=== PATIENT | male | born 1940 | race Caucasian/White ===

== ENCOUNTER 2018-02-28 08:00 | Outpatient (RCR) | payer MEDICARE, SELFPAY ==
[2018-02-21 10:44] VITALS: BP 151/97; PULSE 104; RESP 20; TEMP 36.7; BMI 38.5
--- NOTE | 2018-02-21 11:59 | PCM.WC.HP ---
- Physical Exam Vital Signs Temp Pulse Resp BP 98.0 F 104 H 20 H 151/97 H 02/21/18 10:44 02/21/18 10:44 02/21/18 10:44 02/21/18 10:44 Wound Measurements and Assessment WC - Nurse 1 - General Ulcer Measurement Start: 02/21/18 10:39 Freq: Status: Active Protocol: Activity Type Activity Date Activity User E-Sign Co-Sign Detail Recorded Client Recorded Date Recorded By Document 02/21/18 10:44 DV [id number] 02/21/18 11:21 DV 02/21/18 10:44 Wound Center Nurse 1 [Ulcer Assessment] #1 Medial RLE -Combined with other wound No -Current Size (cm) - Length 1.1 -Current Size (cm) - Width 1.3 -Current Size (cm) - Depth 0.7 -Total Square Cm 1.43 -Date of Last Picture (Recall this 02/21/18 field) -Photo Taken Yes -Epithelialization None Present -Tunneling No -Undermining/Tunneling No -Circular Undermining No -Classification - Thickness Full Thickness without Exposed Support Structure -Exudate Amt Medium (34-66%) -Exudate Type Sanguineous -Wound Margin Indistinct, Non -Visible -Granulation Amt None Present (0 %) -Granulation Quality N/A -Slough/Fibrin Yes -Necrosis Amt Large (67-100%) -Necrotic Tissue Type Adherent Slough -Structure Exposed None/Limited to Skin Breakdown -Texture (Skylar-wound Skin Appearance) Assessed Localized Edema Scarring -Moisture (Skylar-wound Skin Appearance Assessed ) Weeping -Color (Skylar-wound Skin Appearance) Assessed Hemosiderin Staining -Temperature (Skylar-wound Skin No Abnormality Appearance) (Pt Warm) -Tenderness on Palpation (Skylar-wound No Skin Appearance) -Ulcer Cleansing Rinsed/ Irrigated with Saline -Foul Odor after Cleansing No -Anesthetic Used 5% Lidocaine Gel [Edema Assessment] -Lower Limb Edema Present Yes -Right Calf (cm) 45.5 -Right Ankle (cm) 26.1 -Left Calf (cm) 38.5 -Left Ankle (cm) 23.0 WC - Nurse 2 - General Ulcer CM Notes Start: 02/21/18 10:39 Freq: Status: Active Protocol: Activity Type Activity Date Activity User E-Sign Co-Sign Detail Recorded Client Recorded Date Recorded By Document 02/21/18 11:42 [id number] 02/21/18 11:54 02/21/18 11:42 Wound Center Nurse 2 [Procedure/Treatment] #1 [facility] RLE -Time 11:42 -Correct Patient Yes -Correct Side, Site, Position Yes -Correct Procedure Yes -Procedure Performed No -Wound/Ulcer Outcome Not Healed -Ulcer Cleansing Not Cleansed -Foul Odor after Cleansing No -Bioengineered Tissue No -Topical Lidocaine (%) 4 -Lidocaine (ml) 5 -Bleeding Controlled with Pressure -Treatment Response Procedure Tolerated Well [See Physician Procedure note for Specifics] Pain Scale: 0-10 Numeric [Pain] -Is Patient Pain Free? Yes Debridement Note Post-Debridement Measurements/Treatment WC - Nurse 2 - General Ulcer CM Notes Start: 02/21/18 10:39 Freq: Status: Active Protocol: Activity Type Activity Date Activity User E-Sign Co-Sign Detail Recorded Client Recorded Date Recorded By Document 02/21/18 11:42 [id number] 02/21/18 11:54 02/21/18 11:42 [facility] -Correct Patient Yes -Correct Side, Site, Position Yes -Correct Procedure Yes -Procedure Performed No -Wound/Ulcer Outcome Not Healed -Ulcer Cleansing Not Cleansed -Foul Odor after Cleansing No -Bioengineered Tissue No -Topical Lidocaine (%) 4 -Lidocaine (ml) 5 -Bleeding Controlled with Pressure -Treatment Response Procedure Tolerated Well Pain Scale: 0-10 Numeric Is Patient Pain Free? Yes
--- NOTE | 2018-02-21 12:06 | HP.PCM_ITS ---
- Physical Exam Vital Signs Temp Pulse Resp BP 98.0 F 104 H 20 H 151/97 H 02/21/18 10:44 02/21/18 10:44 02/21/18 10:44 02/21/18 10:44 Wound Measurements and Assessment WC - Nurse 1 - General Ulcer Measurement Start: 02/21/18 10:39 Freq: Status: Active Protocol: Activity Type Activity Date Activity User E-Sign Co-Sign Detail Recorded Client Recorded Date Recorded By Document 02/21/18 10:44 [id number] 02/21/18 11:21 DV 02/21/18 10:44 Wound Center Nurse 1 [Ulcer Assessment] #1 Medial RLE -Combined with other wound No -Current Size (cm) - Length 1.1 -Current Size (cm) - Width 1.3 -Current Size (cm) - Depth 0.7 -Total Square Cm 1.43 -Date of Last Picture (Recall this 02/21/18 field) -Photo Taken Yes -Epithelialization None Present -Tunneling No -Undermining/Tunneling No -Circular Undermining No -Classification - Thickness Full Thickness without Exposed Support Structure -Exudate Amt Medium (34-66%) -Exudate Type Sanguineous -Wound Margin Indistinct, Non -Visible -Granulation Amt None Present (0 %) -Granulation Quality N/A -Slough/Fibrin Yes -Necrosis Amt Large (67-100%) -Necrotic Tissue Type Adherent Slough -Structure Exposed None/Limited to Skin Breakdown -Texture (Skylar-wound Skin Appearance) Assessed Localized Edema Scarring -Moisture (Skylar-wound Skin Appearance Assessed ) Weeping -Color (Skylar-wound Skin Appearance) Assessed Hemosiderin Staining -Temperature (Skylar-wound Skin No Abnormality Appearance) (Pt Warm) -Tenderness on Palpation (Skylar-wound No Skin Appearance) -Ulcer Cleansing Rinsed/ Irrigated with Saline -Foul Odor after Cleansing No -Anesthetic Used 5% Lidocaine Gel [Edema Assessment] -Lower Limb Edema Present Yes -Right Calf (cm) 45.5 -Right Ankle (cm) 26.1 -Left Calf (cm) 38.5 -Left Ankle (cm) 23.0 WC - Nurse 2 - General Ulcer CM Notes Start: 02/21/18 10:39 Freq: Status: Active Protocol: Activity Type Activity Date Activity User E-Sign Co-Sign Detail Recorded Client Recorded Date Recorded By Document 02/21/18 11:42 [id number] 02/21/18 11:54 02/21/18 11:42 Wound Center Nurse 2 [Procedure/Treatment] #1 [facility] RLE -Time 11:42 -Correct Patient Yes -Correct Side, Site, Position Yes -Correct Procedure Yes -Procedure Performed No -Wound/Ulcer Outcome Not Healed -Ulcer Cleansing Not Cleansed -Foul Odor after Cleansing No -Bioengineered Tissue No -Topical Lidocaine (%) 4 -Lidocaine (ml) 5 -Bleeding Controlled with Pressure -Treatment Response Procedure Tolerated Well [See Physician Procedure note for Specifics] Pain Scale: 0-10 Numeric [Pain] -Is Patient Pain Free? Yes Debridement Note Post-Debridement Measurements/Treatment WC - Nurse 2 - General Ulcer CM Notes Start: 02/21/18 10:39 Freq: Status: Active Protocol: Activity Type Activity Date Activity User E-Sign Co-Sign Detail Recorded Client Recorded Date Recorded By Document 02/21/18 11:42 [id number] 02/21/18 11:54 02/21/18 11:42 [facility] -Correct Patient Yes -Correct Side, Site, Position Yes -Correct Procedure Yes -Procedure Performed No -Wound/Ulcer Outcome Not Healed -Ulcer Cleansing Not Cleansed -Foul Odor after Cleansing No -Bioengineered Tissue No -Topical Lidocaine (%) 4 -Lidocaine (ml) 5 -Bleeding Controlled with Pressure -Treatment Response Procedure Tolerated Well Pain Scale: 0-10 Numeric Is Patient Pain Free? Yes
--- NOTE | 2018-02-21 14:51 | PCM.WC.HP ---
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 Current Visit: Yes Code(s): I83.209 - Varicose veins of unspecified lower extremity with both ulcer of unspecified site and inflammation; L97.909 - Non-pressure chronic ulcer of unspecified part of unspecified lower leg with unspecified severity (3) Venous ulcer of right leg Status: Chronic Current Visit: Yes Code(s): I83.019 - Varicose veins of right lower extremity with ulcer of unspecified site; L97.919 - Non-pressure chronic ulcer of unspecified part of right lower leg with unspecified severity (4) Spontaneous hemorrhage Status: Chronic Current Visit: Yes Code(s): K66.1 - Hemoperitoneum (5) Atrial fibrillation Status: Chronic Current Visit: No Code(s): I48.91 - Unspecified atrial fibrillation (6) Lumbar radiculopathy Status: Chronic Current Visit: No Code(s): M54.16 - Radiculopathy, lumbar region (7) Obesity (BMI 35.0-39.9 without comorbidity) Status: Chronic Current Visit: No Code(s): E66.9 - Obesity, unspecified (8) Exertional dyspnea Status: Chronic Current Visit: No Code(s): R06.09 - Other forms of dyspnea (9) Right leg swelling Status: Chronic Current Visit: Yes Code(s): M79.89 - Other specified soft tissue disorders (10) Chronic venous hypertension with ulcer involving right side Status: Chronic Current Visit: Yes Code(s): I87.311 - Chronic venous hypertension (idiopathic) with ulcer of right lower extremity; L97.919 - Non-pressure chronic ulcer of unspecified part of right lower leg with unspecified severity History of Present Illness Date of Service: 02/21/18 Chief Complaint: Chronic venous insufficiency, varicose veins with ulceration and inflammation, venous hypertension with ulceration, venous ulceration, leg swelling, spontaneous bleeding?right lower extremity History of Wound: This is a 77-year-old male who presents with a long-standing history of chronic venous disease. The patient has had varicose veins for many years. He has elected to forego any significant treatment related to his venous disease. He denies a history of thrombophlebitis, though his past medical records indicate a history, though vague and nonspecific. Approximately 2 months ago, the patient developed a spontaneous ulceration on the medial aspect of his right calf. The site subsequently ruptured, and spontaneous bleeding occurred on 3 different occasions, each time with significant blood loss. On at least one occasion, the spontaneous bleeding occurred after taking a hot shower. On each of 3 occasions, the patient was transported to the emergency department at [facility] in [place], [place], where the patient was treated and released. On each occasion, sutures were placed to obliterate the bleeding. Patient was subsequently referred to the [facility] for definitive management. The patient relates swelling in his right leg which occurs typically at the end of each day. He sleeps on a flat mattress at night. He lies in a recumbent position often during the daytime. He is not very active. He is also noted to be obese. Past Medical History Past Medical History: Chronic Problems Chronic venous insufficiency (Chronic) Varicose veins with ulcer and inflammation (Chronic) Venous ulcer of right leg (Chronic) Spontaneous hemorrhage (Chronic) Atrial fibrillation (Chronic) Lumbar radiculopathy (Chronic) Obesity (BMI 35.0-39.9 without comorbidity) (Chronic) Exertional dyspnea (Chronic) Right leg swelling (Chronic) Chronic venous hypertension with ulcer involving right side (Chronic) Past Medical History: Patient's history is negative for myocardial infarction, congestive heart failure, diabetes mellitus, cancer, hypertension, pulmonary disease, renal disease, hyperlipidemia, and thyroid disease. The patient has a history of lumbar radiculopathy, atrial fibrillation, obesity, and exertional dyspnea. There is question as to whether the patient may have had a history of thrombophlebitis in the past. Surgical History: no surgical history - Family History Paternal - - The patient's father at the age of 90 of old age. Patient's mother at age of 83 with a history of liver cancer. Social History: The patient is a horan. 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 He is . He denies use of tobacco products. He rarely consumes alcoholic beverages. Lives: Spouse/ Significant Other Tobacco Use: Non-smoker Alcohol: Rare Drugs: None Review of Systems Constitutional: Denies: Chills, Fever, Weight Change Eyes: Denies: Pain, Vision Change HEENT: Denies: Difficulty Hearing, Difficulty Swallowing, Sinus Congestion Cardiovascular: Denies: Chest Pain, Palpitations Respiratory: Denies: Cough, Shortness of Breath Gastrointestinal: Denies: Diarrhea, Nausea, Vomiting Genitourinary: Denies: Dysuria, Hematuria Endocrine: Denies: Heat/ Cold Intolerance, Polydipsia, Polyuria Hematologic/ Lymphatic: Denies: Easy Bruising, Easy Bleeding - Physical Exam Vital Signs Temp Pulse Resp BP 98.0 F 104 H 20 H 151/97 H 02/21/18 10:44 02/21/18 10:44 02/21/18 10:44 02/21/18 10:44 General: Alert, Oriented x3, Cooperative, No apparent distress, Well developed, Well nourished HEENT: Atraumatic, PERRLA, EOMI, Normocephalic Oral: Moist Mucosa Neck: Supple, No JVD, Negative Carotid Bruits, Negative Hepatojugular Reflux, No Nodes, No Nuchal Rigidity, Trachea Midline Lungs: Clear to auscultation, Normal air movement, No rhonchi, No wheeze, No rales Cardiovascular: Regular rate, Regular Rhythm, Normal S1, Normal S2, No murmurs Abdomen: Soft, Non Tender, Non-Distended, Obese Extremities: No clubbing, No cyanosis, No Calf Tenderness, - - Moderate swelling is noted in the right lower extremity. Multiple large varicosities are noted bilaterally. Negrete phlebectatica is noted about each ankle. An open ulceration is noted on the medial right calf, the dimensions of which are documented elsewhere. There is only a small amount of bioburden. The base of the ulceration is pink and healthy in appearance, with evidence of peripheral epithelialization. Centrally, there appears to be a prominence, likely a varicosity, and possibly the area which resulted in active bleeding in the recent past. Wound Measurements and Assessment WC - Nurse 1 - General Ulcer Measurement Start: 02/21/18 10:39 Freq: Status: Active Protocol: Activity Type Activity Date Activity User E-Sign Co-Sign Detail Recorded Client Recorded Date Recorded By Document 02/21/18 10:44 DV [id number] 02/21/18 11:21 DV 02/21/18 10:44 Wound Center Nurse 1 [Ulcer Assessment] #1 Medial RLE -Combined with other wound No -Current Size (cm) - Length 1.1 -Current Size (cm) - Width 1.3 -Current Size (cm) - Depth 0.7 -Total Square Cm 1.43 -Date of Last Picture (Recall this 02/21/18 field) -Photo Taken Yes -Epithelialization None Present -Tunneling No -Undermining/Tunneling No -Circular Undermining No -Classification - Thickness Full Thickness without Exposed Support Structure -Exudate Amt Medium (34-66%) -Exudate Type Sanguineous -Wound Margin Indistinct, Non -Visible -Granulation Amt None Present (0 %) -Granulation Quality N/A -Slough/Fibrin Yes -Necrosis Amt Large (67-100%) -Necrotic Tissue Type Adherent Slough -Structure Exposed None/Limited to Skin Breakdown -Texture (Skylar-wound Skin Appearance) Assessed Localized Edema Scarring -Moisture (Skylar-wound Skin Appearance Assessed ) Weeping -Color (Skylar-wound Skin Appearance) Assessed Hemosiderin Staining -Temperature (Skylar-wound Skin No Abnormality Appearance) (Pt Warm) -Tenderness on Palpation (Skylar-wound No Skin Appearance) -Ulcer Cleansing Rinsed/ Irrigated with Saline -Foul Odor after Cleansing No -Anesthetic Used 5% Lidocaine Gel [Edema Assessment] -Lower Limb Edema Present Yes -Right Calf (cm) 45.5 -Right Ankle (cm) 26.1 -Left Calf (cm) 38.5 -Left Ankle (cm) 23.0 WC - Nurse 2 - General Ulcer CM Notes Start: 02/21/18 10:39 Freq: Status: Active Protocol: Activity Type Activity Date Activity User E-Sign Co-Sign Detail Recorded Client Recorded Date Recorded By Document 02/21/18 11:42 [id number] 02/21/18 11:54 02/21/18 11:42 Wound Center Nurse 2 [Procedure/Treatment] #1 Medial RLE -Time 11:42 -Correct Patient Yes -Correct Side, Site, Position Yes -Correct Procedure Yes -Procedure Performed No -Wound/Ulcer Outcome Not Healed -Ulcer Cleansing Not Cleansed -Foul Odor after Cleansing No -Bioengineered Tissue No -Topical Lidocaine (%) 4 -Lidocaine (ml) 5 -Bleeding Controlled with Pressure -Treatment Response Procedure Tolerated Well [See Physician Procedure note for Specifics] Pain Scale: 0-10 Numeric [Pain] -Is Patient Pain Free? Yes Neurological: Cranial nerves II-XII grossly intact, Neuro grossly intact Psych/Mental Status: Normal Affect, Appropriate, Alert and oriented to time, place, person, mood and affect Debridement Note Post-Debridement Measurements/Treatment WC - Nurse 2 - General Ulcer CM Notes Start: 02/21/18 10:39 Freq: Status: Active Protocol: Activity Type Activity Date Activity User E-Sign Co-Sign Detail Recorded Client Recorded Date Recorded By Document 02/21/18 11:42 [id number] 02/21/18 11:54 02/21/18 11:42 Wound Center Nurse 2 #1 Medial RLE -Time 11:42 -Correct Patient Yes -Correct Side, Site, Position Yes -Correct Procedure Yes -Procedure Performed No -Wound/Ulcer Outcome Not Healed -Ulcer Cleansing Not Cleansed -Foul Odor after Cleansing No -Bioengineered Tissue No -Topical Lidocaine (%) 4 -Lidocaine (ml) 5 -Bleeding Controlled with Pressure -Treatment Response Procedure Tolerated Well Pain Scale: 0-10 Numeric Is Patient Pain Free? Yes Laterality: Right - Medial calf Type of Debridement: Excisional debridement Anesthesia Used: 4% Lidocaine Solution Depth: Down to and including healthy tissue, in the subcutaneous layer Percentage of wound debrided: 80 Instrument Used: 7mm curette Severity: Fat Layer Exposed Amount of bleeding with debridement: Mild Bleeding Controlled with: Compression and gauze Patient tolerated procedure well Care was exercised to avoid an area centrally located within the ulceration on the right medial calf, suspected to represent a very superficial varicosity, and likely the site that has recently bled. Assessment/Plan Active Problems Chronic venous insufficiency (Chronic) Varicose veins with ulcer and inflammation (Chronic) Chronic venous hypertension (idiopathic) with ulcer and inflammation of bilateral lower extremity (Acute) Venous ulcer of right leg (Chronic) Spontaneous hemorrhage (Chronic) Right leg swelling (Chronic) Chronic venous hypertension with ulcer involving right side (Chronic) Assessment: This is a 77-year-old male with an apparent long-standing history of chronic venous disease. He has had varicose veins for many years, as well as chronic swelling in his right lower extremity. Also a question as to whether the patient may have a history of thrombophlebitis. Within the last several months, the patient has developed an ulceration on the right medial calf, and has had 3 episodes of spontaneous bleeding from the ulceration, prompting visits to the emergency department setting. On each occasion, suture closure of the bleeding vessel was performed. Patient presents with recent medical records, which have been reviewed. In addition, laboratory results are available from the patient's primary care physician, the results of which have been reviewed. Results are as follows: Cholesterol 199, HDL cholesterol 57, HDL ratio 3.5, LDL cholesterol 121, sodium 140, potassium 4.3, chloride 104, calcium 9.4, alkaline phosphatase 96, AST 24, ALT 18, bilirubin 0.7, glucose 89, BUN 14, creatinine 0.72, protein 7.4, albumin 4.2. The date of these laboratory results is 02/10/2018. Plan: The patient presented with his and adult daughter. The patient and his family have been advised in the appropriate conservative measures regarding management of the patient's chronic venous disease. The patient has been encouraged to continue sleeping in a recumbent position, on a flat mattress. Leg elevation should be to heart level, or higher. Legs should be elevated even during daytime hours, as much as possible. Prolonged idle sitting has been discouraged. Weight loss has been encouraged. Activity has also been encouraged as well. We have attempted to obtain [facility]-brachial indices [facility]. However, the arterial tree at ankle level appeared to be noncompressible, and ABIs could not be determined. We will reattempt the study in the vascular lab. The patient is also to undergo venous duplex examination in the near future as well. We are to initiate compression by means of Tubigrip's, though a higher degree of compression may ultimately be implemented, once the patient's arterial status is better understood. The patient is return in 1 week for reassessment. In the event that an episode of spontaneous bleeding should reoccur, the patient has been instructed to apply pressure to the bleeding site, and to elevate his lower extremity above heart level. Thereafter, he should seek medical attention. Influenza vaccine was not administered today. The patient is not a smoker. Patient weighs 261 pounds. He stands 5 feet 8 inches tall. His BMI is 38.5, which places him in an obese class II category. Weight loss has been recommended, and collaboration with the patient's primary care physician has been recommended in terms of weight loss management.
--- NOTE | 2018-02-21 15:20 | PCM.WC.HP ---
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 Current Visit: Yes Code(s): I83.209 - Varicose veins of unspecified lower extremity with both ulcer of unspecified site and inflammation; L97.909 - Non-pressure chronic ulcer of unspecified part of unspecified lower leg with unspecified severity (3) Venous ulcer of right leg Status: Chronic Current Visit: Yes Code(s): I83.019 - Varicose veins of right lower extremity with ulcer of unspecified site; L97.919 - Non-pressure chronic ulcer of unspecified part of right lower leg with unspecified severity (4) Spontaneous hemorrhage Status: Chronic Current Visit: Yes Code(s): K66.1 - Hemoperitoneum (5) Atrial fibrillation Status: Chronic Current Visit: No Code(s): I48.91 - Unspecified atrial fibrillation (6) Lumbar radiculopathy Status: Chronic Current Visit: No Code(s): M54.16 - Radiculopathy, lumbar region (7) Obesity (BMI 35.0-39.9 without comorbidity) Status: Chronic Current Visit: No Code(s): E66.9 - Obesity, unspecified (8) Exertional dyspnea Status: Chronic Current Visit: No Code(s): R06.09 - Other forms of dyspnea (9) Right leg swelling Status: Chronic Current Visit: Yes Code(s): M79.89 - Other specified soft tissue disorders (10) Chronic venous hypertension with ulcer involving right side Status: Chronic Current Visit: Yes Code(s): I87.311 - Chronic venous hypertension (idiopathic) with ulcer of right lower extremity; L97.919 - Non-pressure chronic ulcer of unspecified part of right lower leg with unspecified severity History of Present Illness Chief Complaint: Chronic venous insufficiency, varicose veins with ulceration and inflammation, venous hypertension with ulceration, venous ulceration, leg swelling, spontaneous bleeding?right lower extremity History of Wound: This is a 77-year-old male who presents with a long-standing history of chronic venous disease. The patient has had varicose veins for many years. He has elected to forego any significant treatment related to his venous disease. He denies a history of thrombophlebitis, though his past medical records indicate a history, though vague and nonspecific. Approximately 2 months ago, the patient developed a spontaneous ulceration on the medial aspect of his right calf. The site subsequently ruptured, and spontaneous bleeding occurred on 3 different occasions, each time with significant blood loss. On at least one occasion, the spontaneous bleeding occurred after taking a hot shower. On each of 3 occasions, the patient was transported to the emergency department at [facility] in [place], [place], where the patient was treated and released. On each occasion, sutures were placed to obliterate the bleeding. Patient was subsequently referred to the [facility] for definitive management. The patient relates swelling in his right leg which occurs typically at the end of each day. He sleeps on a flat mattress at night. He lies in a recumbent position often during the daytime. He is not very active. He is also noted to be obese. 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 Patient's mother at age of 83 with a history of liver cancer. Lives: Spouse/ Significant Other Tobacco Use: Non-smoker Alcohol: Rare Drugs: None - Physical Exam Vital Signs Temp Pulse Resp BP 98.0 F 104 H 20 H 151/97 H 02/21/18 10:44 02/21/18 10:44 02/21/18 10:44 02/21/18 10:44 Wound Measurements and Assessment WC - Nurse 1 - General Ulcer Measurement Start: 02/21/18 10:39 Freq: Status: Active Protocol: Activity Type Activity Date Activity User E-Sign Co-Sign Detail Recorded Client Recorded Date Recorded By Document 02/21/18 10:44 DV [id number] 02/21/18 11:21 DV 02/21/18 10:44 Wound Center Nurse 1 [Ulcer Assessment] #1 Medial RLE -Combined with other wound No -Current Size (cm) - Length 1.1 -Current Size (cm) - Width 1.3 -Current Size (cm) - Depth 0.7 -Total Square Cm 1.43 -Date of Last Picture (Recall this 02/21/18 field) -Photo Taken Yes -Epithelialization None Present -Tunneling No -Undermining/Tunneling No -Circular Undermining No -Classification - Thickness Full Thickness without Exposed Support Structure -Exudate Amt Medium (34-66%) -Exudate Type Sanguineous -Wound Margin Indistinct, Non -Visible -Granulation Amt None Present (0 %) -Granulation Quality N/A -Slough/Fibrin Yes -Necrosis Amt Large (67-100%) -Necrotic Tissue Type Adherent Slough -Structure Exposed None/Limited to Skin Breakdown -Texture (Skylar-wound Skin Appearance) Assessed Localized Edema Scarring -Moisture (Skylar-wound Skin Appearance Assessed ) Weeping -Color (Skylar-wound Skin Appearance) Assessed Hemosiderin Staining -Temperature (Skylar-wound Skin No Abnormality Appearance) (Pt Warm) -Tenderness on Palpation (Skylar-wound No Skin Appearance) -Ulcer Cleansing Rinsed/ Irrigated with Saline -Foul Odor after Cleansing No -Anesthetic Used 5% Lidocaine Gel [Edema Assessment] -Lower Limb Edema Present Yes -Right Calf (cm) 45.5 -Right Ankle (cm) 26.1 -Left Calf (cm) 38.5 -Left Ankle (cm) 23.0 WC - Nurse 2 - General Ulcer CM Notes Start: 02/21/18 10:39 Freq: Status: Active Protocol: Activity Type Activity Date Activity User E-Sign Co-Sign Detail Recorded Client Recorded Date Recorded By Document 02/21/18 11:42 [id number] 02/21/18 11:54 02/21/18 11:42 Wound Center Nurse 2 [Procedure/Treatment] #1 Medial RLE -Time 11:42 -Correct Patient Yes -Correct Side, Site, Position Yes -Correct Procedure Yes -Procedure Performed No -Wound/Ulcer Outcome Not Healed -Ulcer Cleansing Not Cleansed -Foul Odor after Cleansing No -Bioengineered Tissue No -Topical Lidocaine (%) 4 -Lidocaine (ml) 5 -Bleeding Controlled with Pressure -Treatment Response Procedure Tolerated Well [See Physician Procedure note for Specifics] Pain Scale: 0-10 Numeric [Pain] -Is Patient Pain Free? Yes Debridement Note Post-Debridement Measurements/Treatment WC - Nurse 2 - General Ulcer CM Notes Start: 02/21/18 10:39 Freq: Status: Active Protocol: Activity Type Activity Date Activity User E-Sign Co-Sign Detail Recorded Client Recorded Date Recorded By Document 02/21/18 11:42 [id number] 02/21/18 11:54 02/21/18 11:42 Wound Center Nurse 2 #1 Medial RLE -Time 11:42 -Correct Patient Yes -Correct Side, Site, Position Yes -Correct Procedure Yes -Procedure Performed No -Wound/Ulcer Outcome Not Healed -Ulcer Cleansing Not Cleansed -Foul Odor after Cleansing No -Bioengineered Tissue No -Topical Lidocaine (%) 4 -Lidocaine (ml) 5 -Bleeding Controlled with Pressure -Treatment Response Procedure Tolerated Well Pain Scale: 0-10 Numeric Is Patient Pain Free? Yes Assessment/Plan Active Problems Chronic venous insufficiency (Chronic) Varicose veins with ulcer and inflammation (Chronic) Chronic venous hypertension (idiopathic) with ulcer and inflammation of bilateral lower extremity (Acute) Venous ulcer of right leg (Chronic) Spontaneous hemorrhage (Chronic) Right leg swelling (Chronic) Chronic venous hypertension with ulcer involving right side (Chronic) Assessment: This is a 77-year-old male with an apparent long-standing history of chronic venous disease. He has had varicose veins for many years, as well as chronic swelling in his right lower extremity. Also a question as to whether the patient may have a history of thrombophlebitis. Within the last several months, the patient has developed an ulceration on the right medial calf, and has had 3 episodes of spontaneous bleeding from the ulceration, prompting visits to the emergency department setting. On each occasion, suture closure of the bleeding vessel was performed. Patient presents with recent medical records, which have been reviewed. In addition, laboratory results are available from the patient's primary care physician, the results of which have been reviewed. Results are as follows: Cholesterol 199, HDL cholesterol 57, HDL ratio 3.5, LDL cholesterol 121, sodium 140, potassium 4.3, chloride 104, calcium 9.4, alkaline phosphatase 96, AST 24, ALT 18, bilirubin 0.7, glucose 89, BUN 14, creatinine 0.72, protein 7.4, albumin 4.2. The date of these laboratory results is 02/10/2018. Plan: The patient presented with his and adult daughter. The patient and his family have been advised in the appropriate conservative measures regarding management of the patient's chronic venous disease. The patient has been encouraged to continue sleeping in a recumbent position, on a flat mattress. Leg elevation should be to heart level, or higher. Legs should be elevated even during daytime hours, as much as possible. Prolonged idle sitting has been discouraged. Weight loss has been encouraged. Activity has also been encouraged as well. We have attempted to obtain ankle-brachial indices [facility]. However, the arterial tree at ankle level appeared to be noncompressible, and ABIs could not be determined. We will reattempt the study in the vascular lab. The patient is also to undergo venous duplex examination in the near future as well. We are to initiate compression by means of Tubigrip's, though a higher degree of compression may ultimately be implemented, once the patient's arterial status is better understood. The patient is return in 1 week for reassessment. In the event that an episode of spontaneous bleeding should reoccur, the patient has been instructed to apply pressure to the bleeding site, and to elevate his lower extremity above heart level. Thereafter, he should seek medical attention. At present, we are to use a nonadhesive topical dressing such as Adaptic, with overlying gauze. The goal is to avoid any adherence of the dressings to the bleeding site, to avoid further bleeding episodes. Ultimately, the patient may be a candidate for an endovenous ablation procedure, and the results of his anticipated venous study will be awaited. Influenza vaccine was not administered today. The patient is not a smoker. Patient weighs 261 pounds. He stands 5 feet 8 inches tall. His BMI is 38.5, which places him in an obese class II category. Weight loss has been recommended, and collaboration with the patient's primary care physician has been recommended in terms of weight loss management.
--- NOTE | 2018-02-24 10:00 | VDLE_ITS ---
[id number] VL^VDU^Venous Duplex US - Jn Extrem [id number] [facility] Venous Doppler [address] [place], [place] [id number] Ordering Physician: Nacho Franco TAG_ENDED TAG_START Name: ROXIE CHRISTENSEN Study Date: 02/24/2018 10:06 AM Patient Location: [facility] : 1940 Gender: Male Age: 77 yrs Ethnicity: C TAG_ENDED Reason For Study: Non-healing wound RIGHT LEFT CFV is compressible, spontaneous, phasic, GSV is normal. competent and demonstrates normal CFV is compressible, spontaneous, phasic, augmentation. competent, and demonstrates normal FV is compressible, spontaneous, phasic, augmentation. competent and demonstrates normal FV is compressible, spontaneous, phasic, augmentation. competent and demonstrates normal POP V is compressible, spontaneous, phasic, augmentation. competent and demonstrates normal POP V is compressible, spontaneous, phasic, augmentation. competent and demonstrates normal T/P Trunk is compressible. augmentation. PTV is compressible. T/P Trunk is compressible. RT PerV is compressible. PTV is compressible. SFJ is INCOMPETENT LT PerV is compressible. GSV is INCOMPETENT with reflux greater SFJ is competent than .5 sec and diameter of .64 x .59 GSV is INCOMPETENT with reflux greater ASV at S5 is INCOMPETENT with reflux greater than .5 sec and diameter of.45 x .51 cm than .5 sec and diameter of .34 x .39 cm SSV is competent. ASV at S6 is INCOMPETENT with reflux greater than .5 sec and diameter of .50 x .53 cm SSV is competent INCOMPETENT film flat inspector 13 cm jarod to medial malleolus. Procedure Exam performed in department. A preliminary report was called and/or faxed to [facility]. <> Interpretation Summary Deep veins of the lower extremities are bilaterally patent and compressible segmentally. There is no evidence of deep vein thrombosis on either side. Valvular competence appears intact within the proximal deep venous systems bilaterally. The greater saphenous veins appear bilaterally patent and compressible segmentally. The right sapheno-femoral junction is incompetent . The left sapheno- femoral junction is competent . Segmental valvular incompetence is noted within the greater saphenous veins bilaterally. Small saphenous veins are patent and competent bilaterally. Accessory saphenous veins in the right lower extremity at the S5 and S6 positions are incompetent. An incompetent film flat inspector vein is noted in the right calf, located 13 centimeters proximal to the right medial malleolus. TAG_START TAG_ENDED Ordering Physician: Nacho Franco Referring Physician: Nacho Franco Performed By: Selina Murillo RVT
--- NOTE | 2018-02-25 15:00 | LEAS_ITS ---
Arterial Study - Arterial Study Arterial Study: This is a 77-year-old male with a chronic nonhealing ulceration on the right lower extremity. Suspecting the presence of atherosclerotic peripheral arterial occlusive disease, the patient was brought to the noninvasive vascular laboratory at this time for the purpose of bilateral noninvasive lower extremity arterial assessment. Doppler signal assessment was used to evaluate the pulses at ankle level bilaterally. The posterior tibial and dorsalis pedis pulses were triphasic bilaterally. Segmental limb pressures were obtained bilaterally. The right ankle pressure, as determined by posterior tibial pulse, could not be determined due to the noncompressibility of the vasculature. The right ankle pressure, as determined by dorsalis pedis pulse, was measured at 155 mmHg. The right digital pressure was measured at 119 mmHg. The left ankle pressure, as determined by posterior tibial and dorsalis pedis pulses, could not be determined due to the noncompressibility of the vasculature. The left digital pressure was measured at 132 mmHg. Pulse?volume recordings were obtained bilaterally and segmentally. Waveform amplitudes appeared to be satisfactory at all levels bilaterally, including low thigh, calf, ankle, and digital levels. Resting ankle?brachial indices were calculated bilaterally. The resting right ankle?brachial index was calculated to be 1.03. The resting left ankle?brachial index could not be determined due to the noncompressibility of the vasculature. Digital?brachial indices were calculated bilaterally. The right digital- brachial index was calculated to be 0.79. The left digital-brachial index was calculated to be 0.87. Impression: Based upon the findings of this resting noninvasive lower extremity arterial study, there is no evidence of significant atherosclerotic peripheral arterial occlusive disease in the lower extremities bilaterally. Triphasic waveforms were noted at ankle level bilaterally. The resting right ankle?brachial index appears to be normal. The resting left ankle?brachial index could not be calculated, due to noncompressibility as a result of suspected arterial calcification. Digital-brachial indices are bilaterally normal, suggesting relatively normal arterial flow at digital level bilaterally. Clinical correlation is advised.
[2018-02-28 08:22] VITALS: BP 124/94; PULSE 99; RESP 18; TEMP 36.7; BMI 38.5
--- NOTE | 2018-02-28 08:45 | PCM.WC.HP ---
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 Current Visit: Yes Code(s): I83.209 - Varicose veins of unspecified lower extremity with both ulcer of unspecified site and inflammation; L97.909 - Non-pressure chronic ulcer of unspecified part of unspecified lower leg with unspecified severity (3) Venous ulcer of right leg Status: Chronic Current Visit: Yes Code(s): I83.019 - Varicose veins of right lower extremity with ulcer of unspecified site; L97.919 - Non-pressure chronic ulcer of unspecified part of right lower leg with unspecified severity (4) Spontaneous hemorrhage Status: Chronic Current Visit: Yes Code(s): K66.1 - Hemoperitoneum (5) Atrial fibrillation Status: Chronic Current Visit: No Code(s): I48.91 - Unspecified atrial fibrillation (6) Lumbar radiculopathy Status: Chronic Current Visit: No Code(s): M54.16 - Radiculopathy, lumbar region (7) Obesity (BMI 35.0-39.9 without comorbidity) Status: Chronic Current Visit: No Code(s): E66.9 - Obesity, unspecified (8) Exertional dyspnea Status: Chronic Current Visit: No Code(s): R06.09 - Other forms of dyspnea (9) Right leg swelling Status: Chronic Current Visit: Yes Code(s): M79.89 - Other specified soft tissue disorders (10) Chronic venous hypertension with ulcer involving right side Status: Chronic Current Visit: Yes Code(s): I87.311 - Chronic venous hypertension (idiopathic) with ulcer of right lower extremity; L97.919 - Non-pressure chronic ulcer of unspecified part of right lower leg with unspecified severity History of Present Illness Chief Complaint: Chronic venous insufficiency, varicose veins with ulceration and inflammation, venous hypertension with ulceration, venous ulceration, leg swelling, spontaneous bleeding?right lower extremity History of Wound: This is a 77-year-old male who presents with a long-standing history of chronic venous disease. The patient has had varicose veins for many years. He has elected to forego any significant treatment related to his venous disease. He denies a history of thrombophlebitis, though his past medical records indicate a history, though vague and nonspecific. Approximately 2 months ago, the patient developed a spontaneous ulceration on the medial aspect of his right calf. The site subsequently ruptured, and spontaneous bleeding occurred on 3 different occasions, each time with significant blood loss. On at least one occasion, the spontaneous bleeding occurred after taking a hot shower. On each of 3 occasions, the patient was transported to the emergency department at [facility] in [place], [place], where the patient was treated and released. On each occasion, sutures were placed to obliterate the bleeding. Patient was subsequently referred to the [facility] for definitive management. The patient relates swelling in his right leg which occurs typically at the end of each day. He sleeps on a flat mattress at night. He lies in a recumbent position often during the daytime. He is not very active. He is also noted to be obese. 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 Patient's mother at age of 83 with a history of liver cancer. Lives: Spouse/ Significant Other Tobacco Use: Non-smoker Alcohol: Rare Drugs: None Review of Systems Constitutional: Denies: Chills, Fever, Weight Change Eyes: Denies: Pain, Vision Change HEENT: Denies: Difficulty Hearing, Difficulty Swallowing, Sinus Congestion Cardiovascular: Denies: Chest Pain, Palpitations Respiratory: Denies: Cough, Shortness of Breath Gastrointestinal: Denies: Diarrhea, Nausea, Vomiting Genitourinary: Denies: Dysuria, Hematuria Endocrine: Denies: Heat/ Cold Intolerance, Polydipsia, Polyuria Hematologic/ Lymphatic: Denies: Easy Bruising, Easy Bleeding - Physical Exam Vital Signs Temp Pulse Resp BP 98.0 F 99 18 124/94 H 02/28/18 08:22 02/28/18 08:22 02/28/18 08:22 02/28/18 08:22 General: Alert, Oriented x3, Cooperative, No apparent distress, Well developed, Well nourished HEENT: Atraumatic, PERRLA, EOMI, Normocephalic Oral: Moist Mucosa Neck: No JVD Lungs: Normal air movement Abdomen: Non-Distended Extremities: No clubbing, No cyanosis, No Calf Tenderness, - - Slight swelling and edema is noted in the right lower extremity. There are scattered varicosities. An eschar/ulceration is noted on the right medial calf, the dimensions of which are documented elsewhere. This is the site of prior bleeding at least 3 occasions in the past. This appears to represent a large, bulging varicosity which has previously bled spontaneously. At this moment, there is no evidence of active bleeding. There has been no bleeding at this site since last seen a week ago. There is no sign of infection or cellulitis. Skin: No rashes Wound Measurements and Assessment WC - Nurse 1 - General Ulcer Measurement Start: 02/21/18 10:39 Freq: Status: Active Protocol: Activity Type Activity Date Activity User E-Sign Co-Sign Detail Recorded Client Recorded Date Recorded By Document 02/28/18 08:22 [id number] 02/28/18 08:24 02/28/18 08:22 Wound Center Nurse 1 [Ulcer Assessment] #1 Medial RLE -Combined with other wound No -Current Size (cm) - Length 0.8 -Current Size (cm) - Width 1.0 -Current Size (cm) - Depth 0.1 -Total Square Cm 0.80 -Photo Taken No -Epithelialization Small 1-33% -Tunneling No -Undermining/Tunneling No -Circular Undermining No -Classification - Thickness Full Thickness without Exposed Support Structure -Exudate Amt Small (1-33%) -Exudate Type Serosanguineous -Wound Margin Distinct, Outline Attached -Granulation Amt Small (1-33%) -Granulation Quality Red -Slough/Fibrin Yes -Necrosis Amt Large (67-100%) -Necrotic Tissue Type Adherent Slough -Structure Exposed Fascia Fat Layer Exposed -Texture (Skylar-wound Skin Appearance) Assessed Localized Edema Scarring -Moisture (Skylar-wound Skin Appearance No Abnormality ) Assessed -Color (Skylar-wound Skin Appearance) Assessed Cyanosis Erythema Hemosiderin Staining -Temperature (Skylar-wound Skin No Abnormality Appearance) (Pt Warm) -Tenderness on Palpation (Skylar-wound No Skin Appearance) -Ulcer Cleansing Not Cleansed -Foul Odor after Cleansing No -Anesthetic Used 5% Lidocaine Gel [Edema Assessment] -Lower Limb Edema Present Yes -Right Calf (cm) 41.5 -Right Ankle (cm) 24.5 WC - Nurse 2 - General Ulcer CM Notes Start: 02/21/18 10:39 Freq: Status: Active Protocol: Activity Type Activity Date Activity User E-Sign Co-Sign Detail Recorded Client Recorded Date Recorded By Document 02/28/18 08:29 [id number] 02/28/18 08:37 02/28/18 08:29 Wound Center Nurse 2 [Procedure/Treatment] #1 [facility] RLE -Time 08:30 -Correct Patient Yes -Correct Side, Site, Position Yes -Correct Procedure Yes -Procedure Performed No -Wound/Ulcer Outcome Not Healed -Ulcer Cleansing Rinsed/ Irrigated with Saline -Foul Odor after Cleansing No -Bioengineered Tissue No -Topical Lidocaine (%) 4 -Lidocaine (ml) 10 -Bleeding Controlled with NA [See Physician Procedure note for Specifics] Pain Scale: 0-10 Numeric [Pain] -Is Patient Pain Free? Yes Musculoskeletal: No Muscle Wasting Neurological: Cranial nerves II-XII grossly intact, Neuro grossly intact Psych/Mental Status: Normal Affect, Appropriate, Alert and oriented to time, place, person, mood and affect Debridement Note Post-Debridement Measurements/Treatment WC - Nurse 2 - General Ulcer CM Notes Start: 02/21/18 10:39 Freq: Status: Active Protocol: Activity Type Activity Date Activity User E-Sign Co-Sign Detail Recorded Client Recorded Date Recorded By Document 02/21/18 11:42 [id number] 02/21/18 11:54 JS Document 02/28/18 08:29 [id number] 02/28/18 08:37 JS 02/21/18 02/28/18 11:42 08:29 Wound Center Nurse 2 #1 [facility] RLE -Time 11:42 08:30 -Correct Patient Yes Yes -Correct Side, Site, Position Yes Yes -Correct Procedure Yes Yes -Procedure Performed No No -Wound/Ulcer Outcome Not Healed Not Healed -Ulcer Cleansing Not Cleansed Rinsed/ Irrigated with Saline -Foul Odor after Cleansing No No -Bioengineered Tissue No No -Topical Lidocaine (%) 4 4 -Lidocaine (ml) 5 10 -Bleeding Controlled with Pressure NA -Treatment Response Procedure Tolerated Well Pain Scale: 0-10 Numeric Is Patient Pain Free? 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 He has had varicose veins for many years, as well as chronic swelling in his right lower extremity. Also a question as to whether the patient may have a history of thrombophlebitis. Within the last several months, the patient has developed an ulceration on the right medial calf, and has had 3 episodes of spontaneous bleeding from the ulceration, prompting visits to the emergency department setting. On each occasion, suture closure of the bleeding vessel was performed. Patient presented with recent medical records, which have been reviewed. In addition, laboratory results are available from the patient's primary care physician, the results of which have been reviewed. Results are as follows: Cholesterol 199, HDL cholesterol 57, HDL ratio 3.5, LDL cholesterol 121, sodium 140, potassium 4.3, chloride 104, calcium 9.4, alkaline phosphatase 96, AST 24, ALT 18, bilirubin 0.7, glucose 89, BUN 14, creatinine 0.72, protein 7.4, albumin 4.2. The date of these laboratory results is 02/10/2018. The patient has undergone a venous duplex examination on February 24, 2018. Results have been reviewed with the patient. 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 Accessory saphenous veins in the right lower extremity at the S5 and S6 positions are also incompetent. An incompetent econometrician vein is noted in the right calf, located 13 cm proximal to the right medial malleolus. A noninvasive lower extremity arterial study has been performed as well, revealing no evidence of significant arterial occlusive disease in the lower extremities. Plan: The patient presented with his and adult daughter again today. The patient and his family have been advised in the appropriate conservative measures regarding management of the patient's chronic venous disease. The patient has been encouraged to continue sleeping in a recumbent position, on a flat mattress. Leg elevation should be to heart level, or higher. Legs should be elevated even during daytime hours, as much as possible. Prolonged idle sitting has been discouraged. Weight loss has been encouraged. Activity has also been encouraged as well. We are to implement the use of compression to the right lower extremity by means of SurePress, which will be applied by the patient daily. The patient and his family will be instructed in the appropriate means of application. We are to use Adaptic and gauze overlying the ulcerated site, in an effort to avoid adherence and subsequent bleeding. Patient has been instructed that, in the event of additional bleeding from the site, he is to elevate his leg and apply manual pressure. The patient is return in 2 weeks for reassessment. In the event that an episode of spontaneous bleeding should reoccur, the patient has been instructed to apply pressure to the bleeding site, and to elevate his lower extremity above heart level. Thereafter, he should seek medical attention. At present, we are to use a nonadhesive topical dressing such as Adaptic, with overlying gauze. The goal is to avoid any adherence of the dressings to the bleeding site, to avoid further bleeding episodes. Ultimately, the patient may be a candidate for an endovenous ablation procedure. The nature of the endovenous laser ablation procedure has been discussed with the patient and his family in detail. It is anticipated that such a procedure may be necessary in an effort to reduce the pressure within the venous system of the right lower extremity, and reduce the likelihood of further bleeding from the ulcerated site. However, conservative measures will be continued at present. In addition to endovenous laser ablation, there may be a need for ultrasound-guided injection sclerotherapy of the veins in the region of the bleeding varicosity. Influenza vaccine was not administered today. The patient is not a smoker. Patient weighs 261 pounds. He stands 5 feet 8 inches tall. His BMI is 38.5, which places him in an obese class II category. Weight loss has been recommended, and collaboration with the patient's primary care physician has been recommended in terms of weight loss management.
--- NOTE | 2018-02-28 08:52 | HP.PCM_ITS ---
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 Current Visit: Yes Code(s): I83.209 - Varicose veins of unspecified lower extremity with both ulcer of unspecified site and inflammation; L97.909 - Non-pressure chronic ulcer of unspecified part of unspecified lower leg with unspecified severity (3) Venous ulcer of right leg Status: Chronic Current Visit: Yes Code(s): I83.019 - Varicose veins of right lower extremity with ulcer of unspecified site; L97.919 - Non-pressure chronic ulcer of unspecified part of right lower leg with unspecified severity (4) Spontaneous hemorrhage Status: Chronic Current Visit: Yes Code(s): K66.1 - Hemoperitoneum (5) Atrial fibrillation Status: Chronic Current Visit: No Code(s): I48.91 - Unspecified atrial fibrillation (6) Lumbar radiculopathy Status: Chronic Current Visit: No Code(s): M54.16 - Radiculopathy, lumbar region (7) Obesity (BMI 35.0-39.9 without comorbidity) Status: Chronic Current Visit: No Code(s): E66.9 - Obesity, unspecified (8) Exertional dyspnea Status: Chronic Current Visit: No Code(s): R06.09 - Other forms of dyspnea (9) Right leg swelling Status: Chronic Current Visit: Yes Code(s): M79.89 - Other specified soft tissue disorders (10) Chronic venous hypertension with ulcer involving right side Status: Chronic Current Visit: Yes Code(s): I87.311 - Chronic venous hypertension (idiopathic) with ulcer of right lower extremity; L97.919 - Non- pressure chronic ulcer of unspecified part of right lower leg with unspecified severity History of Present Illness Chief Complaint: Chronic venous insufficiency, varicose veins with ulceration and inflammation, venous hypertension with ulceration, venous ulceration, leg swelling, spontaneous bleeding?right lower extremity History of Wound: This is a 77-year-old male who presents with a long-standing history of chronic venous disease. The patient has had varicose veins for many years. He has elected to forego any significant treatment related to his venous disease. He denies a history of thrombophlebitis, though his past medical records indicate a history, though vague and nonspecific. Approximately 2 months ago, the patient developed a spontaneous ulceration on the medial aspect of his right calf. The site subsequently ruptured, and spontaneous bleeding occurred on 3 different occasions, each time with significant blood loss. On at least one occasion, the spontaneous bleeding occurred after taking a hot shower. On each of 3 occasions, the patient was transported to the emergency department at [facility] in [place], [place], where the patient was treated and released. On each occasion, sutures were placed to obliterate the bleeding. Patient was subsequently referred to the [facility] for definitive management. The patient relates swelling in his right leg which occurs typically at the end of each day. He sleeps on a flat mattress at night. He lies in a recumbent position often during the daytime. He is not very active. He is also noted to be obese. 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 Patient's mother at age of 83 with a history of liver cancer. Lives: Spouse/ Significant Other Tobacco Use: Non-smoker Alcohol: Rare Drugs: None Review of Systems Constitutional: Denies: Chills, Fever, Weight Change Eyes: Denies: Pain, Vision Change HEENT: Denies: Difficulty Hearing, Difficulty Swallowing, Sinus Congestion Cardiovascular: Denies: Chest Pain, Palpitations Respiratory: Denies: Cough, Shortness of Breath Gastrointestinal: Denies: Diarrhea, Nausea, Vomiting Genitourinary: Denies: Dysuria, Hematuria Endocrine: Denies: Heat/ Cold Intolerance, Polydipsia, Polyuria Hematologic/ Lymphatic: Denies: Easy Bruising, Easy Bleeding - Physical Exam Vital Signs Temp Pulse Resp BP 98.0 F 99 18 124/94 H 02/28/18 08:22 02/28/18 08:22 02/28/18 08:22 02/28/18 08:22 General: Alert, Oriented x3, Cooperative, No apparent distress, Well developed, Well nourished HEENT: Atraumatic, PERRLA, EOMI, Normocephalic Oral: Moist Mucosa Neck: No JVD Lungs: Normal air movement Abdomen: Non-Distended Extremities: No clubbing, No cyanosis, No Calf Tenderness, - - Slight swelling and edema is noted in the right lower extremity. There are scattered varicosities. An eschar/ulceration is noted on the right medial calf, the dimensions of which are documented elsewhere. This is the site of prior bleeding at least 3 occasions in the past. This appears to represent a large, bulging varicosity which has previously bled spontaneously. At this moment, there is no evidence of active bleeding. There has been no bleeding at this site since last seen a week ago. There is no sign of infection or cellulitis. Skin: No rashes Wound Measurements and Assessment WC - Nurse 1 - General Ulcer Measurement Start: 02/21/18 10:39 Freq: Status: Active Protocol: Activity Type Activity Date Activity User E-Sign Co-Sign Detail Recorded Client Recorded Date Recorded By Document 02/28/18 08:22 [id number] 02/28/18 08:24 02/28/18 08:22 Wound Center Nurse 1 [Ulcer Assessment] #1 Medial RLE -Combined with other wound No -Current Size (cm) - Length 0.8 -Current Size (cm) - Width 1.0 -Current Size (cm) - Depth 0.1 -Total Square Cm 0.80 -Photo Taken No -Epithelialization Small 1-33% -Tunneling No -Undermining/Tunneling No -Circular Undermining No -Classification - Thickness Full Thickness without Exposed Support Structure -Exudate Amt Small (1-33%) -Exudate Type Serosanguineous -Wound Margin Distinct, Outline Attached -Granulation Amt Small (1-33%) -Granulation Quality Red -Slough/Fibrin Yes -Necrosis Amt Large (67-100%) -Necrotic Tissue Type Adherent Slough -Structure Exposed Fascia Fat Layer Exposed -Texture (Skylar-wound Skin Appearance) Assessed Localized Edema Scarring -Moisture (Sklyar-wound Skin Appearance No Abnormality ) Assessed -Color (Skylar-wound Skin Appearance) Assessed Cyanosis Erythema Hemosiderin Staining -Temperature (Skylar-wound Skin No Abnormality Appearance) (Pt Warm) -Tenderness on Palpation (Skylar-wound No Skin Appearance) -Ulcer Cleansing Not Cleansed -Foul Odor after Cleansing No -Anesthetic Used 5% Lidocaine Gel [Edema Assessment] -Lower Limb Edema Present Yes -Right Calf (cm) 41.5 -Right Ankle (cm) 24.5 WC - Nurse 2 - General Ulcer CM Notes Start: 02/21/18 10:39 Freq: Status: Active Protocol: Activity Type Activity Date Activity User E-Sign Co-Sign Detail Recorded Client Recorded Date Recorded By Document 02/28/18 08:29 [id number] 02/28/18 08:37 02/28/18 08:29 Wound Center Nurse 2 [Procedure/Treatment] #1 [facility] RLE -Time 08:30 -Correct Patient Yes -Correct Side, Site, Position Yes -Correct Procedure Yes -Procedure Performed No -Wound/Ulcer Outcome Not Healed -Ulcer Cleansing Rinsed/ Irrigated with Saline -Foul Odor after Cleansing No -Bioengineered Tissue No -Topical Lidocaine (%) 4 -Lidocaine (ml) 10 -Bleeding Controlled with NA [See Physician Procedure note for Specifics] Pain Scale: 0-10 Numeric [Pain] -Is Patient Pain Free? Yes Musculoskeletal: No Muscle Wasting Neurological: Cranial nerves II-XII grossly intact, Neuro grossly intact Psych/Mental Status: Normal Affect, Appropriate, Alert and oriented to time, place, person, mood and affect Debridement Note Post-Debridement Measurements/Treatment WC - Nurse 2 - General Ulcer CM Notes Start: 02/21/18 10:39 Freq: Status: Active Protocol: Activity Type Activity Date Activity User E-Sign Co-Sign Detail Recorded Client Recorded Date Recorded By Document 02/21/18 11:42 [id number] 02/21/18 11:54 JS Document 02/28/18 08:29 [id number] 02/28/18 08:37 JS 02/21/18 02/28/18 11:42 08:29 Wound Center Nurse 2 #1 [facility] RLE -Time 11:42 08:30 -Correct Patient Yes Yes -Correct Side, Site, Position Yes Yes -Correct Procedure Yes Yes -Procedure Performed No No -Wound/Ulcer Outcome Not Healed Not Healed -Ulcer Cleansing Not Cleansed Rinsed/ Irrigated with Saline -Foul Odor after Cleansing No No -Bioengineered Tissue No No -Topical Lidocaine (%) 4 4 -Lidocaine (ml) 5 10 -Bleeding Controlled with Pressure NA -Treatment Response Procedure Tolerated Well Pain Scale: 0-10 Numeric Is Patient Pain Free? 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 He has had varicose veins for many years, as well as chronic swelling in his right lower extremity. Also a question as to whether the patient may have a history of thrombophlebitis. Within the last several months, the patient has developed an ulceration on the right medial calf, and has had 3 episodes of spontaneous bleeding from the ulceration, prompting visits to the emergency department setting. On each occasion, suture closure of the bleeding vessel was performed. Patient presented with recent medical records, which have been reviewed. In addition, laboratory results are available from the patient's primary care physician, the results of which have been reviewed. Results are as follows: Cholesterol 199, HDL cholesterol 57, HDL ratio 3.5, LDL cholesterol 121, sodium 140, potassium 4.3, chloride 104, calcium 9.4, alkaline phosphatase 96, AST 24, ALT 18, bilirubin 0.7, glucose 89, BUN 14, creatinine 0.72, protein 7.4, albumin 4.2. The date of these laboratory results is 02/10/2018. The patient has undergone a venous duplex examination on February 24, 2018. Results have been reviewed with the patient. 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 Accessory saphenous veins in the right lower extremity at the S5 and S6 positions are also incompetent. An incompetent corn shucker vein is noted in the right calf, located 13 cm proximal to the right medial malleolus. A noninvasive lower extremity arterial study has been performed as well, revealing no evidence of significant arterial occlusive disease in the lower extremities. Plan: The patient presented with his and adult daughter again today. The patient and his family have been advised in the appropriate conservative measures regarding management of the patient's chronic venous disease. The patient has been encouraged to continue sleeping in a recumbent position, on a flat mattress. Leg elevation should be to heart level, or higher. Legs should be elevated even during daytime hours, as much as possible. Prolonged idle sitting has been discouraged. Weight loss has been encouraged. Activity has also been encouraged as well. We are to implement the use of compression to the right lower extremity by means of SurePress, which will be applied by the patient daily. The patient and his family will be instructed in the appropriate means of application. We are to use Adaptic and gauze overlying the ulcerated site, in an effort to avoid adherence and subsequent bleeding. Patient has been instructed that, in the event of additional bleeding from the site, he is to elevate his leg and apply manual pressure. The patient is return in 2 weeks for reassessment. In the event that an episode of spontaneous bleeding should reoccur, the patient has been instructed to apply pressure to the bleeding site, and to elevate his lower extremity above heart level. Thereafter, he should seek medical attention. At present, we are to use a nonadhesive topical dressing such as Adaptic, with overlying gauze. The goal is to avoid any adherence of the dressings to the bleeding site, to avoid further bleeding episodes. Ultimately, the patient may be a candidate for an endovenous ablation procedure. The nature of the endovenous laser ablation procedure has been dis cussed with the patient and his family in detail. It is anticipated that such a procedure may be necessary in an effort to reduce the pressure within the venous system of the right lower extremity, and reduce the likelihood of further bleeding from the ulcerated site. However, conservative measures will be continued at present. In addition to endovenous laser ablation, there may be a need for ultrasound-guided injection sclerotherapy of the veins in the region of the bleeding varicosity. Influenza vaccine was not administered today. The patient is not a smoker. Patient weighs 261 pounds. He stands 5 feet 8 inches tall. His BMI is 38.5, which places him in an obese class II category. Weight loss has been recommended, and collaboration with the patient's primary care physician has been recommended in terms of weight loss management.
== END 2018-03-01 23:59 ==
LOC: WC 08:00
PROVIDERS: Referring Provider Surgery; Visit Provider Surgery
DX: I83.212 Varicose veins of right lower extremity with both ulcer of calf and inflammation (principal); L97.212 Non-pressure chronic ulcer of right calf with fat layer exposed; M79.89 Other specified soft tissue disorders; I48.2 Chronic atrial fibrillation; M54.16 Radiculopathy, lumbar region; E66.9 Obesity, unspecified; Z71.3 Dietary counseling and surveillance; R06.09 Other forms of dyspnea
CPT/HCPCS: 93923; 93970; 99203; 99213; G0463

== ENCOUNTER 2018-03-31 08:00 | Outpatient (RCR) | payer MEDICARE, SELFPAY ==
[2018-03-02 02:13] VITALS: BP 124/94; PULSE 99; RESP 18; TEMP 36.7
[2018-03-14 08:16] VITALS: BP 117/81; PULSE 103; RESP 18; TEMP 36.6
--- NOTE | 2018-03-14 08:54 | PCM.WC.HP ---
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 Status: Chronic Current Visit: Yes Code(s): I87.333 - Chronic venous hypertension (idiopathic) with ulcer and inflammation of bilateral lower extremity; L97.919 - Non-pressure chronic ulcer of unspecified part of right lower leg with unspecified severity; L97.929 - Non-pressure chronic ulcer of unspecified part of left lower leg with unspecified severity (4) Venous ulcer of right leg Status: Chronic Current Visit: Yes Code(s): I83.019 - Varicose veins of right lower extremity with ulcer of unspecified site; L97.919 - Non-pressure chronic ulcer of unspecified part of right lower leg with unspecified severity (5) Spontaneous hemorrhage Status: Chronic Current Visit: Yes Code(s): K66.1 - Hemoperitoneum (6) Atrial fibrillation Status: Chronic Current Visit: No Code(s): I48.91 - Unspecified atrial fibrillation (7) Lumbar radiculopathy Status: Chronic Current Visit: No Code(s): M54.16 - Radiculopathy, lumbar region (8) Obesity (BMI 35.0-39.9 without comorbidity) Status: Chronic Current Visit: Yes Code(s): E66.9 - Obesity, unspecified (9) Exertional dyspnea Status: Chronic Current Visit: No Code(s): R06.09 - Other forms of dyspnea (10) Right leg swelling Status: Chronic Current Visit: Yes Code(s): M79.89 - Other specified soft tissue disorders (11) Chronic venous hypertension with ulcer involving right side Status: Chronic Current Visit: Yes Code(s): I87.311 - Chronic venous hypertension (idiopathic) with ulcer of right lower extremity; L97.919 - Non-pressure chronic ulcer of unspecified part of right lower leg with unspecified severity History of Present Illness Chief Complaint: Chronic venous insufficiency, varicose veins with ulceration and inflammation, venous hypertension with ulceration, venous ulceration, leg swelling, spontaneous bleeding?right lower extremity History of Wound: This is a 77-year-old male who presents with a long-standing history of chronic venous disease. The patient has had varicose veins for many years. He has elected to forego any significant treatment related to his venous disease. He denies a history of thrombophlebitis, though his past medical records indicate a history, though vague and nonspecific. Approximately 2 months ago, the patient developed a spontaneous ulceration on the medial aspect of his right calf. The site subsequently ruptured, and spontaneous bleeding occurred on 3 different occasions, each time with significant blood loss. On at least one occasion, the spontaneous bleeding occurred after taking a hot shower. On each of 3 occasions, the patient was transported to the emergency department at [facility] in [place], [place], where the patient was treated and released. On each occasion, sutures were placed to obliterate the bleeding. Patient was subsequently referred to the [facility] for definitive management. The patient relates swelling in his right leg which occurs typically at the end of each day. He sleeps on a flat mattress at night. He lies in a recumbent position often during the daytime. He is not very active. He is also noted to be obese. 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 Patient's mother at age of 83 with a history of liver cancer. Tobacco Use: Non-smoker Review of Systems Constitutional: Denies: Chills, Fever, Weight Change Eyes: Denies: Pain, Vision Change HEENT: Denies: Difficulty Hearing, Difficulty Swallowing, Sinus Congestion Cardiovascular: Denies: Chest Pain, Palpitations Respiratory: Denies: Cough, Shortness of Breath Gastrointestinal: Denies: Diarrhea, Nausea, Vomiting Genitourinary: Denies: Dysuria, Hematuria Endocrine: Denies: Heat/ Cold Intolerance, Polydipsia, Polyuria Hematologic/ Lymphatic: Denies: Easy Bruising, Easy Bleeding - Physical Exam Vital Signs Temp Pulse Resp BP 97.8 F 103 H 18 117/81 H 03/14/18 08:16 03/14/18 08:16 03/14/18 08:16 03/14/18 08:16 General: Alert, Oriented x3, Cooperative, No apparent distress, Well developed, Well nourished HEENT: Atraumatic, PERRLA, EOMI, Normocephalic Oral: Moist Mucosa Neck: No JVD Lungs: Normal air movement Abdomen: Non-Distended Extremities: No clubbing, No cyanosis, No Calf Tenderness, Edema - Right leg, - - Mild swelling and edema are noted in the right lower extremity. The ulceration of the right lower extremity persists, on the medial calf. There is no associated erythema. No obvious infection or cellulitis. There is a large eschar, which is bulging, highly suspicious for an underlying venous structure. Due to its appearance, and suspicion regarding the presence of a bulging vein directly beneath the eschar, debridement was not performed today. Skin: No rashes Wound Measurements and Assessment WC - Nurse 1 - General Ulcer Measurement Start: 03/14/18 08:15 Freq: Status: Active Protocol: Activity Type Activity Date Activity User E-Sign Co-Sign Detail Recorded Client Recorded Date Recorded By Document 03/14/18 08:16 DV [id number] 03/14/18 08:28 DV 03/14/18 08:16 Wound Center Nurse 1 [Ulcer Assessment] #1 Medial RLE -Combined with other wound No -Current Size (cm) - Length 0.6 -Current Size (cm) - Width 1.2 -Current Size (cm) - Depth 0.1 -Total Square Cm 0.72 -Photo Taken Yes -Epithelialization None Present -Tunneling No -Undermining/Tunneling No -Circular Undermining No -Classification - Thickness Full Thickness without Exposed Support Structure -Exudate Amt Small (1-33%) -Exudate Type Serous -Wound Margin Distinct, Outline Attached -Granulation Amt None Present (0 %) -Granulation Quality N/A -Slough/Fibrin Yes -Necrosis Amt Small (1-33%) -Necrotic Tissue Type Adherent Slough -Structure Exposed N/A -Texture (Skylar-wound Skin Appearance) Assessed Scarring -Moisture (Skylar-wound Skin Appearance Assessed ) Weeping -Color (Skylar-wound Skin Appearance) No Abnormality Assessed -Temperature (Skylar-wound Skin No Abnormality Appearance) (Pt Warm) -Tenderness on Palpation (Skylar-wound No Skin Appearance) -Ulcer Cleansing Rinsed/ Irrigated with Saline [Edema Assessment] -Lower Limb Edema Present Yes -Right Calf (cm) 41.5 -Right Ankle (cm) 25.0 Musculoskeletal: No Muscle Wasting Neurological: Cranial nerves II-XII grossly intact, Neuro grossly intact Psych/Mental Status: Normal Affect, Appropriate, Alert and oriented to time, place, person, mood and affect Debridement Note No debridement was completed today Assessment/Plan Active Problems Chronic venous insufficiency (Chronic) Varicose veins with ulcer and inflammation (Chronic) Chronic venous hypertension (idiopathic) with ulcer and inflammation of bilateral lower extremity (Chronic) Venous ulcer of right leg (Chronic) Spontaneous hemorrhage (Chronic) Obesity (BMI 35.0-39.9 without comorbidity) (Chronic) Right leg swelling (Chronic) Chronic venous hypertension with ulcer involving right side (Chronic) Assessment: This is a 77-year-old male with an apparent long-standing history of chronic venous disease. He has had varicose veins for many years, as well as chronic swelling in his right lower extremity. Also a question as to whether the patient may have a history of thrombophlebitis. Within the last several months, the patient has developed an ulceration on the right medial calf, and has had 3 episodes of spontaneous bleeding from the ulceration, prompting visits to the emergency department setting. On each occasion, suture closure of the bleeding vessel was performed. Patient presented with recent medical records, which have been reviewed. In addition, laboratory results are available from the patient's primary care physician, the results of which have been reviewed. Results are as follows: Cholesterol 199, HDL cholesterol 57, HDL ratio 3.5, LDL cholesterol 121, sodium 140, potassium 4.3, chloride 104, calcium 9.4, alkaline phosphatase 96, AST 24, ALT 18, bilirubin 0.7, glucose 89, BUN 14, creatinine 0.72, protein 7.4, albumin 4.2. The date of these laboratory results is 02/10/2018. The patient has undergone a venous duplex examination on February 24, 2018. Results have been reviewed with the patient. 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 Accessory saphenous veins in the right lower extremity at the S5 and S6 positions are also incompetent. An incompetent manager manufacturing vein is noted in the right calf, located 13 cm proximal to the right medial malleolus. A noninvasive lower extremity arterial study has been performed as well, revealing no evidence of significant arterial occlusive disease in the lower extremities. The patient is accompanied by his and daughter. As a result of conversations with the patient's family, it is apparent that the patient has been noncompliant with recommended measures. He has not been using compression by means of SurePress applied on a daily basis. He has been largely noncompliant with this measure. It appears as though he sleeps on a flat surface at night. He claims to be elevating his lower extremities frequently during daytime hours. Nonetheless, the appearance of his ulceration, the presence of swelling in the right lower extremity, etc., suggest noncompliance with recommended measures, which is confirmed by the patient's family. Plan: The patient presented with his and adult daughter again today. The patient and his family have been advised in the appropriate conservative measures regarding management of the patient's chronic venous disease. The patient has been encouraged to continue sleeping in a recumbent position, on a flat mattress. Leg elevation should be to heart level, or higher. Legs should be elevated even during daytime hours, as much as possible. Prolonged idle sitting has been discouraged. Weight loss has been encouraged. Activity has also been encouraged as well. We are to implement compression to the right lower extremity by means of a 3M 2 layer compression wrap, which will be changed twice weekly. Using SurePress, at the patient's discretion, has not met with compliance, and the clinical response has been correspondingly poor. We are to use Adaptic and gauze overlying the ulcerated site, in an effort to avoid adherence and subsequent bleeding. Patient has been instructed that, in the event of additional bleeding from the site, he is to elevate his leg and apply manual pressure. The patient is return in 2 weeks for reassessment. In the event that an episode of spontaneous bleeding should reoccur, the patient has been instructed to apply pressure to the bleeding site, and to elevate his lower extremity above heart level. Thereafter, he should seek medical attention. At present, we are to use a nonadhesive topical dressing such as Adaptic, with overlying gauze. The goal is to avoid any adherence of the dressings to the bleeding site, to avoid further bleeding episodes. Ultimately, the patient will be a likely candidate for an endovenous ablation procedure. The nature of the endovenous laser ablation procedure has been discussed with the patient and his family in detail. It is anticipated that such a procedure may be necessary in an effort to reduce the pressure within the venous system of the right lower extremity, and reduce the likelihood of further bleeding from the ulcerated site. However, conservative measures will be continued at present. In addition to endovenous laser ablation, there may be a need for ultrasound-guided injection sclerotherapy of the veins in the region of the bleeding varicosity. Influenza vaccine was not administered today. The patient is not a smoker. Patient weighs 261 pounds. He stands 5 feet 8 inches tall. His BMI is 38.5, which places him in an obese class II category. Weight loss has been recommended, and collaboration with the patient's primary care physician has been recommended in terms of weight loss management.
[2018-03-17 15:47] VITALS: BP 140/96; PULSE 109; RESP 16; TEMP 36.2
[2018-03-21 08:25] VITALS: BP 121/90; PULSE 103; RESP 18; TEMP 36
--- NOTE | 2018-03-21 09:09 | PCM.WC.HP ---
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 Status: Chronic Current Visit: Yes Code(s): I87.333 - Chronic venous hypertension (idiopathic) with ulcer and inflammation of bilateral lower extremity; L97.919 - Non-pressure chronic ulcer of unspecified part of right lower leg with unspecified severity; L97.929 - Non-pressure chronic ulcer of unspecified part of left lower leg with unspecified severity (4) Venous ulcer of right leg Status: Chronic Current Visit: Yes Code(s): I83.019 - Varicose veins of right lower extremity with ulcer of unspecified site; L97.919 - Non-pressure chronic ulcer of unspecified part of right lower leg with unspecified severity (5) Spontaneous hemorrhage Status: Chronic Current Visit: Yes Code(s): K66.1 - Hemoperitoneum (6) Atrial fibrillation Status: Chronic Current Visit: No Code(s): I48.91 - Unspecified atrial fibrillation (7) Lumbar radiculopathy Status: Chronic Current Visit: No Code(s): M54.16 - Radiculopathy, lumbar region (8) Obesity (BMI 35.0-39.9 without comorbidity) Status: Chronic Current Visit: Yes Code(s): E66.9 - Obesity, unspecified (9) Exertional dyspnea Status: Chronic Current Visit: No Code(s): R06.09 - Other forms of dyspnea (10) Right leg swelling Status: Chronic Current Visit: Yes Code(s): M79.89 - Other specified soft tissue disorders (11) Chronic venous hypertension with ulcer involving right side Status: Chronic Current Visit: Yes Code(s): I87.311 - Chronic venous hypertension (idiopathic) with ulcer of right lower extremity; L97.919 - Non-pressure chronic ulcer of unspecified part of right lower leg with unspecified severity History of Present Illness Chief Complaint: Chronic venous insufficiency, varicose veins with ulceration and inflammation, venous hypertension with ulceration, venous ulceration, leg swelling, spontaneous bleeding?right lower extremity History of Wound: This is a 77-year-old male who presented with a long-standing history of chronic venous disease. The patient has had varicose veins for many years. He has elected to forego any significant treatment related to his venous disease. He denies a history of thrombophlebitis, though his past medical records indicate a history, though vague and nonspecific. Approximately 2 months prior to his presentation, the patient developed a spontaneous ulceration on the medial aspect of his right calf. The site subsequently ruptured, and spontaneous bleeding occurred on 3 different occasions, each time with significant blood loss. On at least one occasion, the spontaneous bleeding occurred after taking a hot shower. On each of 3 occasions, the patient was transported to the emergency department at [facility] in [place], [place], where the patient was treated and released. On each occasion, sutures were placed to obliterate the bleeding. Patient was subsequently referred to the [facility] for definitive management. The patient relates swelling in his right leg which occurs typically at the end of each day. He sleeps on a flat mattress at night. He lies in a recumbent position often during the daytime. He is not very active. He is also noted to be obese. 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 Patient's mother at age of 83 with a history of liver cancer. Tobacco Use: Non-smoker Review of Systems Constitutional: Denies: Chills, Fever, Weight Change Eyes: Denies: Pain, Vision Change HEENT: Denies: Difficulty Hearing, Difficulty Swallowing, Sinus Congestion Cardiovascular: Denies: Chest Pain, Palpitations Respiratory: Denies: Cough, Shortness of Breath Gastrointestinal: Denies: Diarrhea, Nausea, Vomiting Genitourinary: Denies: Dysuria, Hematuria Endocrine: Denies: Heat/ Cold Intolerance, Polydipsia, Polyuria Hematologic/ Lymphatic: Denies: Easy Bruising, Easy Bleeding - Physical Exam Vital Signs Temp Pulse Resp BP 96.8 F L 103 H 18 121/90 H 03/21/18 08:25 03/21/18 08:25 03/21/18 08:25 03/21/18 08:25 General: Alert, Oriented x3, Cooperative, No apparent distress, Well developed, Well nourished HEENT: Atraumatic, PERRLA, EOMI, Normocephalic Oral: Moist Mucosa Neck: No JVD Lungs: Normal air movement Abdomen: Non-Distended Extremities: No clubbing, No cyanosis, No Calf Tenderness, - - Only slight swelling and edema persist in the patient's right lower extremity. However, it is markedly improved. Circumference dimensions are documented elsewhere. The ulceration on the right anterior tibial surface is little changed in appearance. There is a dry eschar. There is prominence at the site, and clinically there is suspicion that the prominence is due to an underlying large varicosity. There is no sign of infection or cellulitis. Dimensions are documented elsewhere. Skin: No rashes Wound Measurements and Assessment WC - Nurse 1 - General Ulcer Measurement Start: 03/14/18 08:15 Freq: Status: Active Protocol: Activity Type Activity Date Activity User E-Sign Co-Sign Detail Recorded Client Recorded Date Recorded By Document 03/21/18 08:25 [id number] 03/21/18 08:26 03/21/18 08:25 Wound Center Nurse 1 [Ulcer Assessment] #1 Medial RLE -Combined with other wound No -Current Size (cm) - Length 0.9 -Current Size (cm) - Width 0.9 -Current Size (cm) - Depth 0.2 -Total Square Cm 0.81 -Photo Taken No -Epithelialization Medium 34-66% -Tunneling No -Undermining/Tunneling No -Circular Undermining No -Exudate Amt Medium (34-66%) -Exudate Type Serosanguineous -Wound Margin Flat & Intact -Granulation Amt Medium (34-66%) -Granulation Quality Red -Slough/Fibrin Yes -Necrosis Amt Small (1-33%) -Necrotic Tissue Type Adherent Slough -Structure Exposed N/A -Texture (Skylar-wound Skin Appearance) Assessed Localized Edema -Moisture (Skylar-wound Skin Appearance Assessed ) Dry/Scaly -Color (Skylar-wound Skin Appearance) Assessed Hemosiderin Staining -Temperature (Skylar-wound Skin No Abnormality Appearance) (Pt Warm) -Tenderness on Palpation (Skylar-wound No Skin Appearance) -Ulcer Cleansing Wound Cleanser -Foul Odor after Cleansing No -Anesthetic Used 4% Lidocaine Solution [Edema Assessment] -Lower Limb Edema Present Yes -Left Calf (cm) 39.5 -Left Ankle (cm) 23.3 WC - Nurse 2 - General Ulcer CM Notes Start: 03/14/18 08:15 Freq: Status: Active Protocol: Activity Type Activity Date Activity User E-Sign Co-Sign Detail Recorded Client Recorded Date Recorded By Document 03/21/18 08:55 [id number] 03/21/18 08:56 03/21/18 08:55 Wound Center Nurse 2 [Procedure/Treatment] #1 Medial RLE -Time 08:55 -Correct Patient Yes -Correct Side, Site, Position Yes -Correct Procedure Yes -Procedure Performed No -Wound/Ulcer Outcome Not Healed -Ulcer Cleansing Rinsed/ Irrigated with Saline -Foul Odor after Cleansing No -Bioengineered Tissue No -Topical Lidocaine (%) 4 -Lidocaine (ml) 5 -Bleeding Controlled with NA [See Physician Procedure note for Specifics] Pain Scale: 0-10 Numeric [Pain] -Is Patient Pain Free? Yes Neurological: Cranial nerves II-XII grossly intact, Neuro grossly intact Psych/Mental Status: Normal Affect, Appropriate, Alert and oriented to time, place, person, mood and affect Debridement Note Post-Debridement Measurements/Treatment - Nurse 2 - General Ulcer CM Notes Start: 03/14/18 08:15 Freq: Status: Active Protocol: Activity Type Activity Date Activity User E-Sign Co-Sign Detail Recorded Client Recorded Date Recorded By Document 03/14/18 08:55 [id number] 03/14/18 08:56 JS Document 03/21/18 08:55 [id number] 03/21/18 08:56 03/14/18 03/21/18 08:55 08:55 Wound Center Nurse 2 #1 Medial RLE -Time 08:56 08:55 -Correct Patient Yes Yes -Correct Side, Site, Position Yes Yes -Correct Procedure Yes Yes -Procedure Performed No No -Wound/Ulcer Outcome Not Healed Not Healed -Ulcer Cleansing Not Cleansed Rinsed/ Irrigated with Saline -Foul Odor after Cleansing No No -Bioengineered Tissue No No -Topical Lidocaine (%) 4 4 -Lidocaine (ml) 5 5 -Bleeding Controlled with NA NA Pain Scale: 0-10 Numeric Is Patient Pain Free? Yes Yes No debridement was completed today - Debridement was not performed today. Based upon the appearance of the ulcerated site on the right anterior tibial surface, it is highly suspected that there is a large underlying varicosity directly beneath the ulcerated site, which has recently bled on at least 3 occasions. It is felt that debridement of the area would have a high likelihood of bleeding, where the underlying varicosity to be disturbed. Therefore, no debridement was performed. Assessment/Plan Active Problems Chronic venous insufficiency (Chronic) Varicose veins with ulcer and inflammation (Chronic) Chronic venous hypertension (idiopathic) with ulcer and inflammation of bilateral lower extremity (Chronic) Venous ulcer of right leg (Chronic) Spontaneous hemorrhage (Chronic) Obesity (BMI 35.0-39.9 without comorbidity) (Chronic) Right leg swelling (Chronic) Chronic venous hypertension with ulcer involving right side (Chronic) Assessment: This is a 77-year-old male with an apparent long-standing history of chronic venous disease. He has had varicose veins for many years, as well as chronic swelling in his right lower extremity. Also a question as to whether the patient may have a history of thrombophlebitis. Within the last several months, the patient has developed an ulceration on the right medial calf, and has had 3 episodes of spontaneous bleeding from the ulceration, prompting visits to the emergency department setting. On each occasion, suture closure of the bleeding vessel was performed. Patient presented with recent medical records, which have been reviewed. In addition, laboratory results are available from the patient's primary care physician, the results of which have been reviewed. Results are as follows: Cholesterol 199, HDL cholesterol 57, HDL ratio 3.5, LDL cholesterol 121, sodium 140, potassium 4.3, chloride 104, calcium 9.4, alkaline phosphatase 96, AST 24, ALT 18, bilirubin 0.7, glucose 89, BUN 14, creatinine 0.72, protein 7.4, albumin 4.2. The date of these laboratory results is 02/10/2018. The patient has undergone a venous duplex examination on February 24, 2018. Results have been reviewed with the patient. 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 Accessory saphenous veins in the right lower extremity at the S5 and S6 positions are also incompetent. An incompetent product examiner vein is noted in the right calf, located 13 cm proximal to the right medial malleolus. A noninvasive lower extremity arterial study has been performed as well, revealing no evidence of significant arterial occlusive disease in the lower extremities. The patient is accompanied by his and daughter. It appears as though he sleeps on a flat surface at night. He claims to be elevating his lower extremities frequently during daytime hours. Since the initiation of a 3M 2 layer compression wrap to the right lower extremity, patient has shown significant improvement in the swelling and edema, which is now somewhat minimal. Plan: The patient presented with his and adult daughter again today. The patient and his family have been advised in the appropriate conservative measures regarding management of the patient's chronic venous disease. The patient has been encouraged to continue sleeping in a recumbent position, on a flat mattress. Leg elevation should be to heart level, or higher. Legs should be elevated even during daytime hours, as much as possible. Prolonged idle sitting has been discouraged. Weight loss has been encouraged. Activity has also been encouraged as well. We are to continue compression to the right lower extremity by means of a 3M 2 layer compression wrap, which will be changed twice weekly, though only once this week, a holiday week. Using SurePress, at the patient's discretion, has not met with compliance, and the clinical response has been correspondingly poor. We are to use Adaptic and gauze overlying the ulcerated site, in an effort to avoid adherence and subsequent bleeding. Patient has been instructed that, in the event of additional bleeding from the site, he is to elevate his leg and apply manual pressure. The patient is return in 1 week for reassessment. In the event that an episode of spontaneous bleeding should reoccur, the patient has been instructed to apply pressure to the bleeding site, and to elevate his lower extremity above heart level. Thereafter, he should seek medical attention. At present, we are to use a nonadhesive topical dressing such as Adaptic, with overlying gauze. The goal is to avoid any adherence of the dressings to the bleeding site, to avoid further bleeding episodes. Ultimately, the patient will be a likely candidate for an endovenous ablation procedure. The nature of the endovenous laser ablation procedure has again been discussed with the patient and his family in detail. It is anticipated that such a procedure may be necessary in an effort to reduce the pressure within the venous system of the right lower extremity, and reduce the likelihood of further bleeding from the ulcerated site. Endovenous laser ablation would likely also hasten the healing of his ulceration. However, conservative measures will be continued at present. In addition to endovenous laser ablation, there may be a need for ultrasound-guided injection sclerotherapy of the veins in the region of the bleeding varicosity. Influenza vaccine was not administered today. The patient is not a smoker. Patient weighs 261 pounds. He stands 5 feet 8 inches tall. His BMI is 38.5, which places him in an obese class II category. Weight loss has been recommended, and collaboration with the patient's primary care physician has been recommended in terms of weight loss management.
[2018-03-28 08:23] VITALS: BP 138/99; PULSE 105; RESP 18; TEMP 36.2
--- NOTE | 2018-03-28 08:52 | PCM.WC.HP ---
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 Status: Chronic Current Visit: Yes Code(s): I87.333 - Chronic venous hypertension (idiopathic) with ulcer and inflammation of bilateral lower extremity; L97.919 - Non-pressure chronic ulcer of unspecified part of right lower leg with unspecified severity; L97.929 - Non-pressure chronic ulcer of unspecified part of left lower leg with unspecified severity (4) Venous ulcer of right leg Status: Chronic Current Visit: Yes Code(s): I83.019 - Varicose veins of right lower extremity with ulcer of unspecified site; L97.919 - Non-pressure chronic ulcer of unspecified part of right lower leg with unspecified severity (5) Spontaneous hemorrhage Status: Chronic Current Visit: Yes Code(s): K66.1 - Hemoperitoneum (6) Atrial fibrillation Status: Chronic Current Visit: No Code(s): I48.91 - Unspecified atrial fibrillation (7) Lumbar radiculopathy Status: Chronic Current Visit: No Code(s): M54.16 - Radiculopathy, lumbar region (8) Obesity (BMI 35.0-39.9 without comorbidity) Status: Chronic Current Visit: Yes Code(s): E66.9 - Obesity, unspecified (9) Exertional dyspnea Status: Chronic Current Visit: No Code(s): R06.09 - Other forms of dyspnea (10) Right leg swelling Status: Chronic Current Visit: Yes Code(s): M79.89 - Other specified soft tissue disorders (11) Chronic venous hypertension with ulcer involving right side Status: Chronic Current Visit: Yes Code(s): I87.311 - Chronic venous hypertension (idiopathic) with ulcer of right lower extremity; L97.919 - Non-pressure chronic ulcer of unspecified part of right lower leg with unspecified severity History of Present Illness Chief Complaint: Chronic venous insufficiency, varicose veins with ulceration and inflammation, venous hypertension with ulceration, venous ulceration, leg swelling, spontaneous bleeding?right lower extremity History of Wound: This is a 77-year-old male who presented with a long-standing history of chronic venous disease. The patient has had varicose veins for many years. He has elected to forego any significant treatment related to his venous disease. He denies a history of thrombophlebitis, though his past medical records indicate a history, though vague and nonspecific. Approximately 2 months prior to his presentation, the patient developed a spontaneous ulceration on the medial aspect of his right calf. The site subsequently ruptured, and spontaneous bleeding occurred on 3 different occasions, each time with significant blood loss. On at least one occasion, the spontaneous bleeding occurred after taking a hot shower. On each of 3 occasions, the patient was transported to the emergency department at [facility] in [place], [place], where the patient was treated and released. On each occasion, sutures were placed to obliterate the bleeding. Patient was subsequently referred to the [facility] for definitive management. The patient relates swelling in his right leg which occurs typically at the end of each day. He sleeps on a flat mattress at night. He lies in a recumbent position often during the daytime. He is not very active. He is also noted to be obese. 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 Patient's mother at age of 83 with a history of liver cancer. Tobacco Use: Non-smoker Review of Systems Constitutional: Denies: Chills, Fever, Weight Change Eyes: Denies: Pain, Vision Change HEENT: Denies: Difficulty Hearing, Difficulty Swallowing, Sinus Congestion Cardiovascular: Denies: Chest Pain, Palpitations Respiratory: Denies: Cough, Shortness of Breath Gastrointestinal: Denies: Diarrhea, Nausea, Vomiting Genitourinary: Denies: Dysuria, Hematuria Endocrine: Denies: Heat/ Cold Intolerance, Polydipsia, Polyuria Hematologic/ Lymphatic: Denies: Easy Bruising, Easy Bleeding - Physical Exam Vital Signs Temp Pulse Resp BP 97.1 F L 105 H 18 138/99 H 03/28/18 08:23 03/28/18 08:23 03/28/18 08:23 03/28/18 08:23 General: Alert, Oriented x3, Cooperative, No apparent distress, Well developed, Well nourished HEENT: Atraumatic, PERRLA, EOMI, Normocephalic Oral: Moist Mucosa Neck: No JVD Lungs: Normal air movement Abdomen: Non-Distended Extremities: No clubbing, No cyanosis, No Calf Tenderness, - - Mild swelling and edema persist in the right lower extremity. Chronic venous changes persist on the right lower extremity, including gee phlebectatica about the right ankle, and mild hyperpigmentation. The ulceration on the right medial calf persists. There is no active bleeding. A large eschar remains overlying the somewhat elevated site, presumed to be a large underlying varicosity. There is no sign of infection or cellulitis. Skin: No rashes Wound Measurements and Assessment WC - Nurse 1 - General Ulcer Measurement Start: 03/14/18 08:15 Freq: Status: Active Protocol: Activity Type Activity Date Activity User E-Sign Co-Sign Detail Recorded Client Recorded Date Recorded By Document 03/28/18 08:23 [id number] 03/28/18 08:25 03/28/18 08:23 Wound Center Nurse 1 [Ulcer Assessment] #1 Medial RLE -Combined with other wound No -Current Size (cm) - Length 1.6 -Current Size (cm) - Width 1.6 -Current Size (cm) - Depth 0.1 -Total Square Cm 2.56 -Photo Taken No -Epithelialization None Present -Tunneling No -Undermining/Tunneling No -Circular Undermining No -Classification - Thickness Full Thickness without Exposed Support Structure -Exudate Amt Small (1-33%) -Exudate Type Serosanguineous -Wound Margin Distinct, Outline Attached -Granulation Amt None Present (0 %) -Granulation Quality N/A -Slough/Fibrin Yes -Necrosis Amt Large (67-100%) -Necrotic Tissue Type Adherent Slough -Structure Exposed Fascia Fat Layer Exposed -Texture (Skylar-wound Skin Appearance) Assessed Friable Localized Edema -Moisture (Skylar-wound Skin Appearance No Abnormality ) Assessed -Color (Skylar-wound Skin Appearance) Assessed Hemosiderin Staining -Temperature (Skylar-wound Skin No Abnormality Appearance) (Pt Warm) -Tenderness on Palpation (Skylar-wound No Skin Appearance) -Ulcer Cleansing Rinsed/ Irrigated with Saline -Foul Odor after Cleansing No -Anesthetic Used 5% Lidocaine Gel [Edema Assessment] -Lower Limb Edema Present Yes -Right Calf (cm) 41.0 -Right Ankle (cm) 27.0 WC - Nurse 2 - General Ulcer CM Notes Start: 03/14/18 08:15 Freq: Status: Active Protocol: Activity Type Activity Date Activity User E-Sign Co-Sign Detail Recorded Client Recorded Date Recorded By Document 03/28/18 08:39 [id number] 03/28/18 08:40 03/28/18 08:39 Wound Center Nurse 2 [Procedure/Treatment] #1 [facility] -Time 08:39 -Correct Patient Yes -Correct Side, Site, Position Yes -Correct Procedure Yes -Procedure Performed No -Wound/Ulcer Outcome Not Healed -Ulcer Cleansing Rinsed/ Irrigated with Saline -Foul Odor after Cleansing No -Bioengineered Tissue No -Topical Lidocaine (%) 4 -Lidocaine (ml) 5 -Bleeding Controlled with NA [See Physician Procedure note for Specifics] Pain Scale: 0-10 Numeric [Pain] -Is Patient Pain Free? Yes Neurological: Cranial nerves II-XII grossly intact, Neuro grossly intact Psych/Mental Status: Normal Affect, Appropriate, Alert and oriented to time, place, person, mood and affect Debridement Note Post-Debridement Measurements/Treatment - Nurse 2 - General Ulcer CM Notes Start: 03/14/18 08:15 Freq: Status: Active Protocol: Activity Type Activity Date Activity User E-Sign Co-Sign Detail Recorded Client Recorded Date Recorded By Document 03/14/18 08:55 [id number] 03/14/18 08:56 JS Document 03/21/18 08:55 [id number] 03/21/18 08:56 JS Document 03/28/18 08:39 [id number] 03/28/18 08:40 JS 03/14/18 03/21/18 03/28/18 08:55 08:55 08:39 Wound Center Nurse 2 #1 Medial RLE -Time 08:56 08:55 08:39 -Correct Patient Yes Yes Yes -Correct Side, Site, Position Yes Yes Yes -Correct Procedure Yes Yes Yes -Procedure Performed No No No -Wound/Ulcer Outcome Not Healed Not Healed Not Healed -Ulcer Cleansing Not Cleansed Rinsed/ Rinsed/ Irrigated with Irrigated with Saline Saline -Foul Odor after Cleansing No No No -Bioengineered Tissue No No No -Topical Lidocaine (%) 4 4 4 -Lidocaine (ml) 5 5 5 -Bleeding Controlled with NA NA NA Pain Scale: 0-10 Numeric Is Patient Pain Free? Yes Yes Yes No debridement was completed today - Debridement was not performed today, as it has been intentionally avoided. Clinically, it appears as though there is a large, bulging varicose vein on the right medial calf, with an overlying dry eschar. Debridements have been avoided, as it is felt that removal of the eschar would likely result in significant bleeding due to the underlying large varicose vein. Debridements have been specifically avoided so as to prevent provocation of yet another bleeding episode from the underlying engorged vein. Assessment/Plan Active Problems Chronic venous insufficiency (Chronic) Varicose veins with ulcer and inflammation (Chronic) Chronic venous hypertension (idiopathic) with ulcer and inflammation of bilateral lower extremity (Chronic) Venous ulcer of right leg (Chronic) Spontaneous hemorrhage (Chronic) Obesity (BMI 35.0-39.9 without comorbidity) (Chronic) Right leg swelling (Chronic) Chronic venous hypertension with ulcer involving right side (Chronic) Assessment: This is a 77-year-old male with an apparent long-standing history of chronic venous disease. He has had varicose veins for many years, as well as chronic swelling in his right lower extremity. Also a question as to whether the patient may have a history of thrombophlebitis. Within the last several months, the patient has developed an ulceration on the right medial calf, and has had 3 episodes of spontaneous bleeding from the ulceration, prompting visits to the emergency department setting. On each occasion, suture closure of the bleeding vessel was performed. Patient presented with recent medical records, which have been reviewed. In addition, laboratory results are available from the patient's primary care physician, the results of which have been reviewed. Results are as follows: Cholesterol 199, HDL cholesterol 57, HDL ratio 3.5, LDL cholesterol 121, sodium 140, potassium 4.3, chloride 104, calcium 9.4, alkaline phosphatase 96, AST 24, ALT 18, bilirubin 0.7, glucose 89, BUN 14, creatinine 0.72, protein 7.4, albumin 4.2. The date of these laboratory results is 02/10/2018. The patient has undergone a venous duplex examination on February 24, 2018. Results have been reviewed with the patient. 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 Accessory saphenous veins in the right lower extremity at the S5 and S6 positions are also incompetent. An incompetent diabetologist vein is noted in the right calf, located 13 cm proximal to the right medial malleolus. A noninvasive lower extremity arterial study has been performed as well, revealing no evidence of significant arterial occlusive disease in the lower extremities. The patient is accompanied by his and daughter. It appears as though he sleeps on a flat surface at night. He claims to be elevating his lower extremities frequently during daytime hours. Since the initiation of a 3M 2 layer compression wrap to the right lower extremity, patient has shown significant improvement in the swelling and edema, which is now somewhat minimal. There have been no further bleeding episodes. Plan: The patient and his family have been advised in the appropriate conservative measures regarding management of the patient's chronic venous disease. The patient has been encouraged to continue sleeping in a recumbent position, on a flat mattress. Leg elevation should be to heart level, or higher. Legs should be elevated even during daytime hours, as much as possible. Prolonged idle sitting has been discouraged. Weight loss has been encouraged. Activity has also been encouraged as well. We are to continue compression to the right lower extremity by means of a 3M 2 layer compression wrap, which will be changed twice weekly. We are to use Adaptic and gauze overlying the ulcerated site, in an effort to avoid adherence and subsequent bleeding. Patient has been instructed that, in the event of additional bleeding from the site, he is to elevate his leg and apply manual pressure. The patient is return in 1 week for reassessment. In the event that an episode of spontaneous bleeding should reoccur, the patient has been instructed to apply pressure to the bleeding site, and to elevate his lower extremity above heart level. Thereafter, he should seek medical attention. At present, we are to use a nonadhesive topical dressing such as Adaptic, with overlying gauze. The goal is to avoid any adherence of the dressings to the bleeding site, to avoid further bleeding episodes. Ultimately, the patient will be a likely candidate for an endovenous ablation procedure. The nature of the endovenous laser ablation procedure has again been discussed with the patient and his family in detail. It is anticipated that such a procedure may be necessary in an effort to reduce the pressure within the venous system of the right lower extremity, and reduce the likelihood of further bleeding from the ulcerated site. Endovenous laser ablation would likely also hasten the healing of his ulceration. In addition to endovenous laser ablation, there may be a need for ultrasound-guided injection sclerotherapy of the veins in the region of the bleeding varicosity. The potential benefits of endovenous laser ablation of the right great saphenous vein, the 2 accessory saphenous veins, and possibly the incompetent diabetologist vein have been discussed with the patient in detail, as well as his . The indications and risks have been thoroughly explained. The potential benefits have been explained. The patient wishes to proceed at this time, and efforts will be made to start the preauthorization process, and ultimately schedule the procedure for the near future. Influenza vaccine was not administered today. The patient is not a smoker. Patient weighs 261 pounds. He stands 5 feet 8 inches tall. His BMI is 38.5, which places him in an obese class II category. Weight loss has been recommended, and collaboration with the patient's primary care physician has been recommended in terms of weight loss management.
--- NOTE | 2018-03-28 08:57 | HP.PCM_ITS ---
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 Status: Chronic Current Visit: Yes Code(s): I87.333 - Chronic venous hypertension (idiopathic) with ulcer and inflammation of bilateral lower extremity; L97.919 - Non-pressure chronic ulcer of unspecified part of right lower leg with unspecified severity; L97.929 - Non-pressure chronic ulcer of unspecified part of left lower leg with unspecified severity (4) Venous ulcer of right leg Status: Chronic Current Visit: Yes Code(s): I83.019 - Varicose veins of right lower extremity with ulcer of unspecified site; L97.919 - Non-pressure chronic ulcer of unspecified part of right lower leg with unspecified severity (5) Spontaneous hemorrhage Status: Chronic Current Visit: Yes Code(s): K66.1 - Hemoperitoneum (6) Atrial fibrillation Status: Chronic Current Visit: No Code(s): I48.91 - Unspecified atrial fibrillation (7) Lumbar radiculopathy Status: Chronic Current Visit: No Code(s): M54.16 - Radiculopathy, lumbar region (8) Obesity (BMI 35.0-39.9 without comorbidity) Status: Chronic Current Visit: Yes Code(s): E66.9 - Obesity, unspecified (9) Exertional dyspnea Status: Chronic Current Visit: No Code(s): R06.09 - Other forms of dyspnea (10) Right leg swelling Status: Chronic Current Visit: Yes Code(s): M79.89 - Other specified soft tissue disorders (11) Chronic venous hypertension with ulcer involving right side Status: Chronic Current Visit: Yes Code(s): I87.311 - Chronic venous hype rtension (idiopathic) with ulcer of right lower extremity; L97.919 - Non- pressure chronic ulcer of unspecified part of right lower leg with unspecified severity History of Present Illness Chief Complaint: Chronic venous insufficiency, varicose veins with ulceration and inflammation, venous hypertension with ulceration, venous ulceration, leg swelling, spontaneous bleeding?right lower extremity History of Wound: This is a 77-year-old male who presented with a long-standing history of chronic venous disease. The patient has had varicose veins for many years. He has elected to forego any significant treatment related to his venous disease. He denies a history of thrombophlebitis, though his past medical records indicate a history, though vague and nonspecific. Approximately 2 months prior to his presentation, the patient developed a spontaneous ulceration on the medial aspect of his right calf. The site subsequently ruptured, and spontaneous bleeding occurred on 3 different occasions, each time with significant blood loss. On at least one occasion, the spontaneous bleeding occurred after taking a hot shower. On each of 3 occasions, the patient was transported to the emergency department at [facility] in [place], [place], where the patient was treated and released. On each occasion, sutures were placed to obliterate the bleeding. [facility]. The patient relates swelling in his right leg which occurs typically at the end of each day. He sleeps on a flat mattress at night. He lies in a recumbent position often during the daytime. He is not very active. He is also noted to be obese. 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 Patient's mother at age of 83 with a history of liver cancer. Tobacco Use: Non-smoker Review of Systems Constitutional: Denies: Chills, Fever, Weight Change Eyes: Denies: Pain, Vision Change HEENT: Denies: Difficulty Hearing, Difficulty Swallowing, Sinus Congestion Cardiovascular: Denies: Chest Pain, Palpitations Respiratory: Denies: Cough, Shortness of Breath Gastrointestinal: Denies: Diarrhea, Nausea, Vomiting Genitourinary: Denies: Dysuria, Hematuria Endocrine: Denies: Heat/ Cold Intolerance, Polydipsia, Polyuria Hematologic/ Lymphatic: Denies: Easy Bruising, Easy Bleeding - Physical Exam Vital Signs Temp Pulse Resp BP 97.1 F L 105 H 18 138/99 H 03/28/18 08:23 03/28/18 08:23 03/28/18 08:23 03/28/18 08:23 General: Alert, Oriented x3, Cooperative, No apparent distress, Well developed, Well nourished HEENT: Atraumatic, PERRLA, EOMI, Normocephalic Oral: Moist Mucosa Neck: No JVD Lungs: Normal air movement Abdomen: Non-Distended Extremities: No clubbing, No cyanosis, No Calf Tenderness, - - Mild swelling and edema persist in the right lower extremity. Chronic venous changes persist on the right lower extremity, including gee phlebectatica about the right ankle, and mild hyperpigmentation. The ulceration on the right medial calf persists. There is no active bleeding. A large eschar remains overlying the somewhat elevated site, presumed to be a large underlying varicosity. There is no sign of infection or cellulitis. Skin: No rashes Wound Measurements and Assessment WC - Nurse 1 - General Ulcer Measurement Start: 03/14/18 08:15 Freq: Status: Active Protocol: Activity Type Activity Date Activity User E-Sign Co-Sign Detail Recorded Client Recorded Date Recorded By Document 03/28/18 08:23 [id number] 03/28/18 08:25 03/28/18 08:23 Wound Center Nurse 1 [Ulcer Assessment] #1 Medial RLE -Combined with other wound No -Current Size (cm) - Length 1.6 -Current Size (cm) - Width 1.6 -Current Size (cm) - Depth 0.1 -Total Square Cm 2.56 -Photo Taken No -Epithelialization None Present -Tunneling No -Undermining/Tunneling No -Circular Undermining No -Classification - Thickness Full Thickness without Exposed Support Structure -Exudate Amt Small (1-33%) -Exudate Type Serosanguineous -Wound Margin Distinct, Outline Attached -Granulation Amt None Present (0 %) -Granulation Quality N/A -Slough/Fibrin Yes -Necrosis Amt Large (67-100%) -Necrotic Tissue Type Adherent Slough -Structure Exposed Fascia Fat Layer Exposed -Texture (Skylar-wound Skin Appearance) Assessed Friable Localized Edema -Moisture (Skylar-wound Skin Appearance No Abnormality ) Assessed -Color (Skylar-wound Skin Appearance) Assessed Hemosiderin Staining -Temperature (Skylar-wound Skin No Abnormality Appearance) (Pt Warm) -Tenderness on Palpation (Skylar-wound No Skin Appearance) -Ulcer Cleansing Rinsed/ Irrigated with Saline -Foul Odor after Cleansing No -Anesthetic Used 5% Lidocaine Gel [Edema Assessment] -Lower Limb Edema Present Yes -Right Calf (cm) 41.0 -Right Ankle (cm) 27.0 WC - Nurse 2 - General Ulcer CM Notes Start: 03/14/18 08:15 Freq: Status: Active Protocol: Activity Type Activity Date Activity User E-Sign Co-Sign Detail Recorded Client Recorded Date Recorded By Document 03/28/18 08:39 [id number] 03/28/18 08:40 03/28/18 08:39 Wound Center Nurse 2 [Procedure/Treatment] #1 [facility] -Time 08:39 -Correct Patient Yes -Correct Side, Site, Position Yes -Correct Procedure Yes -Procedure Performed No -Wound/Ulcer Outcome Not Healed -Ulcer Cleansing Rinsed/ Irrigated with Saline -Foul Odor after Cleansing No -Bioengineered Tissue No -Topical Lidocaine (%) 4 -Lidocaine (ml) 5 -Bleeding Controlled with NA [See Physician Procedure note for Specifics] Pain Scale: 0-10 Numeric [Pain] -Is Patient Pain Free? Yes Neurological: Cranial nerves II-XII grossly intact, Neuro grossly intact Psych/Mental Status: Normal Affect, Appropriate, Alert and oriented to time, place, person, mood and affect Debridement Note Post-Debridement Measurements/Treatment WC - Nurse 2 - General Ulcer CM Notes Start: 03/14/18 08:15 Freq: Status: Active Protocol: Activity Type Activity Date Activity User E-Sign Co-Sign Detail Recorded Client Recorded Date Recorded By Document 03/14/18 08:55 [id number] 03/14/18 08:56 JS Document 03/21/18 08:55 [id number] 03/21/18 08:56 Document 03/28/18 08:39 [id number] 03/28/18 08:40 03/14/18 03/21/18 03/28/18 08:55 08:55 08:39 Wound Center Nurse 2 #1 Medial RLE -Time 08:56 08:55 08:39 -Correct Patient Yes Yes Yes -Correct Side, Site, Position Yes Yes Yes -Correct Procedure Yes Yes Yes -Procedure Performed No No No -Wound/Ulcer Outcome Not Healed Not Healed Not Healed -Ulcer Cleansing Not Cleansed Rinsed/ Rinsed/ Irrigated with Irrigated with Saline Saline -Foul Odor after Cleansing No No No -Bioengineered Tissue No No No -Topical Lidocaine (%) 4 4 4 -Lidocaine (ml) 5 5 5 -Bleeding Controlled with NA NA NA Pain Scale: 0-10 Numeric Is Patient Pain Free? Yes Yes Yes No debridement was completed today - Debridement was not performed today, as it has been intentionally avoided. Clinically, it appears as though there is a large, bulging varicose vein on the right medial calf, with an overlying dry eschar. Debridements have been avoided, as it is felt that removal of the eschar would likely result in significant bleeding due to the underlying large varicose vein. Debridements have been specifically avoided so as to prevent provocation of yet another bleeding episode from the underlying engorged vein. Assessment/Plan Active Problems Chronic venous insufficiency (Chronic) Varicose veins with ulcer and inflammation (Chronic) Chronic venous hypertension (idiopathic) with ulcer and inflammation of bilateral lower extremity (Chronic) Venous ulcer of right leg (Chronic) Spontaneous hemorrhage (Chronic) Obesity (BMI 35.0-39.9 without comorbidity) (Chronic) Right leg swelling (Chronic) Chronic venous hypertension with ulcer involving right side (Chronic) Assessment: This is a 77-year-old male with an apparent long-standing history of chronic venous disease. He has had varicose veins for many years, as well as chronic swelling in his right lower extremity. Also a question as to whether the patient may have a history of thrombophlebitis. Within the last several months, the patient has developed an ulceration on the right medial calf, and has had 3 episodes of spontaneous bleeding from the ulceration, prompting visits to the emergency department setting. On each occasion, suture closure of the bleeding vessel was performed. Patient presented with recent medical records, which have been reviewed. In addition, laboratory results are available from the patient's primary care physician, the results of which have been reviewed. Results are as follows: Cholesterol 199, HDL cholesterol 57, HDL ratio 3.5, LDL cholesterol 121, sodium 140, potassium 4.3, chloride 104, calcium 9.4, alkaline phosphatase 96, AST 24, ALT 18, bilirubin 0.7, glucose 89, BUN 14, creatinine 0.72, protein 7.4, albumin 4.2. The date of these laboratory results is 02/10/2018. The patient has undergone a venous duplex examination on February 24, 2018. Results have been reviewed with the patient. 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 Accessory saphenous veins in the right lower extremity at the S5 and S6 positions are also incompetent. An incompetent chair pad maker vein is noted in the right calf, located 13 cm proximal to the right medial malleolus. A noninvasive lower extremity arterial study has been performed as well, revealing no evidence of significant arterial occlusive disease in the lower extremities. The patient is accompanied by his and daughter. It appears as though he sleeps on a flat surface at night. He claims to be elevating his lower extremities frequently during daytime hours. Since the initiation of a 3M 2 layer compression wrap to the right lower extremity, patient has shown significant improvement in the swelling and edema, which is now somewhat minimal. There have been no further bleeding episodes. Plan: The patient and his family have been advised in the appropriate conservative measures regarding management of the patient's chronic venous disease. The patient has been encouraged to continue sleeping in a recumbent position, on a flat mattress. Leg elevation should be to heart level, or higher. Legs should be elevated even during daytime hours, as much as possible. Prolonged idle sitting has been discouraged. Weight loss has been encouraged. Activity has also been encouraged as well. We are to continue compression to the right lower extremity by means of a 3M 2 layer compression wrap, which will be changed twice weekly. We are to use Adaptic and gauze overlying the ulcerated site, in an effort to avoid adherence and subsequent bleeding. Patient has been instructed that, in the event of additional bleeding from the site, he is to elevate his leg and apply manual pressure. The patient is return in 1 week for reassessment. In the event that an episode of spontaneous bleeding should reoccur, the patient has been instructed to apply pressure to the bleeding site, and to elevate his lower extremity above heart level. Thereafter, he should seek medical attention. At present, we are to use a nonadhesive topical dressing such as Adaptic, with overlying gauze. The goal is to avoid any adherence of the dressings to the bleeding site, to avoid further bleeding episodes. Ultimately, the patient will be a likely candidate for an endovenous ablation procedure. The nature of the endovenous laser ablation procedure has again been discussed with the patient and his family in detail. It is anticipated that such a procedure may be necessary in an effort to reduce the pressure within the venous system of the right lower extremity, and reduce the likelihood of further bleeding from the ulcerated site. Endovenous laser ablation would likely also hasten the healing of his ulceration. In addition to endovenous laser ablation, there may be a need for ultrasound-guided injection sclerotherapy of the veins in the region of the bleeding varicosity. The potential benefits of endovenous laser ablation of the right great saphenous vein, the 2 accessory saphenous veins, and possibly the incompetent chair pad maker vein have been discussed with the patient in detail, as well as his . The indications and risks have been thoroughly explained. The potential benefits have been explained. The patient wishes to proceed at this time, and efforts will be made to start the preauthorization process, and ultimately schedule the procedure for the near future. Influenza vaccine was not administered today. The patient is not a smoker. Patient weighs 261 pounds. He stands 5 feet 8 inches tall. His BMI is 38.5, which places him in an obese class II category. Weight loss has been recommended, and collaboration with the patient's primary care physician has been recommended in terms of weight loss management.
[2018-03-31 08:27] VITALS: BP 134/84; PULSE 115; RESP 16; TEMP 36.7
== END 2018-03-31 23:59 ==
LOC: WC 08:00
PROVIDERS: Referring Provider Surgery; Visit Provider Surgery
DX: I83.212 Varicose veins of right lower extremity with both ulcer of calf and inflammation (principal); L97.212 Non-pressure chronic ulcer of right calf with fat layer exposed; I48.2 Chronic atrial fibrillation; M54.16 Radiculopathy, lumbar region; E66.9 Obesity, unspecified; Z71.3 Dietary counseling and surveillance; M79.89 Other specified soft tissue disorders; R06.09 Other forms of dyspnea
CPT/HCPCS: 29581; 99212; G0463

== ENCOUNTER 2018-04-26 09:30 | Outpatient (RCR) | payer MEDICARE, SELFPAY ==
[2018-04-01 01:46] VITALS: BP 134/84; PULSE 115; RESP 16; TEMP 36.7
[2018-04-04 08:07] VITALS: BP 138/85; PULSE 98; RESP 18; TEMP 36.2; BMI 38.5
--- NOTE | 2018-04-04 08:39 | PCM.WC.HP ---
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 Status: Chronic Current Visit: Yes Code(s): I87.333 - Chronic venous hypertension (idiopathic) with ulcer and inflammation of bilateral lower extremity; L97.919 - Non-pressure chronic ulcer of unspecified part of right lower leg with unspecified severity; L97.929 - Non-pressure chronic ulcer of unspecified part of left lower leg with unspecified severity (4) Venous ulcer of right leg Status: Chronic Current Visit: Yes Code(s): I83.019 - Varicose veins of right lower extremity with ulcer of unspecified site; L97.919 - Non-pressure chronic ulcer of unspecified part of right lower leg with unspecified severity (5) Spontaneous hemorrhage Status: Chronic Current Visit: Yes Code(s): K66.1 - Hemoperitoneum (6) Atrial fibrillation Status: Chronic Current Visit: No Code(s): I48.91 - Unspecified atrial fibrillation (7) Lumbar radiculopathy Status: Chronic Current Visit: No Code(s): M54.16 - Radiculopathy, lumbar region (8) Obesity (BMI 35.0-39.9 without comorbidity) Status: Chronic Current Visit: No Code(s): E66.9 - Obesity, unspecified (9) Exertional dyspnea Status: Chronic Current Visit: No Code(s): R06.09 - Other forms of dyspnea (10) Right leg swelling Status: Chronic Current Visit: Yes Code(s): M79.89 - Other specified soft tissue disorders (11) Chronic venous hypertension with ulcer involving right side Status: Chronic Current Visit: Yes Code(s): I87.311 - Chronic venous hypertension (idiopathic) with ulcer of right lower extremity; L97.919 - Non-pressure chronic ulcer of unspecified part of right lower leg with unspecified severity History of Present Illness Chief Complaint: Chronic venous insufficiency, varicose veins with ulceration and inflammation, venous hypertension with ulceration, venous ulceration, leg swelling, spontaneous bleeding?right lower extremity History of Wound: This is a 77-year-old male who presented with a long-standing history of chronic venous disease. The patient has had varicose veins for many years. He has elected to forego any significant treatment related to his venous disease. He denies a history of thrombophlebitis, though his past medical records indicate a history, though vague and nonspecific. Approximately 2 months prior to his presentation, the patient developed a spontaneous ulceration on the medial aspect of his right calf. The site subsequently ruptured, and spontaneous bleeding occurred on 3 different occasions, each time with significant blood loss. On at least one occasion, the spontaneous bleeding occurred after taking a hot shower. On each of 3 occasions, the patient was transported to the emergency department at [facility] in [place], [place], where the patient was treated and released. On each occasion, sutures were placed to obliterate the bleeding. Patient was subsequently referred to the [facility] for definitive management. The patient relates swelling in his right leg which occurs typically at the end of each day. He sleeps on a flat mattress at night. He lies in a recumbent position often during the daytime. He is not very active. He is also noted to be obese. 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 Patient's mother at age of 83 with a history of liver cancer. Tobacco Use: Non-smoker Review of Systems Constitutional: Denies: Chills, Fever, Weight Change Eyes: Denies: Pain, Vision Change HEENT: Denies: Difficulty Hearing, Difficulty Swallowing, Sinus Congestion Cardiovascular: Denies: Chest Pain, Palpitations Respiratory: Denies: Cough, Shortness of Breath Gastrointestinal: Denies: Diarrhea, Nausea, Vomiting Genitourinary: Denies: Dysuria, Hematuria Endocrine: Denies: Heat/ Cold Intolerance, Polydipsia, Polyuria Hematologic/ Lymphatic: Denies: Easy Bruising, Easy Bleeding - Physical Exam Vital Signs Temp Pulse Resp BP 97.1 F L 98 18 138/85 H 04/04/18 08:07 04/04/18 08:07 04/04/18 08:07 04/04/18 08:07 General: Alert, Oriented x3, Cooperative, No apparent distress, Well developed, Well nourished HEENT: Atraumatic, PERRLA, EOMI, Normocephalic Oral: Moist Mucosa Neck: No JVD Lungs: Normal air movement Abdomen: Non-Distended Extremities: No clubbing, No cyanosis, No edema, No Calf Tenderness, - - There is no significant swelling or edema in the lower extremities bilaterally. The ulceration on the right medial calf persists. There is a large dry eschar. There is no sign of infection or cellulitis. Dimensions are documented elsewhere. The eschar overlies a bulging prominence, thought to be an underlying dilated varicosity. Skin: No rashes Wound Measurements and Assessment WC - Nurse 1 - General Ulcer Measurement Start: 04/04/18 08:07 Freq: Status: Active Protocol: Activity Type Activity Date Activity User E-Sign Co-Sign Detail Recorded Client Recorded Date Recorded By Document 04/04/18 08:07 KARISHMA [id number] 04/04/18 08:13 KARISHMA 04/04/18 08:07 Wound Center Nurse 1 [Ulcer Assessment] #1 Medial RLE -Combined with other wound No -Current Size (cm) - Length 1.1 -Current Size (cm) - Width 1.4 -Current Size (cm) - Depth 0.1 -Total Square Cm 1.54 -Photo Taken No -Epithelialization None Present -Tunneling No -Undermining/Tunneling No -Circular Undermining No -Exudate Amt Small (1-33%) -Exudate Type Serosanguineous -Wound Margin Flat & Intact -Granulation Amt Large (67-100%) -Granulation Quality Red -Slough/Fibrin Yes -Necrosis Amt Small (1-33%) -Necrotic Tissue Type Adherent Slough -Structure Exposed N/A -Texture (Skylar-wound Skin Appearance) Assessed Localized Edema -Moisture (Skylar-wound Skin Appearance Assessed ) Dry/Scaly -Color (Skylar-wound Skin Appearance) Assessed Hemosiderin Staining -Temperature (Skylar-wound Skin No Abnormality Appearance) (Pt Warm) -Tenderness on Palpation (Skylar-wound No Skin Appearance) -Ulcer Cleansing Wound Cleanser -Foul Odor after Cleansing No -Anesthetic Used 5% Lidocaine Gel [Edema Assessment] -Lower Limb Edema Present Yes -Right Calf (cm) 39.6 -Right Ankle (cm) 23.1 - Nurse 2 - General Ulcer CM Notes Start: 04/04/18 08:07 Freq: Status: Active Protocol: Activity Type Activity Date Activity User E-Sign Co-Sign Detail Recorded Client Recorded Date Recorded By Document 04/04/18 08:33 DV [id number] 04/04/18 08:35 DV 04/04/18 08:33 Wound Center Nurse 2 [Procedure/Treatment] #1 Medial RLE -Time 08:33 -Correct Patient Yes -Correct Side, Site, Position Yes -Procedure Performed No -Wound/Ulcer Outcome Not Healed [See Physician Procedure note for Specifics] Pain Scale: 0-10 Numeric [Pain] -Is Patient Pain Free? Yes Neurological: Cranial nerves II-XII grossly intact, Neuro grossly intact Psych/Mental Status: Normal Affect, Appropriate, Alert and oriented to time, place, person, mood and affect Debridement Note Post-Debridement Measurements/Treatment - Nurse 2 - General Ulcer CM Notes Start: 04/04/18 08:07 Freq: Status: Active Protocol: Activity Type Activity Date Activity User E-Sign Co-Sign Detail Recorded Client Recorded Date Recorded By Document 04/04/18 08:33 DV [id number] 04/04/18 08:35 DV 04/04/18 08:33 Wound Center Nurse 2 #1 Medial RLE -Time 08:33 -Correct Patient Yes -Correct Side, Site, Position Yes -Procedure Performed No -Wound/Ulcer Outcome Not Healed Pain Scale: 0-10 Numeric Is Patient Pain Free? Yes No debridement was completed today - Because the ulceration/eschar is located overlying a suspected large varicosity, debridements have not been performed for fear and concern that debridement will disturb the underlying vein, and could result in a significant bleeding episode. As result, debridements have not been performed serially, as would otherwise be implemented. Assessment/Plan Active Problems Chronic venous insufficiency (Chronic) Varicose veins with ulcer and inflammation (Chronic) Chronic venous hypertension (idiopathic) with ulcer and inflammation of bilateral lower extremity (Chronic) Venous ulcer of right leg (Chronic) Spontaneous hemorrhage (Chronic) Right leg swelling (Chronic) Chronic venous hypertension with ulcer involving right side (Chronic) Assessment: This is a 77-year-old male with an apparent long-standing history of chronic venous disease. He has had varicose veins for many years, as well as chronic swelling in his right lower extremity. Also a question as to whether the patient may have a history of thrombophlebitis. Within the last several months, the patient has developed an ulceration on the right medial calf, and has had 3 episodes of spontaneous bleeding from the ulceration, prompting visits to the emergency department setting. On each occasion, suture closure of the bleeding vessel was performed. Patient presented with recent medical records, which have been reviewed. In addition, laboratory results are available from the patient's primary care physician, the results of which have been reviewed. Results are as follows: Cholesterol 199, HDL cholesterol 57, HDL ratio 3.5, LDL cholesterol 121, sodium 140, potassium 4.3, chloride 104, calcium 9.4, alkaline phosphatase 96, AST 24, ALT 18, bilirubin 0.7, glucose 89, BUN 14, creatinine 0.72, protein 7.4, albumin 4.2. The date of these laboratory results is 02/10/2018. The patient has undergone a venous duplex examination on February 24, 2018. Results have been reviewed with the patient. 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 Accessory saphenous veins in the right lower extremity at the S5 and S6 positions are also incompetent. An incompetent director compensation vein is noted in the right calf, located 13 cm proximal to the right medial malleolus. A noninvasive lower extremity arterial study has been performed as well, revealing no evidence of significant arterial occlusive disease in the lower extremities. The patient is accompanied by his and daughter. It appears as though he sleeps on a flat surface at night. He claims to be elevating his lower extremities frequently during daytime hours. Since the initiation of a 3M 2 layer compression wrap to the right lower extremity, patient has shown significant improvement in the swelling and edema, which is now somewhat minimal. There have been no further bleeding episodes. Plan: The patient and his family have been advised in the appropriate conservative measures regarding management of the patient's chronic venous disease. The patient has been encouraged to continue sleeping in a recumbent position, on a flat mattress. Leg elevation should be to heart level, or higher. Legs should be elevated even during daytime hours, as much as possible. Prolonged idle sitting has been discouraged. Weight loss has been encouraged. Activity has also been encouraged as well. We are to continue compression to the right lower extremity by means of a 3M 2 layer compression wrap, which will be changed twice weekly. We are to use Adaptic and gauze overlying the ulcerated site, in an effort to avoid adherence and subsequent bleeding. Patient has been instructed that, in the event of additional bleeding from the site, he is to elevate his leg and apply manual pressure. The patient is return in 1 week for reassessment. In the event that an episode of spontaneous bleeding should reoccur, the patient has been instructed to apply pressure to the bleeding site, and to elevate his lower extremity above heart level. Thereafter, he should seek medical attention. At present, we are to use a nonadhesive topical dressing such as Adaptic, with overlying gauze. The goal is to avoid any adherence of the dressings to the bleeding site, to avoid further bleeding episodes. Ultimately, the patient will be a likely candidate for an endovenous ablation procedure. The nature of the endovenous laser ablation procedure has again been discussed with the patient and his family in detail. It is anticipated that such a procedure may be necessary in an effort to reduce the pressure within the venous system of the right lower extremity, and reduce the likelihood of further bleeding from the ulcerated site. Endovenous laser ablation would likely also hasten the healing of his ulceration. In addition to endovenous laser ablation, there may be a need for ultrasound-guided injection sclerotherapy of the veins in the region of the bleeding varicosity. The potential benefits of endovenous laser ablation of the right great saphenous vein, the 2 accessory saphenous veins, and possibly the incompetent director compensation vein have been discussed with the patient in detail, as well as his . The indications and risks have been thoroughly explained. The potential benefits have been explained. The patient wishes to proceed at this time, and efforts will be made to start the preauthorization process, and ultimately schedule the procedure for the near future. Influenza vaccine was not administered today. The patient is not a smoker. Patient weighs 261 pounds. He stands 5 feet 8 inches tall. His BMI is 38.5, which places him in an obese class II category. Weight loss has been recommended, and collaboration with the patient's primary care physician has been recommended in terms of weight loss management.
--- NOTE | 2018-04-04 08:45 | HP.PCM_ITS ---
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 Status: Chronic Current Visit: Yes Code(s): I87.333 - Chronic venous hypertension (idiopathic) with ulcer and inflammation of bilateral lower extremity; L97.919 - Non-pressure chronic ulcer of unspecified part of right lower leg with unspecified severity; L97.929 - Non-pressure chronic ulcer of unspecified part of left lower leg with unspecified severity (4) Venous ulcer of right leg Status: Chronic Current Visit: Yes Code(s): I83.019 - Varicose veins of right lower extremity with ulcer of unspecified site; L97.919 - Non-pressure chronic ulcer of unspecified part of right lower leg with unspecified severity (5) Spontaneous hemorrhage Status: Chronic Current Visit: Yes Code(s): K66.1 - Hemoperitoneum (6) Atrial fibrillation Status: Chronic Current Visit: No Code(s): I48.91 - Unspecified atrial fibrillation (7) Lumbar radiculopathy Status: Chronic Current Visit: No Code(s): M54.16 - Radiculopathy, lumbar region (8) Obesity (BMI 35.0-39.9 without comorbidity) Status: Chronic Current Visit: No Code(s): E66.9 - Obesity, unspecified (9) Exertional dyspnea Status: Chronic Current Visit: No Code(s): R06.09 - Other forms of dyspnea (10) Right leg swelling Status: Chronic Current Visit: Yes Code(s): M79.89 - Other specified soft tissue disorders (11) Chronic venous hypertension with ulcer involving right side Status: Chronic Current Visit: Yes Code(s): I87.311 - Chronic venous hyper tension (idiopathic) with ulcer of right lower extremity; L97.919 - Non-pressure chronic ulcer of unspecified part of right lower leg with unspecified severity History of Present Illness Chief Complaint: Chronic venous insufficiency, varicose veins with ulceration and inflammation, venous hypertension with ulceration, venous ulceration, leg swelling, spontaneous bleeding?right lower extremity History of Wound: This is a 77-year-old male who presented with a long-standing history of chronic venous disease. The patient has had varicose veins for many years. He has elected to forego any significant treatment related to his venous disease. He denies a history of thrombophlebitis, though his past medical records indicate a history, though vague and nonspecific. Approximately 2 months prior to his presentation, the patient developed a spontaneous ulceration on the medial aspect of his right calf. The site subsequently ruptured, and spontaneous bleeding occurred on 3 different occasions, each time with significant blood loss. On at least one occasion, the spontaneous bleeding occurred after taking a hot shower. On each of 3 occasions, the patient was transported to the emergency department at [facility] in [place], [place], where the patient was treated and released. On each occasion, sutures were placed to obliterate the bleeding. Patient was subsequently referred to the [facility] for definitive management. The patient relates swelling in his right leg which occurs typically at the end of each day. He sleeps on a flat mattress at night. He lies in a recumbent position often during the daytime. He is not very active. He is also noted to be obese. 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 Patient's mother at age of 83 with a history of liver cancer. Tobacco Use: Non-smoker Review of Systems Constitutional: Denies: Chills, Fever, Weight Change Eyes: Denies: Pain, Vision Change HEENT: Denies: Difficulty Hearing, Difficulty Swallowing, Sinus Congestion Cardiovascular: Denies: Chest Pain, Palpitations Respiratory: Denies: Cough, Shortness of Breath Gastrointestinal: Denies: Diarrhea, Nausea, Vomiting Genitourinary: Denies: Dysuria, Hematuria Endocrine: Denies: Heat/ Cold Intolerance, Polydipsia, Polyuria Hematologic/ Lymphatic: Denies: Easy Bruising, Easy Bleeding - Physical Exam Vital Signs Temp Pulse Resp BP 97.1 F L 98 18 138/85 H 04/04/18 08:07 04/04/18 08:07 04/04/18 08:07 04/04/18 08:07 General: Alert, Oriented x3, Cooperative, No apparent distress, Well developed, Well nourished HEENT: Atraumatic, PERRLA, EOMI, Normocephalic Oral: Moist Mucosa Neck: No JVD Lungs: Normal air movement Abdomen: Non-Distended Extremities: No clubbing, No cyanosis, No edema, No Calf Tenderness, - - There is no significant swelling or edema in the lower extremities bilaterally. The u lceration on the right medial calf persists. There is a large dry eschar. There is no sign of infection or cellulitis. Dimensions are documented elsewhere. The eschar overlies a bulging prominence, thought to be an underlying dilated varicosity. Skin: No rashes Wound Measurements and Assessment WC - Nurse 1 - General Ulcer Measurement Start: 04/04/18 08:07 Freq: Status: Active Protocol: Activity Type Activity Date Activity User E-Sign Co-Sign Detail Recorded Client Recorded Date Recorded By Document 04/04/18 08:07 KARISHMA [id number] 04/04/18 08:13 KARISHMA 04/04/18 08:07 Wound Center Nurse 1 [Ulcer Assessment] #1 Medial RLE -Combined with other wound No -Current Size (cm) - Length 1.1 -Current Size (cm) - Width 1.4 -Current Size (cm) - Depth 0.1 -Total Square Cm 1.54 -Photo Taken No -Epithelialization None Present -Tunneling No -Undermining/Tunneling No -Circular Undermining No -Exudate Amt Small (1-33%) -Exudate Type Serosanguineous -Wound Margin Flat & Intact -Granulation Amt Large (67-100%) -Granulation Quality Red -Slough/Fibrin Yes -Necrosis Amt Small (1-33%) -Necrotic Tissue Type Adherent Slough -Structure Exposed N/A -Texture (Skylar-wound Skin Appearance) Assessed Localized Edema -Moisture (Skylar-wound Skin Appearance Assessed ) Dry/Scaly -Color (Skylar-wound Skin Appearance) Assessed Hemosiderin Staining -Temperature (Skylar-wound Skin No Abnormality Appearance) (Pt Warm) -Tenderness on Palpation (Skylar-wound No Skin Appearance) -Ulcer Cleansing Wound Cleanser -Foul Odor after Cleansing No -Anesthetic Used 5% Lidocaine Gel [Edema Assessment] -Lower Limb Edema Present Yes -Right Calf (cm) 39.6 -Right Ankle (cm) 23.1 - Nurse 2 - General Ulcer CM Notes Start: 04/04/18 08:07 Freq: Status: Active Protocol: Activity Type Activity Date Activity User E-Sign Co-Sign Detail Recorded Client Recorded Date Recorded By Document 04/04/18 08:33 DV [id number] 04/04/18 08:35 DV 04/04/18 08:33 Wound Center Nurse 2 [Procedure/Treatment] #1 Medial RLE -Time 08:33 -Correct Patient Yes -Correct Side, Site, Position Yes -Procedure Performed No -Wound/Ulcer Outcome Not Healed [See Physician Procedure note for Specifics] Pain Scale: 0-10 Numeric [Pain] -Is Patient Pain Free? Yes Neurological: Cranial nerves II-XII grossly intact, Neuro grossly intact Psych/Mental Status: Normal Affect, Appropriate, Alert and oriented to time, place, person, mood and affect Debridement Note Post-Debridement Measurements/Treatment - Nurse 2 - General Ulcer CM Notes Start: 04/04/18 08:07 Freq: Status: Active Protocol: Activity Type Activity Date Activity User E-Sign Co-Sign Detail Recorded Client Recorded Date Recorded By Document 04/04/18 08:33 DV [id number] 04/04/18 08:35 DV 04/04/18 08:33 Wound Center Nurse 2 #1 Medial RLE -Time 08:33 -Correct Patient Yes -Correct Side, Site, Position Yes -Procedure Performed No -Wound/Ulcer Outcome Not Healed Pain Scale: 0-10 Numeric Is Patient Pain Free? Yes No debridement was completed today - Because the ulceration/eschar is located overlying a suspected large varicosity, debridements have not been performed for fear and concern that debridement will disturb the underlying vein, and could result in a significant bleeding episode. As result, debridements have not been performed serially, as would otherwise be implemented. Assessment/Plan Active Problems Chronic venous insufficiency (Chronic) Varicose veins with ulcer and inflammation (Chronic) Chronic venous hypertension (idiopathic) with ulcer and inflammation of bilateral lower extremity (Chronic) Venous ulcer of right leg (Chronic) Spontaneous hemorrhage (Chronic) Right leg swelling (Chronic) Chronic venous hypertension with ulcer involving right side (Chronic) Assessment: This is a 77-year-old male with an apparent long-standing history of chronic venous disease. He has had varicose veins for many years, as well as chronic swelling in his right lower extremity. Also a question as to whether the patient may have a history of thrombophlebitis. Within the last several months, the patient has developed an ulceration on the right medial calf, and churchill s had 3 episodes of spontaneous bleeding from the ulceration, prompting visits to the emergency department setting. On each occasion, suture closure of the bleeding vessel was performed. Patient presented with recent medical records, which have been reviewed. In addition, laboratory results are available from the patient's primary care physician, the results of which have been reviewed. Results are as follows: Cholesterol 199, HDL cholesterol 57, HDL ratio 3.5, LDL cholesterol 121, sodium 140, potassium 4.3, chloride 104, calcium 9.4, alkaline phosphatase 96, AST 24, ALT 18, bilirubin 0.7, glucose 89, BUN 14, creatinine 0.72, protein 7.4, albumin 4.2. The date of these laboratory results is 02/10/2018. The patient has undergone a venous duplex examination on February 24, 2018. Results have been reviewed with the patient. 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 Accessory saphenous veins in the right lower extremity at the S5 and S6 positions are also incompetent. An incompetent pure pak machine operator vein is noted in the right calf, located 13 cm proximal to the right medial malleolus. A noninvasive lower extremity arterial study has been performed as well, revealing no evidence of significant arterial occlusive disease in the lower extremities. The patient is accompanied by his and daughter. It appears as though he sleeps on a flat surface at night. He claims to be elevating his lower extremities frequently during daytime hours. Since the initiation of a 3M 2 layer compression wrap to the right lower extremity, patient has shown significant improvement in the swelling and edema, which is now somewhat minimal. There have been no further bleeding episodes. Plan: The patient and his family have been advised in the appropriate conservative measures regarding management of the patient's chronic venous disease. The patient has been encouraged to continue sleeping in a recumbent position, on a flat mattress. Leg elevation should be to heart level, or higher. Legs should be elevated even during daytime hours, as much as possible. Prolonged idle sitting has been discouraged. Weight loss has been encouraged. Activity has also been encouraged as well. We are to continue compression to the right lower extremity by means of a 3M 2 layer compression wrap, which will be changed twice weekly. We are to use Adaptic and gauze overlying the ulcerated site, in an effort to avoid adherence and subsequent bleeding. Patient has been instructed that, in the event of additional bleeding from the site, he is to elevate his leg and apply manual pressure. The patient is return in 1 week for reassessment. In the event that an episode of spontaneous bleeding should reoccur, the patient has been instructed to apply pressure to the bleeding site, and to elevate his lower extremity above heart level. Thereafter, he should seek medical attention. At present, we are to use a nonadhesive topical dressing such as Adaptic, with overlying gauze. The goal is to avoid any adherence of the dressings to the bleeding site, to avoid further bleeding episodes. Ultimately, the patient will be a likely candidate for an endovenous ablation procedure. The nature of the endovenous laser ablation procedure has again been discussed with the patient and his family in detail. It is anticipated that such a procedure may be necessary in an effort to reduce the pressure within the venous system of the right lower extremity, and reduce the likelihood of further bleeding from the ulcerated site. Endovenous laser ablation would likely also hasten the healing of his ulceration. In addition to endovenous laser ablation, there may be a need for ultrasound-guided injection sclerotherapy of the veins in the region of the bleeding varicosity. The potential benefits of endovenous laser ablation of the right great saphenous vein, the 2 accessory saphenous veins, and possibly the incompetent pure pak machine operator vein have been discussed with the patient in detail, as well as his . The indications and risks have been thoroughly explained. The potential benefits have been explained. The patient wishes to proceed at this time, and efforts will be made to start the preauthorization process, and ultimately schedule the procedure for the near future. Influenza vaccine was not administered today. The patient is not a smoker. Patient weighs 261 pounds. He stands 5 feet 8 inches tall. His BMI is 38.5, which places him in an obese class II category. Weight loss has been recommended, and collaboration with the patient's primary care physician has been recommended in terms of weight loss management.
[2018-04-18 08:13] VITALS: BP 138/93; PULSE 107; RESP 16; TEMP 36.8; BMI 38.5
--- NOTE | 2018-04-18 09:34 | PCM.WC.HP ---
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 Status: Chronic Current Visit: Yes Code(s): I87.333 - Chronic venous hypertension (idiopathic) with ulcer and inflammation of bilateral lower extremity; L97.919 - Non-pressure chronic ulcer of unspecified part of right lower leg with unspecified severity; L97.929 - Non-pressure chronic ulcer of unspecified part of left lower leg with unspecified severity (4) Venous ulcer of right leg Status: Chronic Current Visit: Yes Code(s): I83.019 - Varicose veins of right lower extremity with ulcer of unspecified site; L97.919 - Non-pressure chronic ulcer of unspecified part of right lower leg with unspecified severity (5) Spontaneous hemorrhage Status: Chronic Current Visit: Yes Code(s): K66.1 - Hemoperitoneum (6) Atrial fibrillation Status: Chronic Current Visit: No Code(s): I48.91 - Unspecified atrial fibrillation (7) Lumbar radiculopathy Status: Chronic Current Visit: No Code(s): M54.16 - Radiculopathy, lumbar region (8) Obesity (BMI 35.0-39.9 without comorbidity) Status: Chronic Current Visit: No Code(s): E66.9 - Obesity, unspecified (9) Exertional dyspnea Status: Chronic Current Visit: No Code(s): R06.09 - Other forms of dyspnea (10) Right leg swelling Status: Chronic Current Visit: Yes Code(s): M79.89 - Other specified soft tissue disorders (11) Chronic venous hypertension with ulcer involving right side Status: Chronic Current Visit: Yes Code(s): I87.311 - Chronic venous hypertension (idiopathic) with ulcer of right lower extremity; L97.919 - Non-pressure chronic ulcer of unspecified part of right lower leg with unspecified severity History of Present Illness Chief Complaint: Chronic venous insufficiency, varicose veins with ulceration and inflammation, venous hypertension with ulceration, venous ulceration, leg swelling, spontaneous bleeding?right lower extremity History of Wound: This is a 77-year-old male who presented with a long-standing history of chronic venous disease. The patient has had varicose veins for many years. He has elected to forego any significant treatment related to his venous disease. He denies a history of thrombophlebitis, though his past medical records indicate a history, though vague and nonspecific. Approximately 2 months prior to his presentation, the patient developed a spontaneous ulceration on the medial aspect of his right calf. The site subsequently ruptured, and spontaneous bleeding occurred on 3 different occasions, each time with significant blood loss. On at least one occasion, the spontaneous bleeding occurred after taking a hot shower. On each of 3 occasions, the patient was transported to the emergency department at [facility] in [place], [place], where the patient was treated and released. On each occasion, sutures were placed to obliterate the bleeding. Patient was subsequently referred to the [facility] for definitive management. The patient relates swelling in his right leg which occurs typically at the end of each day. He sleeps on a flat mattress at night. He lies in a recumbent position often during the daytime. He is not very active. He is also noted to be obese. 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 Patient's mother at age of 83 with a history of liver cancer. Tobacco Use: Non-smoker Review of Systems Constitutional: Denies: Chills, Fever, Weight Change Eyes: Denies: Pain, Vision Change HEENT: Denies: Difficulty Hearing, Difficulty Swallowing, Sinus Congestion Cardiovascular: Denies: Chest Pain, Palpitations Respiratory: Denies: Cough, Shortness of Breath Gastrointestinal: Denies: Diarrhea, Nausea, Vomiting Genitourinary: Denies: Dysuria, Hematuria Endocrine: Denies: Heat/ Cold Intolerance, Polydipsia, Polyuria Hematologic/ Lymphatic: Denies: Easy Bruising, Easy Bleeding - Physical Exam Vital Signs Temp Pulse Resp BP 98.2 F 107 H 16 138/93 H 04/18/18 08:13 04/18/18 08:13 04/18/18 08:13 04/18/18 08:13 General: Alert, Oriented x3, Cooperative, No apparent distress, Well developed, Well nourished HEENT: Atraumatic, PERRLA, EOMI, Normocephalic Oral: Moist Mucosa Neck: No JVD Lungs: Normal air movement Abdomen: Non-Distended Extremities: No clubbing, No cyanosis, No edema, No Calf Tenderness, - - The swelling and edema in the right lower extremity appears to be reasonably well controlled. The ulceration on the right medial calf persists, relatively unchanged in appearance and size. Dimensions are documented elsewhere. There is no sign of infection or cellulitis. Skin: No rashes Wound Measurements and Assessment WC - Nurse 1 - General Ulcer Measurement Start: 04/04/18 08:07 Freq: Status: Active Protocol: Activity Type Activity Date Activity User E-Sign Co-Sign Detail Recorded Client Recorded Date Recorded By Document 04/18/18 08:13 MW [id number] 04/18/18 08:16 MW 04/18/18 08:13 Wound Center Nurse 1 [Ulcer Assessment] #1 Medial RLE -Combined with other wound No -Current Size (cm) - Length 1.9 -Current Size (cm) - Width 1.5 -Current Size (cm) - Depth 0.4 -Total Square Cm 2.85 -Photo Taken No -Epithelialization None Present -Tunneling No -Undermining/Tunneling No -Circular Undermining No -Exudate Amt Small (1-33%) -Exudate Type Serosanguineous -Wound Margin Distinct, Outline Attached -Granulation Amt Medium (34-66%) -Granulation Quality Alcova -Slough/Fibrin Yes -Necrosis Amt Small (1-33%) -Necrotic Tissue Type Adherent Slough -Structure Exposed N/A -Texture (Skylar-wound Skin Appearance) Assessed Localized Edema Scarring -Moisture (Skylar-wound Skin Appearance Assessed ) Dry/Scaly -Color (Skylar-wound Skin Appearance) No Abnormality Assessed -Temperature (Skylar-wound Skin No Abnormality Appearance) (Pt Warm) -Tenderness on Palpation (Skylar-wound No Skin Appearance) -Ulcer Cleansing soap and water -Foul Odor after Cleansing No [Edema Assessment] -Lower Limb Edema Present Yes -Right Calf (cm) 40.0 -Right Ankle (cm) 23.2 - Nurse 2 - General Ulcer CM Notes Start: 04/04/18 08:07 Freq: Status: Active Protocol: Activity Type Activity Date Activity User E-Sign Co-Sign Detail Recorded Client Recorded Date Recorded By Document 04/18/18 09:28 DV [id number] 04/18/18 09:29 DV 04/18/18 09:28 Wound Center Nurse 2 [Procedure/Treatment] #1 [facility] RLE -Time 09:28 -Correct Patient Yes -Correct Side, Site, Position Yes -Procedure Performed No -Wound/Ulcer Outcome Not Healed [See Physician Procedure note for Specifics] Pain Scale: 0-10 Numeric [Pain] -Is Patient Pain Free? Yes Neurological: Cranial nerves II-XII grossly intact, Neuro grossly intact Psych/Mental Status: Normal Affect, Alert and oriented to time, place, person, mood and affect Debridement Note Post-Debridement Measurements/Treatment - Nurse 2 - General Ulcer CM Notes Start: 04/04/18 08:07 Freq: Status: Active Protocol: Activity Type Activity Date Activity User E-Sign Co-Sign Detail Recorded Client Recorded Date Recorded By Document 04/04/18 08:33 DV [id number] 04/04/18 08:35 DV Document 04/18/18 09:28 DV [id number] 04/18/18 09:29 DV 04/04/18 04/18/18 08:33 09:28 Wound Center Nurse 2 #1 [facility] RLE -Time 08:33 09:28 -Correct Patient Yes Yes -Correct Side, Site, Position Yes Yes -Procedure Performed No No -Wound/Ulcer Outcome Not Healed Not Healed Pain Scale: 0-10 Numeric Is Patient Pain Free? Yes Yes No debridement was completed today - Because of the propensity for bleeding, and suspected presence of a large distended vein directly beneath the patient's ulceration, debridement was purposely not performed today. Assessment/Plan Active Problems Chronic venous insufficiency (Chronic) Varicose veins with ulcer and inflammation (Chronic) Chronic venous hypertension (idiopathic) with ulcer and inflammation of bilateral lower extremity (Chronic) Venous ulcer of right leg (Chronic) Spontaneous hemorrhage (Chronic) Right leg swelling (Chronic) Chronic venous hypertension with ulcer involving right side (Chronic) Assessment: This is a 77-year-old male with an apparent long-standing history of chronic venous disease. He has had varicose veins for many years, as well as chronic swelling in his right lower extremity. Also a question as to whether the patient may have a history of thrombophlebitis. Within the last several months, the patient has developed an ulceration on the right medial calf, and has had 3 episodes of spontaneous bleeding from the ulceration, prompting visits to the emergency department setting. On each occasion, suture closure of the bleeding vessel was performed. Patient presented with recent medical records, which have been reviewed. In addition, laboratory results are available from the patient's primary care physician, the results of which have been reviewed. Results are as follows: Cholesterol 199, HDL cholesterol 57, HDL ratio 3.5, LDL cholesterol 121, sodium 140, potassium 4.3, chloride 104, calcium 9.4, alkaline phosphatase 96, AST 24, ALT 18, bilirubin 0.7, glucose 89, BUN 14, creatinine 0.72, protein 7.4, albumin 4.2. The date of these laboratory results is 02/10/2018. The patient has undergone a venous duplex examination on February 24, 2018. Results have been reviewed with the patient. 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 Accessory saphenous veins in the right lower extremity at the S5 and S6 positions are also incompetent. An incompetent molder machine tender vein is noted in the right calf, located 13 cm proximal to the right medial malleolus. A noninvasive lower extremity arterial study has been performed as well, revealing no evidence of significant arterial occlusive disease in the lower extremities. The patient is accompanied by his and daughter. It appears as though he sleeps on a flat surface at night. He claims to be elevating his lower extremities frequently during daytime hours. Since the initiation of a 3M 2 layer compression wrap to the right lower extremity, patient has shown significant improvement in the swelling and edema, which is now somewhat minimal. There have been no further bleeding episodes. Plan: The patient and his family have been advised in the appropriate conservative measures regarding management of the patient's chronic venous disease. The patient has been encouraged to continue sleeping in a recumbent position, on a flat mattress. Leg elevation should be to heart level, or higher. Legs should be elevated even during daytime hours, as much as possible. Prolonged idle sitting has been discouraged. Weight loss has been encouraged. Activity has also been encouraged as well. We are to continue compression to the right lower extremity by means of a 3M 2 layer compression wrap, which will be changed twice weekly. We are to use Adaptic and gauze overlying the ulcerated site, in an effort to avoid adherence and subsequent bleeding. Patient has been instructed that, in the event of additional bleeding from the site, he is to elevate his leg and apply manual pressure. The patient is return in 1 week for reassessment. In the event that an episode of spontaneous bleeding should reoccur, the patient has been instructed to apply pressure to the bleeding site, and to elevate his lower extremity above heart level. Thereafter, he should seek medical attention. At present, we are to use a nonadhesive topical dressing such as Adaptic, with overlying gauze. The goal is to avoid any adherence of the dressings to the bleeding site, to avoid further bleeding episodes. Ultimately, the patient will be a likely candidate for an endovenous ablation procedure. The nature of the endovenous laser ablation procedure has again been discussed with the patient and his family in detail. It is anticipated that such a procedure may be necessary in an effort to reduce the pressure within the venous system of the right lower extremity, and reduce the likelihood of further bleeding from the ulcerated site. Endovenous laser ablation would likely also hasten the healing of his ulceration. In addition to endovenous laser ablation, there may be a need for ultrasound-guided injection sclerotherapy of the veins in the region of the bleeding varicosity. The potential benefits of endovenous laser ablation of the right great saphenous vein, the 2 accessory saphenous veins, and possibly the incompetent molder machine tender vein have been discussed with the patient in detail, as well as his . The indications and risks have been thoroughly explained. The potential benefits have been explained. The patient wishes to proceed at this time, and efforts will be made to start the preauthorization process, and ultimately schedule the procedure for the near future. The patient's endothermal ablation procedure is now tentatively scheduled for May 11, 2018. Influenza vaccine was not administered today. The patient is not a smoker. Patient weighs 261 pounds. He stands 5 feet 8 inches tall. His BMI is 38.5, which places him in an obese class II category. Weight loss has been recommended, and collaboration with the patient's primary care physician has been recommended in terms of weight loss management.
--- NOTE | 2018-04-18 09:37 | HP.PCM_ITS ---
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 Status: Chronic Current Visit: Yes Code(s): I87.333 - Chronic venous hypertension (idiopathic) with ulcer and inflammation of bilateral lower extremity; L97.919 - Non-pressure chronic ulcer of unspecified part of right lower leg with unspecified severity; L97.929 - Non-pressure chronic ulcer of unspecified part of left lower leg with unspecified severity (4) Venous ulcer of right leg Status: Chronic Current Visit: Yes Code(s): I83.019 - Varicose veins of right lower extremity with ulcer of unspecified site; L97.919 - Non-pressure chronic ulcer of unspecified part of right lower leg with unspecified severity (5) Spontaneous hemorrhage Status: Chronic Current Visit: Yes Code(s): K66.1 - Hemoperitoneum (6) Atrial fibrillation Status: Chronic Current Visit: No Code(s): I48.91 - Unspecified atrial fibrillation (7) Lumbar radiculopathy Status: Chronic Current Visit: No Code(s): M54.16 - Radiculopathy, lumbar region (8) Obesity (BMI 35.0-39.9 without comorbidity) Status: Chronic Current Visit: No Code(s): E66.9 - Obesity, unspecified (9) Exertional dyspnea Status: Chronic Current Visit: No Code(s): R06.09 - Other forms of dyspnea (10) Right leg swelling Status: Chronic Current Visit: Yes Code(s): M79.89 - Other specified soft tissue disorders (11) Chronic venous hypertension with ulcer involving right side Status: Chronic Current Visit: Yes Code(s): I87.311 - Chronic venous hyper tension (idiopathic) with ulcer of right lower extremity; L97.919 - Non-pressure chronic ulcer of unspecified part of right lower leg with unspecified severity History of Present Illness Chief Complaint: Chronic venous insufficiency, varicose veins with ulceration and inflammation, venous hypertension with ulceration, venous ulceration, leg swelling, spontaneous bleeding?right lower extremity History of Wound: This is a 77-year-old male who presented with a long-standing history of chronic venous disease. The patient has had varicose veins for many years. He has elected to forego any significant treatment related to his venous disease. He denies a history of thrombophlebitis, though his past medical records indicate a history, though vague and nonspecific. Approximately 2 months prior to his presentation, the patient developed a spontaneous ulceration on the medial aspect of his right calf. The site subsequently ruptured, and spontaneous bleeding occurred on 3 different occasions, each time with significant blood loss. On at least one occasion, the spontaneous bleeding occurred after taking a hot shower. On each of 3 occasions, the patient was transported to the emergency department at [facility] in [place], [place], where the patient was treated and released. On each occasion, sutures were placed to obliterate the bleeding. Patient was subsequently referred to the [facility] for definitive management. The patient relates swelling in his right leg which occurs typically at the end of each day. He sleeps on a flat mattress at night. He lies in a recumbent position often during the daytime. He is not very active. He is also noted to be obese. 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 Patient's mother at age of 83 with a history of liver cancer. Tobacco Use: Non-smoker Review of Systems Constitutional: Denies: Chills, Fever, Weight Change Eyes: Denies: Pain, Vision Change HEENT: Denies: Difficulty Hearing, Difficulty Swallowing, Sinus Congestion Cardiovascular: Denies: Chest Pain, Palpitations Respiratory: Denies: Cough, Shortness of Breath Gastrointestinal: Denies: Diarrhea, Nausea, Vomiting Genitourinary: Denies: Dysuria, Hematuria Endocrine: Denies: Heat/ Cold Intolerance, Polydipsia, Polyuria Hematologic/ Lymphatic: Denies: Easy Bruising, Easy Bleeding - Physical Exam Vital Signs Temp Pulse Resp BP 98.2 F 107 H 16 138/93 H 04/18/18 08:13 04/18/18 08:13 04/18/18 08:13 04/18/18 08:13 General: Alert, Oriented x3, Cooperative, No apparent distress, Well developed, Well nourished HEENT: Atraumatic, PERRLA, EOMI, Normocephalic Oral: Moist Mucosa Neck: No JVD Lungs: Normal air movement Abdomen: Non-Distended Extremities: No clubbing, No cyanosis, No edema, No Calf Tenderness, - - The swelling and edema in the right lower extremity appears to be reasonably well controlled. The ulceration on the right medial calf persists, relatively unchanged in appearance and size. Dimensions are documented elsewhere. There is no sign of infection or cellulitis. Skin: No rashes Wound Measurements and Assessment WC - Nurse 1 - General Ulcer Measurement Start: 04/04/18 08:07 Freq: Status: Active Protocol: Activity Type Activity Date Activity User E-Sign Co-Sign Detail Recorded Client Recorded Date Recorded By Document 04/18/18 08:13 MW [id number] 04/18/18 08:16 MW 04/18/18 08:13 Wound Center Nurse 1 [Ulcer Assessment] #1 Medial RLE -Combined with other wound No -Current Size (cm) - Length 1.9 -Current Size (cm) - Width 1.5 -Current Size (cm) - Depth 0.4 -Total Square Cm 2.85 -Photo Taken No -Epithelialization None Present -Tunneling No -Undermining/Tunneling No -Circular Undermining No -Exudate Amt Small (1-33%) -Exudate Type Serosanguineous -Wound Margin Distinct, Outline Attached -Granulation Amt Medium (34-66%) -Granulation Quality [place] -Slough/Fibrin Yes -Necrosis Amt Small (1-33%) -Necrotic Tissue Type Adherent Slough -Structure Exposed N/A -Texture (Skylar-wound Skin Appearance) Assessed Localized Edema Scarring -Moisture (Skylar-wound Skin Appearance Assessed ) Dry/Scaly -Color (Skylar-wound Skin Appearance) No Abnormality Assessed -Temperature (Skylar-wound Skin No Abnormality Appearance) (Pt Warm) -Tenderness on Palpation (Skylar-wound No Skin Appearance) -Ulcer Cleansing soap and water -Foul Odor after Cleansing No [Edema Assessment] -Lower Limb Edema Present Yes -Right Calf (cm) 40.0 -Right Ankle (cm) 23.2 - Nurse 2 - General Ulcer CM Notes Start: 04/04/18 08:07 Freq: Status: Active Protocol: Activity Type Activity Date Activity User E-Sign Co-Sign Detail Recorded Client Recorded Date Recorded By Document 04/18/18 09:28 DV [id number] 04/18/18 09:29 DV 04/18/18 09:28 Wound Center Nurse 2 [Procedure/Treatment] #1 [facility] RLE -Time 09:28 -Correct Patient Yes -Correct Side, Site, Position Yes -Procedure Performed No -Wound/Ulcer Outcome Not Healed [See Physician Procedure note for Specifics] Pain Scale: 0-10 Numeric [Pain] -Is Patient Pain Free? Yes Neurological: Cranial nerves II-XII grossly intact, Neuro grossly intact Psych/Mental Status: Normal Affect, Alert and oriented to time, place, person, mood and affect Debridement Note Post-Debridement Measurements/Treatment - Nurse 2 - General Ulcer CM Notes Start: 04/04/18 08:07 Freq: Status: Active Protocol: Activity Type Activity Date Activity User E-Sign Co-Sign Detail Recorded Client Recorded Date Recorded By Document 04/04/18 08:33 DV [id number] 04/04/18 08:35 DV Document 04/18/18 09:28 DV [id number] 04/18/18 09:29 DV 04/04/18 04/18/18 08:33 09:28 Wound Center Nurse 2 #1 [facility] RLE -Time 08:33 09:28 -Correct Patient Yes Yes -Correct Side, Site, Position Yes Yes -Procedure Performed No No -Wound/Ulcer Outcome Not Healed Not Healed Pain Scale: 0-10 Numeric Is Patient Pain Free? Yes Yes No debridement was completed today - Because of the propensity for bleeding, and suspected presence of a large distended vein directly beneath the patient's ulceration, debridement was purposely not performed today. Assessment/Plan Active Problems Chronic venous insufficiency (Chronic) Varicose veins with ulcer and inflammation (Chronic) Chronic venous hypertension (idiopathic) with ulcer and inflammation of bilateral lower extremity (Chronic) Venous ulcer of right leg (Chronic) Spontaneous hemorrhage (Chronic) Right leg swelling (Chronic) Chronic venous hypertension with ulcer involving right side (Chronic) Assessment: This is a 77-year-old male with an apparent long-standing history of chronic venous disease. He has had varicose veins for many years, as well as chronic swelling in his right lower extremity. Also a question as to whether the patient may have a history of thrombophlebitis. Within the last several months, the patient has developed an ulceration on the right medial calf, and has had 3 episodes of spontaneous bleeding from the ulceration, prompting visits to the emergency department setting. On each occasion, suture closure of the bleeding vessel was performed. Patient presented with recent medical records, which have been reviewed. In addition, laboratory results are available from the patient's primary care physician, the results of which have been reviewed. Results are as follows: Cholesterol 199, HDL cholesterol 57, HDL ratio 3.5, LDL cholesterol 121, sodium 140, potassium 4.3, chloride 104, calcium 9.4, alkaline phosphatase 96, AST 24, ALT 18, bilirubin 0.7, glucose 89, BUN 14, creatinine 0.72, protein 7.4, albumin 4.2. The date of these laboratory results is 02/10/2018. The patient has undergone a venous duplex examination on February 24, 2018. Results have been reviewed with the patient. 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 Accessory saphenous veins in the right lower extremity at the S5 and S6 positions are also incompetent. An incompetent inspector floor sub assembly vein is noted in the right calf, located 13 cm proximal to the right medial malleolus. A noninvasive lower extremity arterial study has been performed as well, revealing no evidence of significant arterial occlusive disease in the lower extremities. The patient is accompanied by his and daughter. It appears as though he sleeps on a flat surface at night. He claims to be elevating his lower extremities frequently during daytime hours. Since the initiation of a 3M 2 layer compression wrap to the right lower extremity, patient has shown significant improvement in the swelling and edema, which is now somewhat minimal. There have been no further bleeding episodes. Plan: The patient and his family have been advised in the appropriate conservative measures regarding management of the patient's chronic venous disease. The patient has been encouraged to continue sleeping in a recumbent position, on a flat mattress. Leg elevation should be to heart level, or higher. Legs should be elevated even during daytime hours, as much as possible. Prolonged idle sitting has been discouraged. Weight loss has been encouraged. Activity has also been encouraged as well. We are to continue compression to the right lower extremity by means of a 3M 2 layer compression wrap, which will be changed twice weekly. We are to use Adaptic and gauze overlying the ulcerated site, in an effort to avoid adherence and subsequent bleeding. Patient has been instructed that, in the event of additional bleeding from the site, he is to elevate his leg and apply manual pressure. The patient is return in 1 week for reassessment. In the event that an episode of spontaneous bleeding should reoccur, the patient has been instructed to apply pressure to the bleeding site, and to elevate his lower extremity above heart level. Thereafter, he should seek medical attention. At present, we are to use a nonadhesive topical dressing such as Adaptic, with overlying gauze. The goal is to avoid any adherence of the dressings to the bleeding site, to avoid further bleeding episodes. Ultimately, the patient will be a likely candidate for an endovenous ablation procedure. The nature of the endovenous laser ablation procedure has again been discussed with the patient and his family in detail. It is anticipated that such a procedure may be necessary in an effort to reduce the pressure within the venous system of the right lower extremity, and reduce the likelihood of further bleeding from the ulcerated site. Endovenous laser ablation would likely also hasten the healing of his ulceration. In addition to endovenous laser ablation, there may be a need for ultrasound-guided injection sclerotherapy of the veins in the region of the bleeding varicosity. The potential benefits of endovenous laser ablation of the right great saphenous vein, the 2 accessory saphenous veins, and possibly the incompetent inspector floor sub assembly vein have been discussed with the patient in detail, as well as his . The indications and risks have been thoroughly explained. The potential benefits have been explained. The patient wishes to proceed at this time, and efforts will be made to start the preauthorization process, and ultimately schedule the procedure for the near future. The patient's endothermal ablation procedure is now tentatively scheduled for May 11, 2018. Influenza vaccine was not administered today. The patient is not a smoker. Patient weighs 261 pounds. He stands 5 feet 8 inches tall. His BMI is 38.5, which places him in an obese class II category. Weight loss has been recommended, and collaboration with the patient's primary care physician has been recommended in terms of weight loss management.
[2018-04-26 10:42] VITALS: BP 142/82; PULSE 103; RESP 16; TEMP 36; BMI 38.5
== END 2018-05-01 23:59 ==
LOC: WC 09:30
PROVIDERS: Referring Provider Surgery; Visit Provider Surgery
DX: I83.212 Varicose veins of right lower extremity with both ulcer of calf and inflammation (principal); I48.2 Chronic atrial fibrillation; M54.16 Radiculopathy, lumbar region; E66.9 Obesity, unspecified; Z71.3 Dietary counseling and surveillance; R06.09 Other forms of dyspnea; Z68.38 Body mass index [BMI] 38.0-38.9, adult; L97.219 Non-pressure chronic ulcer of right calf with unspecified severity
CPT/HCPCS: 29581; 99212; 99213; G0463

== ENCOUNTER 2018-05-18 10:20 | Day surgery (SDC) | payer MEDICARE, SELFPAY ==
[2018-04-04 08:07] VITALS: BMI 38.5
[2018-05-03 10:00] VITALS: BP 124/81; PULSE 96; RESP 20; TEMP 36.6; O2SAT 96; BMI 39.4
--- NOTE | 2018-05-03 10:33 | SDCEKG_ITS ---
Test Reason : Blood Pressure : / mmHG Vent. Rate : 105 BPM Atrial Rate : 082 BPM P-R Int : 000 ms QRS Dur : 076 ms QT Int : 360 ms P-R-T Axes : 000 002 032 degrees QTc Int : 475 ms Atrial fibrillation with rapid ventricular response Abnormal ECG Confirmed by BRODY PETERSON, SHANIA ([id number]), rewrite editor KOLBY KEE ([id number] on 05/04/2018 2:02:49 PM Referred By: Nacho Franco Confirmed By:SHANIA SKINNER MD
[2018-05-03 10:55] LABS: Hematocrit 46.5 % (40-54); Hemoglobin 15.1 g/dl (13.0-16.5); Mean Corp Hgb Conc 32.5 g/gl (32-36); Mean Corpuscular Hgb 30.4 pg (27.0-32.0); Mean Corpuscular Volume 93.8 fL (80-94); Mean Platelet Vol. 10.2 fl (6.2-12.0); Platelet Count 228 K/mm3 (150-450); RBC Distribution Width CV 14.2 % (11.6-14.6); RBC Distribution Width SD 47.2 fl (35.1-43.9); Red Blood Count 4.96 M/mm3 (4.6-6.2); White Blood Count 7.8 K/mm3 (4.4-11.0)
[2018-05-03 10:57] LABS: Scan Indicated on CBC? Y/N NO
[2018-05-03 11:11] LABS: Anion Gap 8 (5-15); BUN 21 mg/dL (7-18); BUN/Creat Ratio 23.3 RATIO (10-20); Calcium,Total 8.9 mg/dL (8.5-10.1); Chloride 108 mmol/L (98-107); EST Glomerular Filtration Rate 86 mL/min (>60); Est Glom Filt Rate - Afr Amer 104 mL/min (>60); Estimated Creatinine Clearance 64.39 ml/min; Glucose 97 mg/dL (74-106); Potassium 3.9 mmol/L (3.5-5.1); Sodium Level 143 mmol/L (136-145)
[2018-05-15 12:53] VITALS: BMI 38.5
[2018-05-18] VITALS (12 sets, daily range): BP systolic 112–139; BP diastolic 70–93; PULSE 63–88; RESP 16–18; TEMP 36.3–36.9; O2SAT 91–98; BMI 39.4
[2018-05-18] MEDS: Cefazolin 2 GM in 0.9% Normal Saline 100 ML IV (12:14)
[2018-05-18] MEDS: Enoxaparin 30 MG/0.3 ML Syringe SC (12:59)
--- NOTE | 2018-05-18 15:03 | PCM.DCVENO ---
Discharge Diet: No Restrictions Discharge Activity: May Not Drive May shower in (days): 2 Weight Bearing Status: Weight bearing as tolerated Lifting Restrictions: 10 pounds Keep extremity elevated above heart level: Right Leg Call your doctor if you observe: Inability to urinate, Shortness of breath, Dizziness, Fainting spells, Chest pain, Prolonged hiccoughing, Uncontrolled pain Suture Line Care: Avoid Pulling/Pushing Remove Dressing in (days):: 2 - Then rewrap daily with Parmjit from base of toes to upper thigh Allergies/Adverse Reactions: Allergies No Known Allergies Allergy (Verified 05/09/18 15:30) Medications to take at Discharge Aspirin [Adult Aspirin] 81 mg PO DAILY 05/03/18 Cholecalciferol (VIT D3) [Vitamin D] 1,000 unit PO DAILY 05/03/18 Multivitamin [Daily Multiple Vitamin] 1 ea PO DAILY 05/03/18 metoprolol succinate ER 50 mg tablet,extended release 24 hr 50 mg PO DAILY #90 tab 05/09/18 Primary Care Physician: Jabier Beckett MD [Primary Care Provider] - Test Results: Test results from this visit will be discussed in further detail at your follow-up appointment, if applicable. Please Follow Up With: Nacho Franco MD When: Next week in the [facility]
--- NOTE | 2018-05-18 15:07 | DCINST_ITS ---
Discharge Diet: No Restrictions Discharge Activity: May Not Drive May shower in (days): 2 Weight Bearing Status: Weight bearing as tolerated Lifting Restrictions: 10 pounds Keep extremity elevated above heart level: Right Leg Call your doctor if you observe: Inability to urinate, Shortness of breath, Dizziness, Fainting spells, Chest pain, Prolonged hiccoughing, Uncontrolled pain Suture Line Care: Avoid Pulling/Pushing Remove Dressing in (days):: 2 - Then rewrap daily with Parmjit from base of toes to upper thigh Allergies/Adverse Reactions: Allergies No Known Allergies Allergy (Verified 05/09/18 15:30) Medications to take at Discharge Aspirin [Adult Aspirin] 81 mg PO DAILY 05/03/18 Cholecalciferol (VIT D3) [Vitamin D] 1,000 unit PO DAILY 05/03/18 Multivitamin [Daily Multiple Vitamin] 1 ea PO DAILY 05/03/18 metoprolol succinate ER 50 mg tablet,extended release 24 hr 50 mg PO DAILY #90 tab 05/09/18 Primary Care Physician: Jabier Beckett MD [Primary Care Provider] - Test Results: Test results from this visit will be discussed in further detail at your follow- up appointment, if applicable. Please Follow Up With: Nacho Franco MD When: Next week in the [facility]
--- NOTE | 2018-05-18 15:07 | PCM.IMDPSTOP ---
Immediate Post-Op Note Date of Procedure: 05/18/18 Primary Surgeon/Physician: Nacho Franco MD materials planning analyst: None Pre-Operative Diagnosis: Chronic venous insufficiency, varicose veins with ulceration and inflammation, venous hypertension with ulceration and inflammation, venous ulceration of calf, leg swelling, spontaneous bleeding from superficial varicose vein - Right lower extremity Post-Operative Diagnosis: Chronic venous insufficiency, varicose veins with ulceration and inflammation, venous hypertension with ulceration and inflammation, venous ulceration of calf, leg swelling, spontaneous bleeding from superficial varicose vein - Right lower extremity Surgery/Procedure Performed:: 1. EVLA of right great saphenous vein. 2. EVLA of right accessory saphenous vein (S5). 3. EVLA of right accessory saphenous vein (S6). 4. EVLA of right tributary vein Description of Surgical Findings:: As above Estimated Blood Loss: Minimal Specimen's removed: None Drains: None Type of Anesthesia:: General, Tumescent - Admit VTE Documentation VTE Present on Admission: No VTE Mechan Device Prophylaxis: SCD's - Left VTE Pharm Prophylaxis ordered?: Yes
--- NOTE | 2018-05-18 15:12 | OP.PN_ITS ---
Immediate Post-Op Note Date of Procedure: 05/18/18 Primary Surgeon/Physician: Nacho Franco MD garbage collector driver: None Pre-Operative Diagnosis: Chronic venous insufficiency, varicose veins with ulceration and inflammation, venous hypertension with ulceration and inflammatio n, venous ulceration of calf, leg swelling, spontaneous bleeding from superficial varicose vein - Right lower extremity Post-Operative Diagnosis: Chronic venous insufficiency, varicose veins with ulceration and inflammation, venous hypertension with ulceration and inflammation, venous ulceration of calf, leg swelling, spontaneous bleeding from superficial varicose vein - Right lower extremity Surgery/Procedure Performed:: 1. EVLA of right great saphenous vein. 2. EVLA of right accessory saphenous vein (S5). 3. EVLA of right accessory saphenous vein (S6). 4. EVLA of right tributary vein Description of Surgical Findings:: As above Estimated Blood Loss: Minimal Specimen's removed: None Drains: None Type of Anesthesia:: General, Tumescent - Admit VTE Documentation VTE Present on Admission: No VTE Mechan Device Prophylaxis: SCD's - Left VTE Pharm Prophylaxis ordered?: Yes
[2018-05-18 16:21] LABS: Bedside Glucose 131 mg/dL (70-110)
--- NOTE | 2018-05-19 11:04 | OP.PCM_ITS ---
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 Anesthesia: General, Tumescent EBL: Minimal Complications: None This is a 77-year-old male with a long-standing history of chronic venous insufficiency, varicose veins with inflammation, venous hypertension, and leg swelling involving his right lower extremity. He has developed a chronic, nonhealing ulceration of the right lower extremity, which has spontaneously hemorrhaged on several occasions, requiring emergency intervention. Venous duplex examination has revealed valvular incompetence involving the right great saphenous vein, 2 accessory saphenous veins, and a program host/tributary vein in the vicinity of the patient's venous ulceration. The options of management were fully explained. Conservative treatment measures were implemented, which included leg elevation, avoidance of idle standing and sitting, compression, active lifestyle, etc. Despite these measures, the patient remained symptomatic, continued to have active bleeding from his ulceration, and failed to show significant progress toward healing. The indications and risks of endovenous laser ablation of the right great saphenous vein, the right accessory saphenous vein at the S5 position, the right accessory saphenous vein at the S6 position, and the tributary/program host vein were discussed with the patient in detail. The appropriate preprocedure consent process was undertaken. The patient underwent ultrasound marking of the right great saphenous vein, the 2 incompetent accessory saphenous veins, and the incompetent tributary vein in the vicinity of the right lower extremity ulceration preoperatively. He was then brought to the operating room suite, placed supine upon the operating table, where general anesthesia was administered by the anesthesia staff. The patient's right lower extremity and right groin were prepped and draped in the appropriate sterile manner. The patient was placed in reverse Trendelenburg position. Ultrasonography was used to image the right great saphenous vein in the distal calf, well below the venous ulceration. The micropuncture technique was used to access the right great saphenous vein percutaneously in the distal calf. In this manner, a 0.018 inch guidewire is advanced intraluminally into the right great saphenous vein, and was visualized by ultrasonography. A micropuncture sheath was advanced over the guidewire. The 0.018 inch guidewire was exchanged for a 0.035 inch guidewire, which was then advanced intraluminally to a level just distal to the right sapheno-femoral junction, as confirmed by ultrasound imaging. A long 4 Martiniquais sheath was then advanced over the guidewire, and its tip was positioned approximately 2 cm distal to the right sapheno-femoral junction. Attention was then directed to each of the 2 incompetent accessory saphenous veins. In each case, using ultrasound imaging and the micropuncture technique, a micropuncture sheath was introduced intraluminally, and was left in place, capped, for subsequent access purposes. A similar approach was also used to p lace a micropuncture sheath intraluminally within the incompetent tributary in the vicinity of the venous ulceration. In this manner, a micropuncture sheath was placed, capped, for subsequent access purposes. Attention was then redirected to the long 4 Martiniquais sheath which had been previously placed intraluminally within the right great saphenous vein. Perivenous tumescent anesthesia was injected from the 4 Martiniquais sheath exit site up to the right sapheno-femoral junction. This was performed segmentally using ultrasound imaging. The AngioDynamics laser fiber was then introduced into the 4 Martiniquais sheath and coupled appropriately. Ultrasonography was used to confirm that the tip of the laser fiber was positioned within the right great saphenous vein approximately 2-2-1/2 cm distal to the right sapheno-femoral junction. The patient was placed in Trendelenburg position and the laser fiber was activated. The AngioDynamics laser was slowly withdrawn at a constant rate throughout the length of the right great saphenous vein, thereby ablating the right great saphenous vein segmentally. The energy applied was approximately 60-80 J/cm. Following the laser ablation, the laser fiber and sheath were removed, and manual pressure was briefly applied to the percutaneous access site to achieve hemostasis. Attention was then directed to each of the 2 incompetent accessory saphenous veins, located at the S5 and S6 positions. In each case, a 0.035 inch guidewire was introduced intraluminally, over which the long 4 Martiniquais sheath was advanced intraluminally. Perivenous tumescent anesthesia was then injected segmentally along the course of the 4 Martiniquais sheath. The AngioDynamics laser fiber was then introduced and coupled appropriately with the sheath. With the patient in Trendelenburg position, the laser fiber was activated, and slowly withdrawn throughout the course of each incompetent accessory saphenous vein, thereby ablating the accessory saphenous veins segmentally. The energy applied was approximately 60-80 J/cm. Following each laser ablation, the laser fiber and sheath were removed, and manual pressure was briefly applied to the percutaneous access site to achieve hemostasis. Attention was then directed to the micropuncture sheath which had been previously placed intraluminally within the large incompetent tributary in the vicinity of the venous ulceration. The 0.035 inch guidewire was introduced intraluminally, over which the 4 Martiniquais sheath was advanced. Perivenous tumescent anesthesia was injected segmentally. The AngioDynamics laser fiber was then introduced and coupled appropriately. With the patient in the Trendelenburg position, the laser fiber was activated and slowly withdrawn, thereby ablating the incompetent tributary vein segmentally. The energy applied was approximately 60-80 J/cm. Following the laser ablation, the laser fiber and sheath were removed, and manual pressure was briefly applied to the percutaneous access site to achieve hemostasis. After assuring satisfactory hemostasis, the access sites were approximated using Cavilon and Steri-Strips. Dry sterile gauze dressings were applied over each of the access sites, and the right leg was wrapped from the base of the toes to the upper thigh with Kerlix, followed by Parmjit wrap. The blood loss for the procedure was minimal. The sponge, needle, and instrument counts at the end of the procedure were correct. The patient tolerated the procedure well and was transported from the operating room to the postanesthesia care unit in stable condition. The amount of tumescent anesthesia utilized, number of joules applied, and treatment times were recorded separately.
--- OUTSIDE RECORDS SUMMARY | 2018-07-23 00:58 | XMS RPT_ITS ---
:1940 Author Organization OHIP Support Name Relationship Address Phone LETTY, REJI Unavailable [address] + [place] [address] R Unavailable Unavailable Unavailable R Unavailable Unavailable Unavailable LETTY, REJI Unavailable [address] + [place] [address] R Unavailable Unavailable Unavailable R Unavailable Unavailable Unavailable LETTY, REJI Unavailable [address] [facility] [address] [address] + [place] [address] R Unavailable Unavailable Unavailable R Unavailable Unavailable Unavailable LETTY, REJI Unavailable [address] + [place] [address] R Unavailable Unavailable Unavailable LETTY, REJI Unavailable Unavailable + R Unavailable Unavailable Unavailable DORIAN CHRISTENSEN Unavailable [address] + [place] [address] LETTY, REJI Unavailable Unavailable + R Unavailable Unavailable Unavailable DORIAN CHRISTENSEN Unavailable [address] [facility] [address] + [place] [address] LETTY, REJI Unavailable Unavailable + R Unavailable Unavailable Unavailable DORIAN CHRISTENSEN Unavailable [address] [address] [address] + [place] [address] NOT GIVEN Unavailable Unavailable Unavailable OTILIA SOUZA Unavailable Unavailable + DORIAN CHRISTENSEN Unavailable [address] [place] [address] NOT GIVEN Unavailable Unavailable Unavailable OTILIA SOUZA Unavailable Unavailable + DORIAN CHRISTENSEN Unavailable [address] [place] [address] NOT GIVEN Unavailable Unavailable Unavailable OTILIA SOUZA Unavailable Unavailable + DORIAN CHRISTENSEN Unavailable [address] [place] [address] NOT GIVEN Unavailable Unavailable Unavailable OTILIA SOUZA Unavailable Unavailable + DORIAN CHRISTENSEN Unavailable [address] [place] [address] Care Team Providers Name Role Phone DAGOBERTO, PREETI Admitting Unavailable DAGOBERTO, PREETI Attending Unavailable DAGOBERTO, PREETI Primary Care Unavailable RUSH, YUSUF A Consulting Unavailable PROVIDER, UNKNOWN Consulting Unavailable PROVIDER, UNKNOWN Consulting Unavailable PROVIDER, UNKNOWN Consulting Unavailable OMLEYOWEN DO Admitting Unavailable OMLEY, OWEN DO Attending Unavailable RUSH, YUSUF A Referring Unavailable OMLEY, OWEN DO Primary Care Unavailable RUSH, YUSUF A Consulting Unavailable PROVIDER, UNKNOWN Consulting Unavailable PROVIDER, UNKNOWN Consulting Unavailable PROVIDER, UNKNOWN Consulting Unavailable NOLAN PEREZ Admitting Unavailable NOLAN PEREZ Attending Unavailable RUSH, YUSUF A Referring Unavailable LEMASTERS, NOLAN D Primary Care Unavailable RUSH, YUSUF A Consulting Unavailable PROVIDER, UNKNOWN Consulting Unavailable PROVIDER, UNKNOWN Consulting Unavailable PROVIDER, UNKNOWN Consulting Unavailable DINESH, DR MIGUELITO Oro Admitting Unavailable DINESH, DR MIGUELITO Oro Attending Unavailable RUSH, YUSUF A Referring Unavailable DINESH, DR MIGUELITO Oro Primary Care Unavailable RUSH, YUSUF A Consulting Unavailable PROVIDER, UNKNOWN Consulting Unavailable PROVIDER, UNKNOWN Consulting Unavailable PROVIDER, UNKNOWN Consulting Unavailable Franco, Nacho Attending Unavailable Franco, Nacho Referring Unavailable DOCTOR, OUT OF TOWN Primary Care Unavailable Franco, Nacho Attending Unavailable Franco, Nacho Referring Unavailable Rush, Yusuf Primary Care Unavailable Franco, Nacho Attending Unavailable DOCTOR, OUT OF TOWN Primary Care Unavailable Franco, Nacho Referring Unavailable Franco, Nacho Attending Unavailable Franco, Nacho Referring Unavailable DOCTOR, OUT OF TOWN Primary Care Unavailable Ke, Heriberto Attending Unavailable DOCTOR, OUT OF TOWN Referring Unavailable MoodisMigue valerio Attending Unavailable Franco, Nacho Referring Unavailable Franco, Nacho Attending Unavailable Franco, Nacho Referring Unavailable DOCTOR, OUT OF TOWN Primary Care Unavailable PROBLEMS PROBLEMS DATE TYPE CONDITION / CODE ATTENDING STATUS SOURCE 05/09/2018 Unknown Z01.810 - Encounter Ke, [facility] [facility] examination / Repository Z01.810(ICD-10) 05/09/2018 Unknown I48.91 - Unspecified Ke, [facility] Active [facility] atrial fibrillation / [facility] I48.91(ICD-10) Hospital Repository 05/17/2018 Unknown R94.31 - Abnormal [place], Active [facility] electrocardiogram [facility] [ECG] [EKG] / Hospital R94.31(ICD-10) Repository 05/17/2018 Unknown I48.2 - Chronic atrial [place], Active [facility] fibrillation / [facility] I48.2(ICD-10) Hospital Repository PROCEDURES PROCEDURES No Procedure Records FoundRESULTS RESULTS VENOUS DUPLEX LOWER Observed: 05/24/2018 Status: F Source: [place] EXTREMITY 7:17 PM [facility] REPOSITORY [facility] Cardiovascular Services [address] [place] [address] Venous Duplex US, Unilateral 05/22/18 1333 MR#: [id number] Acct: [id number] Name: ROXIE CHRISTENSEN Rep #: [id number] : 1940 77 From: Nacho Farnco MD Attending Dr: Nacho Franco MD Status: REG RCR Ordering Dr: Nacho Franco MD Date: 05/22/18 Location: Sex: M C Admitted: Reason For Study: LEG SWELLING RIGHT CFV is compressible, spontaneous, phasic, competent and demonstrates normal augmentation. FV is compressible, spontaneous, phasic, competent and demonstrates normal augmentation. POP V is compressible, spontaneous, phasic, competent and demonstrates normal augmentation. T/P Trunk is compressible. PTV is compressible. RT PerV is compressible. GSV and ASV x 2 occluded s/p EVLA. Procedure Exam performed in department. A preliminary report was called and/or faxed to Dr. Franco. Interpretation Summary Deep veins of the right lower extremity are patent and compressible segmentally. There is no evidence of right lower extremity deep vein thrombosis. Valvular competence appears intact within the proximal deep venous system on the right . The right great saphenous vein and two accessory saphenous veins are occluded, consistent with a recent endothermal venous ablation procedure. Ordering Physician: Nacho Franco Referring Physician: Nacho Franco Performed By: Selina Murillo RVT 05/24/181915 Date Nacho Franco MD CC: Nacho Franco MD; Yusuf Rush MD Date Dictated: 05/22/18 1333 Date Transcribed: 05/24/181915 Palaeontologist: Signed WOUND CTR HISTORY Observed: 05/22/2018 Status: F Source: APRIL AND PHYSICAL 2:53 PM [facility] REPOSITORY [facility] Wound [facility]aling Center [address] [place] [address] Wound Ctr History AND Physical 05/22/18 1442 MR#: [id number] Acct: [id number] Name: ROXIE CHRISTENSEN Rep #: [id number] : 1940 77 From: Nacho Franco MD PCP: Yusuf Rush MD Status: REG RCR Y Location: 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 Status: Chronic Current Visit: Yes Code(s): I87.333 - Chronic venous hypertension (idiopathic) with ulcer and inflammation of bilateral lower extremity; L97.919 - Non-pressure chronic ulcer of unspecified part of right lower leg with unspecified severity; L97.929 - Non-pressure chronic ulcer of unspecified part of left lower leg with unspecified severity (4) Venous ulcer of right leg Status: Chronic Current Visit: Yes Code(s): I83.019 - Varicose veins of right lower extremity with ulcer of unspecified site; L97.919 - Non-pressure chronic ulcer of unspecified part of right lower leg with unspecified severity (5) Spontaneous hemorrhage Status: Chronic Current Visit: Yes Code(s): K66.1 - Hemoperitoneum (6) Atrial fibrillation Status: Chronic Current Visit: No Code(s): I48.91 - Unspecified atrial fibrillation (7) Lumbar radiculopathy Status: Chronic Current Visit: No Code(s): M54.16 - Radiculopathy, lumbar region (8) Obesity (BMI 35.0-39.9 without comorbidity) Status: Chronic Current Visit: No Code(s): E66.9 - Obesity, unspecified (9) Exertional dyspnea Status: Chronic Current Visit: No Code(s): R06.09 - Other forms of dyspnea (10) Right leg swelling Status: Chronic Current Visit: Yes Code(s): M79.89 - Other specified soft tissue disorders (11) Chronic venous hypertension with ulcer involving right side Status: Chronic Current Visit: Yes Code(s): I87.311 - Chronic venous hypertension (idiopathic) with ulcer of right lower extremity; L97.919 - Non-pressure chronic ulcer of unspecified part of right lower leg with unspecified severity History of Present Illness Chief Complaint: Chronic venous insufficiency, varicose veins with ulceration and inflammation, venous hypertension with ulceration, venous ulceration, leg swelling, spontaneous bleeding right lower extremity History of Wound: This is a 77-year-old male who presented with a long-standing history of chronic venous disease. The patient has had varicose veins for many years. He has elected to forego any significant treatment related to his venous disease. He denies a history of thrombophlebitis, though his past medical records indicate a history, though vague and nonspecific. Approximately 2 months prior to his presentation, the patient developed a spontaneous ulceration on the medial aspect of his right calf. The site subsequently ruptured, and spontaneous bleeding occurred on more than 3 different occasions, each time with significant blood loss. On at least one occasion, the spontaneous bleeding occurred after taking a hot shower. The patient has required attention in the emergency department on several occasions. Patient was subsequently referred to the [facility] for definitive management. The patient relates swelling in his right leg which occurs typically at the end of each day. He sleeps on a flat mattress at night. He lies in a recumbent position often during the daytime. He is not very active. He is also noted to be obese. 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 (Chronic) Venous ulcer of right leg (Chronic) Spontaneous hemorrhage (Chronic) Atrial fibrillation (Chronic) Lumbar radiculopathy (Chronic) Obesity (BMI 35.0-39.9 without comorbidity) (Chronic) Exertional dyspnea (Chronic) Right leg swelling (Chronic) Chronic venous hypertension with ulcer involving right side (Chronic) Surgical History: no surgical history Allergies/Adverse Reactions: Allergies No Known Allergies Allergy (Verified 05/09/18 15:30) Home Medications: Ambulatory Orders Medication Instructions Recorded Aspirin [Adult Aspirin] 81 mg PO DAILY 05/03/18 Cholecalciferol (VIT D3) [Vitamin 1,000 unit PO DAILY 05/03/18 - Family History Paternal Family History: Family History (Last Reviewed 05/09/18 @ 15:51 by Heriberto Dempsey MD) Mother CVA (cerebral vascular accident) - - The patient's father at the age of 90 of old age. Patient's mother at age of 83 with a history of liver cancer. Tobacco Use: Non-smoker Review of Systems Constitutional: Denies: Chills, Fever, Weight Change Eyes: Denies: Pain, Vision Change HEENT: Denies: Difficulty Hearing, Difficulty Swallowing, Sinus Congestion Cardiovascular: Denies: Chest Pain, Palpitations Respiratory: Denies: Cough, Shortness of Breath Gastrointestinal: Denies: Diarrhea, Nausea, Vomiting Genitourinary: Denies: Dysuria, Hematuria Endocrine: Denies: Heat/ Cold Intolerance, Polydipsia, Polyuria Hematologic/ Lymphatic: Denies: Easy Bruising, Easy Bleeding - Physical Exam Vital Signs Temp Pulse Resp BP 98.4 F 113 H 18 149/90 H 05/22/18 12:12 05/22/18 12:12 05/22/18 12:12 05/22/18 12:12 General: Alert, Oriented x3, Cooperative, No apparent distress, Well developed, Well nourished HEENT: Atraumatic, PERRLA, EOMI, Normocephalic Oral: Moist Mucosa Neck: No JVD Lungs: Normal air movement Abdomen: Non-Distended Extremities: No clubbing, No cyanosis, No Calf Tenderness, Edema, - - Significant swelling and edema is noted in the patient's right lower extremity. There is ecchymosis, consistent with the patient having undergone a recent endothermal venous ablation procedure. Percutaneous access sites are well approximated and healing appropriately. The ulceration on the right medial calf persists, appearing to be less prominent. There is no sign of infection or cellulitis. Dimensions are documented elsewhere. Skin: No rashes Wound Measurements and Assessment WC - Nurse 1 - General Ulcer Measurement Start: 05/03/18 11:18 Freq: Status: Active Protocol: Activity Type Activity Date Activity User E-Sign Co-Sign Detail Recorded Client Recorded Date Recorded By Document 05/22/18 12:12 CS [id number] 05/22/18 12:24 CS Wound Center Nurse 1 [Ulcer Assessment] #1 Medial RLE -Date of Last Picture (Recall this 05/22/18 field) [Edema Assessment] -Lower Limb Edema Present NA WC - Nurse 2 - General Ulcer CM Notes Start: 05/03/18 11:18 Freq: Status: Active Protocol: Activity Type Activity Date Activity User E-Sign Co-Sign Detail Recorded Client Recorded Date Recorded By Document 05/22/18 12:45 DV [id number] 05/22/18 12:47 DV Neurological: Cranial nerves II-XII grossly intact, Neuro grossly intact Psych/Mental Status: Normal Affect, Appropriate, Alert and oriented to time, place, person, mood and affect Debridement Note Post-Debridement Measurements/Treatment WC - Nurse 2 - General Ulcer CM Notes Start: 05/03/18 11:18 Freq: Status: Active Protocol: Activity Type Activity Date Activity User E-Sign Co-Sign Detail Recorded Client Recorded Date Recorded By Wound Center Nurse 2 #1 Medial RLE -Time 12:26 14:15 12:45 -Correct Patient Yes Yes Yes -Correct Side, Site, Position Yes Yes Yes No debridement was completed today Assessment/Plan Active Problems (Last Reviewed 05/09/18 @ 15:51 by Heriberto Dempsey MD) Chronic venous insufficiency (Chronic) Varicose veins with ulcer and inflammation (Chronic) Chronic venous hypertension (idiopathic) with ulcer and inflammation of bilateral lower extremity (Chronic) Venous ulcer of right leg (Chronic) Spontaneous hemorrhage (Chronic) Right leg swelling (Chronic) Chronic venous hypertension with ulcer involving right side (Chronic) Assessment: This is a 77-year-old male with an apparent long- standing history of chronic venous disease. He has had varicose veins for many years, as well as chronic swelling in his right lower extremity. Also a question as to whether the patient may have a history of thrombophlebitis. Within the last several months, the patient has developed an ulceration on the right medial calf, and has had more than 3 episodes of spontaneous bleeding from the ulceration, prompting visits to the emergency department setting. Patient presented with recent medical records, which have been reviewed. In addition, laboratory results are available from the patient's primary care physician, the results of which have been reviewed. Results are as follows: Cholesterol 199, HDL cholesterol 57, HDL ratio 3.5, LDL cholesterol 121, sodium 140, potassium 4.3, chloride 104, calcium 9.4, alkaline phosphatase 96, AST 24, ALT 18, bilirubin 0.7, glucose 89, BUN 14, creatinine 0.72, protein 7.4, albumin 4.2. The date of these laboratory results is 02/10/2018. The patient has undergone a venous duplex examination on February 24, 2018. Results have been reviewed with the patient. 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 Accessory saphenous veins in the right lower extremity at the S5 and S6 positions are also incompetent. An incompetent event marketing coordinator vein is noted in the right calf, located 13 cm proximal to the right medial malleolus. A noninvasive lower extremity arterial study has been performed as well, revealing no evidence of significant arterial occlusive disease in the lower extremities. The patient underwent endovenous laser ablation of the right great saphenous vein, 2 accessory saphenous veins, and a venous tributary on May. This was only several days ago. Patient presents at this time indicating that he has experienced very little pain or discomfort. There is mild ecchymosis on the medial aspect of his right lower extremity, not inconsistent with his recent procedure. There is significant swelling and edema, however, beyond that which would be expected. However, the patient, and his family at the bedside, indicate that he has not been elevating his lower extremities much as recommended, and that the compression wrap has not been applied as firmly as necessary. Furthermore, there is suggestion that the patient may have fallen in the shower the day after the procedure, with possible trauma to the involved leg. With concern regarding the patient's right lower extremity swelling, we have obtained a stat venous duplex examination of the right lower extremity. There is no sign of deep vein thrombosis. The ablated veins appear to be occluded, as would be expected post procedure. We are to continue with compression by means of a 3M 2 layer compression wrap, which will be changed twice weekly. Patient has been advised to elevate his lower extremities as much as possible. He is to continue sleeping on a flat mattress at night. Activity has been approved, though the patient is to refrain from prolonged idle sitting. Patient will return in 1 week for reassessment. Plan: The patient and his family have been advised in the appropriate conservative measures regarding management of the patient's chronic venous disease. The patient has been encouraged to continue sleeping in a recumbent position, on a flat mattress. Leg elevation should be to heart level, or higher. Legs should be elevated even during daytime hours, as much as possible. Prolonged idle sitting has been discouraged. Weight loss has been encouraged. We are to continue compression to the right lower extremity by means of a 3M 2 layer compression wrap, which will be changed twice weekly. We are to use Adaptic and gauze overlying the ulcerated site, in an effort to avoid adherence and subsequent bleeding. Patient has been instructed that, in the event of additional bleeding from the site, he is to elevate his leg and apply manual pressure. The patient is return in 1 week for reassessment. In the event that an episode of spontaneous bleeding should reoccur, the patient has been instructed to apply pressure to the bleeding site, and to elevate his lower extremity above heart level. Thereafter, he should seek medical attention. At present, we are to use a nonadhesive topical dressing such as Adaptic, with overlying gauze. The goal is to avoid any adherence of the dressings to the bleeding site, to avoid further bleeding episodes. There may be a benefit to ultrasound-guided injection sclerotherapy of the veins in the region of the bleeding varicosity at some juncture in the future, depending on the patient's response to his endothermal ablation procedure. Influenza vaccine was not administered today. The patient is not a smoker. Patient weighs 261 pounds. He stands 5 feet 8 inches tall. His BMI is 38.5, which places him in an obese class II category. Weight loss has been recommended, and collaboration with the patient's primary care physician has been recommended in terms of weight loss management. 05/22/18 1453 <Electronically signed by Nacho Franco MD> Date Nacho Franco MD CC: Signed OPERATIVE REPORT Observed: 05/19/2018 Status: F Source: APIRL 11:07 AM [facility] REPOSITORY [facility] Medical Records Department [address] [place] [address] Operative Report 05/19/18 1044 MR#: [id number] Acct: [id number] Name: ROXIE CHRISTENSEN Rep #: [id number] : 1940 77 From: Nacho Franco MD PCP: Yusuf Rush MD Status: [facility] Location: [facility] [place] Problem List (1) Chronic venous hypertension (idiopathic) with ulcer and inflammation of bilateral lower extremity Status: Chronic (2) Chronic venous insufficiency Status: Chronic (3) Right leg swelling Status: Chronic (4) Spontaneous hemorrhage Status: Chronic (5) Varicose veins with ulcer and inflammation Status: Chronic (6) Venous ulcer of right leg Status: Chronic Operative Report Date of Procedure: 05/18/18 Surgeon: Nacho Franco M.D. Anesthesia: General, Tumescent EBL: Minimal Complications: None This is a 77-year-old male with a long-standing history of chronic venous insufficiency, varicose veins with inflammation, venous hypertension, and leg swelling involving his right lower extremity. He has developed a chronic, nonhealing ulceration of the right lower extremity, which has spontaneously hemorrhaged on several occasions, requiring emergency intervention. Venous duplex examination has revealed valvular incompetence involving the right great saphenous vein, 2 accessory saphenous veins, and a event marketing coordinator/tributary vein in the vicinity of the patient's venous ulceration. The options of management were fully explained. Conservative treatment measures were implemented, which included leg elevation, avoidance of idle standing and sitting, compression, active lifestyle, etc. Despite these measures, the patient remained symptomatic, continued to have active bleeding from his ulceration, and failed to show significant progress toward healing. The indications and risks of endovenous laser ablation of the right great saphenous vein, the right accessory saphenous vein at the S5 position, the right accessory saphenous vein at the S6 position, and the tributary/event marketing coordinator vein were discussed with the patient in detail. The appropriate preprocedure consent process was undertaken. The patient underwent ultrasound marking of the right great saphenous vein, the 2 incompetent accessory saphenous veins, and the incompetent tributary vein in the vicinity of the right lower extremity ulceration preoperatively. He was then brought to the operating room suite, placed supine upon the operating table, where general anesthesia was administered by the anesthesia staff. The patient's right lower extremity and right groin were prepped and draped in the appropriate sterile manner. The patient was placed in reverse Trendelenburg position. Ultrasonography was used to image the right great saphenous vein in the distal calf, well below the venous ulceration. The micropuncture technique was used to access the right great saphenous vein percutaneously in the distal calf. In this manner, a 0.018 inch guidewire is advanced intraluminally into the right great saphenous vein, and was visualized by ultrasonography. A micropuncture sheath was advanced over the guidewire. The 0.018 inch guidewire was exchanged for a 0.035 inch guidewire, which was then advanced intraluminally to a level just distal to the right sapheno-femoral junction, as confirmed by ultrasound imaging. A long 4 Cuban sheath was then advanced over the guidewire, and its tip was positioned approximately 2 cm distal to the right sapheno-femoral junction. Attention was then directed to each of the 2 incompetent accessory saphenous veins. In each case, using ultrasound imaging and the micropuncture technique, a micropuncture sheath was introduced intraluminally, and was left in place, capped, for subsequent access purposes. A similar approach was also used to place a micropuncture sheath intraluminally within the incompetent tributary in the vicinity of the venous ulceration. In this manner, a micropuncture sheath was placed, capped, for subsequent access purposes. Attention was then redirected to the long 4 Cuban sheath which had been previously placed intraluminally within the right great saphenous vein. Perivenous tumescent anesthesia was injected from the 4 Cuban sheath exit site up to the right sapheno-femoral junction. This was performed segmentally using ultrasound imaging. The AngioDynamics laser fiber was then introduced into the 4 Cuban sheath and coupled appropriately. Ultrasonography was used to confirm that the tip of the laser fiber was positioned within the right great saphenous vein approximately 2-2-1/2 cm distal to the right sapheno-femoral junction. The patient was placed in Trendelenburg position and the laser fiber was activated. The AngioDynamics laser was slowly withdrawn at a constant rate throughout the length of the right great saphenous vein, thereby ablating the right great saphenous vein segmentally. The energy applied was approximately 60-80 J/cm. Following the laser ablation, the laser fiber and sheath were removed, and manual pressure was briefly applied to the percutaneous access site to achieve hemostasis. Attention was then directed to each of the 2 incompetent accessory saphenous veins, located at the S5 and S6 positions. In each case, a 0.035 inch guidewire was introduced intraluminally, over which the long 4 Cuban sheath was advanced intraluminally. Perivenous tumescent anesthesia was then injected segmentally along the course of the 4 Cuban sheath. The AngioDynamics laser fiber was then introduced and coupled appropriately with the sheath. With the patient in Trendelenburg position, the laser fiber was activated, and slowly withdrawn throughout the course of each incompetent accessory saphenous vein, thereby ablating the accessory saphenous veins segmentally. The energy applied was approximately 60-80 J/cm. Following each laser ablation, the laser fiber and sheath were removed, and manual pressure was briefly applied to the percutaneous access site to achieve hemostasis. Attention was then directed to the micropuncture sheath which had been previously placed intraluminally within the large incompetent tributary in the vicinity of the venous ulceration. The 0.035 inch guidewire was introduced intraluminally, over which the 4 Cuban sheath was advanced. Perivenous tumescent anesthesia was injected segmentally. The AngioDynamics laser fiber was then introduced and coupled appropriately. With the patient in the Trendelenburg position, the laser fiber was activated and slowly withdrawn, thereby ablating the incompetent tributary vein segmentally. The energy applied was approximately 60-80 J/cm. Following the laser ablation, the laser fiber and sheath were removed, and manual pressure was briefly applied to the percutaneous access site to achieve hemostasis. After assuring satisfactory hemostasis, the access sites were approximated using Cavilon and Steri-Strips. Dry sterile gauze dressings were applied over each of the access sites, and the right leg was wrapped from the base of the toes to the upper thigh with Kerlix, followed by Parmjit wrap. The blood loss for the procedure was minimal. The sponge, needle, and instrument counts at the end of the procedure were correct. The patient tolerated the procedure well and was transported from the operating room to the postanesthesia care unit in stable condition. The amount of tumescent anesthesia utilized, number of joules applied, and treatment times were recorded separately. 05/19/18 1107 <Electronically signed by Nacho Franco MD> Date Nacho Franco MD CC: Nacho Franco MD; OUT OF TOWN DOCTOR; Yusuf Rush MD Signed BEDSIDE GLUCOSE Collected: 05/18/2018 Status: F Source: [place] 4:16 PM [facility] REPOSITORY TYPE CODE TESTS RESULT OUT OF REFERENCE UNITS RANGE LAB L501.080 70-110 mg/dL High BEDSIDE GLU 131 Result Comment: MANAGEMENT OF PATIENT CARE PER NURSING PROTOCOL Performed By: #### L501.080 #### [facility] Point of Care [address] [place] [place] [address] DISCHARGE INSTRUCTION Observed: 05/18/2018 Status: F Source: [place] 3:07 PM [facility] REPOSITORY [facility] Medical Records Department [address] [place] [address] Instructions for Home/Discharge Instructions 05/18/18 1503 MR#: [id number] Acct: [id number] Name: ROXIE CHRISTENSEN Rep #: [id number] : 1940 77 From: Nacho Franco MD PCP: Yusuf Rush MD Status: REG [facility] Discharge Diet: No Restrictions Discharge Activity: May Not Drive May shower in (days): 2 Weight Bearing Status: Weight bearing as tolerated Lifting Restrictions: 10 pounds Keep extremity elevated above heart level: Right Leg Call your doctor if you observe: Inability to urinate, Shortness of breath, Dizziness, Fainting spells, Chest pain, Prolonged hiccoughing, Uncontrolled pain Suture Line Care: Avoid Pulling/Pushing Remove Dressing in (days):: 2 - Then rewrap daily with Parmjit from base of toes to upper thigh Allergies/Adverse Reactions: Allergies No Known Allergies Allergy (Verified 05/09/18 15:30) Medications to take at Discharge Aspirin [Adult Aspirin] 81 mg PO DAILY 05/03/18 Cholecalciferol (VIT D3) [Vitamin D] 1,000 unit PO DAILY 05/03/18 Multivitamin [Daily Multiple Vitamin] 1 ea PO DAILY 05/03/18 metoprolol succinate ER 50 mg tablet,extended release 24 hr 50 mg PO DAILY #90 tab 05/09/18 Primary Care Physician: Yusuf Rush MD [Primary Care Provider] - Test Results: Test results from this visit will be discussed in further detail at your follow-up appointment, if applicable. Please Follow Up With: Nacho Franco MD When: Next week in the Wound Healing Center 05/18/18 1507 <Electronically signed by Nacho Franco MD> Date Nacho Franco MD CC: OUT OF TOWN DOCTOR; Yusuf Rush MD Signed WOUND CTR HISTORY Observed: 05/15/2018 Status: F Source: APRIL AND PHYSICAL 2:26 PM [facility] REPOSITORY [facility] Wound Healing Center [address] [place] [address] Wound Ctr History AND Physical 05/15/18 1419 MR#: [id number] Acct: [id number] Name: ROXIE CHRISTENSEN Rep #: [id number] : 1940 77 From: Nacho Franco MD PCP: OUT OF TOWN DOCTOR Status: REG RCR Y Location: WC 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 Status: Chronic Current Visit: Yes Code(s): I87.333 - Chronic venous hypertension (idiopathic) with ulcer and inflammation of bilateral lower extremity; L97.919 - Non-pressure chronic ulcer of unspecified part of right lower leg with unspecified severity; L97.929 - Non-pressure chronic ulcer of unspecified part of left lower leg with unspecified severity (4) Venous ulcer of right leg Status: Chronic Current Visit: Yes Code(s): I83.019 - Varicose veins of right lower extremity with ulcer of unspecified site; L97.919 - Non-pressure chronic ulcer of unspecified part of right lower leg with unspecified severity (5) Spontaneous hemorrhage Status: Chronic Current Visit: Yes Code(s): K66.1 - Hemoperitoneum (6) Atrial fibrillation Status: Chronic Current Visit: No Code(s): I48.91 - Unspecified atrial fibrillation (7) Lumbar radiculopathy Status: Chronic Current Visit: No Code(s): M54.16 - Radiculopathy, lumbar region (8) Obesity (BMI 35.0-39.9 without comorbidity) Status: Chronic Current Visit: No Code(s): E66.9 - Obesity, unspecified (9) Exertional dyspnea Status: Chronic Current Visit: No Code(s): R06.09 - Other forms of dyspnea (10) Right leg swelling Status: Chronic Current Visit: Yes Code(s): M79.89 - Other specified soft tissue disorders (11) Chronic venous hypertension with ulcer involving right side Status: Chronic Current Visit: Yes Code(s): I87.311 - Chronic venous hypertension (idiopathic) with ulcer of right lower extremity; L97.919 - Non-pressure chronic ulcer of unspecified part of right lower leg with unspecified severity History of Present Illness Chief Complaint: Chronic venous insufficiency, varicose veins with ulceration and inflammation, venous hypertension with ulceration, venous ulceration, leg swelling, spontaneous bleeding right lower extremity History of Wound: This is a 77-year-old male who presented with a long-standing history of chronic venous disease. The patient has had varicose veins for many years. He has elected to forego any significant treatment related to his venous disease. He denies a history of thrombophlebitis, though his past medical records indicate a history, though vague and nonspecific. Approximately 2 months prior to his presentation, the patient developed a spontaneous ulceration on the medial aspect of his right calf. The site subsequently ruptured, and spontaneous bleeding occurred on 3 different occasions, each time with significant blood loss. On at least one occasion, the spontaneous bleeding occurred after taking a hot shower. On each of 3 occasions, the patient was transported to the emergency department at [facility] in [place], [place], where the patient was treated and released. On each occasion, sutures were placed to obliterate the bleeding. Patient was subsequently referred to the [facility] for definitive management. The patient relates swelling in his right leg which occurs typically at the end of each day. He sleeps on a flat mattress at night. He lies in a recumbent position often during the daytime. He is not very active. He is also noted to be obese. An additional episode of bleeding occurred as recently as just 1 week ago. Bleeding was controlled with compression and elevation. 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 (Chronic) Venous ulcer of right leg (Chronic) Spontaneous hemorrhage (Chronic) Atrial fibrillation (Chronic) Lumbar radiculopathy (Chronic) Obesity (BMI 35.0-39.9 without comorbidity) (Chronic) Exertional dyspnea (Chronic) Right leg swelling (Chronic) Chronic venous hypertension with ulcer involving right side (Chronic) Surgical History: no surgical history Allergies/Adverse Reactions: Allergies No Known Allergies Allergy (Verified 05/09/18 15:30) Home Medications: Ambulatory Orders Medication Instructions Recorded Aspirin [Adult Aspirin] 81 mg PO DAILY 05/03/18 Cholecalciferol (VIT D3) [Vitamin 1,000 unit PO DAILY 05/03/18 - Family History Paternal Family History: Family History (Last Reviewed 05/09/18 @ 15:51 by Heriberto Dempsey MD) Mother CVA (cerebral vascular accident) - - The patient's father at the age of 90 of old age. Patient's mother at age of 83 with a history of liver cancer. Tobacco Use: Non-smoker Review of Systems Constitutional: Denies: Chills, Fever, Weight Change Eyes: Denies: Pain, Vision Change HEENT: Denies: Difficulty Hearing, Difficulty Swallowing, Sinus Congestion Cardiovascular: Denies: Chest Pain, Palpitations Respiratory: Denies: Cough, Shortness of Breath Gastrointestinal: Denies: Diarrhea, Nausea, Vomiting Genitourinary: Denies: Dysuria, Hematuria Endocrine: Denies: Heat/ Cold Intolerance, Polydipsia, Polyuria Hematologic/ Lymphatic: Denies: Easy Bruising, Easy Bleeding - Physical Exam Vital Signs Temp Pulse Resp BP 99.3 F H 105 H 18 138/93 H 05/15/18 12:53 05/15/18 12:53 05/15/18 12:53 05/15/18 12:53 General: Alert, Oriented x3, Cooperative, No apparent distress, Well developed, Well nourished HEENT: Atraumatic, PERRLA, EOMI, Normocephalic Oral: Moist Mucosa Neck: No JVD Lungs: Normal air movement Abdomen: Non-Distended Extremities: No clubbing, No cyanosis, No edema, No Calf Tenderness, - - There is no significant swelling or edema in the right lower extremity. There is a persisting ulceration of the right anterior tibial surface. Dimensions are documented elsewhere. Scattered varicosities are noted throughout the right lower extremity. There is no sign of infection or cellulitis. No active bleeding is noted at this time. Skin: No rashes Wound Measurements and Assessment WC - Nurse 1 - General Ulcer Measurement Start: 05/03/18 11:18 Freq: Status: Active Protocol: Activity Type Activity Date Activity User E-Sign Co-Sign Detail Recorded Client Recorded Date Recorded By Document 05/15/18 12:53 CS [id number] 05/15/18 12:55 CS Wound Center Nurse 1 [Ulcer Assessment] #1 Medial RLE -Combined with other wound No -Current Size (cm) - Length 1.2 WC - Nurse 2 - General Ulcer CM Notes Start: 05/03/18 11:18 Freq: Status: Active Protocol: Activity Type Activity Date Activity User E-Sign Co-Sign Detail Recorded Client Recorded Date Recorded By Document 05/15/18 14:15 DV [id number] 05/15/18 14:17 DV Wound Center Nurse 2 [Procedure/Treatment] #1 Medial RLE -Time 14:15 -Correct Patient Yes -Correct Side, Site, Position Yes Neurological: Cranial nerves II-XII grossly intact, Neuro grossly intact Psych/Mental Status: Normal Affect, Appropriate, Alert and oriented to time, place, person, mood and affect Debridement Note Post-Debridement Measurements/Treatment WC - Nurse 2 - General Ulcer CM Notes Start: 05/03/18 11:18 Freq: Status: Active Protocol: Activity Type Activity Date Activity User E-Sign Co-Sign Detail Wound Center Nurse 2 #1 Medial RLE -Time 12:26 14:15 -Correct Patient Yes Yes -Correct Side, Site, Position Yes Yes Debridement has been purposely avoided, as there is suspicion that a large varicosity is present beneath the patient's venous ulceration. Patient's venous hypertension suggests the patient is likely to bleed profusely should the ulceration undergo debridement. No debridement was completed today Assessment/Plan Active Problems (Last Reviewed 05/09/18 @ 15:51 by Heriberto Dempsey MD) Chronic venous insufficiency (Chronic) Varicose veins with ulcer and inflammation (Chronic) Chronic venous hypertension (idiopathic) with ulcer and inflammation of bilateral lower extremity (Chronic) Venous ulcer of right leg (Chronic) Spontaneous hemorrhage (Chronic) Right leg swelling (Chronic) Chronic venous hypertension with ulcer involving right side (Chronic) Assessment: This is a 77-year-old male with an apparent long- standing history of chronic venous disease. He has had varicose veins for many years, as well as chronic swelling in his right lower extremity. Also a question as to whether the patient may have a history of thrombophlebitis. Within the last several months, the patient has developed an ulceration on the right medial calf, and has had 3 episodes of spontaneous bleeding from the ulceration, prompting visits to the emergency department setting. On each occasion, suture closure of the bleeding vessel was performed. Patient presented with recent medical records, which have been reviewed. In addition, laboratory results are available from the patient's primary care physician, the results of which have been reviewed. Results are as follows: Cholesterol 199, HDL cholesterol 57, HDL ratio 3.5, LDL cholesterol 121, sodium 140, potassium 4.3, chloride 104, calcium 9.4, alkaline phosphatase 96, AST 24, ALT 18, bilirubin 0.7, glucose 89, BUN 14, creatinine 0.72, protein 7.4, albumin 4.2. The date of these laboratory results is 02/10/2018. The patient has undergone a venous duplex examination on February 24, 2018. Results have been reviewed with the patient. 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 Accessory saphenous veins in the right lower extremity at the S5 and S6 positions are also incompetent. An incompetent event marketing coordinator vein is noted in the right calf, located 13 cm proximal to the right medial malleolus. A noninvasive lower extremity arterial study has been performed as well, revealing no evidence of significant arterial occlusive disease in the lower extremities. The patient is accompanied by his and daughter. It appears as though he sleeps on a flat surface at night. He claims to be elevating his lower extremities frequently during daytime hours. Since the initiation of a 3M 2 layer compression wrap to the right lower extremity, patient has shown significant improvement in the swelling and edema, which is now somewhat minimal. Plan: The patient and his family have been advised in the appropriate conservative measures regarding management of the patient's chronic venous disease. The patient has been encouraged to continue sleeping in a recumbent position, on a flat mattress. Leg elevation should be to heart level, or higher. Legs should be elevated even during daytime hours, as much as possible. Prolonged idle sitting has been discouraged. Weight loss has been encouraged. Activity has also been encouraged as well. We are to continue compression to the right lower extremity by means of a 3M 2 layer compression wrap, which will be changed twice weekly. We are to use Adaptic and gauze overlying the ulcerated site, in an effort to avoid adherence and subsequent bleeding. Patient has been instructed that, in the event of additional bleeding from the site, he is to elevate his leg and apply manual pressure. The patient is return in 1 week for reassessment. In the event that an episode of spontaneous bleeding should reoccur, the patient has been instructed to apply pressure to the bleeding site, and to elevate his lower extremity above heart level. Thereafter, he should seek medical attention. At present, we are to use a nonadhesive topical dressing such as Adaptic, with overlying gauze. The goal is to avoid any adherence of the dressings to the bleeding site, to avoid further bleeding episodes. Ultimately, the patient will be a likely candidate for an endovenous ablation procedure. The nature of the endovenous laser ablation procedure has again been discussed with the patient and his family in detail. It is anticipated that such a procedure may be necessary in an effort to reduce the pressure within the venous system of the right lower extremity, and reduce the likelihood of further bleeding from the ulcerated site. Endovenous laser ablation would likely also hasten the healing of his ulceration. In addition to endovenous laser ablation, there may be a need for ultrasound-guided injection sclerotherapy of the veins in the region of the bleeding varicosity. The potential benefits of endovenous laser ablation of the right great saphenous vein, the 2 accessory saphenous veins, and possibly the incompetent event marketing coordinator vein have been discussed with the patient in detail, as well as his . The indications and risks have been thoroughly explained. The potential benefits have been explained. The patient wishes to proceed at this time, and in his surgical procedure is scheduled for later this week, after postponement last week due to factors unrelated to the patient himself. Surgical clearance has been obtained from the patient's lobbyist. The patient's endothermal venous ablation procedure is now scheduled for May 18, 2018. Influenza vaccine was not administered today. The patient is not a smoker. Patient weighs 261 pounds. He stands 5 feet 8 inches tall. His BMI is 38.5, which places him in an obese class II category. Weight loss has been recommended, and collaboration with the patient's primary care physician has been recommended in terms of weight loss management. 05/15/18 1426 <Electronically signed by Nacho Franco MD> Date Nacho Franco MD CC: Signed CARDIOLOGY VISIT Observed: 05/09/2018 Status: F Source: [place] REPORT 3:55 PM [facility] REPOSITORY [facility] [address] [place] [address]. [address] [place] [address] OFFICE VISIT Date of Service: 05/09/18 MR#: [id number] Acct: [id number] Name: ROXIE CHRISTENSEN Rep #: [id number] : 1940 Provider: Heriberto Dempsey MD Age/Sex: 77/M Location: [facility] Status: Signed [facility] Chief Complaint: Preoperative evaluation Details: ROXIE CHRISTENSEN, is a 77 M who presents to the office today for preoperative evaluation for endovenous laser ablation. He previously was seen by a lobbyist in 2018 and at that time he was noted to be in atrial fibrillation which was chronic and persistent. He was put on a beta-vibha as well as on an anticoagulant. For issues that were not entirely clear he did discontinue these medications. He had previously undergone an echocardiogram in 2012 which demonstrated an ejection fraction of 60%. A follow-up echocardiogram in 2018 demonstrated an ejection fraction of approximately 45-50% with no significant valvular abnormalities. He has had no dizziness or diaphoresis no near syncope or syncope. He is really not on much by way of medications. He has previously declined the use of either Coumadin or Xarelto. His physical exam today demonstrates clear lung elaine irregular regular heart rate and no pedal edema his electrocardiogram done on May 03 demonstrated atrial fibrillation with a ventricular response rate of 105 bpm with no acute changes. Intake Vital Signs05/09/18 Height 5 ft 8 in 05/09/18 Weight: 259 lb 05/09/18 Body Mass Index (BMI) 39.4 05/09/18 Blood Pressure 138/84 H 05/09/18 Blood Pressure Location Lt brachial Intake Visit Reasons: ref'd by Dr Franco for afib, surgery 1-10 Cart Driver Required: No Is patient in pain?: No Allergies No Known Allergies Allergy (Verified 05/09/18 15:30) Medications Aspirin [Adult Aspirin] 81 mg PO DAILY 05/03/18 [History Confirmed 05/09/18] Cholecalciferol (VIT D3) [Vitamin D] 1,000 unit PO DAILY 05/03/18 [History Confirmed 05/09/18] Multivitamin [Daily Multiple Vitamin] 1 ea PO DAILY 05/03/18 [History Confirmed 05/09/18] metoprolol succinate ER 50 mg tablet,extended release 24 hr 50 mg PO DAILY #90 tab 05/09/18 [Rx Confirmed 05/09/18] [facility] Medical History Atrial fibrillation (Chronic) Lumbar radiculopathy (Chronic) Obesity (BMI 35.0-39.9 without comorbidity) (Chronic) Family History Mother CVA (cerebral vascular accident) Social History Smoking Status: Never smoker alcohol intake: current alcohol intake frequency: holidays/special occasions only substance use type: does not use what type of physical activity do you participate in: none ROS Const Const: Negative for fatigue, weakness, night sweats, excessive sweating, frequent falls, headache(s) or daytime sleepiness Eyes Eyes: Negative for loss of peripheral vision, transient loss of vision, blind spots, double vision or blurry vision ENT ENT: Negative for headache(s), dizziness, balance problems, Nosebleed/epistaxis, tongue swelling or lip swelling Cardio Chest Pain: No Palpitations: No Edema: None Muscle aches with walking: None Resp Respiratory: Negative for SOB at rest, SOB orthopnea\SOB lying down, Cough, paroxysmal nocturnal dyspnea or SOB with activity GI GI: Negative nausea, vomiting, heartburn, black,tarry stools or bright, red blood in stools : Negative for hematuria Musc Musc: Negative for balance problems, muscle aches/ myalgia, muscle weakness or joint pain Skin Skin: Negative non-healing lesions, unusual bruising or rash Neuro Neuro: Negative for weakness, frequent falls, headache(s), double vision, dizziness, lightheadedness, orthostatic symptoms, blurry vision or lack of coordination Varinder Hematologic/Lymphatic: Negative for easy bruising or easy bleeding Endo Endo: Negative for fatigue, excessive sweating, cold intolerance, heat intolerance, increased thirst/drinking or hair loss Psych Psych: Negative for anxiety or depression Allergy Allergy/Immunology: Negative for throat swelling, Negative for tongue swelling, Negative for hives, Negative for rash, Negative for lip swelling Cardiology Exam Const Appearance: cooperative, healthy appearing, well developed, well groomed and no acute distress Nutritional Appearance: well nourished and average body habitus Orientation: alert, awake and oriented x3 Head Head: normal to inspection, normocephalic and atraumatic Ears: hearing grossly normal bilaterally and external ears normal Nose: external nose normal, nasal mucous membranes and turbinates normal, nares normal, septum normal, no nasal discharge Face and Sinus: face symmetric Mouth: oral mucosae normal, tongue normal, oropharynx normal and moist mucous membranes Teeth and gingiva: dentition normal Throat: posterior oropharynx normal, tonsils normal and uvula midline Eyes General: appearance normal, both eyes and all related structures Eyelids: eyelids normal Conjunctivae: conjunctivae normal Pupils: PERRL, normal by confrontation and accommodation normal EOM: EOM intact bilaterally Neck Neck: normal visual inspection, trachea midline and no JVD JVD: +5 Carotids: normal carotid upstroke and bounding pulses Chest Chest inspection: normal inspection of the chest, symmetric chest movement and normal respiratory effort Auscultation: Bilateral: Clear to Auscultation Cardio Palpation: normal PMI Rhythm: irregular rhythm Heart sounds: S1 normal and S2 normal GI GI: normal to inspection, soft, no hepatosplenomegaly and bowel sounds present Neuro General: alert, awake, oriented x3, no focal sensory deficit, gait normal and moves all extremities Skin Skin: no rashes or lesions noted Extremities Pulses: Normal: Right Femoral Pulse, Left Femoral Pulse, Right Dorsalis Pedis Pulse, Left Dorsalis Pedis Pulse, Right Posterior Tibial Pulse, Left Posterior Tibial Pulse, Right Radial Pulse, Left Radial Pulse Lower Extremity Edema: None: Bilateral Musculoskel Musculoskeletal: No joint tenderness Psych Psychological: normal affect Assessment AND Plan 1. Preop cardiovascular exam Z01.810 Plan In terms of his preoperative cardiovascular exam he appears to be stable to undergo the above endovascular procedure. I would not recommend any further testing. His ventricular response rate needs to be optimized to have discussed this with him and his daughter and they understand and agree to proceed. 2. Atrial fibrillation I48.91 Plan He does have a history of chronic persistent atrial fibrillation his ventricular response rate is uncontrolled my recommendation would be to start him on Toprol 50 mg once a day. He has previously refused anticoagulation and at this time I do not think that with his impending surgery we need to start this. He will be seen postoperatively to reassess him as an outpatient. Plan Detail Other Medications New: Follow Up prn Coding Level of Care Code Off vis,new,level 4 Diagnoses Preop cardiovascular exam Z01.810 Atrial fibrillation I48.91 Coding Level of Care Code Off vis,new,level 4 Diagnoses Preop cardiovascular exam Z01.810 Atrial fibrillation I48.91 Supplemental Info Supplemental Information Diagnostics Venous Doppler Study 02/24/18 05/09/18 5493 <Electronically signed by Heriberto Dempsey MD> Date Heriberto Dempsey MD [facility] Signature: Date (if applicable) CC: Nacho Franco MD WOUND CTR HISTORY Observed: 05/08/2018 Status: F Source: APRIL AND PHYSICAL 12:59 PM [facility] REPOSITORY [facility] [address] [place] [address] Wound Ctr History AND Physical 05/08/18 1253 MR#: [id number] Acct: [id number] Name: ROXIE CHRISTENSEN Rep #: [id number] : 1940 77 From: Nacho Franco MD PCP: OUT OF TOWN DOCTOR Status: REG RCR Y Location: 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 Status: Chronic Current Visit: Yes Code(s): I87.333 - Chronic venous hypertension (idiopathic) with ulcer and inflammation of bilateral lower extremity; L97.919 - Non-pressure chronic ulcer of unspecified part of right lower leg with unspecified severity; L97.929 - Non-pressure chronic ulcer of unspecified part of left lower leg with unspecified severity (4) Venous ulcer of right leg Status: Chronic Current Visit: Yes Code(s): I83.019 - Varicose veins of right lower extremity with ulcer of unspecified site; L97.919 - Non-pressure chronic ulcer of unspecified part of right lower leg with unspecified severity (5) Spontaneous hemorrhage Status: Chronic Current Visit: Yes Code(s): K66.1 - Hemoperitoneum (6) Atrial fibrillation Status: Chronic Current Visit: No Code(s): I48.91 - Unspecified atrial fibrillation (7) Lumbar radiculopathy Status: Chronic Current Visit: No Code(s): M54.16 - Radiculopathy, lumbar region (8) Obesity (BMI 35.0-39.9 without comorbidity) Status: Chronic Current Visit: No Code(s): E66.9 - Obesity, unspecified (9) Exertional dyspnea Status: Chronic Current Visit: No Code(s): R06.09 - Other forms of dyspnea (10) Right leg swelling Status: Chronic Current Visit: Yes Code(s): M79.89 - Other specified soft tissue disorders (11) Chronic venous hypertension with ulcer involving right side Status: Chronic Current Visit: Yes Code(s): I87.311 - Chronic venous hypertension (idiopathic) with ulcer of right lower extremity; L97.919 - Non-pressure chronic ulcer of unspecified part of right lower leg with unspecified severity History of Present Illness Chief Complaint: Chronic venous insufficiency, varicose veins with ulceration and inflammation, venous hypertension with ulceration, venous ulceration, leg swelling, spontaneous bleeding right lower extremity History of Wound: This is a 77-year-old male who presented with a long-standing history of chronic venous disease. The patient has had varicose veins for many years. He has elected to forego any significant treatment related to his venous disease. He denies a history of thrombophlebitis, though his past medical records indicate a history, though vague and nonspecific. Approximately 2 months prior to his presentation, the patient developed a spontaneous ulceration on the medial aspect of his right calf. The site subsequently ruptured, and spontaneous bleeding occurred on 3 different occasions, each time with significant blood loss. On at least one occasion, the spontaneous bleeding occurred after taking a hot shower. On each of 3 occasions, the patient was transported to the emergency department at [facility] in [place], [place], where the patient was treated and released. On each occasion, sutures were placed to obliterate the bleeding. Patient was subsequently referred to the [facility] for definitive management. The patient relates swelling in his right leg which occurs typically at the end of each day. He sleeps on a flat mattress at night. He lies in a recumbent position often during the daytime. He is not very active. He is also noted to be obese. Past Medical History Past Medical History: Chronic Problems Chronic venous insufficiency (Chronic) Varicose veins with ulcer and inflammation (Chronic) Chronic venous hypertension (idiopathic) with ulcer and inflammation of bilateral lower extremity (Chronic) Venous ulcer of right leg (Chronic) Spontaneous hemorrhage (Chronic) Atrial fibrillation (Chronic) Lumbar radiculopathy (Chronic) Obesity (BMI 35.0-39.9 without comorbidity) (Chronic) Exertional dyspnea (Chronic) Right leg swelling (Chronic) Chronic venous hypertension with ulcer involving right side (Chronic) Surgical History: no surgical history Allergies/Adverse Reactions: Allergies No Known Allergies Allergy (Verified 05/03/18 09:56) Home Medications: Ambulatory Orders Medication Instructions Recorded - Family History Paternal - - The patient's father at the age of 90 of old age. Patient's mother at age of 83 with a history of liver cancer. Tobacco Use: Non-smoker Review of Systems Constitutional: Denies: Chills, Fever, Weight Change Eyes: Denies: Pain, Vision Change HEENT: Denies: Difficulty Hearing, Difficulty Swallowing, Sinus Congestion Cardiovascular: Denies: Chest Pain, Palpitations Respiratory: Denies: Cough, Shortness of Breath Gastrointestinal: Denies: Diarrhea, Nausea, Vomiting Genitourinary: Denies: Dysuria, Hematuria Endocrine: Denies: Heat/ Cold Intolerance, Polydipsia, Polyuria Hematologic/ Lymphatic: Denies: Easy Bruising, Easy Bleeding - Physical Exam Vital Signs Temp Pulse Resp BP 98.6 F 103 H 20 H 137/86 H 05/08/18 12:05 05/08/18 12:05 05/08/18 12:05 05/08/18 12:05 General: Alert, Oriented x3, Cooperative, No apparent distress, Well developed, Well nourished HEENT: Atraumatic, PERRLA, EOMI, Normocephalic Oral: Moist Mucosa Neck: Supple, No JVD, Negative Carotid Bruits, Negative Hepatojugular Reflux, No Nuchal Rigidity, Trachea Midline Lungs: Clear to auscultation, Normal air movement, No rhonchi, No wheeze, No rales Cardiovascular: Regular Rhythm, Normal S1, Normal S2 Abdomen: Soft, Non Tender, Non-Distended, Obese Extremities: No clubbing, No cyanosis, No Calf Tenderness, - - The swelling and edema in the right lower extremity appears to be reasonably well controlled. It is only minimal. Circumference measurements are documented elsewhere. The open ulceration on the right medial calf persists, relatively unchanged in appearance. Mentions are documented elsewhere. There is no sign of infection or cellulitis. Skin: No rashes Wound Measurements and Assessment WC - Nurse 1 - General Ulcer Measurement Start: 05/03/18 11:18 Freq: Status: Active Protocol: Activity Type Activity Date Activity User E-Sign Co-Sign Detail Recorded Client Recorded Date Recorded By Document 05/08/18 12:05 [id number] 05/08/18 12:12 JS Wound Center Nurse 1 [Ulcer Assessment] #1 Medial RLE -Combined with other wound No -Current Size (cm) - Length 1.0 -Current Size (cm) - Width 1.3 WC - Nurse 2 - General Ulcer CM Notes Start: 05/03/18 11:18 Freq: Status: Active Protocol: Activity Type Activity Date Activity User E-Sign Co-Sign Detail Recorded Client Recorded Date Recorded By Document 05/08/18 12:25 [id number] 05/08/18 12:28 Wound Center Nurse 2 [Procedure/Treatment] #1 Medial RLE -Time 12:26 -Correct Patient Yes -Correct Side, Site, Position Yes -Correct Procedure Yes Neurological: Cranial nerves II-XII grossly intact, Neuro grossly intact Psych/Mental Status: Normal Affect, Appropriate, Alert and oriented to time, place, person, mood and affect Debridement Note Post-Debridement Measurements/Treatment WC - Nurse 2 - General Ulcer CM Notes Start: 05/03/18 11:18 Freq: Status: Active Protocol: Activity Type Activity Date Activity User E-Sign Co-Sign Detail Recorded Client Recorded Date Recorded By Document 05/08/18 12:25 [id number] 05/08/18 12:28 Wound Center Nurse 2 #1 Medial RLE -Time 12:26 Debridement was not performed today. There is suspicion that a large, distended varicosity underlies the ulceration. For that reason, debridements have not been routinely performed, for fear of eliciting significant bleeding, which may be difficult to control. No debridement was completed today Assessment/Plan Active Problems Chronic venous insufficiency (Chronic) Varicose veins with ulcer and inflammation (Chronic) Chronic venous hypertension (idiopathic) with ulcer and inflammation of bilateral lower extremity (Chronic) Venous ulcer of right leg (Chronic) Spontaneous hemorrhage (Chronic) Right leg swelling (Chronic) Chronic venous hypertension with ulcer involving right side (Chronic) Assessment: This is a 77-year-old male with an apparent long- standing history of chronic venous disease. He has had varicose veins for many years, as well as chronic swelling in his right lower extremity. Also a question as to whether the patient may have a history of thrombophlebitis. Within the last several months, the patient has developed an ulceration on the right medial calf, and has had 3 episodes of spontaneous bleeding from the ulceration, prompting visits to the emergency department setting. On each occasion, suture closure of the bleeding vessel was performed. Patient presented with recent medical records, which have been reviewed. In addition, laboratory results are available from the patient's primary care physician, the results of which have been reviewed. Results are as follows: Cholesterol 199, HDL cholesterol 57, HDL ratio 3.5, LDL cholesterol 121, sodium 140, potassium 4.3, chloride 104, calcium 9.4, alkaline phosphatase 96, AST 24, ALT 18, bilirubin 0.7, glucose 89, BUN 14, creatinine 0.72, protein 7.4, albumin 4.2. The date of these laboratory results is 02/10/2018. The patient has undergone a venous duplex examination on February 24, 2018. Results have been reviewed with the patient. 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 Accessory saphenous veins in the right lower extremity at the S5 and S6 positions are also incompetent. An incompetent event marketing coordinator vein is noted in the right calf, located 13 cm proximal to the right medial malleolus. A noninvasive lower extremity arterial study has been performed as well, revealing no evidence of significant arterial occlusive disease in the lower extremities. The patient is accompanied by his and daughter. It appears as though he sleeps on a flat surface at night. He claims to be elevating his lower extremities frequently during daytime hours. Since the initiation of a 3M 2 layer compression wrap to the right lower extremity, patient has shown significant improvement in the swelling and edema, which is now somewhat minimal. There have been no further bleeding episodes. Plan: The patient and his family have been advised in the appropriate conservative measures regarding management of the patient's chronic venous disease. The patient has been encouraged to continue sleeping in a recumbent position, on a flat mattress. Leg elevation should be to heart level, or higher. Legs should be elevated even during daytime hours, as much as possible. Prolonged idle sitting has been discouraged. Weight loss has been encouraged. Activity has also been encouraged as well. We are to continue compression to the right lower extremity by means of a 3M 2 layer compression wrap, which will be changed twice weekly. We are to use Adaptic and gauze overlying the ulcerated site, in an effort to avoid adherence and subsequent bleeding. Patient has been instructed that, in the event of additional bleeding from the site, he is to elevate his leg and apply manual pressure. The patient is return in 1 week for reassessment. In the event that an episode of spontaneous bleeding should reoccur, the patient has been instructed to apply pressure to the bleeding site, and to elevate his lower extremity above heart level. Thereafter, he should seek medical attention. At present, we are to use a nonadhesive topical dressing such as Adaptic, with overlying gauze. The goal is to avoid any adherence of the dressings to the bleeding site, to avoid further bleeding episodes. Ultimately, the patient will be a likely candidate for an endovenous ablation procedure. The nature of the endovenous laser ablation procedure has again been discussed with the patient and his family in detail. It is anticipated that such a procedure may be necessary in an effort to reduce the pressure within the venous system of the right lower extremity, and reduce the likelihood of further bleeding from the ulcerated site. Endovenous laser ablation would likely also hasten the healing of his ulceration. In addition to endovenous laser ablation, there may be a need for ultrasound-guided injection sclerotherapy of the veins in the region of the bleeding varicosity. The potential benefits of endovenous laser ablation of the right great saphenous vein, the 2 accessory saphenous veins, and possibly the incompetent event marketing coordinator vein have been discussed with the patient in detail, as well as his . The indications and risks have been thoroughly explained. The potential benefits have been explained. The patient wishes to proceed at this time, and in his surgical procedure is scheduled for later this week. However, in the course of preadmission testing, patient has been found to have some abnormalities of his EKG, and has a cardiac history. The anesthesia staff has recommended a cardiology consultation prior to intervention relative to his venous disease. He has an appointment with a lobbyist tomorrow. Cardiology recommendations will be awaited. The patient's endothermal ablation procedure is now tentatively scheduled for May 11, 2018. Influenza vaccine was not administered today. The patient is not a smoker. Patient weighs 261 pounds. He stands 5 feet 8 inches tall. His BMI is 38.5, which places him in an obese class II category. Weight loss has been recommended, and collaboration with the patient's primary care physician has been recommended in terms of weight loss management. 05/08/18 1259 <Electronically signed by Nacho Franco MD> Date Nacho Franco MD CC: Signed 12 LEAD ELECTROCARDIOGRAM Observed: 05/04/2018 Status: F Source: TAMPA 2:03 PM [facility] REPOSITORY [facility] Cardiovascular Services [address] [place] [id number] EKG - SDC 05/03/18 1031 MR#: [id number] Acct: [id number] Name: ROXIE CHRISTENSEN Rep #: [id number] : 1940 77 From: Migue Skinner MD Attending Dr: Nacho Franco MD Status: PRE SDC Ordering Dr: Nacho Franco MD Date: 05/03/18 Location: [facility] [place] Sex: M C Admitted: Test Reason : Blood Pressure : / mmHG Vent. Rate : 105 BPM Atrial Rate : 082 BPM P-R Int : 000 ms QRS Dur : 076 ms QT Int : 360 ms P-R-T Axes : 000 002 032 degrees QTc Int : 475 ms Atrial fibrillation with rapid ventricular response Abnormal ECG Confirmed by BRODY PETERSON, MIGUE ([id number]), subeditor KOLBY KEE ([id number]) on 05/04/2018 2:02:49 PM Referred By: Nacho Franco Confirmed By:MIGUE SKINNER MD 05/04/18 1407 Date Migue Skinner MD CC: No Primary Care Physician; Nacho Franco MD Date Dictated: 05/03/18 1031 Date Transcribed: 05/03/18 1031 Palaeontologist: Signed CBC-COMPLETE BLOOD CNT Collected: 05/03/2018 Status: F Source: APRIL NO DIFF 10:40 AM [facility] REPOSITORY TYPE CODE TESTS RESULT OUT OF RANGE REFERENCE UNITS LAB L100.1000 4.4-11.0 K/mm3 Normal WBC 7.8 LAB L100.1200 4.6-6.2 M/mm3 Normal RBC 4.96 LAB L100.1300 13.0-16.5 g/dl Normal HGB 15.1 LAB L100.1400 40-54 % Normal HCT 46.5 LAB L100.1500 80-94 fL Normal MCV 93.8 LAB L100.1600 27.0-32.0 pg Normal MCH 30.4 LAB L100.1700 32-36 g/gl Normal MCHC 32.5 LAB L100.1810 11.6-14.6 % Normal RDW CV 14.2 LAB L100.1820 35.1-43.9 fl High RDW SD 47.2 LAB L100.1900 150-450 K/mm3 Normal PLT 228 LAB L100.2000 6.2-12.0 fl Normal MPV 10.2 Performed By: #### L100.0500 #### [facility] [address] [place], [address] BASIC METABOLIC Collected: 05/03/2018 Status: F Source: APRIL PROFILE (BMP) 10:40 AM [facility] REPOSITORY TYPE CODE TESTS RESULT OUT OF RANGE REFERENCE UNITS LAB L501.0100 74-106 mg/dL Normal GLU 97 Result Comment: Please note revised GLUCOSE reference range effective 2017. LAB L501.1000 7-18 mg/dL High BUN 21 LAB L501.1100 0.70-1.30 mg/dL Normal CREAT,SERUM 0.90 Result Comment: The validity of the calculated GFR AND GFRAA in patients over 70 years has not been determined. Clinical correlation is essential. LAB L501.1110 >60 mL/min Normal EST GFR 86 Result Comment: Non- GFR Calc LAB L501.1115 >60 mL/min Normal EST GFR - AA 104 Result Comment: GFR Calc LAB L501.1255 ml/min Normal Estimated CRCL 64.39 LAB L501.1300 10-20 RATIO High BUN/CRE 23.3 LAB L501.2200 8.5-10 mg/dL Normal .1 CA 8.9 LAB L501.5300 136-14 mmol/L Normal 5 NA 143 LAB L501.5600 3.5-5. mmol/L Normal 1 K 3.9 LAB L501.5900 98-107 mmol/L High CL 108 LAB L501.6100 21.0-3 mmol/L Normal 2.0 CO2 27.0 LAB L501.6200 5-15 Normal GAP 8 Performed By: #### L500.2500 #### [facility] [address] [place], [address] WOUND CTR HISTORY Observed: 04/18/2018 Status: F Source: APRIL AND PHYSICAL 9:37 AM [facility] REPOSITORY [facility] Wound Healing Center [address] [place] [address] Wound Ctr History AND Physical 04/18/18 0934 MR#: [id number] Acct: [id number] Name: ROXIE CHRISTENSEN Rep #: [id number] : 1940 77 From: Nacho Franco MD PCP: OUT OF TOWN DOCTOR Status: REG RCR Y Location: 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 Status: Chronic Current Visit: Yes Code(s): I87.333 - Chronic venous hypertension (idiopathic) with ulcer and inflammation of bilateral lower extremity; L97.919 - Non-pressure chronic ulcer of unspecified part of right lower leg with unspecified severity; L97.929 - Non-pressure chronic ulcer of unspecified part of left lower leg with unspecified severity (4) Venous ulcer of right leg Status: Chronic Current Visit: Yes Code(s): I83.019 - Varicose veins of right lower extremity with ulcer of unspecified site; L97.919 - Non-pressure chronic ulcer of unspecified part of right lower leg with unspecified severity (5) Spontaneous hemorrhage Status: Chronic Current Visit: Yes Code(s): K66.1 - Hemoperitoneum (6) Atrial fibrillation Status: Chronic Current Visit: No Code(s): I48.91 - Unspecified atrial fibrillation (7) Lumbar radiculopathy Status: Chronic Current Visit: No Code(s): M54.16 - Radiculopathy, lumbar region (8) Obesity (BMI 35.0-39.9 without comorbidity) Status: Chronic Current Visit: No Code(s): E66.9 - Obesity, unspecified (9) Exertional dyspnea Status: Chronic Current Visit: No Code(s): R06.09 - Other forms of dyspnea (10) Right leg swelling Status: Chronic Current Visit: Yes Code(s): M79.89 - Other specified soft tissue disorders (11) Chronic venous hypertension with ulcer involving right side Status: Chronic Current Visit: Yes Code(s): I87.311 - Chronic venous hypertension (idiopathic) with ulcer of right lower extremity; L97.919 - Non-pressure chronic ulcer of unspecified part of right lower leg with unspecified severity History of Present Illness Chief Complaint: Chronic venous insufficiency, varicose veins with ulceration and inflammation, venous hypertension with ulceration, venous ulceration, leg swelling, spontaneous bleeding right lower extremity History of Wound: This is a 77-year-old male who presented with a long-standing history of chronic venous disease. The patient has had varicose veins for many years. He has elected to forego any significant treatment related to his venous disease. He denies a history of thrombophlebitis, though his past medical records indicate a history, though vague and nonspecific. Approximately 2 months prior to his presentation, the patient developed a spontaneous ulceration on the medial aspect of his right calf. The site subsequently ruptured, and spontaneous bleeding occurred on 3 different occasions, each time with significant blood loss. On at least one occasion, the spontaneous bleeding occurred after taking a hot shower. On each of 3 occasions, the patient was transported to the emergency department at [facility] in [place], [place], where the patient was treated and released. On each occasion, sutures were placed to obliterate the bleeding. Patient was subsequently referred to the [facility] for definitive management. The patient relates swelling in his right leg which occurs typically at the end of each day. He sleeps on a flat mattress at night. He lies in a recumbent position often during the daytime. He is not very active. He is also noted to be obese. 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 Patient's mother at age of 83 with a history of liver cancer. Tobacco Use: Non-smoker Review of Systems Constitutional: Denies: Chills, Fever, Weight Change Eyes: Denies: Pain, Vision Change HEENT: Denies: Difficulty Hearing, Difficulty Swallowing, Sinus Congestion Cardiovascular: Denies: Chest Pain, Palpitations Respiratory: Denies: Cough, Shortness of Breath Gastrointestinal: Denies: Diarrhea, Nausea, Vomiting Genitourinary: Denies: Dysuria, Hematuria Endocrine: Denies: Heat/ Cold Intolerance, Polydipsia, Polyuria Hematologic/ Lymphatic: Denies: Easy Bruising, Easy Bleeding - Physical Exam Vital Signs Temp Pulse Resp BP 98.2 F 107 H 16 138/93 H 04/18/18 08:13 04/18/18 08:13 04/18/18 08:13 04/18/18 08:13 General: Alert, Oriented x3, Cooperative, No apparent distress, Well developed, Well nourished HEENT: Atraumatic, PERRLA, EOMI, Normocephalic Oral: Moist Mucosa Neck: No JVD Lungs: Normal air movement Abdomen: Non-Distended Extremities: No clubbing, No cyanosis, No edema, No Calf Tenderness, - - The swelling and edema in the right lower extremity appears to be reasonably well controlled. The ulceration on the right medial calf persists, relatively unchanged in appearance and size. Dimensions are documented elsewhere. There is no sign of infection or cellulitis. Skin: No rashes Wound Measurements and Assessment WC - Nurse 1 - General Ulcer Measurement Start: 04/04/18 08:07 Freq: Status: Active Protocol: Activity Type Activity Date Activity User E-Sign Co-Sign Detail Recorded Client Recorded Date Recorded By Document 04/18/18 08:13 MW [id number] 04/18/18 08:16 MW WC - Nurse 2 - General Ulcer CM Notes Start: 04/04/18 08:07 Freq: Status: Active Protocol: Activity Type Activity Date Activity User E-Sign Co-Sign Detail Recorded Client Recorded Date Recorded By Document 04/18/18 09:28 DV [id number] 04/18/18 09:29 DV Wound Center Nurse 2 [Procedure/Treatment] #1 Medial RLE -Time 09:28 -Correct Patient Yes -Correct Side, Site, Position Yes Neurological: Cranial nerves II-XII grossly intact, Neuro grossly intact Psych/Mental Status: Normal Affect, Alert and oriented to time, place, person, mood and affect Debridement Note Post-Debridement Measurements/Treatment WC - Nurse 2 - General Ulcer CM Notes Start: 04/04/18 08:07 Freq: Status: Active Protocol: Activity Type Activity Date Activity User E-Sign Co-Sign Detail Wound Center Nurse 2 #1 Medial RLE -Time 08:33 09:28 -Correct Patient Yes Yes No debridement was completed today - Because of the propensity for bleeding, and suspected presence of a large distended vein directly beneath the patient's ulceration, debridement was purposely not performed today. 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 He has had varicose veins for many years, as well as chronic swelling in his right lower extremity. Also a question as to whether the patient may have a history of thrombophlebitis. Within the last several months, the patient has developed an ulceration on the right medial calf, and has had 3 episodes of spontaneous bleeding from the ulceration, prompting visits to the emergency department setting. On each occasion, suture closure of the bleeding vessel was performed. Patient presented with recent medical records, which have been reviewed. In addition, laboratory results are available from the patient's primary care physician, the results of which have been reviewed. Results are as follows: Cholesterol 199, HDL cholesterol 57, HDL ratio 3.5, LDL cholesterol 121, sodium 140, potassium 4.3, chloride 104, calcium 9.4, alkaline phosphatase 96, AST 24, ALT 18, bilirubin 0.7, glucose 89, BUN 14, creatinine 0.72, protein 7.4, albumin 4.2. The date of these laboratory results is 02/10/2018. The patient has undergone a venous duplex examination on February 24, 2018. Results have been reviewed with the patient. 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 Accessory saphenous veins in the right lower extremity at the S5 and S6 positions are also incompetent. An incompetent event marketing coordinator vein is noted in the right calf, located 13 cm proximal to the right medial malleolus. A noninvasive lower extremity arterial study has been performed as well, revealing no evidence of significant arterial occlusive disease in the lower extremities. The patient is accompanied by his and daughter. It appears as though he sleeps on a flat surface at night. He claims to be elevating his lower extremities frequently during daytime hours. Since the initiation of a 3M 2 layer compression wrap to the right lower extremity, patient has shown significant improvement in the swelling and edema, which is now somewhat minimal. There have been no further bleeding episodes. Plan: The patient and his family have been advised in the appropriate conservative measures regarding management of the patient's chronic venous disease. The patient has been encouraged to continue sleeping in a recumbent position, on a flat mattress. Leg elevation should be to heart level, or higher. Legs should be elevated even during daytime hours, as much as possible. Prolonged idle sitting has been discouraged. Weight loss has been encouraged. Activity has also been encouraged as well. We are to continue compression to the right lower extremity by means of a 3M 2 layer compression wrap, which will be changed twice weekly. We are to use Adaptic and gauze overlying the ulcerated site, in an effort to avoid adherence and subsequent bleeding. Patient has been instructed that, in the event of additional bleeding from the site, he is to elevate his leg and apply manual pressure. The patient is return in 1 week for reassessment. In the event that an episode of spontaneous bleeding should reoccur, the patient has been instructed to apply pressure to the bleeding site, and to elevate his lower extremity above heart level. Thereafter, he should seek medical attention. At present, we are to use a nonadhesive topical dressing such as Adaptic, with overlying gauze. The goal is to avoid any adherence of the dressings to the bleeding site, to avoid further bleeding episodes. Ultimately, the patient will be a likely candidate for an endovenous ablation procedure. The nature of the endovenous laser ablation procedure has again been discussed with the patient and his family in detail. It is anticipated that such a procedure may be necessary in an effort to reduce the pressure within the venous system of the right lower extremity, and reduce the likelihood of further bleeding from the ulcerated site. Endovenous laser ablation would likely also hasten the healing of his ulceration. In addition to endovenous laser ablation, there may be a need for ultrasound-guided injection sclerotherapy of the veins in the region of the bleeding varicosity. The potential benefits of endovenous laser ablation of the right great saphenous vein, the 2 accessory saphenous veins, and possibly the incompetent event marketing coordinator vein have been discussed with the patient in detail, as well as his . The indications and risks have been thoroughly explained. The potential benefits have been explained. The patient wishes to proceed at this time, and efforts will be made to start the preauthorization process, and ultimately schedule the procedure for the near future. The patient's endothermal ablation procedure is now tentatively scheduled for May 11, 2018. Influenza vaccine was not administered today. The patient is not a smoker. Patient weighs 261 pounds. He stands 5 feet 8 inches tall. His BMI is 38.5, which places him in an obese class II category. Weight loss has been recommended, and collaboration with the patient's primary care physician has been recommended in terms of weight loss management. 04/18/18 0937 <Electronically signed by Nacho Franco MD> Date Nacho Franco MD CC: Signed WOUND CTR HISTORY Observed: 04/04/2018 Status: F Source: APRIL AND PHYSICAL 8:45 AM [facility] REPOSITORY [facility] [address] [place] [address] Wound Ctr History AND Physical 04/04/18 0839 MR#: [id number] Acct: [id number] Name: ROXIE CHRISTENSEN Rep #: [id number] : 1940 77 From: Nacho Franco MD PCP: OUT OF TOWN DOCTOR Status: REG RCR Y Location: 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 Status: Chronic Current Visit: Yes Code(s): I87.333 - Chronic venous hypertension (idiopathic) with ulcer and inflammation of bilateral lower extremity; L97.919 - Non-pressure chronic ulcer of unspecified part of right lower leg with unspecified severity; L97.929 - Non-pressure chronic ulcer of unspecified part of left lower leg with unspecified severity (4) Venous ulcer of right leg Status: Chronic Current Visit: Yes Code(s): I83.019 - Varicose veins of right lower extremity with ulcer of unspecified site; L97.919 - Non-pressure chronic ulcer of unspecified part of right lower leg with unspecified severity (5) Spontaneous hemorrhage Status: Chronic Current Visit: Yes Code(s): K66.1 - Hemoperitoneum (6) Atrial fibrillation Status: Chronic Current Visit: No Code(s): I48.91 - Unspecified atrial fibrillation (7) Lumbar radiculopathy Status: Chronic Current Visit: No Code(s): M54.16 - Radiculopathy, lumbar region (8) Obesity (BMI 35.0-39.9 without comorbidity) Status: Chronic Current Visit: No Code(s): E66.9 - Obesity, unspecified (9) Exertional dyspnea Status: Chronic Current Visit: No Code(s): R06.09 - Other forms of dyspnea (10) Right leg swelling Status: Chronic Current Visit: Yes Code(s): M79.89 - Other specified soft tissue disorders (11) Chronic venous hypertension with ulcer involving right side Status: Chronic Current Visit: Yes Code(s): I87.311 - Chronic venous hypertension (idiopathic) with ulcer of right lower extremity; L97.919 - Non-pressure chronic ulcer of unspecified part of right lower leg with unspecified severity History of Present Illness Chief Complaint: Chronic venous insufficiency, varicose veins with ulceration and inflammation, venous hypertension with ulceration, venous ulceration, leg swelling, spontaneous bleeding right lower extremity History of Wound: This is a 77-year-old male who presented with a long-standing history of chronic venous disease. The patient has had varicose veins for many years. He has elected to forego any significant treatment related to his venous disease. He denies a history of thrombophlebitis, though his past medical records indicate a history, though vague and nonspecific. Approximately 2 months prior to his presentation, the patient developed a spontaneous ulceration on the medial aspect of his right calf. The site subsequently ruptured, and spontaneous bleeding occurred on 3 different occasions, each time with significant blood loss. On at least one occasion, the spontaneous bleeding occurred after taking a hot shower. On each of 3 occasions, the patient was transported to the emergency department at [facility] in [place], [place], where the patient was treated and released. On each occasion, sutures were placed to obliterate the bleeding. Patient was subsequently referred to the [facility] for definitive management. The patient relates swelling in his right leg which occurs typically at the end of each day. He sleeps on a flat mattress at night. He lies in a recumbent position often during the daytime. He is not very active. He is also noted to be obese. 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 Patient's mother at age of 83 with a history of liver cancer. Tobacco Use: Non-smoker Review of Systems Constitutional: Denies: Chills, Fever, Weight Change Eyes: Denies: Pain, Vision Change HEENT: Denies: Difficulty Hearing, Difficulty Swallowing, Sinus Congestion Cardiovascular: Denies: Chest Pain, Palpitations Respiratory: Denies: Cough, Shortness of Breath Gastrointestinal: Denies: Diarrhea, Nausea, Vomiting Genitourinary: Denies: Dysuria, Hematuria Endocrine: Denies: Heat/ Cold Intolerance, Polydipsia, Polyuria Hematologic/ Lymphatic: Denies: Easy Bruising, Easy Bleeding - Physical Exam Vital Signs Temp Pulse Resp BP 97.1 F L 98 18 138/85 H 04/04/18 08:07 04/04/18 08:07 04/04/18 08:07 04/04/18 08:07 General: Alert, Oriented x3, Cooperative, No apparent distress, Well developed, Well nourished HEENT: Atraumatic, PERRLA, EOMI, Normocephalic Oral: Moist Mucosa Neck: No JVD Lungs: Normal air movement Abdomen: Non-Distended Extremities: No clubbing, No cyanosis, No edema, No Calf Tenderness, - - There is no significant swelling or edema in the lower extremities bilaterally. The ulceration on the right medial calf persists. There is a large dry eschar. There is no sign of infection or cellulitis. Dimensions are documented elsewhere. The eschar overlies a bulging prominence, thought to be an underlying dilated varicosity. Skin: No rashes Wound Measurements and Assessment RIDGE - Nurse 1 - General Ulcer Measurement Start: 04/04/18 08:07 Freq: Status: Active Protocol: Activity Type Activity Date Activity User E-Sign Co-Sign Detail Recorded Client Recorded Date Recorded By Document 04/04/18 08:07 KARISHMA [id number] 04/04/18 08:13 KARISHMA Wound Center Nurse 1 RIDGE - Nurse 2 - General Ulcer CM Notes Start: 04/04/18 08:07 Freq: Status: Active Protocol: Activity Type Activity Date Activity User E-Sign Co-Sign Detail Recorded Client Recorded Date Recorded By Document 04/04/18 08:33 DV [id number] 04/04/18 08:35 DV Wound Center Nurse 2 [Procedure/Treatment] #1 Medial RLE -Time 08:33 -Correct Patient Yes -Correct Side, Site, Position Yes Neurological: Cranial nerves II-XII grossly intact, Neuro grossly intact Psych/Mental Status: Normal Affect, Appropriate, Alert and oriented to time, place, person, mood and affect Debridement Note Post-Debridement Measurements/Treatment WC - Nurse 2 - General Ulcer CM Notes Start: 04/04/18 08:07 Freq: Status: Active Protocol: Activity Type Activity Date Activity User E-Sign Co-Sign Detail Recorded Client Recorded Date Recorded By Document 04/04/18 08:33 DV [id number] 04/04/18 08:35 DV Wound Center Nurse 2 #1 Medial RLE No debridement was completed today - Because the ulceration/eschar is located overlying a suspected large varicosity, debridements have not been performed for fear and concern that debridement will disturb the underlying vein, and could result in a significant bleeding episode. As result, debridements have not been performed serially, as would otherwise be implemented. 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 He has had varicose veins for many years, as well as chronic swelling in his right lower extremity. Also a question as to whether the patient may have a history of thrombophlebitis. Within the last several months, the patient has developed an ulceration on the right medial calf, and has had 3 episodes of spontaneous bleeding from the ulceration, prompting visits to the emergency department setting. On each occasion, suture closure of the bleeding vessel was performed. Patient presented with recent medical records, which have been reviewed. In addition, laboratory results are available from the patient's primary care physician, the results of which have been reviewed. Results are as follows: Cholesterol 199, HDL cholesterol 57, HDL ratio 3.5, LDL cholesterol 121, sodium 140, potassium 4.3, chloride 104, calcium 9.4, alkaline phosphatase 96, AST 24, ALT 18, bilirubin 0.7, glucose 89, BUN 14, creatinine 0.72, protein 7.4, albumin 4.2. The date of these laboratory results is 02/10/2018. The patient has undergone a venous duplex examination on February 24, 2018. Results have been reviewed with the patient. 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 Accessory saphenous veins in the right lower extremity at the S5 and S6 positions are also incompetent. An incompetent event marketing coordinator vein is noted in the right calf, located 13 cm proximal to the right medial malleolus. A noninvasive lower extremity arterial study has been performed as well, revealing no evidence of significant arterial occlusive disease in the lower extremities. The patient is accompanied by his and daughter. It appears as though he sleeps on a flat surface at night. He claims to be elevating his lower extremities frequently during daytime hours. Since the initiation of a 3M 2 layer compression wrap to the right lower extremity, patient has shown significant improvement in the swelling and edema, which is now somewhat minimal. There have been no further bleeding episodes. Plan: The patient and his family have been advised in the appropriate conservative measures regarding management of the patient's chronic venous disease. The patient has been encouraged to continue sleeping in a recumbent position, on a flat mattress. Leg elevation should be to heart level, or higher. Legs should be elevated even during daytime hours, as much as possible. Prolonged idle sitting has been discouraged. Weight loss has been encouraged. Activity has also been encouraged as well. We are to continue compression to the right lower extremity by means of a 3M 2 layer compression wrap, which will be changed twice weekly. We are to use Adaptic and gauze overlying the ulcerated site, in an effort to avoid adherence and subsequent bleeding. Patient has been instructed that, in the event of additional bleeding from the site, he is to elevate his leg and apply manual pressure. The patient is return in 1 week for reassessment. In the event that an episode of spontaneous bleeding should reoccur, the patient has been instructed to apply pressure to the bleeding site, and to elevate his lower extremity above heart level. Thereafter, he should seek medical attention. At present, we are to use a nonadhesive topical dressing such as Adaptic, with overlying gauze. The goal is to avoid any adherence of the dressings to the bleeding site, to avoid further bleeding episodes. Ultimately, the patient will be a likely candidate for an endovenous ablation procedure. The nature of the endovenous laser ablation procedure has again been discussed with the patient and his family in detail. It is anticipated that such a procedure may be necessary in an effort to reduce the pressure within the venous system of the right lower extremity, and reduce the likelihood of further bleeding from the ulcerated site. Endovenous laser ablation would likely also hasten the healing of his ulceration. In addition to endovenous laser ablation, there may be a need for ultrasound-guided injection sclerotherapy of the veins in the region of the bleeding varicosity. The potential benefits of endovenous laser ablation of the right great saphenous vein, the 2 accessory saphenous veins, and possibly the incompetent event marketing coordinator vein have been discussed with the patient in detail, as well as his . The indications and risks have been thoroughly explained. The potential benefits have been explained. The patient wishes to proceed at this time, and efforts will be made to start the preauthorization process, and ultimately schedule the procedure for the near future. Influenza vaccine was not administered today. The patient is not a smoker. Patient weighs 261 pounds. He stands 5 feet 8 inches tall. His BMI is 38.5, which places him in an obese class II category. Weight loss has been recommended, and collaboration with the patient's primary care physician has been recommended in terms of weight loss management. 04/04/18 0845 <Electronically signed by Nacho Franco MD> Date Nacho Franco MD CC: Signed WOUND CTR HISTORY Observed: 03/28/2018 Status: F Source: APRIL AND PHYSICAL 9:01 AM [facility] REPOSITORY [facility] [address] [place] [address] Wound Ctr History AND Physical 03/28/18 0852 MR#: [id number] Acct: [id number] Name: ROXIE CHRISTENSEN Rep #: [id number] : 1940 77 From: Nacho Franco MD PCP: OUT OF TOWN DOCTOR Status: REG RCR Y Location: 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 Status: Chronic Current Visit: Yes Code(s): I87.333 - Chronic venous hypertension (idiopathic) with ulcer and inflammation of bilateral lower extremity; L97.919 - Non-pressure chronic ulcer of unspecified part of right lower leg with unspecified severity; L97.929 - Non-pressure chronic ulcer of unspecified part of left lower leg with unspecified severity (4) Venous ulcer of right leg Status: Chronic Current Visit: Yes Code(s): I83.019 - Varicose veins of right lower extremity with ulcer of unspecified site; L97.919 - Non-pressure chronic ulcer of unspecified part of right lower leg with unspecified severity (5) Spontaneous hemorrhage Status: Chronic Current Visit: Yes Code(s): K66.1 - Hemoperitoneum (6) Atrial fibrillation Status: Chronic Current Visit: No Code(s): I48.91 - Unspecified atrial fibrillation (7) Lumbar radiculopathy Status: Chronic Current Visit: No Code(s): M54.16 - Radiculopathy, lumbar region (8) Obesity (BMI 35.0-39.9 without comorbidity) Status: Chronic Current Visit: Yes Code(s): E66.9 - Obesity, unspecified (9) Exertional dyspnea Status: Chronic Current Visit: No Code(s): R06.09 - Other forms of dyspnea (10) Right leg swelling Status: Chronic Current Visit: Yes Code(s): M79.89 - Other specified soft tissue disorders (11) Chronic venous hypertension with ulcer involving right side Status: Chronic Current Visit: Yes Code(s): I87.311 - Chronic venous hypertension (idiopathic) with ulcer of right lower extremity; L97.919 - Non-pressure chronic ulcer of unspecified part of right lower leg with unspecified severity History of Present Illness Chief Complaint: Chronic venous insufficiency, varicose veins with ulceration and inflammation, venous hypertension with ulceration, venous ulceration, leg swelling, spontaneous bleeding right lower extremity History of Wound: This is a 77-year-old male who presented with a long-standing history of chronic venous disease. The patient has had varicose veins for many years. He has elected to forego any significant treatment related to his venous disease. He denies a history of thrombophlebitis, though his past medical records indicate a history, though vague and nonspecific. Approximately 2 months prior to his presentation, the patient developed a spontaneous ulceration on the medial aspect of his right calf. The site subsequently ruptured, and spontaneous bleeding occurred on 3 different occasions, each time with significant blood loss. On at least one occasion, the spontaneous bleeding occurred after taking a hot shower. On each of 3 occasions, the patient was transported to the emergency department at [facility] in [place], [place], where the patient was treated and released. On each occasion, sutures were placed to obliterate the bleeding. Patient was subsequently referred to the [facility] for definitive management. The patient relates swelling in his right leg which occurs typically at the end of each day. He sleeps on a flat mattress at night. He lies in a recumbent position often during the daytime. He is not very active. He is also noted to be obese. 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 Patient's mother at age of 83 with a history of liver cancer. Tobacco Use: Non-smoker Review of Systems Constitutional: Denies: Chills, Fever, Weight Change Eyes: Denies: Pain, Vision Change HEENT: Denies: Difficulty Hearing, Difficulty Swallowing, Sinus Congestion Cardiovascular: Denies: Chest Pain, Palpitations Respiratory: Denies: Cough, Shortness of Breath Gastrointestinal: Denies: Diarrhea, Nausea, Vomiting Genitourinary: Denies: Dysuria, Hematuria Endocrine: Denies: Heat/ Cold Intolerance, Polydipsia, Polyuria Hematologic/ Lymphatic: Denies: Easy Bruising, Easy Bleeding - Physical Exam Vital Signs Temp Pulse Resp BP 97.1 F L 105 H 18 138/99 H 03/28/18 08:23 03/28/18 08:23 03/28/18 08:23 03/28/18 08:23 General: Alert, Oriented x3, Cooperative, No apparent distress, Well developed, Well nourished HEENT: Atraumatic, PERRLA, EOMI, Normocephalic Oral: Moist Mucosa Neck: No JVD Lungs: Normal air movement Abdomen: Non-Distended Extremities: No clubbing, No cyanosis, No Calf Tenderness, - - Mild swelling and edema persist in the right lower extremity. Chronic venous changes persist on the right lower extremity, including gee phlebectatica about the right ankle, and mild hyperpigmentation. The ulceration on the right medial calf persists. There is no active bleeding. A large eschar remains overlying the somewhat elevated site, presumed to be a large underlying varicosity. There is no sign of infection or cellulitis. Skin: No rashes Wound Measurements and Assessment WC - Nurse 1 - General Ulcer Measurement Start: 03/14/18 08:15 Freq: Status: Active Protocol: Activity Type Activity Date Activity User E-Sign Co-Sign Detail Recorded Client Recorded Date Recorded By Document 03/28/18 08:23 [id number] 03/28/18 08:25 Wound Center Nurse 1 [Ulcer Assessment] #1 Medial RLE -Combined with other wound No -Current Size (cm) - Length 1.6 -Current Size (cm) - Width 1.6 -Current Size (cm) - Depth 0.1 WC - Nurse 2 - General Ulcer CM Notes Start: 03/14/18 08:15 Freq: Status: Active Protocol: Activity Type Activity Date Activity User E-Sign Co-Sign Detail Recorded Client Recorded Date Recorded By Document 03/28/18 08:39 [id number] 03/28/18 08:40 Wound Center Nurse 2 [Procedure/Treatment] #1 Medial RLE -Time 08:39 -Correct Patient Yes -Correct Side, Site, Position Yes -Correct Procedure Yes Neurological: Cranial nerves II-XII grossly intact, Neuro grossly intact Psych/Mental Status: Normal Affect, Appropriate, Alert and oriented to time, place, person, mood and affect Debridement Note Post-Debridement Measurements/Treatment WC - Nurse 2 - General Ulcer CM Notes Start: 03/14/18 08:15 Freq: Status: Active Protocol: Activity Type Activity Date Activity User E-Sign Co-Sign Detail Recorded Client Recorded Date Recorded By Wound Center Nurse 2 No debridement was completed today - Debridement was not performed today, as it has been intentionally avoided. Clinically, it appears as though there is a large, bulging varicose vein on the right medial calf, with an overlying dry eschar. Debridements have been avoided, as it is felt that removal of the eschar would likely result in significant bleeding due to the underlying large varicose vein. Debridements have been specifically avoided so as to prevent provocation of yet another bleeding episode from the underlying engorged vein. 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 He has had varicose veins for many years, as well as chronic swelling in his right lower extremity. Also a question as to whether the patient may have a history of thrombophlebitis. Within the last several months, the patient has developed an ulceration on the right medial calf, and has had 3 episodes of spontaneous bleeding from the ulceration, prompting visits to the emergency department setting. On each occasion, suture closure of the bleeding vessel was performed. Patient presented with recent medical records, which have been reviewed. In addition, laboratory results are available from the patient's primary care physician, the results of which have been reviewed. Results are as follows: Cholesterol 199, HDL cholesterol 57, HDL ratio 3.5, LDL cholesterol 121, sodium 140, potassium 4.3, chloride 104, calcium 9.4, alkaline phosphatase 96, AST 24, ALT 18, bilirubin 0.7, glucose 89, BUN 14, creatinine 0.72, protein 7.4, albumin 4.2. The date of these laboratory results is 02/10/2018. The patient has undergone a venous duplex examination on February 24, 2018. Results have been reviewed with the patient. 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 Accessory saphenous veins in the right lower extremity at the S5 and S6 positions are also incompetent. An incompetent event marketing coordinator vein is noted in the right calf, located 13 cm proximal to the right medial malleolus. A noninvasive lower extremity arterial study has been performed as well, revealing no evidence of significant arterial occlusive disease in the lower extremities. The patient is accompanied by his and daughter. It appears as though he sleeps on a flat surface at night. He claims to be elevating his lower extremities frequently during daytime hours. Since the initiation of a 3M 2 layer compression wrap to the right lower extremity, patient has shown significant improvement in the swelling and edema, which is now somewhat minimal. There have been no further bleeding episodes. Plan: The patient and his family have been advised in the appropriate conservative measures regarding management of the patient's chronic venous disease. The patient has been encouraged to continue sleeping in a recumbent position, on a flat mattress. Leg elevation should be to heart level, or higher. Legs should be elevated even during daytime hours, as much as possible. Prolonged idle sitting has been discouraged. Weight loss has been encouraged. Activity has also been encouraged as well. We are to continue compression to the right lower extremity by means of a 3M 2 layer compression wrap, which will be changed twice weekly. We are to use Adaptic and gauze overlying the ulcerated site, in an effort to avoid adherence and subsequent bleeding. Patient has been instructed that, in the event of additional bleeding from the site, he is to elevate his leg and apply manual pressure. The patient is return in 1 week for reassessment. In the event that an episode of spontaneous bleeding should reoccur, the patient has been instructed to apply pressure to the bleeding site, and to elevate his lower extremity above heart level. Thereafter, he should seek medical attention. At present, we are to use a nonadhesive topical dressing such as Adaptic, with overlying gauze. The goal is to avoid any adherence of the dressings to the bleeding site, to avoid further bleeding episodes. Ultimately, the patient will be a likely candidate for an endovenous ablation procedure. The nature of the endovenous laser ablation procedure has again been discussed with the patient and his family in detail. It is anticipated that such a procedure may be necessary in an effort to reduce the pressure within the venous system of the right lower extremity, and reduce the likelihood of further bleeding from the ulcerated site. Endovenous laser ablation would likely also hasten the healing of his ulceration. In addition to endovenous laser ablation, there may be a need for ultrasound-guided injection sclerotherapy of the veins in the region of the bleeding varicosity. The potential benefits of endovenous laser ablation of the right great saphenous vein, the 2 accessory saphenous veins, and possibly the incompetent event marketing coordinator vein have been discussed with the patient in detail, as well as his . The indications and risks have been thoroughly explained. The potential benefits have been explained. The patient wishes to proceed at this time, and efforts will be made to start the preauthorization process, and ultimately schedule the procedure for the near future. Influenza vaccine was not administered today. The patient is not a smoker. Patient weighs 261 pounds. He stands 5 feet 8 inches tall. His BMI is 38.5, which places him in an obese class II category. Weight loss has been recommended, and collaboration with the patient's primary care physician has been recommended in terms of weight loss management. 03/28/18 09 <Electronically signed by Nacho Franco MD> Date Nacho Franco MD CC: Signed WOUND CTR HISTORY Observed: 03/21/2018 Status: F Source: APRIL AND PHYSICAL 9:18 AM [facility] REPOSITORY [facility] [address] [place] [address] Wound Ctr History AND Physical 03/21/18 09 MR#: [id number] Acct: [id number] Name: ROXIE CHRISTENSEN Rep #: [id number] : [id number] 77 From: Nacho Franco MD PCP: OUT OF TOWN DOCTOR Status: REG RCR Y Location: 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 Status: Chronic Current Visit: Yes Code(s): I87.333 - Chronic venous hypertension (idiopathic) with ulcer and inflammation of bilateral lower extremity; L97.919 - Non-pressure chronic ulcer of unspecified part of right lower leg with unspecified severity; L97.929 - Non-pressure chronic ulcer of unspecified part of left lower leg with unspecified severity (4) Venous ulcer of right leg Status: Chronic Current Visit: Yes Code(s): I83.019 - Varicose veins of right lower extremity with ulcer of unspecified site; L97.919 - Non-pressure chronic ulcer of unspecified part of right lower leg with unspecified severity (5) Spontaneous hemorrhage Status: Chronic Current Visit: Yes Code(s): K66.1 - Hemoperitoneum (6) Atrial fibrillation Status: Chronic Current Visit: No Code(s): I48.91 - Unspecified atrial fibrillation (7) Lumbar radiculopathy Status: Chronic Current Visit: No Code(s): M54.16 - Radiculopathy, lumbar region (8) Obesity (BMI 35.0-39.9 without comorbidity) Status: Chronic Current Visit: Yes Code(s): E66.9 - Obesity, unspecified (9) Exertional dyspnea Status: Chronic Current Visit: No Code(s): R06.09 - Other forms of dyspnea (10) Right leg swelling Status: Chronic Current Visit: Yes Code(s): M79.89 - Other specified soft tissue disorders (11) Chronic venous hypertension with ulcer involving right side Status: Chronic Current Visit: Yes Code(s): I87.311 - Chronic venous hypertension (idiopathic) with ulcer of right lower extremity; L97.919 - Non-pressure chronic ulcer of unspecified part of right lower leg with unspecified severity History of Present Illness Chief Complaint: Chronic venous insufficiency, varicose veins with ulceration and inflammation, venous hypertension with ulceration, venous ulceration, leg swelling, spontaneous bleeding right lower extremity History of Wound: This is a 77-year-old male who presented with a long-standing history of chronic venous disease. The patient has had varicose veins for many years. He has elected to forego any significant treatment related to his venous disease. He denies a history of thrombophlebitis, though his past medical records indicate a history, though vague and nonspecific. Approximately 2 months prior to his presentation, the patient developed a spontaneous ulceration on the medial aspect of his right calf. The site subsequently ruptured, and spontaneous bleeding occurred on 3 different occasions, each time with significant blood loss. On at least one occasion, the spontaneous bleeding occurred after taking a hot shower. On each of 3 occasions, the patient was transported to the emergency department at [facility] in [place], [place], where the patient was treated and released. On each occasion, sutures were placed to obliterate the bleeding. Patient was subsequently referred to the [facility] for definitive management. The patient relates swelling in his right leg which occurs typically at the end of each day. He sleeps on a flat mattress at night. He lies in a recumbent position often during the daytime. He is not very active. He is also noted to be obese. 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 Patient's mother at age of 83 with a history of liver cancer. Tobacco Use: Non-smoker Review of Systems Constitutional: Denies: Chills, Fever, Weight Change Eyes: Denies: Pain, Vision Change HEENT: Denies: Difficulty Hearing, Difficulty Swallowing, Sinus Congestion Cardiovascular: Denies: Chest Pain, Palpitations Respiratory: Denies: Cough, Shortness of Breath Gastrointestinal: Denies: Diarrhea, Nausea, Vomiting Genitourinary: Denies: Dysuria, Hematuria Endocrine: Denies: Heat/ Cold Intolerance, Polydipsia, Polyuria Hematologic/ Lymphatic: Denies: Easy Bruising, Easy Bleeding - Physical Exam Vital Signs Temp Pulse Resp BP 96.8 F L 103 H 18 121/90 H 03/21/18 08:25 03/21/18 08:25 03/21/18 08:25 03/21/18 08:25 General: Alert, Oriented x3, Cooperative, No apparent distress, Well developed, Well nourished HEENT: Atraumatic, PERRLA, EOMI, Normocephalic Oral: Moist Mucosa Neck: No JVD Lungs: Normal air movement Abdomen: Non-Distended Extremities: No clubbing, No cyanosis, No Calf Tenderness, - - Only slight swelling and edema persist in the patient's right lower extremity. However, it is markedly improved. Circumference dimensions are documented elsewhere. The ulceration on the right anterior tibial surface is little changed in appearance. There is a dry eschar. There is prominence at the site, and clinically there is suspicion that the prominence is due to an underlying large varicosity. There is no sign of infection or cellulitis. Dimensions are documented elsewhere. Skin: No rashes Wound Measurements and Assessment WC - Nurse 1 - General Ulcer Measurement Start: 03/14/18 08:15 Freq: Status: Active Protocol: Activity Type Activity Date Activity User E-Sign Co-Sign Detail Recorded Client Recorded Date Recorded By Document 03/21/18 08:25 KARISHMA [id number] 03/21/18 08:26 KARISHMA Wound Center Nurse 1 - Nurse 2 - General Ulcer CM Notes Start: 03/14/18 08:15 Freq: Status: Active Protocol: Activity Type Activity Date Activity User E-Sign Co-Sign Detail Recorded Client Recorded Date Recorded By Document 03/21/18 08:55 [email or web address] [id number] 03/21/18 08:56 TANYA Wound Center Nurse 2 [Procedure/Treatment] #1 Medial RLE -Time 08:55 -Correct Patient Yes -Correct Side, Site, Position Yes -Correct Procedure Yes Neurological: Cranial nerves II-XII grossly intact, Neuro grossly intact Psych/Mental Status: Normal Affect, Appropriate, Alert and oriented to time, place, person, mood and affect Debridement Note Post-Debridement Measurements/Treatment WC - Nurse 2 - General Ulcer CM Notes Start: 03/14/18 08:15 Freq: Status: Active Protocol: Activity Type Activity Date Activity User E-Sign Co-Sign Detail Wound Center Nurse 2 #1 Medial RLE -Time 08:56 08:55 -Correct Patient Yes Yes -Correct Side, Site, Position Yes Yes No debridement was completed today - Debridement was not performed today. Based upon the appearance of the ulcerated site on the right anterior tibial surface, it is highly suspected that there is a large underlying varicosity directly beneath the ulcerated site, which has recently bled on at least 3 occasions. It is felt that debridement of the area would have a high likelihood of bleeding, where the underlying varicosity to be disturbed. Therefore, no debridement was performed. 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 He has had varicose veins for many years, as well as chronic swelling in his right lower extremity. Also a question as to whether the patient may have a history of thrombophlebitis. Within the last several months, the patient has developed an ulceration on the right medial calf, and has had 3 episodes of spontaneous bleeding from the ulceration, prompting visits to the emergency department setting. On each occasion, suture closure of the bleeding vessel was performed. Patient presented with recent medical records, which have been reviewed. In addition, laboratory results are available from the patient's primary care physician, the results of which have been reviewed. Results are as follows: Cholesterol 199, HDL cholesterol 57, HDL ratio 3.5, LDL cholesterol 121, sodium 140, potassium 4.3, chloride 104, calcium 9.4, alkaline phosphatase 96, AST 24, ALT 18, bilirubin 0.7, glucose 89, BUN 14, creatinine 0.72, protein 7.4, albumin 4.2. The date of these laboratory results is 02/10/2018. The patient has undergone a venous duplex examination on February 24, 2018. Results have been reviewed with the patient. 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 Accessory saphenous veins in the right lower extremity at the S5 and S6 positions are also incompetent. An incompetent event marketing coordinator vein is noted in the right calf, located 13 cm proximal to the right medial malleolus. A noninvasive lower extremity arterial study has been performed as well, revealing no evidence of significant arterial occlusive disease in the lower extremities. The patient is accompanied by his and daughter. It appears as though he sleeps on a flat surface at night. He claims to be elevating his lower extremities frequently during daytime hours. Since the initiation of a 3M 2 layer compression wrap to the right lower extremity, patient has shown significant improvement in the swelling and edema, which is now somewhat minimal. Plan: The patient presented with his and adult daughter again today. The patient and his family have been advised in the appropriate conservative measures regarding management of the patient's chronic venous disease. The patient has been encouraged to continue sleeping in a recumbent position, on a flat mattress. Leg elevation should be to heart level, or higher. Legs should be elevated even during daytime hours, as much as possible. Prolonged idle sitting has been discouraged. Weight loss has been encouraged. Activity has also been encouraged as well. We are to continue compression to the right lower extremity by means of a 3M 2 layer compression wrap, which will be changed twice weekly, though only once this week, a holiday week. Using SurePress, at the patient's discretion, has not met with compliance, and the clinical response has been correspondingly poor. We are to use Adaptic and gauze overlying the ulcerated site, in an effort to avoid adherence and subsequent bleeding. Patient has been instructed that, in the event of additional bleeding from the site, he is to elevate his leg and apply manual pressure. The patient is return in 1 week for reassessment. In the event that an episode of spontaneous bleeding should reoccur, the patient has been instructed to apply pressure to the bleeding site, and to elevate his lower extremity above heart level. Thereafter, he should seek medical attention. At present, we are to use a nonadhesive topical dressing such as Adaptic, with overlying gauze. The goal is to avoid any adherence of the dressings to the bleeding site, to avoid further bleeding episodes. Ultimately, the patient will be a likely candidate for an endovenous ablation procedure. The nature of the endovenous laser ablation procedure has again been discussed with the patient and his family in detail. It is anticipated that such a procedure may be necessary in an effort to reduce the pressure within the venous system of the right lower extremity, and reduce the likelihood of further bleeding from the ulcerated site. Endovenous laser ablation would likely also hasten the healing of his ulceration. However, conservative measures will be continued at present. In addition to endovenous laser ablation, there may be a need for ultrasound-guided injection sclerotherapy of the veins in the region of the bleeding varicosity. Influenza vaccine was not administered today. The patient is not a smoker. Patient weighs 261 pounds. He stands 5 feet 8 inches tall. His BMI is 38.5, which places him in an obese class II category. Weight loss has been recommended, and collaboration with the patient's primary care physician has been recommended in terms of weight loss management. 03/21/18917 <Electronically signed by Nacho Franco MD> Date Nacho Franco MD CC: Signed WOUND CTR HISTORY Observed: 03/14/2018 Status: F Source: APRIL AND PHYSICAL 9:03 AM [facility] REPOSITORY [facility] [address] [place] [id number] Wound Ctr History AND Physical 03/14/18 0854 MR#: [id number] Acct: [id number] Name: ROXIE CHRISTENSEN Rep #: [id number] : [id number] 77 From: Nacho Franco MD PCP: OUT OF TOWN DOCTOR Status: REG RCR Y Location: 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 Status: Chronic Current Visit: Yes Code(s): I87.333 - Chronic venous hypertension (idiopathic) with ulcer and inflammation of bilateral lower extremity; L97.919 - Non-pressure chronic ulcer of unspecified part of right lower leg with unspecified severity; L97.929 - Non-pressure chronic ulcer of unspecified part of left lower leg with unspecified severity (4) Venous ulcer of right leg Status: Chronic Current Visit: Yes Code(s): I83.019 - Varicose veins of right lower extremity with ulcer of unspecified site; L97.919 - Non-pressure chronic ulcer of unspecified part of right lower leg with unspecified severity (5) Spontaneous hemorrhage Status: Chronic Current Visit: Yes Code(s): K66.1 - Hemoperitoneum (6) Atrial fibrillation Status: Chronic Current Visit: No Code(s): I48.91 - Unspecified atrial fibrillation (7) Lumbar radiculopathy Status: Chronic Current Visit: No Code(s): M54.16 - Radiculopathy, lumbar region (8) Obesity (BMI 35.0-39.9 without comorbidity) Status: Chronic Current Visit: Yes Code(s): E66.9 - Obesity, unspecified (9) Exertional dyspnea Status: Chronic Current Visit: No Code(s): R06.09 - Other forms of dyspnea (10) Right leg swelling Status: Chronic Current Visit: Yes Code(s): M79.89 - Other specified soft tissue disorders (11) Chronic venous hypertension with ulcer involving right side Status: Chronic Current Visit: Yes Code(s): I87.311 - Chronic venous hypertension (idiopathic) with ulcer of right lower extremity; L97.919 - Non-pressure chronic ulcer of unspecified part of right lower leg with unspecified severity History of Present Illness Chief Complaint: Chronic venous insufficiency, varicose veins with ulceration and inflammation, venous hypertension with ulceration, venous ulceration, leg swelling, spontaneous bleeding right lower extremity History of Wound: This is a 77-year-old male who presents with a long-standing history of chronic venous disease. The patient has had varicose veins for many years. He has elected to forego any significant treatment related to his venous disease. He denies a history of thrombophlebitis, though his past medical records indicate a history, though vague and nonspecific. Approximately 2 months ago, the patient developed a spontaneous ulceration on the medial aspect of his right calf. The site subsequently ruptured, and spontaneous bleeding occurred on 3 different occasions, each time with significant blood loss. On at least one occasion, the spontaneous bleeding occurred after taking a hot shower. On each of 3 occasions, the patient was transported to the emergency department at [facility] in [place], [place], where the patient was treated and released. On each occasion, sutures were placed to obliterate the bleeding. Patient was subsequently referred to the [facility] for definitive management. The patient relates swelling in his right leg which occurs typically at the end of each day. He sleeps on a flat mattress at night. He lies in a recumbent position often during the daytime. He is not very active. He is also noted to be obese. 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 Patient's mother at age of 83 with a history of liver cancer. Tobacco Use: Non-smoker Review of Systems Constitutional: Denies: Chills, Fever, Weight Change Eyes: Denies: Pain, Vision Change HEENT: Denies: Difficulty Hearing, Difficulty Swallowing, Sinus Congestion Cardiovascular: Denies: Chest Pain, Palpitations Respiratory: Denies: Cough, Shortness of Breath Gastrointestinal: Denies: Diarrhea, Nausea, Vomiting Genitourinary: Denies: Dysuria, Hematuria Endocrine: Denies: Heat/ Cold Intolerance, Polydipsia, Polyuria Hematologic/ Lymphatic: Denies: Easy Bruising, Easy Bleeding - Physical Exam Vital Signs Temp Pulse Resp BP 97.8 F 103 H 18 117/81 H 03/14/18 08:16 03/14/18 08:16 03/14/18 08:16 03/14/18 08:16 General: Alert, Oriented x3, Cooperative, No apparent distress, Well developed, Well nourished HEENT: Atraumatic, PERRLA, EOMI, Normocephalic Oral: Moist Mucosa Neck: No JVD Lungs: Normal air movement Abdomen: Non-Distended Extremities: No clubbing, No cyanosis, No Calf Tenderness, Edema - Right leg, - - Mild swelling and edema are noted in the right lower extremity. The ulceration of the right lower extremity persists, on the medial calf. There is no associated erythema. No obvious infection or cellulitis. There is a large eschar, which is bulging, highly suspicious for an underlying venous structure. Due to its appearance, and suspicion regarding the presence of a bulging vein directly beneath the eschar, debridement was not performed today. Skin: No rashes Wound Measurements and Assessment WC - Nurse 1 - General Ulcer Measurement Start: 03/14/18 08:15 Freq: Status: Active Protocol: Activity Type Activity Date Activity User E-Sign Co-Sign Detail Recorded Client Recorded Date Recorded By Document 03/14/18 08:16 DV [id number] 03/14/18 08:28 DV Wound Center Nurse 1 [Ulcer Assessment] Musculoskeletal: No Muscle Wasting Neurological: Cranial nerves II-XII grossly intact, Neuro grossly intact Psych/Mental Status: Normal Affect, Appropriate, Alert and oriented to time, place, person, mood and affect Debridement Note No debridement was completed today Assessment/Plan Active Problems Chronic venous insufficiency (Chronic) Varicose veins with ulcer and inflammation (Chronic) Chronic venous hypertension (idiopathic) with ulcer and inflammation of bilateral lower extremity (Chronic) Venous ulcer of right leg (Chronic) Spontaneous hemorrhage (Chronic) Obesity (BMI 35.0-39.9 without comorbidity) (Chronic) Right leg swelling (Chronic) Chronic venous hypertension with ulcer involving right side (Chronic) Assessment: This is a 77-year-old male with an apparent long- standing history of chronic venous disease. He has had varicose veins for many years, as well as chronic swelling in his right lower extremity. Also a question as to whether the patient may have a history of thrombophlebitis. Within the last several months, the patient has developed an ulceration on the right medial calf, and has had 3 episodes of spontaneous bleeding from the ulceration, prompting visits to the emergency department setting. On each occasion, suture closure of the bleeding vessel was performed. Patient presented with recent medical records, which have been reviewed. In addition, laboratory results are available from the patient's primary care physician, the results of which have been reviewed. Results are as follows: Cholesterol 199, HDL cholesterol 57, HDL ratio 3.5, LDL cholesterol 121, sodium 140, potassium 4.3, chloride 104, calcium 9.4, alkaline phosphatase 96, AST 24, ALT 18, bilirubin 0.7, glucose 89, BUN 14, creatinine 0.72, protein 7.4, albumin 4.2. The date of these laboratory results is 02/10/2018. The patient has undergone a venous duplex examination on February 24, 2018. Results have been reviewed with the patient. 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 Accessory saphenous veins in the right lower extremity at the S5 and S6 positions are also incompetent. An incompetent event marketing coordinator vein is noted in the right calf, located 13 cm proximal to the right medial malleolus. A noninvasive lower extremity arterial study has been performed as well, revealing no evidence of significant arterial occlusive disease in the lower extremities. The patient is accompanied by his and daughter. As a result of conversations with the patient's family, it is apparent that the patient has been noncompliant with recommended measures. He has not been using compression by means of SurePress applied on a daily basis. He has been largely noncompliant with this measure. It appears as though he sleeps on a flat surface at night. He claims to be elevating his lower extremities frequently during daytime hours. Nonetheless, the appearance of his ulceration, the presence of swelling in the right lower extremity, etc., suggest noncompliance with recommended measures, which is confirmed by the patient's family. Plan: The patient presented with his and adult daughter again today. The patient and his family have been advised in the appropriate conservative measures regarding management of the patient's chronic venous disease. The patient has been encouraged to continue sleeping in a recumbent position, on a flat mattress. Leg elevation should be to heart level, or higher. Legs should be elevated even during daytime hours, as much as possible. Prolonged idle sitting has been discouraged. Weight loss has been encouraged. Activity has also been encouraged as well. We are to implement compression to the right lower extremity by means of a 3M 2 layer compression wrap, which will be changed twice weekly. Using SurePress, at the patient's discretion, has not met with compliance, and the clinical response has been correspondingly poor. We are to use Adaptic and gauze overlying the ulcerated site, in an effort to avoid adherence and subsequent bleeding. Patient has been instructed that, in the event of additional bleeding from the site, he is to elevate his leg and apply manual pressure. The patient is return in 2 weeks for reassessment. In the event that an episode of spontaneous bleeding should reoccur, the patient has been instructed to apply pressure to the bleeding site, and to elevate his lower extremity above heart level. Thereafter, he should seek medical attention. At present, we are to use a nonadhesive topical dressing such as Adaptic, with overlying gauze. The goal is to avoid any adherence of the dressings to the bleeding site, to avoid further bleeding episodes. Ultimately, the patient will be a likely candidate for an endovenous ablation procedure. The nature of the endovenous laser ablation procedure has been discussed with the patient and his family in detail. It is anticipated that such a procedure may be necessary in an effort to reduce the pressure within the venous system of the right lower extremity, and reduce the likelihood of further bleeding from the ulcerated site. However, conservative measures will be continued at present. In addition to endovenous laser ablation, there may be a need for ultrasound-guided injection sclerotherapy of the veins in the region of the bleeding varicosity. Influenza vaccine was not administered today. The patient is not a smoker. Patient weighs 261 pounds. He stands 5 feet 8 inches tall. His BMI is 38.5, which places him in an obese class II category. Weight loss has been recommended, and collaboration with the patient's primary care physician has been recommended in terms of weight loss management. 03/14/18 0903 <Electronically signed by Nacho Franco MD> Date Nacho Franco MD CC: Signed WOUND CTR HISTORY Observed: 02/28/2018 Status: F Source: APRIL AND PHYSICAL 8:52 AM [facility] REPOSITORY [facility] [address] [place] [address] Wound Ctr History AND Physical 02/28/18 0845 MR#: [id number] Acct: [id number] Name: ROXIE CHRISTENSEN Rep #: [id number] : 1940 77 From: Nacho Franco MD PCP: OUT OF TOWN DOCTOR Status: REG RCR Y Location: 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 Current Visit: Yes Code(s): I83.209 - Varicose veins of unspecified lower extremity with both ulcer of unspecified site and inflammation; L97.909 - Non-pressure chronic ulcer of unspecified part of unspecified lower leg with unspecified severity (3) Venous ulcer of right leg Status: Chronic Current Visit: Yes Code(s): I83.019 - Varicose veins of right lower extremity with ulcer of unspecified site; L97.919 - Non-pressure chronic ulcer of unspecified part of right lower leg with unspecified severity (4) Spontaneous hemorrhage Status: Chronic Current Visit: Yes Code(s): K66.1 - Hemoperitoneum (5) Atrial fibrillation Status: Chronic Current Visit: No Code(s): I48.91 - Unspecified atrial fibrillation (6) Lumbar radiculopathy Status: Chronic Current Visit: No Code(s): M54.16 - Radiculopathy, lumbar region (7) Obesity (BMI 35.0-39.9 without comorbidity) Status: Chronic Current Visit: No Code(s): E66.9 - Obesity, unspecified (8) Exertional dyspnea Status: Chronic Current Visit: No Code(s): R06.09 - Other forms of dyspnea (9) Right leg swelling Status: Chronic Current Visit: Yes Code(s): M79.89 - Other specified soft tissue disorders (10) Chronic venous hypertension with ulcer involving right side Status: Chronic Current Visit: Yes Code(s): I87.311 - Chronic venous hypertension (idiopathic) with ulcer of right lower extremity; L97.919 - Non-pressure chronic ulcer of unspecified part of right lower leg with unspecified severity History of Present Illness Chief Complaint: Chronic venous insufficiency, varicose veins with ulceration and inflammation, venous hypertension with ulceration, venous ulceration, leg swelling, spontaneous bleeding right lower extremity History of Wound: This is a 77-year-old male who presents with a long-standing history of chronic venous disease. The patient has had varicose veins for many years. He has elected to forego any significant treatment related to his venous disease. He denies a history of thrombophlebitis, though his past medical records indicate a history, though vague and nonspecific. Approximately 2 months ago, the patient developed a spontaneous ulceration on the medial aspect of his right calf. The site subsequently ruptured, and spontaneous bleeding occurred on 3 different occasions, each time with significant blood loss. On at least one occasion, the spontaneous bleeding occurred after taking a hot shower. On each of 3 occasions, the patient was transported to the emergency department at [facility] in [place], [place], where the patient was treated and released. On each occasion, sutures were placed to obliterate the bleeding. Patient was subsequently referred to the [facility] for definitive management. The patient relates swelling in his right leg which occurs typically at the end of each day. He sleeps on a flat mattress at night. He lies in a recumbent position often during the daytime. He is not very active. He is also noted to be obese. 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 Patient's mother at age of 83 with a history of liver cancer. Lives: Spouse/ Significant Other Tobacco Use: Non-smoker Alcohol: Rare Drugs: None Review of Systems Constitutional: Denies: Chills, Fever, Weight Change Eyes: Denies: Pain, Vision Change HEENT: Denies: Difficulty Hearing, Difficulty Swallowing, Sinus Congestion Cardiovascular: Denies: Chest Pain, Palpitations Respiratory: Denies: Cough, Shortness of Breath Gastrointestinal: Denies: Diarrhea, Nausea, Vomiting Genitourinary: Denies: Dysuria, Hematuria Endocrine: Denies: Heat/ Cold Intolerance, Polydipsia, Polyuria Hematologic/ Lymphatic: Denies: Easy Bruising, Easy Bleeding - Physical Exam Vital Signs Temp Pulse Resp BP 98.0 F 99 18 124/94 H 02/28/18 08:22 02/28/18 08:22 02/28/18 08:22 02/28/18 08:22 General: Alert, Oriented x3, Cooperative, No apparent distress, Well developed, Well nourished HEENT: Atraumatic, PERRLA, EOMI, Normocephalic Oral: Moist Mucosa Neck: No JVD Lungs: Normal air movement Abdomen: Non-Distended Extremities: No clubbing, No cyanosis, No Calf Tenderness, - - Slight swelling and edema is noted in the right lower extremity. There are scattered varicosities. An eschar/ulceration is noted on the right medial calf, the dimensions of which are documented elsewhere. This is the site of prior bleeding at least 3 occasions in the past. This appears to represent a large, bulging varicosity which has previously bled spontaneously. At this moment, there is no evidence of active bleeding. There has been no bleeding at this site since last seen a week ago. There is no sign of infection or cellulitis. Skin: No rashes Wound Measurements and Assessment - Nurse 1 - General Ulcer Measurement Start: 02/21/18 10:39 Freq: Status: Active Protocol: Activity Type Activity Date Activity User E-Sign Co-Sign Detail Recorded Client Recorded Date Recorded By Document 02/28/18 08:22 [id number] 02/28/18 08:24 Wound Center Nurse 1 [Ulcer Assessment] #1 Medial RLE -Combined with other wound No -Current Size (cm) - Length 0.8 -Current Size (cm) - Width 1.0 -Current Size (cm) - Depth 0.1 WC - Nurse 2 - General Ulcer CM Notes Start: 02/21/18 10:39 Freq: Status: Active Protocol: Activity Type Activity Date Activity User E-Sign Co-Sign Detail Recorded Client Recorded Date Recorded By Document 02/28/18 08:29 [email or web address] [id number] 02/28/18 08:37 TANYA Wound Center Nurse 2 [Procedure/Treatment] #1 Medial RLE -Time 08:30 -Correct Patient Yes -Correct Side, Site, Position Yes -Correct Procedure Yes Musculoskeletal: No Muscle Wasting Neurological: Cranial nerves II-XII grossly intact, Neuro grossly intact Psych/Mental Status: Normal Affect, Appropriate, Alert and oriented to time, place, person, mood and affect Debridement Note Post-Debridement Measurements/Treatment WC - Nurse 2 - General Ulcer CM Notes Start: 02/21/18 10:39 Freq: Status: Active Protocol: Activity Type Activity Date Activity User E-Sign Co-Sign Detail No debridement was completed today Assessment/Plan Active Problems Chronic venous insufficiency (Chronic) Varicose veins with ulcer and inflammation (Chronic) Chronic venous hypertension (idiopathic) with ulcer and inflammation of bilateral lower extremity (Acute) Venous ulcer of right leg (Chronic) Spontaneous hemorrhage (Chronic) Right leg swelling (Chronic) Chronic venous hypertension with ulcer involving right side (Chronic) Assessment: This is a 77-year-old male with an apparent long- standing history of chronic venous disease. He has had varicose veins for many years, as well as chronic swelling in his right lower extremity. Also a question as to whether the patient may have a history of thrombophlebitis. Within the last several months, the patient has developed an ulceration on the right medial calf, and has had 3 episodes of spontaneous bleeding from the ulceration, prompting visits to the emergency department setting. On each occasion, suture closure of the bleeding vessel was performed. Patient presented with recent medical records, which have been reviewed. In addition, laboratory results are available from the patient's primary care physician, the results of which have been reviewed. Results are as follows: Cholesterol 199, HDL cholesterol 57, HDL ratio 3.5, LDL cholesterol 121, sodium 140, potassium 4.3, chloride 104, calcium 9.4, alkaline phosphatase 96, AST 24, ALT 18, bilirubin 0.7, glucose 89, BUN 14, creatinine 0.72, protein 7.4, albumin 4.2. The date of these laboratory results is 02/10/2018. The patient has undergone a venous duplex examination on February 24, 2018. Results have been reviewed with the patient. 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 Accessory saphenous veins in the right lower extremity at the S5 and S6 positions are also incompetent. An incompetent event marketing coordinator vein is noted in the right calf, located 13 cm proximal to the right medial malleolus. A noninvasive lower extremity arterial study has been performed as well, revealing no evidence of significant arterial occlusive disease in the lower extremities. Plan: The patient presented with his and adult daughter again today. The patient and his family have been advised in the appropriate conservative measures regarding management of the patient's chronic venous disease. The patient has been encouraged to continue sleeping in a recumbent position, on a flat mattress. Leg elevation should be to heart level, or higher. Legs should be elevated even during daytime hours, as much as possible. Prolonged idle sitting has been discouraged. Weight loss has been encouraged. Activity has also been encouraged as well. We are to implement the use of compression to the right lower extremity by means of SurePress, which will be applied by the patient daily. The patient and his family will be instructed in the appropriate means of application. We are to use Adaptic and gauze overlying the ulcerated site, in an effort to avoid adherence and subsequent bleeding. Patient has been instructed that, in the event of additional bleeding from the site, he is to elevate his leg and apply manual pressure. The patient is return in 2 weeks for reassessment. In the event that an episode of spontaneous bleeding should reoccur, the patient has been instructed to apply pressure to the bleeding site, and to elevate his lower extremity above heart level. Thereafter, he should seek medical attention. At present, we are to use a nonadhesive topical dressing such as Adaptic, with overlying gauze. The goal is to avoid any adherence of the dressings to the bleeding site, to avoid further bleeding episodes. Ultimately, the patient may be a candidate for an endovenous ablation procedure. The nature of the endovenous laser ablation procedure has been discussed with the patient and his family in detail. It is anticipated that such a procedure may be necessary in an effort to reduce the pressure within the venous system of the right lower extremity, and reduce the likelihood of further bleeding from the ulcerated site. However, conservative measures will be continued at present. In addition to endovenous laser ablation, there may be a need for ultrasound-guided injection sclerotherapy of the veins in the region of the bleeding varicosity. Influenza vaccine was not administered today. The patient is not a smoker. Patient weighs 261 pounds. He stands 5 feet 8 inches tall. His BMI is 38.5, which places him in an obese class II category. Weight loss has been recommended, and collaboration with the patient's primary care physician has been recommended in terms of weight loss management. 02/28/18 0852 <Electronically signed by Nacho Franco MD> Date Nacho Franco MD CC: Signed LOWER EXT ARTERIAL Observed: 02/25/2018 Status: F Source: [facility] 3:00 PM [facility] REPOSITORY [facility] Cardiovascular Services [address] [place] [address] 02/25/18 1454 MR#: [id number] Acct: [id number] Name: ROXIE CHRISTENSEN Rep #: [id number] : 1940 77 From: Nacho Franco MD Attending Dr: Nacho rFanco MD Status: REG RCR Ordering Dr: Date: 02/25/18 Location: [facility] Sex: M C Admitted: Arterial Study - Arterial Study Arterial Study: This is a 77-year-old male with a chronic nonhealing ulceration on the right lower extremity. Suspecting the presence of atherosclerotic peripheral arterial occlusive disease, the patient was brought to the noninvasive vascular laboratory at this time for the purpose of bilateral noninvasive lower extremity arterial assessment. Doppler signal assessment was used to evaluate the pulses at ankle level bilaterally. The posterior tibial and dorsalis pedis pulses were triphasic bilaterally. Segmental limb pressures were obtained bilaterally. The right ankle pressure, as determined by posterior tibial pulse, could not be determined due to the noncompressibility of the vasculature. The right ankle pressure, as determined by dorsalis pedis pulse, was measured at 155 mmHg. The right digital pressure was measured at 119 mmHg. The left ankle pressure, as determined by posterior tibial and dorsalis pedis pulses, could not be determined due to the noncompressibility of the vasculature. The left digital pressure was measured at 132 mmHg. Pulse volume recordings were obtained bilaterally and segmentally. Waveform amplitudes appeared to be satisfactory at all levels bilaterally, including low thigh, calf, ankle, and digital levels. Resting ankle brachial indices were calculated bilaterally. The resting right ankle brachial index was calculated to be 1.03. The resting left ankle brachial index could not be determined due to the noncompressibility of the vasculature. Digital brachial indices were calculated bilaterally. The right digital-brachial index was calculated to be 0.79. The left digital-brachial index was calculated to be 0.87. Impression: Based upon the findings of this resting noninvasive lower extremity arterial study, there is no evidence of significant atherosclerotic peripheral arterial occlusive disease in the lower extremities bilaterally. Triphasic waveforms were noted at ankle level bilaterally. The resting right ankle brachial index appears to be normal. The resting left ankle brachial index could not be calculated, due to noncompressibility as a result of suspected arterial calcification. Digital-brachial indices are bilaterally normal, suggesting relatively normal arterial flow at digital level bilaterally. Clinical correlation is advised. 02/25/18 1500 <Electronically signed by Nacho Franco MD> Date Nacho Franco MD CC: Nacho Franco MD; OUT OF TOWN DOCTOR Date Dictated: 02/25/181453 Date Transcribed: 02/25/181453 Palaeontologist: GIA Liu VENOUS DUPLEX LOWER Observed: 02/25/2018 Status: F Source: [facility] 12:04 PM [facility] REPOSITORY [facility] Cardiovascular Services [address] [place] [address] Venous Duplex US - Jn Extrem 02/24/18 1006 MR#: [id number] Acct: [id number] Name: ROXIE CHRISTENSEN Rep #: [id number] : 1940 77 From: Nacho Franco MD Attending Dr: Nacho Franco MD Status: REG RCR Ordering Dr: Nacho Franco MD Date: 02/24/18 Location: [facility] Sex: M C Admitted: [id number] TAG_START Cardiovascular Services Venous Doppler [address] [place], [place] [address] Ordering Physician: Nacho Franco TAG_ENDED TAG_START Name: ROXIE CHRISTENSEN Study Date: 02/24/2018 10:06 AM Patient Location: [facility] : 1940 Gender: Male Age: 77 yrs Ethnicity: C TAG_ENDED Reason For Study: Non-healing wound RIGHT LEFT CFV is compressible, spontaneous, phasic, GSV is normal. competent and demonstrates normal CFV is compressible, spontaneous, phasic, augmentation. competent, and demonstrates normal FV is compressible, spontaneous, phasic, augmentation. competent and demonstrates normal FV is compressible, spontaneous, phasic, augmentation. competent and demonstrates normal POP V is compressible, spontaneous, phasic, augmentation. competent and demonstrates normal POP V is compressible, spontaneous, phasic, augmentation. competent and demonstrates normal T/P Trunk is compressible. augmentation. PTV is compressible. T/P Trunk is compressible. RT PerV is compressible. PTV is compressible. SFJ is INCOMPETENT LT PerV is compressible. GSV is INCOMPETENT with reflux greater SFJ is competent than .5 sec and diameter of .64 x .59 GSV is INCOMPETENT with reflux greater ASV at S5 is INCOMPETENT with reflux greater than .5 sec and diameter of.45 x .51 cm than .5 sec and diameter of .34 x .39 cm SSV is competent. ASV at S6 is INCOMPETENT with reflux greater than .5 sec and diameter of .50 x .53 cm SSV is competent INCOMPETENT event marketing coordinator 13 cm jarod to medial malleolus. Procedure Exam performed in department. A preliminary report was called and/or faxed to [facility]. <> Interpretation Summary Deep veins of the lower extremities are bilaterally patent and compressible segmentally. There is no evidence of deep vein thrombosis on either side. Valvular competence appears intact within the proximal deep venous systems bilaterally. The greater saphenous veins appear bilaterally patent and compressible segmentally. The right sapheno-femoral junction is incompetent . The left sapheno- femoral junction is competent . Segmental valvular incompetence is noted within the greater saphenous veins bilaterally. Small saphenous veins are patent and competent bilaterally. Accessory saphenous veins in the right lower extremity at the S5 and S6 positions are incompetent. An incompetent event marketing coordinator vein is noted in the right calf, located 13 centimeters proximal to the right medial malleolus. TAG_START TAG_ENDED Ordering Physician: Nacho Franco Referring Physician: Nacho Franco Performed By: Selina Murillo RVT 02/25/18 1203 Date Nacho Franco MD CC: Nacho Franco MD; OUT OF TOWN DOCTOR Date Dictated: 02/24/18 1006 Date Transcribed: 02/25/18 1203 Palaeontologist: Signed WOUND CTR HISTORY Observed: 02/21/2018 Status: F Source: [facility] 3:22 PM [facility] REPOSITORY [facility] Wound Healing Center [address] [place] [id number] Wound Ctr History AND Physical 02/21/18 1520 MR#: [id number] Acct: [id number] Name: ROXIE CHRISTENSEN Rep #: [id number] : 1940 77 From: Nacho Franco MD PCP: OUT OF TOWN DOCTOR Status: REG RCR Y Location: 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 Current Visit: Yes Code(s): I83.209 - Varicose veins of unspecified lower extremity with both ulcer of unspecified site and inflammation; L97.909 - Non-pressure chronic ulcer of unspecified part of unspecified lower leg with unspecified severity (3) Venous ulcer of right leg Status: Chronic Current Visit: Yes Code(s): I83.019 - Varicose veins of right lower extremity with ulcer of unspecified site; L97.919 - Non-pressure chronic ulcer of unspecified part of right lower leg with unspecified severity (4) Spontaneous hemorrhage Status: Chronic Current Visit: Yes Code(s): K66.1 - Hemoperitoneum (5) Atrial fibrillation Status: Chronic Current Visit: No Code(s): I48.91 - Unspecified atrial fibrillation (6) Lumbar radiculopathy Status: Chronic Current Visit: No Code(s): M54.16 - Radiculopathy, lumbar region (7) Obesity (BMI 35.0-39.9 without comorbidity) Status: Chronic Current Visit: No Code(s): E66.9 - Obesity, unspecified (8) Exertional dyspnea Status: Chronic Current Visit: No Code(s): R06.09 - Other forms of dyspnea (9) Right leg swelling Status: Chronic Current Visit: Yes Code(s): M79.89 - Other specified soft tissue disorders (10) Chronic venous hypertension with ulcer involving right side Status: Chronic Current Visit: Yes Code(s): I87.311 - Chronic venous hypertension (idiopathic) with ulcer of right lower extremity; L97.919 - Non-pressure chronic ulcer of unspecified part of right lower leg with unspecified severity History of Present Illness Chief Complaint: Chronic venous insufficiency, varicose veins with ulceration and inflammation, venous hypertension with ulceration, venous ulceration, leg swelling, spontaneous bleeding right lower extremity History of Wound: This is a 77-year-old male who presents with a long-standing history of chronic venous disease. The patient has had varicose veins for many years. He has elected to forego any significant treatment related to his venous disease. He denies a history of thrombophlebitis, though his past medical records indicate a history, though vague and nonspecific. Approximately 2 months ago, the patient developed a spontaneous ulceration on the medial aspect of his right calf. The site subsequently ruptured, and spontaneous bleeding occurred on 3 different occasions, each time with significant blood loss. On at least one occasion, the spontaneous bleeding occurred after taking a hot shower. On each of 3 occasions, the patient was transported to the emergency department at [facility] in [place], [place], where the patient was treated and released. On each occasion, sutures were placed to obliterate the bleeding. Patient was subsequently referred to the [facility] for definitive management. The patient relates swelling in his right leg which occurs typically at the end of each day. He sleeps on a flat mattress at night. He lies in a recumbent position often during the daytime. He is not very active. He is also noted to be obese. 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 Patient's mother at age of 83 with a history of liver cancer. Lives: Spouse/ Significant Other Tobacco Use: Non-smoker Alcohol: Rare Drugs: None - Physical Exam Vital Signs Temp Pulse Resp BP 98.0 F 104 H 20 H 151/97 H 02/21/18 10:44 02/21/18 10:44 02/21/18 10:44 02/21/18 10:44 Wound Measurements and Assessment WC - Nurse 1 - General Ulcer Measurement Start: 02/21/18 10:39 Freq: Status: Active Protocol: Activity Type Activity Date Activity User E-Sign Co-Sign Detail Recorded Client Recorded Date Recorded By Document 02/21/18 10:44 DV [id number] 02/21/18 11:21 DV Wound Center Nurse 1 [Ulcer Assessment] #1 Medial RLE -Combined with other wound No WC - Nurse 2 - General Ulcer CM Notes Start: 02/21/18 10:39 Freq: Status: Active Protocol: Activity Type Activity Date Activity User E-Sign Co-Sign Detail Recorded Client Recorded Date Recorded By Document 02/21/18 11:42 JS [id number] 02/21/18 11:54 JS Debridement Note Post-Debridement Measurements/Treatment WC - Nurse 2 - General Ulcer CM Notes Start: 02/21/18 10:39 Freq: Status: Active Protocol: Activity Type Activity Date Activity User E-Sign Co-Sign Detail Recorded Client Recorded Date Recorded By Document 02/21/18 11:42 JS [id number] 02/21/18 11:54 JS Wound Center Nurse 2 #1 Medial RLE -Time 11:42 -Correct Patient Yes -Correct Side, Site, Position Yes Assessment/Plan Active Problems Chronic venous insufficiency (Chronic) Varicose veins with ulcer and inflammation (Chronic) Chronic venous hypertension (idiopathic) with ulcer and inflammation of bilateral lower extremity (Acute) Venous ulcer of right leg (Chronic) Spontaneous hemorrhage (Chronic) Right leg swelling (Chronic) Chronic venous hypertension with ulcer involving right side (Chronic) Assessment: This is a 77-year-old male with an apparent long- standing history of chronic venous disease. He has had varicose veins for many years, as well as chronic swelling in his right lower extremity. Also a question as to whether the patient may have a history of thrombophlebitis. Within the last several months, the patient has developed an ulceration on the right medial calf, and has had 3 episodes of spontaneous bleeding from the ulceration, prompting visits to the emergency department setting. On each occasion, suture closure of the bleeding vessel was performed. Patient presents with recent medical records, which have been reviewed. In addition, laboratory results are available from the patient's primary care physician, the results of which have been reviewed. Results are as follows: Cholesterol 199, HDL cholesterol 57, HDL ratio 3.5, LDL cholesterol 121, sodium 140, potassium 4.3, chloride 104, calcium 9.4, alkaline phosphatase 96, AST 24, ALT 18, bilirubin 0.7, glucose 89, BUN 14, creatinine 0.72, protein 7.4, albumin 4.2. The date of these laboratory results is 02/10/2018. Plan: The patient presented with his and adult daughter. The patient and his family have been advised in the appropriate conservative measures regarding management of the patient's chronic venous disease. The patient has been encouraged to continue sleeping in a recumbent position, on a flat mattress. Leg elevation should be to heart level, or higher. Legs should be elevated even during daytime hours, as much as possible. Prolonged idle sitting has been discouraged. Weight loss has been encouraged. Activity has also been encouraged as well. We have attempted to obtain ankle-brachial indices in the [facility] today. However, the arterial tree at ankle level appeared to be noncompressible, and ABIs could not be determined. We will reattempt the study in the vascular lab. The patient is also to undergo venous duplex examination in the near future as well. We are to initiate compression by means of Tubigrip's, though a higher degree of compression may ultimately be implemented, once the patient's arterial status is better understood. The patient is return in 1 week for reassessment. In the event that an episode of spontaneous bleeding should reoccur, the patient has been instructed to apply pressure to the bleeding site, and to elevate his lower extremity above heart level. Thereafter, he should seek medical attention. At present, we are to use a nonadhesive topical dressing such as Adaptic, with overlying gauze. The goal is to avoid any adherence of the dressings to the bleeding site, to avoid further bleeding episodes. Ultimately, the patient may be a candidate for an endovenous ablation procedure, and the results of his anticipated venous study will be awaited. Influenza vaccine was not administered today. The patient is not a smoker. Patient weighs 261 pounds. He stands 5 feet 8 inches tall. His BMI is 38.5, which places him in an obese class II category. Weight loss has been recommended, and collaboration with the patient's primary care physician has been recommended in terms of weight loss management. 02/21/18 1522 <Electronically signed by Nacho Franco MD> Date Nacho Franco MD CC: Signed WOUND CTR HISTORY Observed: 02/21/2018 Status: F Source: [facility] 3:20 PM [facility] REPOSITORY [facility] Wound Healing Center [address] [place] [address] Wound Ctr History AND Physical 02/21/18 1159 MR#: [id number] Acct: [id number] Name: ROXIE CHRISTENSEN Rep #: [id number] : 1940 77 From: Nacho Franco MD PCP: OUT OF TOWN DOCTOR Status: REG RCR Y Location: WC - Physical Exam Vital Signs Temp Pulse Resp BP 98.0 F 104 H 20 H 151/97 H 02/21/18 10:44 02/21/18 10:44 02/21/18 10:44 02/21/18 10:44 Wound Measurements and Assessment WC - Nurse 1 - General Ulcer Measurement Start: 02/21/18 10:39 Freq: Status: Active Protocol: Activity Type Activity Date Activity User E-Sign Co-Sign Detail Recorded Client Recorded Date Recorded By Document 02/21/18 10:44 DV [id number] 02/21/18 11:21 DV Wound Center Nurse 1 [Ulcer Assessment] #1 Medial RLE -Combined with other wound No WC - Nurse 2 - General Ulcer CM Notes Start: 02/21/18 10:39 Freq: Status: Active Protocol: Activity Type Activity Date Activity User E-Sign Co-Sign Detail Recorded Client Recorded Date Recorded By Document 02/21/18 11:42 JS [id number] 02/21/18 11:54 JS Debridement Note Post-Debridement Measurements/Treatment WC - Nurse 2 - General Ulcer CM Notes Start: 02/21/18 10:39 Freq: Status: Active Protocol: Activity Type Activity Date Activity User E-Sign Co-Sign Detail Recorded Client Recorded Date Recorded By Document 02/21/18 11:42 JS [id number] 02/21/18 11:54 JS Wound Center Nurse 2 #1 Medial RLE -Time 11:42 -Correct Patient Yes -Correct Side, Site, Position Yes 02/21/18 1520 <Electronically signed by Nacho Franco MD> Date Nacho Franco MD CC: Signed WOUND CTR HISTORY Observed: 02/21/2018 Status: F Source: [facility] 3:19 PM [facility] REPOSITORY [facility] Wound Healing Center [address] [place] [address] Wound Ctr History AND Physical 02/21/18 1451 MR#: [id number] Acct: [id number] Name: ROXIE CHRISTENSEN Rep #: [id number] : 1940 77 From: Nacho Franco MD PCP: OUT OF TOWN DOCTOR Status: REG RCR Y Location: 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 Current Visit: Yes Code(s): I83.209 - Varicose veins of unspecified lower extremity with both ulcer of unspecified site and inflammation; L97.909 - Non-pressure chronic ulcer of unspecified part of unspecified lower leg with unspecified severity (3) Venous ulcer of right leg Status: Chronic Current Visit: Yes Code(s): I83.019 - Varicose veins of right lower extremity with ulcer of unspecified site; L97.919 - Non-pressure chronic ulcer of unspecified part of right lower leg with unspecified severity (4) Spontaneous hemorrhage Status: Chronic Current Visit: Yes Code(s): K66.1 - Hemoperitoneum (5) Atrial fibrillation Status: Chronic Current Visit: No Code(s): I48.91 - Unspecified atrial fibrillation (6) Lumbar radiculopathy Status: Chronic Current Visit: No Code(s): M54.16 - Radiculopathy, lumbar region (7) Obesity (BMI 35.0-39.9 without comorbidity) Status: Chronic Current Visit: No Code(s): E66.9 - Obesity, unspecified (8) Exertional dyspnea Status: Chronic Current Visit: No Code(s): R06.09 - Other forms of dyspnea (9) Right leg swelling Status: Chronic Current Visit: Yes Code(s): M79.89 - Other specified soft tissue disorders (10) Chronic venous hypertension with ulcer involving right side Status: Chronic Current Visit: Yes Code(s): I87.311 - Chronic venous hypertension (idiopathic) with ulcer of right lower extremity; L97.919 - Non-pressure chronic ulcer of unspecified part of right lower leg with unspecified severity History of Present Illness Date of Service: 02/21/18 Chief Complaint: Chronic venous insufficiency, varicose veins with ulceration and inflammation, venous hypertension with ulceration, venous ulceration, leg swelling, spontaneous bleeding right lower extremity History of Wound: This is a 77-year-old male who presents with a long-standing history of chronic venous disease. The patient has had varicose veins for many years. He has elected to forego any significant treatment related to his venous disease. He denies a history of thrombophlebitis, though his past medical records indicate a history, though vague and nonspecific. Approximately 2 months ago, the patient developed a spontaneous ulceration on the medial aspect of his right calf. The site subsequently ruptured, and spontaneous bleeding occurred on 3 different occasions, each time with significant blood loss. On at least one occasion, the spontaneous bleeding occurred after taking a hot shower. On each of 3 occasions, the patient was transported to the emergency department at [facility] in [place], [place], where the patient was treated and released. On each occasion, sutures were placed to obliterate the bleeding. Patient was subsequently referred to the [facility] for definitive management. The patient relates swelling in his right leg which occurs typically at the end of each day. He sleeps on a flat mattress at night. He lies in a recumbent position often during the daytime. He is not very active. He is also noted to be obese. Past Medical History Past Medical History: Chronic Problems Chronic venous insufficiency (Chronic) Varicose veins with ulcer and inflammation (Chronic) Venous ulcer of right leg (Chronic) Spontaneous hemorrhage (Chronic) Atrial fibrillation (Chronic) Lumbar radiculopathy (Chronic) Obesity (BMI 35.0-39.9 without comorbidity) (Chronic) Exertional dyspnea (Chronic) Right leg swelling (Chronic) Chronic venous hypertension with ulcer involving right side (Chronic) Past Medical History: Patient's history is negative for myocardial infarction, congestive heart failure, diabetes mellitus, cancer, hypertension, pulmonary disease, renal disease, hyperlipidemia, and thyroid disease. The patient has a history of lumbar radiculopathy, atrial fibrillation, obesity, and exertional dyspnea. There is question as to whether the patient may have had a history of thrombophlebitis in the past. Surgical History: no surgical history - Family History Paternal - - The patient's father at the age of 90 of old age. Patient's mother at age of 83 with a history of liver cancer. 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 He is . He denies use of tobacco products. He rarely consumes alcoholic beverages. Lives: Spouse/ Significant Other Tobacco Use: Non-smoker Alcohol: Rare Drugs: None Review of Systems Constitutional: Denies: Chills, Fever, Weight Change Eyes: Denies: Pain, Vision Change HEENT: Denies: Difficulty Hearing, Difficulty Swallowing, Sinus Congestion Cardiovascular: Denies: Chest Pain, Palpitations Respiratory: Denies: Cough, Shortness of Breath Gastrointestinal: Denies: Diarrhea, Nausea, Vomiting Genitourinary: Denies: Dysuria, Hematuria Endocrine: Denies: Heat/ Cold Intolerance, Polydipsia, Polyuria Hematologic/ Lymphatic: Denies: Easy Bruising, Easy Bleeding - Physical Exam Vital Signs Temp Pulse Resp BP 98.0 F 104 H 20 H 151/97 H 02/21/18 10:44 02/21/18 10:44 02/21/18 10:44 02/21/18 10:44 General: Alert, Oriented x3, Cooperative, No apparent distress, Well developed, Well nourished HEENT: Atraumatic, PERRLA, EOMI, Normocephalic Oral: Moist Mucosa Neck: Supple, No JVD, Negative Carotid Bruits, Negative Hepatojugular Reflux, No Nodes, No Nuchal Rigidity, Trachea Midline Lungs: Clear to auscultation, Normal air movement, No rhonchi, No wheeze, No rales Cardiovascular: Regular rate, Regular Rhythm, Normal S1, Normal S2, No murmurs Abdomen: Soft, Non Tender, Non-Distended, Obese Extremities: No clubbing, No cyanosis, No Calf Tenderness, - - Moderate swelling is noted in the right lower extremity. Multiple large varicosities are noted bilaterally. Gee phlebectatica is noted about each ankle. An open ulceration is noted on the medial right calf, the dimensions of which are documented elsewhere. There is only a small amount of bioburden. The base of the ulceration is pink and healthy in appearance, with evidence of peripheral epithelialization. Centrally, there appears to be a prominence, likely a varicosity, and possibly the area which resulted in active bleeding in the recent past. Wound Measurements and Assessment WC - Nurse 1 - General Ulcer Measurement Start: 02/21/18 10:39 Freq: Status: Active Protocol: Activity Type Activity Date Activity User E-Sign Co-Sign Detail Recorded Client Recorded Date Recorded By Document 02/21/18 10:44 DV [id number] 02/21/18 11:21 DV Wound Center Nurse 1 [Ulcer Assessment] #1 Medial RLE -Combined with other wound No WC - Nurse 2 - General Ulcer CM Notes Start: 02/21/18 10:39 Freq: Status: Active Protocol: Activity Type Activity Date Activity User E-Sign Co-Sign Detail Recorded Client Recorded Date Recorded By Document 02/21/18 11:42 [id number] 02/21/18 11:54 Neurological: Cranial nerves II-XII grossly intact, Neuro grossly intact Psych/Mental Status: Normal Affect, Appropriate, Alert and oriented to time, place, person, mood and affect Debridement Note Post-Debridement Measurements/Treatment WC - Nurse 2 - General Ulcer CM Notes Start: 02/21/18 10:39 Freq: Status: Active Protocol: Activity Type Activity Date Activity User E-Sign Co-Sign Detail Recorded Client Recorded Date Recorded By Document 02/21/18 11:42 [id number] 02/21/18 11:54 Wound Center Nurse 2 #1 Medial RLE -Time 11:42 -Correct Patient Yes -Correct Side, Site, Position Yes Laterality: Right - Medial calf Type of Debridement: Excisional debridement Anesthesia Used: 4% Lidocaine Solution Depth: Down to and including healthy tissue, in the subcutaneous layer Percentage of wound debrided: 80 Instrument Used: 7mm curette Severity: Fat Layer Exposed Amount of bleeding with debridement: Mild Bleeding Controlled with: Compression and gauze Patient tolerated procedure well Care was exercised to avoid an area centrally located within the ulceration on the right medial calf, suspected to represent a very superficial varicosity, and likely the site that has recently bled. 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 He has had varicose veins for many years, as well as chronic swelling in his right lower extremity. Also a question as to whether the patient may have a history of thrombophlebitis. Within the last several months, the patient has developed an ulceration on the right medial calf, and has had 3 episodes of spontaneous bleeding from the ulceration, prompting visits to the emergency department setting. On each occasion, suture closure of the bleeding vessel was performed. Patient presents with recent medical records, which have been reviewed. In addition, laboratory results are available from the patient's primary care physician, the results of which have been reviewed. Results are as follows: Cholesterol 199, HDL cholesterol 57, HDL ratio 3.5, LDL cholesterol 121, sodium 140, potassium 4.3, chloride 104, calcium 9.4, alkaline phosphatase 96, AST 24, ALT 18, bilirubin 0.7, glucose 89, BUN 14, creatinine 0.72, protein 7.4, albumin 4.2. The date of these laboratory results is 02/10/2018. Plan: The patient presented with his and adult daughter. The patient and his family have been advised in the appropriate conservative measures regarding management of the patient's chronic venous disease. The patient has been encouraged to continue sleeping in a recumbent position, on a flat mattress. Leg elevation should be to heart level, or higher. Legs should be elevated even during daytime hours, as much as possible. Prolonged idle sitting has been discouraged. Weight loss has been encouraged. Activity has also been encouraged as well. We have attempted to obtain ankle-brachial indices [facility]. However, the arterial tree at ankle level appeared to be noncompressible, and ABIs could not be determined. We will reattempt the study in the vascular lab. The patient is also to undergo venous duplex examination in the near future as well. We are to initiate compression by means of Tubigrip's, though a higher degree of compression may ultimately be implemented, once the patient's arterial status is better understood. The patient is return in 1 week for reassessment. In the event that an episode of spontaneous bleeding should reoccur, the patient has been instructed to apply pressure to the bleeding site, and to elevate his lower extremity above heart level. Thereafter, he should seek medical attention. Influenza vaccine was not administered today. The patient is not a smoker. Patient weighs 261 pounds. He stands 5 feet 8 inches tall. His BMI is 38.5, which places him in an obese class II category. Weight loss has been recommended, and collaboration with the patient's primary care physician has been recommended in terms of weight loss management. 02/21/18 1519 <Electronically signed by Nacho Franco MD> Date Nacho Franco MD CC: Signed EMERGENCY REPORT Observed: 01/23/2018 Status: F Source: [facility] 7:06 PM [facility]PORT NAME ACCOUNT SEX AGE ADMIT DISCHARGE PT MED. RECORD# NUMBER DATE DATE TYPE ROXIE CHRISTENSEN [id number] Sudha 77 12/14/17 12/14/17 3 [id number] ROOM: ER DATE OF : 1940 DICTATING PHYSICIAN: Owen Ledesma CHIEF COMPLAINT: This patient was seen on arrival in room #3 for bleeding to the right lower extremity following a shower. HISTORY OF PRESENT ILLNESS: He states that he has had a little spot down there on the front of the leg that has had a little bit of bleeding every once in a while, not bad. He states today he took a shower and dried and all of a sudden it looked like a stream of blood shot out of there. He could not get it to stop. He did get it under control with pressure and a dressing, and came down here to the emergency room. He has a wrap applied to it. He has not had this issue in the past. He has no pain to the area. No problems ambulating. He states he has never had this particular issue as this before. PAST MEDICAL HISTORY: He is in pretty good health. SOCIAL HISTORY: He has a history of living at home and being a nonsmoker. He is retired. He is and is here with his as well. PHYSICAL EXAMINATION: Vital signs: 97.8 temporal scanning, 123 pulse, 18 respirations, 144/110 blood pressure, and 95% saturation. He is very well disposed, lying comfortably on the bed. He has a dressing that is rather tight around the area of the mid pretibial area with some evidence of old bleeding down his leg. HEENT exam is normal. He has a good sense of humor. Lungs are clear. There is no expiratory wheeze or rales. He is not tachypneic. Heart rate and rhythm regular without murmur. PMI is left chest. He has good radial pulses, femoral pulses and dorsalis pedis pulses. His abdomen is soft, nontender. He is A&O x4. Removing the dressing demonstrates 2 varicosities which are right near to the skin surface. One of the varicosities has had some chronic granulation tissue to it and was the source of the bleeding, and there was one superficial right next to it which had no bleeding. EMERGENCY DEPARTMENT COURSE AND TREATMENT: After thorough examination and telling the patient what we needed to do, this area was cleansed with Betasept thoroughly and was cleansed extensively, and it was brought to the point that there was a little ooze coming out of the area where there is granulation tissue. All granulation tissue was removed. Initial cleaning was with Betasept, and then 2% lidocaine with epinephrine was infused around the area and instilled into the tissue, and then this was re-cleansed and all granulation tissue was removed, and then it was re-cleansed. And then we used five 4-0 Vicryl simple stitches to close across both, on the partially opened varicosity and the varicosity right next to it that was unopened. We Page 1 of 2 ROXIE CHRISTENSEN Emergency Room Report closed the varicosity which had not ruptured and we closed the varicosity that had ruptured. There was no further bleeding. Patient tolerated the procedure well. DIAGNOSIS: Ruptured varicosity right lower leg, five stitches single layer closure. PLAN/DISPOSITION: He was placed on Keflex, instructed on care. Follow up with Dr. Rush in the office. He is not to wash the stitches and not to wash this area. Keep ointment and Band-Aid on this. Stitches out in 7-10 days. Dictated By: Owen Ledesma DO 01/16/18 23:44 JOB #: [id number] Transcribed By: chung 01/17/18 19:52 Electronically signed by: E-SIGN OWEN LEDESMA DO 01/23/18 19:06 Page 2 of 2 ROXIE CHRISTENSEN Emergency Room Report EMERGENCY REPORT Observed: 01/20/2018 Status: F [facility]17 AM [facility] REPORT NAME ACCOUNT SEX AGE ADMIT DISCHARGE PT MED. RECORD# NUMBER DATE DATE TYPE ROXIE CHRISTENSEN [id number] M 77 01/17/18 01/17/18 3 [id number] ROOM: ER DATE OF : 1940 DICTATING PHYSICIAN: Miguelito Suero HISTORY OF PRESENT ILLNESS: The patient has had what is believed to be a varicose vein on his right leg. However, it appears it is maybe getting bigger and could be a mass. He was putting on his jeans and it started bleeding. He could not get it to stop and presents to the Emergency Department. He denies fevers or chills. No lightheadedness. No nausea or vomiting. PAST MEDICAL HISTORY: He does have a history of atrial fibrillation. He is not on blood thinners. He does take an aspirin. He has had this varicose vein issue he states in the past. SOCIAL HISTORY: He does not smoke or drink. He lives locally and is here with his , who appears concerned about him. REVIEW OF SYSTEMS: Eight systems were reviewed and negative except as mentioned above. PHYSICAL EXAMINATION: He is an awake, alert and oriented male in no acute distress. He is afebrile. Blood pressure is 160/105, pulse 117, respirations 16, and pulse oximetry 95% on room air. Head is normocephalic, atraumatic. Eyes: Pupils are equal, round and reactive to light. Extraocular muscles are intact. Nares are patent. Throat has adequate oral moisture. Uvula is midline. Neck is supple without petechiae or rash. Heart rate is regular without murmur. S1 equal to S2. No S3 or S4 appreciated. Lungs are clear to auscultation bilaterally. No rales, rhonchi or retractions. Abdomen is soft, nontender and nondistended. Skin is warm and dry. On the patient's right leg on the volar aspect, he has an area which is open and is bleeding. There is obvious vascularity to it. It is raised. There is no red streaking. There is no exudate. EMERGENCY DEPARTMENT COURSE AND TREATMENT: I did explain the risks and benefits of suturing this, which he accepted. He was anesthetized with lidocaine. He had multiple 5-0 and 4-0 Vicryl Rapide sutures placed. He tolerated the procedure well. In light of this opening up and getting larger, I am not really sure what this structure is, like a soft tissue mass with vascularity. It may be some kind of soft tissue mass. He should follow up with a auto cleaner. I did give him Trillium Hodgeman. He will be discharged in stable condition. DIAGNOSIS: Soft tissue mass with bleeding. Page 1 of 2 ROXIE CHRISTENSEN Emergency Room Report Dictated By: Miguelito Suero DO 01/17/18 14:18 JOB #: [id number] Transcribed By: casie 01/18/18 12:16 Electronically signed by: KAMRON Suero D.O. 01/20/18 08:17 Page 2 of 2 ROXIE CHRISTENSEN Emergency Room Report EMERGENCY REPORT Observed: 12/29/2017 Status: F Source: [facility] 8:42 PM [facility] REPORT NAME ACCOUNT SEX AGE ADMIT DISCHARGE PT MED. RECORD# NUMBER DATE DATE TYPE ROXIE CHRISTENSEN [id number] M 77 12/28/17 12/28/17 3 [id number] ROOM: ER DATE OF : 1940 DICTATING PHYSICIAN: Nolan Perez HISTORY OF PRESENT ILLNESS: This is a 77-year-old male who presents with a complaint of a bleeding vein on the anterior portion of his right leg. The patient states that he has varicose veins that are very superficial and itch him. The patient states that he picks at these veins and scratches them and then they open and cause bleeding. The patient has been here before in the past with this issue. The patient states there has been minimal blood loss, but it is just irritating him due to the bleeding on his clothing. He denies any chest pain, shortness of breath, nausea, vomiting, or diaphoresis. He denies any other trauma to the area. He denies any numbness or tingling in his lower extremities. PAST MEDICAL HISTORY: None. PAST SURGICAL HISTORY: None. SOCIAL HISTORY: He denies any drugs, alcohol or tobacco. REVIEW OF SYSTEMS: Ten systems were reviewed and otherwise negative unless stated above. PHYSICAL EXAMINATION: The patient is resting comfortably in bed. Vital signs upon arrival: Blood pressure 144/110, pulse 123, respirations 18, temperature 97.8, and SpO2 95% on room air. Head: Normocephalic without signs of trauma. Neck: Trachea is midline. Nontender, supple. Lungs: Clear to auscultation bilaterally without wheezing. Heart: S1 and S2, regular rate. No murmurs. Abdomen: Soft and nontender. No hepatosplenomegaly. Lower extremities: The patient has extensive superficial varicose veins on his bilateral lower extremities without pitting edema. The patient has evidence on the anterolateral area of a small venous ulcer versus wound where he has used digital trauma to pull a piece of his skin off, just causing oozing bleeding. There is a healing wound just next to this more lateral. The patient has full range of motion in both dorsiflexion and plantar flexion of this affected leg as well as flexion and extension at the knee. Sensation to light touch is intact. Psychiatric: Mood and affect are normal. EMERGENCY DEPARTMENT COURSE AND TREATMENT: The patient appears well and nontoxic. Although vital signs on arrival showed tachycardia, it was likely from the patient walking in. On my examination, his heart rate was approximately 90. On recheck of his blood pressure, his blood pressure was 146/98. Pressure was applied to the wound, which stopped the bleeding. I placed two 5-0 Vicryl sutures in this wound, which Page 1 of 2 ROXIE CHRISTENSEN Emergency Room Report did stop the bleeding. First, I anesthetized it with lidocaine 1% with epinephrine. The patient states he is up-to-date on his tetanus. The procedure was tolerated well and without significant pain. The patient's bleeding did stop. A dressing was placed with pressure to ensure cessation of bleeding. The patient was advised to stop picking at these areas that are itching. He was also advised to follow up with his primary care provider, Dr. Rush, within the next 2 days to ensure that the wound is healing. The patient and were agreeable to this plan. He was discharged home in stable condition. Dictated By: Nolan Perez DO 12/28/17 19:39 JOB #: [id number] Transcribed By: casie 12/29/17 10:49 Electronically signed by: E-SIGN: Nolan Perez D.O. 12/29/17 20:42 Page 2 of 2 CHRISTENSENROXIE QUIGLEY Emergency Room Report CV ECHO COMPLETE Observed: 06/14/2017 Status: F Source: [facility] 10:22 AM [place] [id number] Patient: ROXIE CHRISTENSEN. Phone#: : 1940 Age: 76 Gender: M Pt. Type: Out Account: [id number] Location: [facility] Ordering: PREETI ARENAS Exam Date: 06/14/2017/9:04 Family Phys: Charge Code: 033450 Physician: Oliver Order #: [id number] DLP Dose#: PROCEDURE: ECHOCARDIOGRAM WITH DOPPLER AND COLOR FLOW HISTORY: INDICATIONS: A-Fib TECHNIQUE: A 2-D ultrasound, color spectral Doppler and M-mode evaluation of the heart and great vessels. PATIENT MEASUREMENTS: Height (in.): 68 BSA: 2.3 Weight (lbs.): 259 BP: 130/73 Filler And Trimmer: BECKY M MODE 2D MEASUREMENTS AND CALCULATIONS: LVIDd: 4.59 cm LVIDs: 3.64 cm IVSd: 1.12 cm LVPWd: 1.25 cm FS: 20.85 % Ao Root diam: 3.31 cm LA diam: 5.94 cm LA A4 Area: 22.21 cm2 RA A4 Area: RVDd: 3.52 cm TAPSE: DOPPLER MEASUREMENTS AND CALCULATIONS MITRAL MV E MAX semaj: 70.74 cm/s Lat Peak E' Semaj Septal Peak E' SEMAJ AORTIC Continued Report - Page 2 of 3 Patient: ROXIE CHRISTENSEN Phone#: : 1940 Age: 76 Gender: M Pt. Type: Out Account: [id number] Location: [facility] Ordering: PREETI ARENAS Exam Date: 06/14/2017/9:04 Family Phys: Charge Code: [id number] Physician: Oliver Order #: [id number] DLP Dose#: Ao V2 max: 96.82 cm/s Ao max P.75 mm[Hg] LV V1 Max 80.12 cm/s LV V1 Max PG 2.57 mm[Hg] PULMONIC PA V2 Max 102.18 cm/s PA Max PG 4.18 mm[Hg] TRICUSPID TR Max Semaj 268.45 cm/s TR max PG 28.83 mm[Hg] RVSP 2D/M-MODE AND COLOR FLOW LEFT VENTRICLE: Mildly reduced LV systolic function LVF 45-50%, normal size LV cavity, cannot comment about diastolic function due to arrhythmia WALL MOTION: Cannot rule out inferior posterior wall moderate hypokinesis in one view, most likely due to poor endocardial border definition RIGHT VENTRICLE: Normal RV systolic function, cannot rule out RV wall thickening LEFT ATRIUM: By diameter dilated left atrial size RIGHT ATRIUM: Normal size ATRIAL SEPTUM: Not well visualized MITRAL VALVE: No hemodynamically significant disease except of trivial mitral regurgitation TRICUSPID VALVE: Trivial to mild tricuspid regurgitation no tricuspid stenosis AORTIC VALVE: Trivial aortic regurgitation no aortic stenosis PULMONIC VALVE: Not well visualized no pulmonary regurgitation AORTIC ROOT: Normal size AORTIC ARCH: DESC THORACIC AORTA: IVC/SVC: Not well visualized PULMONARY ARTERY: PULMONARY VEINS: PERICARDIUM: Poorly visualized no significant pericardial effusion PLEURA: CONCLUSION: Mildly reduced to low normal LV systolic function, patient is in atrial fibrillation cannot comment about diastolic function Continued Report - Page 3 of 3 Patient: ROXIE CHRISTENSEN Phone#: : 1940 Age: 76 Gender: M Pt. Type: Out Account: [id number] Location: [facility] Ordering: [facility] Exam Date: 06/14/2017/9:04 Family Phys: Charge Code: [id number] Physician: Oliver Order #: [id number] DLP Dose#: normal RV systolic function in one view cannot rule out focal mid RV wall thickening and apical four-chamber, it might be due to off axis images still if clinically indicated suggest repeat study with definitive or GENOVEVA Trivial mitral regurgitation and trivial to mild tricuspid regurgitation, normal pulmonary arterial pressures Dilated left atrium by diameter but not by volume index Dictated by: Donta Samano MD on 06/14/2017 at 10:38 Approved by: Donta Samano MD on 06/14/2017 at 10:38 ALLERGIES ALLERGIES DATE TYPE / CODE NAME / CODE REACTION SEVERITY SOURCE 05/09/2018 Drug No Known Unknown [place] Allergy/096142516(S [facility] Repository Miscellaneous No Known Drug Moderate Brian Pomerene Allergy/219180188(S Allergies ([facility]) Modifier) Hospital (Qualifier Repository Value) ENCOUNTERS ENCOUNTERS ADMIT/DISCHARGE ACCOUNT ADMITTING ENCOUNTER LOCATION SOURCE NUMBER CLASS 05/25/2018 [id number] Ambulatory [place] 8 [facility] ing: Repository 05/18/2018/ [id number] Ambulatory April [place] 9 0 [facility] ing:SDCRoom: Repository AC15 05/09/2018/ [id number] Ambulatory BMSBuilding:B [place] 9 2 [facility] Repository 05/03/2018 [id number] Ambulatory BMSBuilding:W April 9 [facility] Repository 04/26/2018/ [id number] Ambulatory April April 8 2 [facility] ing: Repository 03/31/2018/ [id number] Ambulatory April [place] 8 2 [facility] ing: Repository 02/28/2018/ [id number] Ambulatory [place] April 8 8 [facility] ing: Repository 01/17/2018/ [id number] DR DINESH Emergency BuildinR Brian Pomerene 8 MIGUELITO Oro oom: ERBed: [facility] Repository 12/28/2017/ [id number] ANA, Emergency BuildinR Brian Pomerene 8 NOLAN Echols oom: ERBed: [facility] Repository 12/14/2017/ [id number] STEPHANIA, [facility] OWEN CHIN oom: ERBed: [facility] Repository 06/14/2017/ [id number] DAGOBERTO, Ambulatory Brian Pomerene 8 [facility] Repository PAYERS PAYERS ENCOUNTER GUARANTOR PAYER SUBSCRIBER SOURCE 05/25/2018 ROXIE S [id number] Primary ROXIE S YODERDOB: [place] Insurance:MEDICARE [id number], PART A BPolicy Number: [facility] [address]Pxk: [id number] Repository Date:2018-02-21 () 05/25/2018 Secondary NOT GIVENUNK [place] Insurance:SELF PAY [facility] Number: Effective Repository Date:2018-05-02 05/18/2018 ROXIE S [id number] Primary ROXIE S YODERDOB: April [place] Insurance:MEDICARE [id number], PART A BPolicy Number: [facility] [id number]: [id number] Repository Date:2018-04-07 () 05/18/2018 Secondary NOT GIVENUNK April Insurance:SELF PAY [facility] Number: Effective Repository Date:2018-04-07 05/09/2018 ROXIE S [id number] Primary ROXIE S YODERDOB: [place] [address] Insurance:MEDICARE [id number], PART A BPolicy Number: [facility] [address]Wsd: [id number] Repository Date:2018-05-05 () 05/09/2018 Secondary NOT GIVENUNK April Insurance:SELF PAY [facility] Number: Effective Repository Date:2018-05-09 05/03/2018 ROXIE S [id number] Primary Insurance:SELF NOT GIVENUNK [place] PAY [address], Number: [facility] [place] [id number]: Date:2018-05-03 Repository () 04/26/2018 ROXIE S [id number] Primary Insurance:SELF NOT GIVENUNK [place] PAY [address], Number: [facility] [place] [id number]: Date:2018-04-01 Repository () 03/31/2018 ROXIE S [id number] Primary Insurance:SELF NOT GIVENUNK [place] PAY [address], Number: [facility] [place] [id number]: Date:2018-03-02 Repository () 02/28/2018 ROXIE S [id number] Primary ROXIE S YODERDOB: [place] Insurance:MEDICARE [id number], PART A BPolicy Number: [facility] [place] [address]Ena: [id number] Repository Date:2018-02-21 () 02/28/2018 Secondary NOT GIVENUNK [place] Insurance:SELF PAY [facility] Number: Effective Repository Date:2018-02-21 01/17/2018 ROXIE S YODERDOB: Primary Insurance:500 ROXIE S YODERDOB: Brian [place] [id number] MEDICARE [id number], Number: [address] [place] [address], [place]ository [place] [id number] [place] [id number]: Date:Plan Name: () 12/28/2017 ROXIE Garcia YODERDOB: Primary Insurance:500 ROXIE aGrcia YODERDOB: Brian [place]ont [id number] MEDICARE [id number] [address], Number: [place], [place]ository [place] [id number] [place] [id number]: Date:Plan Name: () 12/14/2017 ROXIE S YODERDOB: Primary Insurance:500 ROXIE S YODERDOB: Brian Dumont [id number] MEDICARE [id number] [address], Number: [id number], [place] [id number] [id number]: Date:Plan Name: () 06/14/2017 ROXIE S YODERDOB: Primary Insurance:500 ROXIE S YODERDOB: Brian Dumont [id number] MEDICARE [id number] [address], Number: [id number], [place] [id number] [place] [id number]: Date:Plan Name: ()
== END 2018-05-18 17:16 | disposition home or self-care (01) ==
LOC: SDC 10:20 → AC 10:22
PROVIDERS: PCP Family Medicine; Referring Provider Surgery; Visit Provider Surgery
PROC: (CPT 36478; principal; 2018-05-18 11:45)
DX: I83.212 Varicose veins of right lower extremity with both ulcer of calf and inflammation (principal); L97.219 Non-pressure chronic ulcer of right calf with unspecified severity; Z79.82 Long term (current) use of aspirin; Z79.899 Other long term (current) drug therapy; I48.91 Unspecified atrial fibrillation; G47.30 Sleep apnea, unspecified
CPT/HCPCS: 01260; 36478; 36479; 80048; 82962; 85027; 93005; 93971; J7040; J7120

== ENCOUNTER 2018-06-01 14:00 | Outpatient (RCR) | payer MEDICARE, SELFPAY ==
[2018-05-02 01:12] VITALS: BP 142/82; PULSE 103; RESP 16; TEMP 36
[2018-05-03 11:18] VITALS: BP 129/81; PULSE 96; RESP 20; TEMP 36.9; BMI 38.5
[2018-05-08 12:05] VITALS: BP 137/86; PULSE 103; RESP 20; TEMP 37; BMI 38.5
--- NOTE | 2018-05-08 12:59 | HP.PCM_ITS ---
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 Status: Chronic Current Visit: Yes Code(s): I87.333 - Chronic venous hypertension (idiopathic) with ulcer and inflammation of bilateral lower extremity; L97.919 - Non-pressure chronic ulcer of unspecified part of right lower leg with unspecified severity; L97.929 - Non-pressure chronic ulcer of unspecified part of left lower leg with unspecified severity (4) Venous ulcer of right leg Status: Chronic Current Visit: Yes Code(s): I83.019 - Varicose veins of right lower extremity with ulcer of unspecified site; L97.919 - Non-pressure chronic ulcer of unspecified part of right lower leg with unspecified severity (5) Spontaneous hemorrhage Status: Chronic Current Visit: Yes Code(s): K66.1 - Hemoperitoneum (6) Atrial fibrillation Status: Chronic Current Visit: No Code(s): I48.91 - Unspecified atrial fibrillation (7) Lumbar radiculopathy Status: Chronic Current Visit: No Code(s): M54.16 - Radiculopathy, lumbar region (8) Obesity (BMI 35.0-39.9 without comorbidity) Status: Chronic Current Visit: No Code(s): E66.9 - Obesity, unspecified (9) Exertional dyspnea Status: Chronic Current Visit: No Code(s): R06.09 - Other forms of dyspnea (10) Right leg swelling Status: Chronic Current Visit: Yes Code(s): M79.89 - Other specified soft tissue disorders (11) Chronic venous hypertension with ulcer involving right side Status: Chronic Current Visit: Yes Code(s): I87.311 - Chronic venous hyper tension (idiopathic) with ulcer of right lower extremity; L97.919 - Non-pressure chronic ulcer of unspecified part of right lower leg with unspecified severity History of Present Illness Chief Complaint: Chronic venous insufficiency, varicose veins with ulceration and inflammation, venous hypertension with ulceration, venous ulceration, leg swelling, spontaneous bleeding?right lower extremity History of Wound: This is a 77-year-old male who presented with a long-standing history of chronic venous disease. The patient has had varicose veins for many years. He has elected to forego any significant treatment related to his venous disease. He denies a history of thrombophlebitis, though his past medical records indicate a history, though vague and nonspecific. Approximately 2 months prior to his presentation, the patient developed a spontaneous ulceration on the medial aspect of his right calf. The site subsequently ruptured, and spontaneous bleeding occurred on 3 different occasions, each time with significant blood loss. On at least one occasion, the spontaneous bleeding occurred after taking a hot shower. On each of 3 occasions, the patient was transported to the emergency department at [facility] in [place], [place], where the patient was treated and released. On each occasion, sutures were placed to obliterate the bleeding. Patient was subsequently referred to the [facility] for definitive management. The patient relates swelling in his right leg which occurs typically at the end of each day. He sleeps on a flat mattress at night. He lies in a recumbent position often during the daytime. He is not very active. He is also noted to be obese. Past Medical History Past Medical History: Chronic Problems Chronic venous insufficiency (Chronic) Varicose veins with ulcer and inflammation (Chronic) Chronic venous hypertension (idiopathic) with ulcer and inflammation of bilateral lower extremity (Chronic) Venous ulcer of right leg (Chronic) Spontaneous hemorrhage (Chronic) Atrial fibrillation (Chronic) Lumbar radiculopathy (Chronic) Obesity (BMI 35.0-39.9 without comorbidity) (Chronic) Exertional dyspnea (Chronic) Right leg swelling (Chronic) Chronic venous hypertension with ulcer involving right side (Chronic) Surgical History: no surgical history Allergies/Adverse Reactions: Allergies No Known Allergies Allergy (Verified 05/03/18 09:56) Home Medications: Ambulatory Orders Medication Instructions Recorded Aspirin [Adult Aspirin] 81 mg PO DAILY 05/03/18 Cholecalciferol (VIT D3) [Vitamin 1,000 unit PO DAILY 05/03/18 D] Multivitamin [Daily Multiple 1 each PO DAILY 05/03/18 Vitamin] - Family History Paternal - - The patient's father at the age of 90 of old age. Patient's mother at age of 83 with a history of liver cancer. Tobacco Use: Non-smoker Review of Systems Constitutional: Denies: Chills, Fever, Weight Change Eyes: Denies: Pain, Vision Change HEENT: Denies: Difficulty Hearing, Difficulty Swallowing, Sinus Congestion Cardiovascular: Denies: Chest Pain, Palpitations Respiratory: Denies: Cough, Shortness of Breath Gastrointestinal: Denies: Diarrhea, Nausea, Vomiting Genitourinary: Denies: Dysuria, Hematuria Endocrine: Denies: Heat/ Cold Intolerance, Polydipsia, Polyuria Hematologic/ Lymphatic: Denies: Easy Bruising, Easy Bleeding - Physical Exam Vital Signs Temp Pulse Resp BP 98.6 F 103 H 20 H 137/86 H 05/08/18 12:05 05/08/18 12:05 05/08/18 12:05 05/08/18 12:05 General: Alert, Oriented x3, Cooperative, No apparent distress, Well developed, Well nourished HEENT: Atraumatic, PERRLA, EOMI, Normocephalic Oral: Moist Mucosa Neck: Supple, No JVD, Negative Carotid Bruits, Negative Hepatojugular Reflux, No Nuchal Rigidity, Trachea Midline Lungs: Clear to auscultation, Normal air movement, No rhonchi, No wheeze, No rales Cardiovascular: Regular Rhythm, Normal S1, Normal S2 Abdomen: Soft, Non Tender, Non-Distended, Obese Extremities: No clubbing, No cyanosis, No Calf Tenderness, - - The swelling and edema in the right lower extremity appears to be reasonably well controlled. It is only minimal. Circumference measurements are documented elsewhere. The open ulceration on the right medial calf persists, relatively unchanged in appearance. Mentions are documented elsewhere. There is no sign of infection or cellulitis. Skin: No rashes Wound Measurements and Assessment WC - Nurse 1 - General Ulcer Measurement Start: 05/03/18 11:18 Freq: Status: Active Protocol: Activity Type Activity Date Activity User E-Sign Co-Sign Detail Recorded Client Recorded Date Recorded By Document 05/08/18 12:05 TANYA [id number] 05/08/18 12:12 TANYA 05/08/18 12:05 Wound Center Nurse 1 [Ulcer Assessment] #1 Medial RLE -Combined with other wound No -Current Size (cm) - Length 1.0 -Current Size (cm) - Width 1.3 -Current Size (cm) - Depth 0 -Total Square Cm 1.30 -Date of Last Picture (Recall this 05/08/18 field) -Photo Taken Yes -Epithelialization None Present -Tunneling No -Undermining/Tunneling No -Circular Undermining No -Classification - Thickness Full Thickness without Exposed Support Structure -Exudate Amt Small (1-33%) -Exudate Type Serosanguineous -Wound Margin Distinct, Outline Attached -Granulation Amt None Present (0 %) -Granulation Quality N/A -Slough/Fibrin Yes -Necrosis Amt None Present (0 %) -Necrotic Tissue Type Adherent Slough -Structure Exposed N/A -Texture (Skylar-wound Skin Appearance) No Abnormality -Moisture (Skylar-wound Skin Appearance No Abnormality ) -Color (Skylar-wound Skin Appearance) Hemosiderin Staining -Temperature (Skylar-wound Skin No Abnormality Appearance) (Pt Warm) -Tenderness on Palpation (Skylar-wound No Skin Appearance) -Ulcer Cleansing Rinsed/ Irrigated with Saline -Anesthetic Used 4% Lidocaine Solution [Edema Assessment] -Lower Limb Edema Present No -Right Calf (cm) 41.5 -Right Ankle (cm) 24.2 WC - Nurse 2 - General Ulcer CM Notes Start: 05/03/18 11:18 Freq: Status: Active Protocol: Activity Type Activity Date Activity User E-Sign Co-Sign Detail Recorded Client Recorded Date Recorded By Document 05/08/18 12:25 TANYA [id number] 05/08/18 12:28 TANYA 05/08/18 12:25 Wound Center Nurse 2 [Procedure/Treatment] #1 [facility] RLE -Time 12:26 -Correct Patient Yes -Correct Side, Site, Position Yes -Correct Procedure Yes -Procedure Performed No -Wound/Ulcer Outcome Not Healed -Ulcer Cleansing Not Cleansed -Foul Odor after Cleansing No -Bioengineered Tissue No -Topical Lidocaine (%) 4 -Lidocaine (ml) 5 -Bleeding Controlled with NA -Offloading No [See Physician Procedure note for Specifics] Pain Scale: 0-10 Numeric [Pain] -Is Patient Pain Free? Yes Neurological: Cranial nerves II-XII grossly intact, Neuro grossly intact Psych/Mental Status: Normal Affect, Appropriate, Alert and oriented to time, place, person, mood and affect Debridement Note Post-Debridement Measurements/Treatment WC - Nurse 2 - General Ulcer CM Notes Start: 05/03/18 11:18 Freq: Status: Active Protocol: Activity Type Activity Date Activity User E-Sign Co-Sign Detail Recorded Client Recorded Date Recorded By Document 05/08/18 12:25 TANYA [id number] 05/08/18 12:28 TANYA 05/08/18 12:25 Wound Center Nurse 2 #1 Medial RLE -Time 12:26 -Correct Patient Yes -Correct Side, Site, Position Yes -Correct Procedure Yes -Procedure Performed No -Wound/Ulcer Outcome Not Healed -Ulcer Cleansing Not Cleansed -Foul Odor after Cleansing No -Bioengineered Tissue No -Topical Lidocaine (%) 4 -Lidocaine (ml) 5 -Bleeding Controlled with NA -Offloading No Pain Scale: 0-10 Numeric Is Patient Pain Free? Yes Debridement was not performed today. There is suspicion that a large, distended varicosity underlies the ulceration. For that reason, debridements have not been routinely performed, for fear of eliciting significant bleeding, which may be difficult to control. No debridement was completed today Assessment/Plan Active Problems Chronic venous insufficiency (Chronic) Varicose veins with ulcer and inflammation (Chronic) Chronic venous hypertension (idiopathic) with ulcer and inflammation of bilateral lower extremity (Chronic) Venous ulcer of right leg (Chronic) Spontaneous hemorrhage (Chronic) Right leg swelling (Chronic) Chronic venous hypertension with ulcer involving right side (Chronic) Assessment: This is a 77-year-old male with an apparent long-standing history of chronic venous disease. He has had varicose veins for many years, as well as chronic swelling in his right lower extremity. Also a question as to whether the patient may have a history of thrombophlebitis. Within the last several months, the patient has developed an ulceration on the right medial calf, and has had 3 episodes of spontaneous bleeding from the ulceration, prompting visits to the emergency department setting. On each occasion, suture closure of the bleeding vessel was performed. Patient presented with recent medical records, which have been reviewed. In addition, laboratory results are available from the patient's primary care physician, the results of which have been reviewed. Results are as follows: Cholesterol 199, HDL cholesterol 57, HDL ratio 3.5, LDL cholesterol 121, sodium 140, potassium 4.3, chloride 104, calcium 9.4, alkaline phosphatase 96, AST 24, ALT 18, bilirubin 0.7, glucose 89, BUN 14, creatinine 0.72, protein 7.4, albumin 4.2. The date of these laboratory results is 02/10/2018. The patient has undergone a venous duplex examination on February 24, 2018. Results have been reviewed with the patient. 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 Accessory saphenous veins in the right lower extremity at the S5 and S6 positions are also incompetent. An incompetent manager mental health vein is noted in the right calf, located 13 cm proximal to the right medial malleolus. A noninvasive lower extremity arterial study has been performed as well, revealing no evidence of significant arterial occlusive disease in the lower extremities. The patient is accompanied by his and daughter. It appears as though he sleeps on a flat surface at night. He claims to be elevating his lower extremities frequently during daytime hours. Since the initiation of a 3M 2 layer compression wrap to the right lower extremity, patient has shown significant improvement in the swelling and edema, which is now somewhat minimal. There have been no further bleeding episodes. Plan: The patient and his family have been advised in the appropriate conservative measures regarding management of the patient's chronic venous disease. The patient has been encouraged to continue sleeping in a recumbent position, on a flat mattress. Leg elevation should be to heart level, or higher. Legs should be elevated even during daytime hours, as much as possible. Prolonged idle sitting has been discouraged. Weight loss has been encouraged. Activity has also been encouraged as well. We are to continue compression to the right lower extremity by means of a 3M 2 layer compression wrap, which will be changed twice weekly. We are to use Adaptic and gauze overlying the ulcerated site, in an effort to avoid adherence and subsequent bleeding. Patient has been instructed that, in the event of additional bleeding from the site, he is to elevate his leg and apply manual pressure. The patient is return in 1 week for reassessment. In the event that an episode of spontaneous bleeding should reoccur, the patient has been instructed to apply pressure to the bleeding site, and to elevate his lower extremity above heart level. Thereafter, he should seek medical attention. At present, we are to use a nonadhesive topical dressing such as Adaptic, with overlying gauze. The goal is to avoid any adherence of the dressings to the bleeding site, to avoid further bleeding episodes. Ultimately, the patient will be a likely candidate for an endovenous ablation procedure. The nature of the endovenous laser ablation procedure has again been discussed with the patient and his family in detail. It is anticipated that such a procedure may be necessary in an effort to reduce the pressure within the venous system of the right lower extremity, and reduce the likelihood of further bleeding from the ulcerated site. Endovenous laser ablation would likely also hasten the healing of his ulceration. In addition to endovenous laser ablation, there may be a need for ultrasound-guided injection sclerotherapy of the veins in the region of the bleeding varicosity. The potential benefits of endovenous laser ablation of the right great saphenous vein, the 2 accessory saphenous veins, and possibly the incompetent manager mental health vein have been discussed with the patient in detail, as well as his . The indications and risks have been thoroughly explained. The potential benefits have been explained. The patient wishes to proceed at this time, and in his surgical procedure is scheduled for later this week. However, in the course of preadmission testing, patient has been found to have some abnormalities of his EKG, and has a cardiac history. The anesthesia staff has recommended a cardiology consultation prior to intervention relative to his venous disease. He has an appointment with a international editorial producer tomorrow. Cardiology recommendations will be awaited. The patient's endothermal ablation procedure is now tentatively scheduled for May 11, 2018. Influenza vaccine was not administered today. The patient is not a smoker. Patient weighs 261 pounds. He stands 5 feet 8 inches tall. His BMI is 38.5, which places him in an obese class II category. Weight loss has been recommended, and collaboration with the patient's primary care physician has been recommended in terms of weight loss management.
[2018-05-11 13:17] VITALS: BP 125/84; PULSE 90; RESP 18; TEMP 36.9; BMI 38.5
[2018-05-15 12:53] VITALS: BP 138/93; PULSE 105; RESP 18; TEMP 37.4; BMI 38.5
--- NOTE | 2018-05-15 14:24 | HP.PCM_ITS ---
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 Status: Chronic Current Visit: Yes Code(s): I87.333 - Chronic venous hypertension (idiopathic) with ulcer and inflammation of bilateral lower extremity; L97.919 - Non-pressure chronic ulcer of unspecified part of right lower leg with unspecified severity; L97.929 - Non-pressure chronic ulcer of unspecified part of left lower leg with unspecified severity (4) Venous ulcer of right leg Status: Chronic Current Visit: Yes Code(s): I83.019 - Varicose veins of right lower extremity with ulcer of unspecified site; L97.919 - Non-pressure chronic ulcer of unspecified part of right lower leg with unspecified severity (5) Spontaneous hemorrhage Status: Chronic Current Visit: Yes Code(s): K66.1 - Hemoperitoneum (6) Atrial fibrillation Status: Chronic Current Visit: No Code(s): I48.91 - Unspecified atrial fibrillation (7) Lumbar radiculopathy Status: Chronic Current Visit: No Code(s): M54.16 - Radiculopathy, lumbar region (8) Obesity (BMI 35.0-39.9 without comorbidity) Status: Chronic Current Visit: No Code(s): E66.9 - Obesity, unspecified (9) Exertional dyspnea Status: Chronic Current Visit: No Code(s): R06.09 - Other forms of dyspnea (10) Right leg swelling Status: Chronic Current Visit: Yes Code(s): M79.89 - Other specified soft tissue disorders (11) Chronic venous hypertension with ulcer involving right side Status: Chronic Current Visit: Yes Code(s): I87.311 - Chronic venous hyper tension (idiopathic) with ulcer of right lower extremity; L97.919 - Non-pressure chronic ulcer of unspecified part of right lower leg with unspecified severity History of Present Illness Chief Complaint: Chronic venous insufficiency, varicose veins with ulceration and inflammation, venous hypertension with ulceration, venous ulceration, leg swelling, spontaneous bleeding?right lower extremity History of Wound: This is a 77-year-old male who presented with a long-standing history of chronic venous disease. The patient has had varicose veins for many years. He has elected to forego any significant treatment related to his venous disease. He denies a history of thrombophlebitis, though his past medical records indicate a history, though vague and nonspecific. Approximately 2 months prior to his presentation, the patient developed a spontaneous ulceration on the medial aspect of his right calf. The site subsequently ruptured, and spontaneous bleeding occurred on 3 different occasions, each time with significant blood loss. On at least one occasion, the spontaneous bleeding occurred after taking a hot shower. On each of 3 occasions, the patient was transported to the emergency department at [facility] in [place], [place], where the patient was treated and released. On each occasion, sutures were placed to obliterate the bleeding. Patient was subsequently referred to the [facility] for definitive management. The patient relates swelling in his right leg which occurs typically at the end of each day. He sleeps on a flat mattress at night. He lies in a recumbent position often during the daytime. He is not very active. He is also noted to be obese. An additional episode of bleeding occurred as recently as just 1 week ago. Bleeding was controlled with compression and elevation. 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 (Chronic) Venous ulcer of right leg (Chronic) Spontaneous hemorrhage (Chronic) Atrial fibrillation (Chronic) Lumbar radiculopathy (Chronic) Obesity (BMI 35.0-39.9 without comorbidity) (Chronic) Exertional dyspnea (Chronic) Right leg swelling (Chronic) Chronic venous hypertension with ulcer involving right side (Chronic) Surgical History: no surgical history Allergies/Adverse Reactions: Allergies No Known Allergies Allergy (Verified 05/09/18 15:30) Home Medications: Ambulatory Orders Medication Instructions Recorded Aspirin [Adult Aspirin] 81 mg PO DAILY 05/03/18 Cholecalciferol (VIT D3) [Vitamin 1,000 unit PO DAILY 05/03/18 D] Multivitamin [Daily Multiple 1 ea PO DAILY 05/03/18 Vitamin] metoprolol succinate ER 50 mg 50 mg PO DAILY #90 tab 05/09/18 tablet,extended release 24 hr - Family History Paternal Family History: Family History (Last Reviewed 05/09/18 @ 15:51 by Heriberto Dempsey MD) Mother CVA (cerebral vascular accident) - - The patient's father at the age of 90 of old age. Patient's mother at age of 83 with a history of liver cancer. Tobacco Use: Non-smoker Review of Systems Constitutional: Denies: Chills, Fever, Weight Change Eyes: Denies: Pain, Vision Change HEENT: Denies: Difficulty Hearing, Difficulty Swallowing, Sinus Congestion Cardiovascular: Denies: Chest Pain, Palpitations Respiratory: Denies: Cough, Shortness of Breath Gastrointestinal: Denies: Diarrhea, Nausea, Vomiting Genitourinary: Denies: Dysuria, Hematuria Endocrine: Denies: Heat/ Cold Intolerance, Polydipsia, Polyuria Hematologic/ Lymphatic: Denies: Easy Bruising, Easy Bleeding - Physical Exam Vital Signs Temp Pulse Resp BP 99.3 F H 105 H 18 138/93 H 05/15/18 12:53 05/15/18 12:53 05/15/18 12:53 05/15/18 12:53 General: Alert, Oriented x3, Cooperative, No apparent distress, Well developed, Well nourished HEENT: Atraumatic, PERRLA, EOMI, Normocephalic Oral: Moist Mucosa Neck: No JVD Lungs: Normal air movement Abdomen: Non-Distended Extremities: No clubbing, No cyanosis, No edema, No Calf Tenderness, - - There is no significant swelling or edema in the right lower extremity. There is a persisting ulceration of the right anterior tibial surface. Dimensions are documented elsewhere. Scattered varicosities are noted throughout the right lower extremity. There is no sign of infection or cellulitis. No active bleeding is noted at this time. Skin: No rashes Wound Measurements and Assessment WC - Nurse 1 - General Ulcer Measurement Start: 05/03/18 11:18 Freq: Status: Active Protocol: Activity Type Activity Date Activity User E-Sign Co-Sign Detail Recorded Client Recorded Date Recorded By Document 05/15/18 12:53 [id number] 05/15/18 12:55 05/15/18 12:53 Wound Center Nurse 1 [Ulcer Assessment] #1 Medial RLE -Combined with other wound No -Current Size (cm) - Length 1.2 -Current Size (cm) - Width 1.5 -Current Size (cm) - Depth 0 -Total Square Cm 1.80 -Photo Taken No -Epithelialization None Present -Tunneling No -Undermining/Tunneling No -Circular Undermining No -Exudate Amt Small -Exudate Type Serous -Wound Margin Distinct, Outline Attached -Granulation Amt None Present (0 %) -Granulation Quality N/A -Necrosis Amt Large (67-100%) -Necrotic Tissue Type Eschar -Temperature (Skylar-wound Skin No Abnormality Appearance) (Pt Warm) -Tenderness on Palpation (Skylar-wound No Skin Appearance) -Ulcer Cleansing Rinsed/ Irrigated with Saline -Foul Odor after Cleansing No [Edema Assessment] -Lower Limb Edema Present No -Left Calf (cm) 41 -Left Ankle (cm) 24.5 - Nurse 2 - General Ulcer CM Notes Start: 05/03/18 11:18 Freq: Status: Active Protocol: Activity Type Activity Date Activity User E-Sign Co-Sign Detail Recorded Client Recorded Date Recorded By Document 05/15/18 14:15 DV [id number] 05/15/18 14:17 DV 05/15/18 14:15 Wound Center Nurse 2 [Procedure/Treatment] #1 Medial RLE -Time 14:15 -Correct Patient Yes -Correct Side, Site, Position Yes -Procedure Performed No -Wound/Ulcer Outcome Not Healed [See Physician Procedure note for Specifics] Pain Scale: 0-10 Numeric [Pain] -Is Patient Pain Free? Yes Neurological: Cranial nerves II-XII grossly intact, Neuro grossly intact Psych/Mental Status: Normal Affect, Appropriate, Alert and oriented to time, place, person, mood and affect Debridement Note Post-Debridement Measurements/Treatment - Nurse 2 - General Ulcer CM Notes Start: 05/03/18 11:18 Freq: Status: Active Protocol: Activity Type Activity Date Activity User E-Sign Co-Sign Detail Recorded Client Recorded Date Recorded By Document 05/08/18 12:25 JS [id number] 05/08/18 12:28 JS Document 05/15/18 14:15 DV [id number] 05/15/18 14:17 DV 05/08/18 05/15/18 12:25 14:15 Wound Center Nurse 2 #1 Medial RLE -Time 12:26 14:15 -Correct Patient Yes Yes -Correct Side, Site, Position Yes Yes -Correct Procedure Yes -Procedure Performed No No -Wound/Ulcer Outcome Not Healed Not Healed -Ulcer Cleansing Not Cleansed -Foul Odor after Cleansing No -Bioengineered Tissue No -Topical Lidocaine (%) 4 -Lidocaine (ml) 5 -Bleeding Controlled with NA -Offloading No Pain Scale: 0-10 Numeric Is Patient Pain Free? Yes Yes Debridement has been purposely avoided, as there is suspicion that a large v aricosity is present beneath the patient's venous ulceration. Patient's venous hypertension suggests the patient is likely to bleed profusely should the ulceration undergo debridement. No debridement was completed today Assessment/Plan Active Problems (Last Reviewed 05/09/18 @ 15:51 by Heriberto Dempsey MD) Chronic venous insufficiency (Chronic) Varicose veins with ulcer and inflammation (Chronic) Chronic venous hypertension (idiopathic) with ulcer and inflammation of bilateral lower extremity (Chronic) Venous ulcer of right leg (Chronic) Spontaneous hemorrhage (Chronic) Right leg swelling (Chronic) Chronic venous hypertension with ulcer involving right side (Chronic) Assessment: This is a 77-year-old male with an apparent long-standing history of chronic venous disease. He has had varicose veins for many years, as well as chronic swelling in his right lower extremity. Also a question as to whether the patient may have a history of thrombophlebitis. Within the last several months, the patient has developed an ulceration on the right medial calf, and has had 3 episodes of spontaneous bleeding from the ulceration, prompting visits to the emergency department setting. On each occasion, suture closure of the bleeding vessel was performed. Patient presented with recent medical records, which have been reviewed. In addition, laboratory results are available from the patient's primary care physician, the results of which have been reviewed. Results are as follows: Cholesterol 199, HDL cholesterol 57, HDL ratio 3.5, LDL cholesterol 121, sodium 140, potassium 4.3, chloride 104, calcium 9.4, alkaline phosphatase 96, AST 24, ALT 18, bilirubin 0.7, glucose 89, BUN 14, creatinine 0.72, protein 7.4, albumin 4.2. The date of these laboratory results is 02/10/2018. The patient has undergone a venous duplex examination on February 24, 2018. Results have been reviewed with the patient. 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 Accessory saphenous veins in the right lower extremity at the S5 and S6 positions are also incompetent. An incompetent talking books library clerk vein is noted in the right calf, located 13 cm proximal to the right medial malleolus. A noninvasive lower extremity arterial study has been performed as well, revealing no evidence of significant arterial occlusive disease in the lower extremities. The patient is accompanied by his and daughter. It appears as though he sleeps on a flat surface at night. He claims to be elevating his lower extremities frequently during daytime hours. Since the initiation of a 3M 2 layer compression wrap to the right lower extremity, patient has shown significant improvement in the swelling and edema, which is now somewhat minimal. Plan: The patient and his family have been advised in the appropriate conservative measures regarding management of the patient's chronic venous disease. The patient has been encouraged to continue sleeping in a recumbent position, on a flat mattress. Leg elevation should be to heart level, or higher. Legs should be elevated even during daytime hours, as much as possible. Prolonged idle sitting has been discouraged. Weight loss has been encouraged. Activity has also been encouraged as well. We are to continue compression to the right lower extremity by means of a 3M 2 layer compression wrap, which will be changed twice weekly. We are to use Adaptic and gauze overlying the ulcerated site, in an effort to avoid adherence and subsequent bleeding. Patient has been instructed that, in the event of additional bleeding from the site, he is to elevate his leg and apply manual pressure. The patient is return in 1 week for reassessment. In the event that an episode of spontaneous bleeding should reoccur, the patient has been instructed to apply pressure to the bleeding site, and to elevate his lower extremity above heart level. Thereafter, he should seek medical attention. At present, we are to use a nonadhesive topical dressing such as Adaptic, with overlying gauze. The goal is to avoid any adherence of the dressings to the bleeding site, to avoid further bleeding episodes. Ultimately, the patient will be a likely candidate for an endovenous ablation procedure. The nature of the endovenous laser ablation procedure has again been discussed with the patient and his family in detail. It is anticipated that such a procedure may be necessary in an effort to reduce the pressure within the venous system of the right lower extremity, and reduce the likelihood of further bleeding from the ulcerated site. Endovenous laser ablation would likely also hasten the healing of his ulceration. In addition to endovenous laser ablation, there may be a need for ultrasound-guided injection sclerotherapy of the veins in the region of the bleeding varicosity. The potential benefits of endovenous laser ablation of the right great saphenous vein, the 2 accessory saphenous veins, and possibly the incompetent talking books library clerk vein have been discussed with the patient in detail, as well as his . The indications and risks have been thoroughly explained. The potential benefits have been explained. The patient wishes to proceed at this time, and in his surgical procedure is scheduled for later this week, after postponement last week due to factors unrelated to the patient himself. Surgical clearance has been obtained from the patient's advanced practice provider. The patient's endothermal venous ablation procedure is now scheduled for May 18, 2018. Influenza vaccine was not administered today. The patient is not a smoker. Patient weighs 261 pounds. He stands 5 feet 8 inches tall. His BMI is 38.5, which places him in an obese class II category. Weight loss has been recommended, and collaboration with the patient's primary care physician has been recommended in terms of weight loss management.
[2018-05-22 12:12] VITALS: BP 149/90; PULSE 113; RESP 18; TEMP 36.9; BMI 38.5
--- NOTE | 2018-05-22 13:29 | VDLE_ITS ---
Reason For Study: LEG SWELLING RIGHT CFV is compressible, spontaneous, phasic, competent and demonstrates normal augmentation. FV is compressible, spontaneous, phasic, competent and demonstrates normal augmentation. POP V is compressible, spontaneous, phasic, competent and demonstrates normal augmentation. T/P Trunk is compressible. PTV is compressible. RT PerV is compressible. GSV and ASV x 2 occluded s/p EVLA. Procedure Exam performed in department. A preliminary report was called and/or faxed to Dr. Franco. Interpretation Summary Deep veins of the right lower extremity are patent and compressible segmentally. There is no evidence of right lower extremity deep vein thrombosis. Valvular competence appears intact within the proximal deep venous system on the right . The right great saphenous vein and two accessory saphenous veins are occluded, consistent with a recent endothermal venous ablation procedure. Ordering Physician: Nacho Franco Referring Physician: Nacho Franco Performed By: Selina Murillo RVT
--- NOTE | 2018-05-22 14:42 | PCM.WC.HP ---
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 Status: Chronic Current Visit: Yes Code(s): I87.333 - Chronic venous hypertension (idiopathic) with ulcer and inflammation of bilateral lower extremity; L97.919 - Non-pressure chronic ulcer of unspecified part of right lower leg with unspecified severity; L97.929 - Non-pressure chronic ulcer of unspecified part of left lower leg with unspecified severity (4) Venous ulcer of right leg Status: Chronic Current Visit: Yes Code(s): I83.019 - Varicose veins of right lower extremity with ulcer of unspecified site; L97.919 - Non-pressure chronic ulcer of unspecified part of right lower leg with unspecified severity (5) Spontaneous hemorrhage Status: Chronic Current Visit: Yes Code(s): K66.1 - Hemoperitoneum (6) Atrial fibrillation Status: Chronic Current Visit: No Code(s): I48.91 - Unspecified atrial fibrillation (7) Lumbar radiculopathy Status: Chronic Current Visit: No Code(s): M54.16 - Radiculopathy, lumbar region (8) Obesity (BMI 35.0-39.9 without comorbidity) Status: Chronic Current Visit: No Code(s): E66.9 - Obesity, unspecified (9) Exertional dyspnea Status: Chronic Current Visit: No Code(s): R06.09 - Other forms of dyspnea (10) Right leg swelling Status: Chronic Current Visit: Yes Code(s): M79.89 - Other specified soft tissue disorders (11) Chronic venous hypertension with ulcer involving right side Status: Chronic Current Visit: Yes Code(s): I87.311 - Chronic venous hypertension (idiopathic) with ulcer of right lower extremity; L97.919 - Non-pressure chronic ulcer of unspecified part of right lower leg with unspecified severity History of Present Illness Chief Complaint: Chronic venous insufficiency, varicose veins with ulceration and inflammation, venous hypertension with ulceration, venous ulceration, leg swelling, spontaneous bleeding?right lower extremity History of Wound: This is a 77-year-old male who presented with a long-standing history of chronic venous disease. The patient has had varicose veins for many years. He has elected to forego any significant treatment related to his venous disease. He denies a history of thrombophlebitis, though his past medical records indicate a history, though vague and nonspecific. Approximately 2 months prior to his presentation, the patient developed a spontaneous ulceration on the medial aspect of his right calf. The site subsequently ruptured, and spontaneous bleeding occurred on more than 3 different occasions, each time with significant blood loss. On at least one occasion, the spontaneous bleeding occurred after taking a hot shower. The patient has required attention in the emergency department on several occasions. Patient was subsequently referred to the [facility] for definitive management. The patient relates swelling in his right leg which occurs typically at the end of each day. He sleeps on a flat mattress at night. He lies in a recumbent position often during the daytime. He is not very active. He is also noted to be obese. 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 (Chronic) Venous ulcer of right leg (Chronic) Spontaneous hemorrhage (Chronic) Atrial fibrillation (Chronic) Lumbar radiculopathy (Chronic) Obesity (BMI 35.0-39.9 without comorbidity) (Chronic) Exertional dyspnea (Chronic) Right leg swelling (Chronic) Chronic venous hypertension with ulcer involving right side (Chronic) Surgical History: no surgical history Allergies/Adverse Reactions: Allergies No Known Allergies Allergy (Verified 05/09/18 15:30) Home Medications: Ambulatory Orders Medication Instructions Recorded Aspirin [Adult Aspirin] 81 mg PO DAILY 05/03/18 Cholecalciferol (VIT D3) [Vitamin 1,000 unit PO DAILY 05/03/18 D] Multivitamin [Daily Multiple 1 ea PO DAILY 05/03/18 Vitamin] metoprolol succinate ER 50 mg 50 mg PO DAILY #90 tab 01/08/19 tablet,extended release 24 hr - Family History Paternal Family History: Family History (Last Reviewed 05/09/18 @ 15:51 by Heriberto Dempsey MD) Mother CVA (cerebral vascular accident) - - The patient's father at the age of 90 of old age. Patient's mother at age of 83 with a history of liver cancer. Tobacco Use: Non-smoker Review of Systems Constitutional: Denies: Chills, Fever, Weight Change Eyes: Denies: Pain, Vision Change HEENT: Denies: Difficulty Hearing, Difficulty Swallowing, Sinus Congestion Cardiovascular: Denies: Chest Pain, Palpitations Respiratory: Denies: Cough, Shortness of Breath Gastrointestinal: Denies: Diarrhea, Nausea, Vomiting Genitourinary: Denies: Dysuria, Hematuria Endocrine: Denies: Heat/ Cold Intolerance, Polydipsia, Polyuria Hematologic/ Lymphatic: Denies: Easy Bruising, Easy Bleeding - Physical Exam Vital Signs Temp Pulse Resp BP 98.4 F 113 H 18 149/90 H 05/22/18 12:12 05/22/18 12:12 05/22/18 12:12 05/22/18 12:12 General: Alert, Oriented x3, Cooperative, No apparent distress, Well developed, Well nourished HEENT: Atraumatic, PERRLA, EOMI, Normocephalic Oral: Moist Mucosa Neck: No JVD Lungs: Normal air movement Abdomen: Non-Distended Extremities: No clubbing, No cyanosis, No Calf Tenderness, Edema, - - Significant swelling and edema is noted in the patient's right lower extremity. There is ecchymosis, consistent with the patient having undergone a recent endothermal venous ablation procedure. Percutaneous access sites are well approximated and healing appropriately. The ulceration on the right medial calf persists, appearing to be less prominent. There is no sign of infection or cellulitis. Dimensions are documented elsewhere. Skin: No rashes Wound Measurements and Assessment WC - Nurse 1 - General Ulcer Measurement Start: 05/03/18 11:18 Freq: Status: Active Protocol: Activity Type Activity Date Activity User E-Sign Co-Sign Detail Recorded Client Recorded Date Recorded By Document 05/22/18 12:12 [id number] 05/22/18 12:24 CS 05/22/18 12:12 Wound Center Nurse 1 [Ulcer Assessment] #1 Medial RLE -Date of Last Picture (Recall this 05/22/18 field) [Edema Assessment] -Lower Limb Edema Present NA WC - Nurse 2 - General Ulcer CM Notes Start: 05/03/18 11:18 Freq: Status: Active Protocol: Activity Type Activity Date Activity User E-Sign Co-Sign Detail Recorded Client Recorded Date Recorded By Document 05/22/18 12:45 DV [id number] 05/22/18 12:47 DV 05/22/18 12:45 Wound Center Nurse 2 [Procedure/Treatment] #1 Medial RLE -Time 12:45 -Correct Patient Yes -Correct Side, Site, Position Yes -Procedure Performed No -Wound/Ulcer Outcome Not Healed -Bleeding Controlled with NA -Offloading No [See Physician Procedure note for Specifics] Pain Scale: 0-10 Numeric [Pain] -Is Patient Pain Free? Yes Neurological: Cranial nerves II-XII grossly intact, Neuro grossly intact Psych/Mental Status: Normal Affect, Appropriate, Alert and oriented to time, place, person, mood and affect Debridement Note Post-Debridement Measurements/Treatment WC - Nurse 2 - General Ulcer CM Notes Start: 05/03/18 11:18 Freq: Status: Active Protocol: Activity Type Activity Date Activity User E-Sign Co-Sign Detail Recorded Client Recorded Date Recorded By Document 05/08/18 12:25 JS [id number] 05/08/18 12:28 JS Document 05/15/18 14:15 DV [id number] 05/15/18 14:17 DV Document 05/22/18 12:45 DV [id number] 05/22/18 12:47 DV 05/08/18 05/15/18 05/22/18 12:25 14:15 12:45 Wound Center Nurse 2 #1 Medial RLE -Time 12:26 14:15 12:45 -Correct Patient Yes Yes Yes -Correct Side, Site, Position Yes Yes Yes -Correct Procedure Yes -Procedure Performed No No No -Wound/Ulcer Outcome Not Healed Not Healed Not Healed -Ulcer Cleansing Not Cleansed -Foul Odor after Cleansing No -Bioengineered Tissue No -Topical Lidocaine (%) 4 -Lidocaine (ml) 5 -Bleeding Controlled with NA NA -Offloading No No Pain Scale: 0-10 Numeric Is Patient Pain Free? Yes Yes Yes No debridement was completed today Assessment/Plan Active Problems (Last Reviewed 05/09/18 @ 15:51 by Heriberto Dempsey MD) Chronic venous insufficiency (Chronic) Varicose veins with ulcer and inflammation (Chronic) Chronic venous hypertension (idiopathic) with ulcer and inflammation of bilateral lower extremity (Chronic) Venous ulcer of right leg (Chronic) Spontaneous hemorrhage (Chronic) Right leg swelling (Chronic) Chronic venous hypertension with ulcer involving right side (Chronic) Assessment: This is a 77-year-old male with an apparent long-standing history of chronic venous disease. He has had varicose veins for many years, as well as chronic swelling in his right lower extremity. Also a question as to whether the patient may have a history of thrombophlebitis. Within the last several months, the patient has developed an ulceration on the right medial calf, and has had more than 3 episodes of spontaneous bleeding from the ulceration, prompting visits to the emergency department setting. Patient presented with recent medical records, which have been reviewed. In addition, laboratory results are available from the patient's primary care physician, the results of which have been reviewed. Results are as follows: Cholesterol 199, HDL cholesterol 57, HDL ratio 3.5, LDL cholesterol 121, sodium 140, potassium 4.3, chloride 104, calcium 9.4, alkaline phosphatase 96, AST 24, ALT 18, bilirubin 0.7, glucose 89, BUN 14, creatinine 0.72, protein 7.4, albumin 4.2. The date of these laboratory results is 02/10/2018. The patient has undergone a venous duplex examination on February 24, 2018. Results have been reviewed with the patient. 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 Accessory saphenous veins in the right lower extremity at the S5 and S6 positions are also incompetent. An incompetent word processing operator vein is noted in the right calf, located 13 cm proximal to the right medial malleolus. A noninvasive lower extremity arterial study has been performed as well, revealing no evidence of significant arterial occlusive disease in the lower extremities. The patient underwent endovenous laser ablation of the right great saphenous vein, 2 accessory saphenous veins, and a venous tributary on May. This was only several days ago. Patient presents at this time indicating that he has experienced very little pain or discomfort. There is mild ecchymosis on the medial aspect of his right lower extremity, not inconsistent with his recent procedure. There is significant swelling and edema, however, beyond that which would be expected. However, the patient, and his family at the bedside, indicate that he has not been elevating his lower extremities much as recommended, and that the compression wrap has not been applied as firmly as necessary. Furthermore, there is suggestion that the patient may have fallen in the shower the day after the procedure, with possible trauma to the involved leg. With concern regarding the patient's right lower extremity swelling, we have obtained a stat venous duplex examination of the right lower extremity. There is no sign of deep vein thrombosis. The ablated veins appear to be occluded, as would be expected post procedure. We are to continue with compression by means of a 3M 2 layer compression wrap, which will be changed twice weekly. Patient has been advised to elevate his lower extremities as much as possible. He is to continue sleeping on a flat mattress at night. Activity has been approved, though the patient is to refrain from prolonged idle sitting. Patient will return in 1 week for reassessment. Plan: The patient and his family have been advised in the appropriate conservative measures regarding management of the patient's chronic venous disease. The patient has been encouraged to continue sleeping in a recumbent position, on a flat mattress. Leg elevation should be to heart level, or higher. Legs should be elevated even during daytime hours, as much as possible. Prolonged idle sitting has been discouraged. Weight loss has been encouraged. We are to continue compression to the right lower extremity by means of a 3M 2 layer compression wrap, which will be changed twice weekly. We are to use Adaptic and gauze overlying the ulcerated site, in an effort to avoid adherence and subsequent bleeding. Patient has been instructed that, in the event of additional bleeding from the site, he is to elevate his leg and apply manual pressure. The patient is return in 1 week for reassessment. In the event that an episode of spontaneous bleeding should reoccur, the patient has been instructed to apply pressure to the bleeding site, and to elevate his lower extremity above heart level. Thereafter, he should seek medical attention. At present, we are to use a nonadhesive topical dressing such as Adaptic, with overlying gauze. The goal is to avoid any adherence of the dressings to the bleeding site, to avoid further bleeding episodes. There may be a benefit to ultrasound-guided injection sclerotherapy of the veins in the region of the bleeding varicosity at some juncture in the future, depending on the patient's response to his endothermal ablation procedure. Influenza vaccine was not administered today. The patient is not a smoker. Patient weighs 261 pounds. He stands 5 feet 8 inches tall. His BMI is 38.5, which places him in an obese class II category. Weight loss has been recommended, and collaboration with the patient's primary care physician has been recommended in terms of weight loss management.
--- NOTE | 2018-05-22 14:46 | HP.PCM_ITS ---
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 Status: Chronic Current Visit: Yes Code(s): I87.333 - Chronic venous hypertension (idiopathic) with ulcer and inflammation of bilateral lower extremity; L97.919 - Non-pressure chronic ulcer of unspecified part of right lower leg with unspecified severity; L97.929 - Non-pressure chronic ulcer of unspecified part of left lower leg with unspecified severity (4) Venous ulcer of right leg Status: Chronic Current Visit: Yes Code(s): I83.019 - Varicose veins of right lower extremity with ulcer of unspecified site; L97.919 - Non-pressure chronic ulcer of unspecified part of right lower leg with unspecified severity (5) Spontaneous hemorrhage Status: Chronic Current Visit: Yes Code(s): K66.1 - Hemoperitoneum (6) Atrial fibrillation Status: Chronic Current Visit: No Code(s): I48.91 - Unspecified atrial fibrillation (7) Lumbar radiculopathy Status: Chronic Current Visit: No Code(s): M54.16 - Radiculopathy, lumbar region (8) Obesity (BMI 35.0-39.9 without comorbidity) Status: Chronic Current Visit: No Code(s): E66.9 - Obesity, unspecified (9) Exertional dyspnea Status: Chronic Current Visit: No Code(s): R06.09 - Other forms of dyspnea (10) Right leg swelling Status: Chronic Current Visit: Yes Code(s): M79.89 - Other specified soft tissue disorders (11) Chronic venous hypertension with ulcer involving right side Status: Chronic Current Visit: Yes Code(s): I87.311 - Chronic venous hyper tension (idiopathic) with ulcer of right lower extremity; L97.919 - Non-pressure chronic ulcer of unspecified part of right lower leg with unspecified severity History of Present Illness Chief Complaint: Chronic venous insufficiency, varicose veins with ulceration and inflammation, venous hypertension with ulceration, venous ulceration, leg swelling, spontaneous bleeding?right lower extremity History of Wound: This is a 77-year-old male who presented with a long-standing history of chronic venous disease. The patient has had varicose veins for many years. He has elected to forego any significant treatment related to his venous disease. He denies a history of thrombophlebitis, though his past medical records indicate a history, though vague and nonspecific. Approximately 2 months prior to his presentation, the patient developed a spontaneous ulceration on the medial aspect of his right calf. The site subsequently ruptured, and spontaneous bleeding occurred on more than 3 different occasions, each time with significant blood loss. On at least one occasion, the spontaneous bleeding occurred after taking a hot shower. The patient has required attention in the emergency department on several occasions. Patient was subsequently referred to the [facility] for definitive m anagement. The patient relates swelling in his right leg which occurs typically at the end of each day. He sleeps on a flat mattress at night. He lies in a recumbent position often during the daytime. He is not very active. He is also noted to be obese. 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 (Chronic) Venous ulcer of right leg (Chronic) Spontaneous hemorrhage (Chronic) Atrial fibrillation (Chronic) Lumbar radiculopathy (Chronic) Obesity (BMI 35.0-39.9 without comorbidity) (Chronic) Exertional dyspnea (Chronic) Right leg swelling (Chronic) Chronic venous hypertension with ulcer involving right side (Chronic) Surgical History: no surgical history Allergies/Adverse Reactions: Allergies No Known Allergies Allergy (Verified 05/09/18 15:30) Home Medications: Ambulatory Orders Medication Instructions Recorded Aspirin [Adult Aspirin] 81 mg PO DAILY 05/03/18 Cholecalciferol (VIT D3) [Vitamin 1,000 unit PO DAILY 05/03/18 D] Multivitamin [Daily Multiple 1 ea PO DAILY 05/03/18 Vitamin] metoprolol succinate ER 50 mg 50 mg PO DAILY #90 tab 05/09/18 tablet,extended release 24 hr - Family History Paternal Family History: Family History (Last Reviewed 05/09/18 @ 15:51 by Heriberto Dempsey MD) Mother CVA (cerebral vascular accident) - - The patient's father at the age of 90 of old age. Patient's mother at age of 83 with a history of liver cancer. Tobacco Use: Non-smoker Review of Systems Constitutional: Denies: Chills, Fever, Weight Change Eyes: Denies: Pain, Vision Change HEENT: Denies: Difficulty Hearing, Difficulty Swallowing, Sinus Congestion Cardiovascular: Denies: Chest Pain, Palpitations Respiratory: Denies: Cough, Shortness of Breath Gastrointestinal: Denies: Diarrhea, Nausea, Vomiting Genitourinary: Denies: Dysuria, Hematuria Endocrine: Denies: Heat/ Cold Intolerance, Polydipsia, Polyuria Hematologic/ Lymphatic: Denies: Easy Bruising, Easy Bleeding - Physical Exam Vital Signs Temp Pulse Resp BP 98.4 F 113 H 18 149/90 H 05/22/18 12:12 05/22/18 12:12 05/22/18 12:12 05/22/18 12:12 General: Alert, Oriented x3, Cooperative, No apparent distress, Well developed, Well nourished HEENT: Atraumatic, PERRLA, EOMI, Normocephalic Oral: Moist Mucosa Neck: No JVD Lungs: Normal air movement Abdomen: Non-Distended Extremities: No clubbing, No cyanosis, No Calf Tenderness, Edema, - - Significant swelling and edema is noted in the patient's right lower extremity. There is ecchymosis, consistent with the patient having undergone a recent endothermal venous ablation procedure. Percutaneous access sites are well approximated and healing appropriately. The ulceration on the right medial calf persists, appearing to be less prominent. There is no sign of infection or cellulitis. Dimensions are documented elsewhere. Skin: No rashes Wound Measurements and Assessment WC - Nurse 1 - General Ulcer Measurement Start: 05/03/18 11:18 Freq: Status: Active Protocol: Activity Type Activity Date Activity User E-Sign Co-Sign Detail Recorded Client Recorded Date Recorded By Document 05/22/18 12:12 [id number] 05/22/18 12:24 CS 05/22/18 12:12 Wound Center Nurse 1 [Ulcer Assessment] #1 Medial RLE -Date of Last Picture (Recall this 05/22/18 field) [Edema Assessment] -Lower Limb Edema Present NA WC - Nurse 2 - General Ulcer CM Notes Start: 05/03/18 11:18 Freq: Status: Active Protocol: Activity Type Activity Date Activity User E-Sign Co-Sign Detail Recorded Client Recorded Date Recorded By Document 05/22/18 12:45 DV [id number] 05/22/18 12:47 DV 05/22/18 12:45 Wound Center Nurse 2 [Procedure/Treatment] #1 Medial RLE -Time 12:45 -Correct Patient Yes -Correct Side, Site, Position Yes -Procedure Performed No -Wound/Ulcer Outcome Not Healed -Bleeding Controlled with NA -Offloading No [See Physician Procedure note for Specifics] Pain Scale: 0-10 Numeric [Pain] -Is Patient Pain Free? Yes Neurological: Cranial nerves II-XII grossly intact, Neuro grossly intact Psych/Mental Status: Normal Affect, Appropriate, Alert and oriented to time, place, person, mood and affect Debridement Note Post-Debridement Measurements/Treatment WC - Nurse 2 - General Ulcer CM Notes Start: 05/03/18 11:18 Freq: Status: Active Protocol: Activity Type Activity Date Activity User E-Sign Co-Sign Detail Recorded Client Recorded Date Recorded By Document 05/08/18 12:25 JS [id number] 05/08/18 12:28 JS Document 05/15/18 14:15 DV [id number] 05/15/18 14:17 DV Document 05/22/18 12:45 DV [id number] 05/22/18 12:47 DV 05/08/18 05/15/18 05/22/18 12:25 14:15 12:45 Wound Center Nurse 2 #1 Medial RLE -Time 12:26 14:15 12:45 -Correct Patient Yes Yes Yes -Correct Side, Site, Position Yes Yes Yes -Correct Procedure Yes -Procedure Performed No No No -Wound/Ulcer Outcome Not Healed Not Healed Not Healed -Ulcer Cleansing Not Cleansed -Foul Odor after Cleansing No -Bioengineered Tissue No -Topical Lidocaine (%) 4 -Lidocaine (ml) 5 -Bleeding Controlled with NA NA -Offloading No No Pain Scale: 0-10 Numeric Is Patient Pain Free? Yes Yes Yes No debridement was completed today Assessment/Plan Active Problems (Last Reviewed 05/09/18 @ 15:51 by Heriberto Dempsey MD) Chronic venous insufficiency (Chronic) Varicose veins with ulcer and inflammation (Chronic) Chronic venous hypertension (idiopathic) with ulcer and inflammation of bilateral lower extremity (Chronic) Venous ulcer of right leg (Chronic) Spontaneous hemorrhage (Chronic) Right leg swelling (Chronic) Chronic venous hypertension with ulcer involving right side (Chronic) Assessment: This is a 77-year-old male with an apparent long-standing history of chronic venous disease. He has had varicose veins for many years, as well as chronic swelling in his right lower extremity. Also a question as to whether the patient may have a history of thrombophlebitis. Within the last several months, the patient has developed an ulceration on the right medial calf, and has had more than 3 episodes of spontaneous bleeding from the ulceration, prompting visits to the emergency department setting. Patient presented with recent medical records, which have been reviewed. In addition, laboratory results are available from the patient's primary care physician, the results of which have been reviewed. Results are as follows: Cholesterol 199, HDL cholesterol 57, HDL ratio 3.5, LDL cholesterol 121, sodium 140, potassium 4.3, chloride 104, calcium 9.4, alkaline phosphatase 96, AST 24, ALT 18, bilirubin 0.7, glucose 89, BUN 14, creatinine 0.72, protein 7.4, albumin 4.2. The date of these laboratory results is 02/10/2018. The patient has undergone a venous duplex examination on February 24, 2018. Results have been reviewed with the patient. 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 Accessory saphenous veins in the right lower extremity at the S5 and S6 positions are also incompetent. An incompetent steam service inspector vein is noted in the right calf, located 13 cm proximal to the right medial malleolus. A noninvasive lower extre mity arterial study has been performed as well, revealing no evidence of significant arterial occlusive disease in the lower extremities. The patient underwent endovenous laser ablation of the right great saphenous vein, 2 accessory saphenous veins, and a venous tributary on May. This was only several days ago. Patient presents at this time indicating that he has experienced very little pain or discomfort. There is mild ecchymosis on the medial aspect of his right lower extremity, not inconsistent with his recent procedure. There is significant swelling and edema, however, beyond that which would be expected. However, the patient, and his family at the bedside, indicate that he has not been elevating his lower extremities much as recommended, and that the compression wrap has not been applied as firmly as necessary. Furthermore, there is suggestion that the patient may have fallen in the shower the day after the procedure, with possible trauma to the involved leg. With concern regarding the patient's right lower extremity swelling, we have obtained a stat venous duplex examination of the right lower extremity. There is no sign of deep vein thrombosis. The ablated veins appear to be occluded, as would be expected post procedure. We are to continue with compression by means of a 3M 2 layer compression wrap, which will be changed twice weekly. Patient has been advised to elevate his lower extremities as much as possible. He is to continue sleeping on a flat mattress at night. Activity has been approved, though the patient is to refrain from prolonged idle sitting. Patient will return in 1 week for reassessment. Plan: The patient and his family have been advised in the appropriate conservative measures regarding management of the patient's chronic venous disease. The patient has been encouraged to continue sleeping in a recumbent position, on a flat mattress. Leg elevation should be to heart level, or high er. Legs should be elevated even during daytime hours, as much as possible. Prolonged idle sitting has been discouraged. Weight loss has been encouraged. We are to continue compression to the right lower extremity by means of a 3M 2 layer compression wrap, which will be changed twice weekly. We are to use Adaptic and gauze overlying the ulcerated site, in an effort to avoid adherence and subsequent bleeding. Patient has been instructed that, in the event of additional bleeding from the site, he is to elevate his leg and apply manual pressure. The patient is return in 1 week for reassessment. In the event that an episode of spontaneous bleeding should reoccur, the patient has been instructed to apply pressure to the bleeding site, and to elevate his lower extremity above heart level. Thereafter, he should seek medical attention. At present, we are to use a nonadhesive topical dressing such as Adaptic, with overlying gauze. The goal is to avoid any adherence of the dressings to the bleeding site, to avoid further bleeding episodes. There may be a benefit to ultrasound-guided injection sclerotherapy of the veins in the region of the bleeding varicosity at some juncture in the future, depending on the patient's response to his endothermal ablation procedure. Influenza vaccine was not administered today. The patient is not a smoker. Patient weighs 261 pounds. He stands 5 feet 8 inches tall. His BMI is 38.5, which places him in an obese class II category. Weight loss has been recommended, and collaboration with the patient's primary care physician has been recommended in terms of weight loss management.
[2018-05-25 13:35] VITALS: BP 152/91; PULSE 121; RESP 18; TEMP 37.1; BMI 38.5
[2018-05-29 14:20] VITALS: BP 142/84; PULSE 100; RESP 16; TEMP 36.9; BMI 38.5
--- NOTE | 2018-05-29 15:22 | PCM.WC.HP ---
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 Status: Chronic Current Visit: Yes Code(s): I87.333 - Chronic venous hypertension (idiopathic) with ulcer and inflammation of bilateral lower extremity; L97.919 - Non-pressure chronic ulcer of unspecified part of right lower leg with unspecified severity; L97.929 - Non-pressure chronic ulcer of unspecified part of left lower leg with unspecified severity (4) Venous ulcer of right leg Status: Chronic Current Visit: Yes Code(s): I83.019 - Varicose veins of right lower extremity with ulcer of unspecified site; L97.919 - Non-pressure chronic ulcer of unspecified part of right lower leg with unspecified severity (5) Spontaneous hemorrhage Status: Chronic Current Visit: Yes Code(s): K66.1 - Hemoperitoneum (6) Atrial fibrillation Status: Chronic Current Visit: No Code(s): I48.91 - Unspecified atrial fibrillation (7) Lumbar radiculopathy Status: Chronic Current Visit: No Code(s): M54.16 - Radiculopathy, lumbar region (8) Obesity (BMI 35.0-39.9 without comorbidity) Status: Chronic Current Visit: No Code(s): E66.9 - Obesity, unspecified (9) Exertional dyspnea Status: Chronic Current Visit: No Code(s): R06.09 - Other forms of dyspnea (10) Right leg swelling Status: Chronic Current Visit: Yes Code(s): M79.89 - Other specified soft tissue disorders (11) Chronic venous hypertension with ulcer involving right side Status: Chronic Current Visit: Yes Code(s): I87.311 - Chronic venous hypertension (idiopathic) with ulcer of right lower extremity; L97.919 - Non-pressure chronic ulcer of unspecified part of right lower leg with unspecified severity History of Present Illness Chief Complaint: Chronic venous insufficiency, varicose veins with ulceration and inflammation, venous hypertension with ulceration, venous ulceration, leg swelling, spontaneous bleeding?right lower extremity History of Wound: This is a 77-year-old male who presented with a long-standing history of chronic venous disease. The patient has had varicose veins for many years. He has elected to forego any significant treatment related to his venous disease. He denies a history of thrombophlebitis, though his past medical records indicate a history, though vague and nonspecific. Approximately 2 months prior to his presentation, the patient developed a spontaneous ulceration on the medial aspect of his right calf. The site subsequently ruptured, and spontaneous bleeding occurred on more than 3 different occasions, each time with significant blood loss. On at least one occasion, the spontaneous bleeding occurred after taking a hot shower. The patient has required attention in the emergency department on several occasions. Patient was subsequently referred to the [facility] for definitive management. The patient relates swelling in his right leg which occurs typically at the end of each day. He sleeps on a flat mattress at night. He lies in a recumbent position often during the daytime. He is not very active. He is also noted to be obese. 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 (Chronic) Venous ulcer of right leg (Chronic) Spontaneous hemorrhage (Chronic) Atrial fibrillation (Chronic) Lumbar radiculopathy (Chronic) Obesity (BMI 35.0-39.9 without comorbidity) (Chronic) Exertional dyspnea (Chronic) Right leg swelling (Chronic) Chronic venous hypertension with ulcer involving right side (Chronic) Surgical History: no surgical history Allergies/Adverse Reactions: Allergies No Known Allergies Allergy (Verified 05/09/18 15:30) Home Medications: Ambulatory Orders Medication Instructions Recorded Aspirin [Adult Aspirin] 81 mg PO DAILY 05/03/18 Cholecalciferol (VIT D3) [Vitamin 1,000 unit PO DAILY 05/03/18 D] Multivitamin [Daily Multiple 1 ea PO DAILY 05/03/18 Vitamin] metoprolol succinate ER 50 mg 50 mg PO DAILY #90 tab 01/08/19 tablet,extended release 24 hr - Family History Paternal Family History: Family History (Last Reviewed 05/09/18 @ 15:51 by Heriberto Dempsey MD) Mother CVA (cerebral vascular accident) - - The patient's father at the age of 90 of old age. Patient's mother at age of 83 with a history of liver cancer. Tobacco Use: Non-smoker Review of Systems Constitutional: Denies: Chills, Fever, Weight Change Eyes: Denies: Pain, Vision Change HEENT: Denies: Difficulty Hearing, Difficulty Swallowing, Sinus Congestion Cardiovascular: Denies: Chest Pain, Palpitations Respiratory: Denies: Cough, Shortness of Breath Gastrointestinal: Denies: Diarrhea, Nausea, Vomiting Genitourinary: Denies: Dysuria, Hematuria Endocrine: Denies: Heat/ Cold Intolerance, Polydipsia, Polyuria Hematologic/ Lymphatic: Denies: Easy Bruising, Easy Bleeding - Physical Exam Vital Signs Temp Pulse Resp BP 98.4 F 100 16 142/84 H 05/29/18 14:20 05/29/18 14:20 05/29/18 14:20 05/29/18 14:20 General: Alert, Oriented x3, Cooperative, No apparent distress, Well developed, Well nourished HEENT: Atraumatic, PERRLA, EOMI, Normocephalic Oral: Moist Mucosa Neck: No JVD Lungs: Normal air movement Abdomen: Non-Distended Extremities: No clubbing, No cyanosis, No edema, No Calf Tenderness, - - There is no significant swelling or edema in the patient's right lower extremity. Chronic varicose veins persist, as previously noted. The access sites related to the patient's recent endovenous laser ablation procedure are now well-healed. The ulceration on the right medial calf persists. It is raised, with evidence of hypertrophic tissue. There is no sign of infection or cellulitis. Dimensions are documented elsewhere. Skin: No rashes Wound Measurements and Assessment WC - Nurse 1 - General Ulcer Measurement Start: 05/03/18 11:18 Freq: Status: Active Protocol: Activity Type Activity Date Activity User E-Sign Co-Sign Detail Recorded Client Recorded Date Recorded By Document 05/29/18 14:20 KARISHMA [id number] 05/29/18 14:28 KARISHMA 05/29/18 14:20 Wound Center Nurse 1 [Ulcer Assessment] #1 Medial RLE -Combined with other wound No -Current Size (cm) - Length 1 -Current Size (cm) - Width 1.5 -Current Size (cm) - Depth 0.2 -Total Square Cm 1.5 -Photo Taken No -Epithelialization None Present -Tunneling No -Undermining/Tunneling No -Circular Undermining No -Exudate Amt None Present -Wound Margin Flat & Intact -Granulation Amt Small (1-33%) -Granulation Quality Red -Slough/Fibrin Yes -Necrosis Amt Medium (34-66%) -Necrotic Tissue Type Adherent Slough -Structure Exposed N/A -Texture (Skylar-wound Skin Appearance) Assessed Localized Edema -Moisture (Skylar-wound Skin Appearance Assessed ) Dry/Scaly -Color (Skylar-wound Skin Appearance) Assessed Ecchymosis Hemosiderin Staining -Temperature (Skylar-wound Skin No Abnormality Appearance) (Pt Warm) -Tenderness on Palpation (Skylar-wound No Skin Appearance) -Ulcer Cleansing Wound Cleanser -Foul Odor after Cleansing No [Edema Assessment] -Lower Limb Edema Present Yes -Right Calf (cm) 38.3 -Right Ankle (cm) 23.2 WC - Nurse 2 - General Ulcer CM Notes Start: 05/03/18 11:18 Freq: Status: Active Protocol: Activity Type Activity Date Activity User E-Sign Co-Sign Detail Recorded Client Recorded Date Recorded By Document 05/29/18 15:11 MW [id number] 05/29/18 15:19 MW 05/29/18 15:11 Wound Center Nurse 2 [Procedure/Treatment] #1 Medial RLE -Time 15:12 -Correct Patient Yes -Correct Side, Site, Position Yes -Correct Procedure Yes -Procedure Performed Yes -Type of Procedure Debridement -Clinical Debridement Subcutaneous -Post Debridement Size (cm) - Length 1.0 -Post Debridement Size (cm) - Width 1.4 -Post Debridement Size (cm) - Depth 0.1 -Total Square Cm 1.40 -Wound/Ulcer Outcome Not Healed -Ulcer Cleansing Rinsed/ Irrigated with Saline -Foul Odor after Cleansing No -Bioengineered Tissue No -Bleeding Controlled with Pressure Silver Nitrate -Offloading No -Treatment Response Procedure Tolerated Well [See Physician Procedure note for Specifics] Pain Scale: 0-10 Numeric [Pain] -Is Patient Pain Free? Yes Neurological: Cranial nerves II-XII grossly intact, Neuro grossly intact Psych/Mental Status: Normal Affect, Appropriate, Alert and oriented to time, place, person, mood and affect Debridement Note Post-Debridement Measurements/Treatment WC - Nurse 2 - General Ulcer CM Notes Start: 05/03/18 11:18 Freq: Status: Active Protocol: Activity Type Activity Date Activity User E-Sign Co-Sign Detail Recorded Client Recorded Date Recorded By Document 05/08/18 12:25 JS [id number] 05/08/18 12:28 JS Document 05/15/18 14:15 DV [id number] 05/15/18 14:17 DV Document 05/22/18 12:45 DV [id number] 05/22/18 12:47 DV Document 05/29/18 15:11 MW [id number] 05/29/18 15:19 MW 05/08/18 05/15/18 05/22/18 12:25 14:15 12:45 Wound Center Nurse 2 #1 [facility] RLE -Time 12:26 14:15 12:45 -Correct Patient Yes Yes Yes -Correct Side, Site, Position Yes Yes Yes -Correct Procedure Yes -Procedure Performed No No No -Type of Procedure -Clinical Debridement -Post Debridement Size (cm) - Length -Post Debridement Size (cm) - Width -Post Debridement Size (cm) - Depth -Total Square Cm -Wound/Ulcer Outcome Not Healed Not Healed Not Healed -Ulcer Cleansing Not Cleansed -Foul Odor after Cleansing No -Bioengineered Tissue No -Topical Lidocaine (%) 4 -Lidocaine (ml) 5 -Bleeding Controlled with NA NA -Offloading No No -Treatment Response Pain Scale: 0-10 Numeric Is Patient Pain Free? Yes Yes Yes 05/29/18 15:11 Wound Center Nurse 2 #1 [facility] RLE -Time 15:12 -Correct Patient Yes -Correct Side, Site, Position Yes -Correct Procedure Yes -Procedure Performed Yes -Type of Procedure Debridement -Clinical Debridement Subcutaneous -Post Debridement Size (cm) - Length 1.0 -Post Debridement Size (cm) - Width 1.4 -Post Debridement Size (cm) - Depth 0.1 -Total Square Cm 1.40 -Wound/Ulcer Outcome Not Healed -Ulcer Cleansing Rinsed/ Irrigated with Saline -Foul Odor after Cleansing No -Bioengineered Tissue No -Topical Lidocaine (%) -Lidocaine (ml) -Bleeding Controlled with Pressure Silver Nitrate -Offloading No -Treatment Response Procedure Tolerated Well Pain Scale: 0-10 Numeric Is Patient Pain Free? Yes Laterality: Right - Medial calf Type of Debridement: Excisional debridement Anesthesia Used: 5% Lidocaine Gel Depth: Down to and including healthy tissue, in the subcutaneous layer Percentage of wound debrided: 100 Instrument Used: 5mm curette Severity: Fat Layer Exposed Amount of bleeding with debridement: Mild Patient tolerated procedure well The patient's right medial calf ulceration is raised, with evidence of grossly hypertrophic tissue. Following an excisional debridement, silver nitrate sticks were used to treat the entire surface of the raised, hypertrophic area. This was well-tolerated by the patient. It is anticipated that the superficial portion of the hypertrophic tissue will eventually slough as result of the use of silver nitrate topically. Assessment/Plan Active Problems (Last Reviewed 05/09/18 @ 15:51 by Heriberto Dempsey MD) Chronic venous insufficiency (Chronic) Varicose veins with ulcer and inflammation (Chronic) Chronic venous hypertension (idiopathic) with ulcer and inflammation of bilateral lower extremity (Chronic) Venous ulcer of right leg (Chronic) Spontaneous hemorrhage (Chronic) Right leg swelling (Chronic) Chronic venous hypertension with ulcer involving right side (Chronic) Assessment: This is a 77-year-old male with an apparent long-standing history of chronic venous disease. He has had varicose veins for many years, as well as chronic swelling in his right lower extremity. Also a question as to whether the patient may have a history of thrombophlebitis. Within the last several months, the patient has developed an ulceration on the right medial calf, and has had more than 3 episodes of spontaneous bleeding from the ulceration, prompting visits to the emergency department setting. Patient presented with recent medical records, which have been reviewed. In addition, laboratory results are available from the patient's primary care physician, the results of which have been reviewed. Results are as follows: Cholesterol 199, HDL cholesterol 57, HDL ratio 3.5, LDL cholesterol 121, sodium 140, potassium 4.3, chloride 104, calcium 9.4, alkaline phosphatase 96, AST 24, ALT 18, bilirubin 0.7, glucose 89, BUN 14, creatinine 0.72, protein 7.4, albumin 4.2. The date of these laboratory results is 02/10/2018. The patient has undergone a venous duplex examination on February 24, 2018. The right great saphenous vein was noted to be incompetent. Accessory saphenous veins in the right lower extremity at the S5 and S6 positions were also incompetent. 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 A noninvasive lower extremity arterial study has been performed as well, revealing no evidence of significant arterial occlusive disease in the lower extremities. The patient underwent endovenous laser ablation of the right great saphenous vein, 2 accessory saphenous veins, and a venous tributary on May. Patient presents at this time indicating that he has experienced very little pain or discomfort. He appears to be doing quite well. The lack of swelling and edema in his right lower extremity is at testament to the recent procedural results, as well as his recent compliance with recommendations for compression and elevation. A post-procedure venous duplex examination revealed no evidence of deep vein thrombosis, and the ablated veins appear to be occluded, as would be expected post-procedure. We are to continue with compression by means of a 3M 2 layer compression wrap, which will be changed twice weekly. Patient has been advised to elevate his lower extremities as much as possible. He is to continue sleeping on a flat mattress at night. Activity has been encouraged, and the patient is to refrain from prolonged idle sitting. Patient will return in 1 week for reassessment. Plan: The patient and his family have been advised in the appropriate conservative measures regarding management of the patient's chronic venous disease. The patient has been encouraged to continue sleeping in a recumbent position, on a flat mattress. Leg elevation should be to heart level, or higher. Legs should be elevated even during daytime hours, as much as possible. Prolonged idle sitting has been discouraged. Weight loss has been encouraged. We are to continue compression to the right lower extremity by means of a 3M 2 layer compression wrap, which will be changed twice weekly. We are to use Adaptic and gauze overlying the ulcerated site, in an effort to avoid adherence and subsequent bleeding. Ultimately, in the near future, it is likely that we will prescribe graduated compression stockings of knee-high length, 20-30 mmHg compression, which will be worn by the patient on a daily basis. Patient has been instructed that, in the event of additional bleeding from the site, he is to elevate his leg and apply manual pressure. The patient is return in 1 week for reassessment. In the event that an episode of spontaneous bleeding should reoccur, the patient has been instructed to apply pressure to the bleeding site, and to elevate his lower extremity above heart level. Thereafter, he should seek medical attention. At present, we are to use a nonadhesive topical dressing such as Adaptic, with overlying gauze. The goal is to avoid any adherence of the dressings to the bleeding site, to avoid further bleeding episodes. There may be a benefit to ultrasound-guided injection sclerotherapy of the veins in the region of the bleeding varicosity at some juncture in the future, depending on the patient's response to his endothermal ablation procedure. Influenza vaccine was not administered today. The patient is not a smoker. Patient weighs 261 pounds. He stands 5 feet 8 inches tall. His BMI is 38.5, which places him in an obese class II category. Weight loss has been recommended, and collaboration with the patient's primary care physician has been recommended in terms of weight loss management.
--- NOTE | 2018-05-29 15:26 | HP.PCM_ITS ---
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 Status: Chronic Current Visit: Yes Code(s): I87.333 - Chronic venous hypertension (idiopathic) with ulcer and inflammation of bilateral lower extremity; L97.919 - Non-pressure chronic ulcer of unspecified part of right lower leg with unspecified severity; L97.929 - Non-pressure chronic ulcer of unspecified part of left lower leg with unspecified severity (4) Venous ulcer of right leg Status: Chronic Current Visit: Yes Code(s): I83.019 - Varicose veins of right lower extremity with ulcer of unspecified site; L97.919 - Non-pressure chronic ulcer of unspecified part of right lower leg with unspecified severity (5) Spontaneous hemorrhage Status: Chronic Current Visit: Yes Code(s): K66.1 - Hemoperitoneum (6) Atrial fibrillation Status: Chronic Current Visit: No Code(s): I48.91 - Unspecified atrial fibrillation (7) Lumbar radiculopathy Status: Chronic Current Visit: No Code(s): M54.16 - Radiculopathy, lumbar region (8) Obesity (BMI 35.0-39.9 without comorbidity) Status: Chronic Current Visit: No Code(s): E66.9 - Obesity, unspecified (9) Exertional dyspnea Status: Chronic Current Visit: No Code(s): R06.09 - Other forms of dyspnea (10) Right leg swelling Status: Chronic Current Visit: Yes Code(s): M79.89 - Other specified soft tissue disorders (11) Chronic venous hypertension with ulcer involving right side Status: Chronic Current Visit: Yes Code(s): I87.311 - Chronic venous hyper tension (idiopathic) with ulcer of right lower extremity; L97.919 - Non-pressure chronic ulcer of unspecified part of right lower leg with unspecified severity History of Present Illness Chief Complaint: Chronic venous insufficiency, varicose veins with ulceration and inflammation, venous hypertension with ulceration, venous ulceration, leg swelling, spontaneous bleeding?right lower extremity History of Wound: This is a 77-year-old male who presented with a long-standing history of chronic venous disease. The patient has had varicose veins for many years. He has elected to forego any significant treatment related to his venous disease. He denies a history of thrombophlebitis, though his past medical records indicate a history, though vague and nonspecific. Approximately 2 months prior to his presentation, the patient developed a spontaneous ulceration on the medial aspect of his right calf. The site subsequently ruptured, and spontaneous bleeding occurred on more than 3 different occasions, each time with significant blood loss. On at least one occasion, the spontaneous bleeding occurred after taking a hot shower. The patient has required attention in the emergency department on several occasions. Patient was subsequently referred to the [facility] for definitive m anagement. The patient relates swelling in his right leg which occurs typically at the end of each day. He sleeps on a flat mattress at night. He lies in a recumbent position often during the daytime. He is not very active. He is also noted to be obese. 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 (Chronic) Venous ulcer of right leg (Chronic) Spontaneous hemorrhage (Chronic) Atrial fibrillation (Chronic) Lumbar radiculopathy (Chronic) Obesity (BMI 35.0-39.9 without comorbidity) (Chronic) Exertional dyspnea (Chronic) Right leg swelling (Chronic) Chronic venous hypertension with ulcer involving right side (Chronic) Surgical History: no surgical history Allergies/Adverse Reactions: Allergies No Known Allergies Allergy (Verified 05/09/18 15:30) Home Medications: Ambulatory Orders Medication Instructions Recorded Aspirin [Adult Aspirin] 81 mg PO DAILY 05/03/18 Cholecalciferol (VIT D3) [Vitamin 1,000 unit PO DAILY 05/03/18 D] Multivitamin [Daily Multiple 1 ea PO DAILY 05/03/18 Vitamin] metoprolol succinate ER 50 mg 50 mg PO DAILY #90 tab 05/09/18 tablet,extended release 24 hr - Family History Paternal Family History: Family History (Last Reviewed 05/09/18 @ 15:51 by Heriberto Dempsey MD) Mother CVA (cerebral vascular accident) - - The patient's father at the age of 90 of old age. Patient's mother at age of 83 with a history of liver cancer. Tobacco Use: Non-smoker Review of Systems Constitutional: Denies: Chills, Fever, Weight Change Eyes: Denies: Pain, Vision Change HEENT: Denies: Difficulty Hearing, Difficulty Swallowing, Sinus Congestion Cardiovascular: Denies: Chest Pain, Palpitations Respiratory: Denies: Cough, Shortness of Breath Gastrointestinal: Denies: Diarrhea, Nausea, Vomiting Genitourinary: Denies: Dysuria, Hematuria Endocrine: Denies: Heat/ Cold Intolerance, Polydipsia, Polyuria Hematologic/ Lymphatic: Denies: Easy Bruising, Easy Bleeding - Physical Exam Vital Signs Temp Pulse Resp BP 98.4 F 100 16 142/84 H 05/29/18 14:20 05/29/18 14:20 05/29/18 14:20 05/29/18 14:20 General: Alert, Oriented x3, Cooperative, No apparent distress, Well developed, Well nourished HEENT: Atraumatic, PERRLA, EOMI, Normocephalic Oral: Moist Mucosa Neck: No JVD Lungs: Normal air movement Abdomen: Non-Distended Extremities: No clubbing, No cyanosis, No edema, No Calf Tenderness, - - There is no significant swelling or edema in the patient's right lower extremity. Chronic varicose veins persist, as previously noted. The access sites related to the patient's recent endovenous laser ablation procedure are now well-healed. The ulceration on the right medial calf persists. It is raised, with evidence of hypertrophic tissue. There is no sign of infection or cellulitis. Dimensions are documented elsewhere. Skin: No rashes Wound Measurements and Assessment WC - Nurse 1 - General Ulcer Measurement Start: 05/03/18 11:18 Freq: Status: Active Protocol: Activity Type Activity Date Activity User E-Sign Co-Sign Detail Recorded Client Recorded Date Recorded By Document 05/29/18 14:20 KARISHMA [id number] 05/29/18 14:28 05/29/18 14:20 Wound Center Nurse 1 [Ulcer Assessment] #1 Medial RLE -Combined with other wound No -Current Size (cm) - Length 1 -Current Size (cm) - Width 1.5 -Current Size (cm) - Depth 0.2 -Total Square Cm 1.5 -Photo Taken No -Epithelialization None Present -Tunneling No -Undermining/Tunneling No -Circular Undermining No -Exudate Amt None Present -Wound Margin Flat & Intact -Granulation Amt Small (1-33%) -Granulation Quality Red -Slough/Fibrin Yes -Necrosis Amt Medium (34-66%) -Necrotic Tissue Type Adherent Slough -Structure Exposed N/A -Texture (Skylar-wound Skin Appearance) Assessed Localized Edema -Moisture (Skylar-wound Skin Appearance Assessed ) Dry/Scaly -Color (Skylar-wound Skin Appearance) Assessed Ecchymosis Hemosiderin Staining -Temperature (Skylar-wound Skin No Abnormality Appearance) (Pt Warm) -Tenderness on Palpation (Skylar-wound No Skin Appearance) -Ulcer Cleansing Wound Cleanser -Foul Odor after Cleansing No [Edema Assessment] -Lower Limb Edema Present Yes -Right Calf (cm) 38.3 -Right Ankle (cm) 23.2 WC - Nurse 2 - General Ulcer CM Notes Start: 05/03/18 11:18 Freq: Status: Active Protocol: Activity Type Activity Date Activity User E-Sign Co-Sign Detail Recorded Client Recorded Date Recorded By Document 05/29/18 15:11 MW [id number] 05/29/18 15:19 MW 05/29/18 15:11 Wound Center Nurse 2 [Procedure/Treatment] #1 Medial RLE -Time 15:12 -Correct Patient Yes -Correct Side, Site, Position Yes -Correct Procedure Yes -Procedure Performed Yes -Type of Procedure Debridement -Clinical Debridement Subcutaneous -Post Debridement Size (cm) - Length 1.0 -Post Debridement Size (cm) - Width 1.4 -Post Debridement Size (cm) - Depth 0.1 -Total Square Cm 1.40 -Wound/Ulcer Outcome Not Healed -Ulcer Cleansing Rinsed/ Irrigated with Saline -Foul Odor after Cleansing No -Bioengineered Tissue No -Bleeding Controlled with Pressure Silver Nitrate -Offloading No -Treatment Response Procedure Tolerated Well [See Physician Procedure note for Specifics] Pain Scale: 0-10 Numeric [Pain] -Is Patient Pain Free? Yes Neurological: Cranial nerves II-XII grossly intact, Neuro grossly intact Psych/Mental Status: Normal Affect, Appropriate, Alert and oriented to time, place, person, mood and affect Debridement Note Post-Debridement Measurements/Treatment WC - Nurse 2 - General Ulcer CM Notes Start: 05/03/18 11:18 Freq: Status: Active Protocol: Activity Type Activity Date Activity User E-Sign Co-Sign Detail Recorded Client Recorded Date Recorded By Document 05/08/18 12:25 JS [id number] 05/08/18 12:28 JS Document 05/15/18 14:15 DV [id number] 05/15/18 14:17 DV Document 05/22/18 12:45 DV [id number] 05/22/18 12:47 DV Document 05/29/18 15:11 MW [id number] 05/29/18 15:19 MW 05/08/18 05/15/18 05/22/18 12:25 14:15 12:45 Wound Center Nurse 2 #1 [facility] RLE -Time 12:26 14:15 12:45 -Correct Patient Yes Yes Yes -Correct Side, Site, Position Yes Yes Yes -Correct Procedure Yes -Procedure Performed No No No -Type of Procedure -Clinical Debridement -Post Debridement Size (cm) - Length -Post Debridement Size (cm) - Width -Post Debridement Size (cm) - Depth -Total Square Cm -Wound/Ulcer Outcome Not Healed Not Healed Not Healed -Ulcer Cleansing Not Cleansed -Foul Odor after Cleansing No -Bioengineered Tissue No -Topical Lidocaine (%) 4 -Lidocaine (ml) 5 -Bleeding Controlled with NA NA -Offloading No No -Treatment Response Pain Scale: 0-10 Numeric Is Patient Pain Free? Yes Yes Yes 05/29/18 15:11 Wound Center Nurse 2 #1 [facility] RLE -Time 15:12 -Correct Patient Yes -Correct Side, Site, Position Yes -Correct Procedure Yes -Procedure Performed Yes -Type of Procedure Debridement -Clinical Debridement Subcutaneous -Post Debridement Size (cm) - Length 1.0 -Post Debridement Size (cm) - Width 1.4 -Post Debridement Size (cm) - Depth 0.1 -Total Square Cm 1.40 -Wound/Ulcer Outcome Not Healed -Ulcer Cleansing Rinsed/ Irrigated with Saline -Foul Odor after Cleansing No -Bioengineered Tissue No -Topical Lidocaine (%) -Lidocaine (ml) -Bleeding Controlled with Pressure Silver Nitrate -Offloading No -Treatment Response Procedure Tolerated Well Pain Scale: 0-10 Numeric Is Patient Pain Free? Yes Laterality: Right - Medial calf Type of Debridement: Excisional debridement Anesthesia Used: 5% Lidocaine Gel Depth: Down to and including healthy tissue, in the subcutaneous layer Percentage of wound debrided: 100 Instrument Used: 5mm curette Severity: Fat Layer Exposed Amount of bleeding with debridement: Mild Patient tolerated procedure well The patient's right medial calf ulceration is raised, with evidence of grossly hypertrophic tissue. Following an excisional debridement, silver nitrate sticks were used to treat the entire surface of the raised, hypertrophic area. This was well-tolerated by the patient. It is anticipated that the superficial portion of the hypertrophic tissue will eventually slough as result of the use of silver nitrate topically. Assessment/Plan Active Problems (Last Reviewed 05/09/18 @ 15:51 by Heriberto Dempsey MD) Chronic venous insufficiency (Chronic) Varicose veins with ulcer and inflammation (Chronic) Chronic venous hypertension (idiopathic) with ulcer and inflammation of bilateral lower extremity (Chronic) Venous ulcer of right leg (Chronic) Spontaneous hemorrhage (Chronic) Right leg swelling (Chronic) Chronic venous hypertension with ulcer involving right side (Chronic) Assessment: This is a 77-year-old male with an apparent long-standing history of chronic venous disease. He has had varicose veins for many years, as well as chronic swelling in his right lower extremity. Also a question as to whether the patient may have a history of thrombophlebitis. Within the last several months, the patient has developed an ulceration on the right medial calf, and has had more than 3 episodes of spontaneous bleeding from the ulceration, prompting visits to the emergency department setting. Patient presented with recent medical records, which have been reviewed. In addition, laboratory results are available from the patient's primary care physician, the results of which have been reviewed. Results are as follows: Cholesterol 199, HDL cholesterol 57, HDL ratio 3.5, LDL cholesterol 121, sodium 140, potassium 4.3, c hloride 104, calcium 9.4, alkaline phosphatase 96, AST 24, ALT 18, bilirubin 0.7, glucose 89, BUN 14, creatinine 0.72, protein 7.4, albumin 4.2. The date of these laboratory results is 02/10/2018. The patient has undergone a venous duplex examination on February 24, 2018. The right great saphenous vein was noted to be incompetent. Accessory saphenous veins in the right lower extremity at the S5 and S6 positions were also incompetent. An incompetent blast furnace keeper vein was noted in the right calf, located 13 cm proximal to the right medial malleolus. A noninvasive lower extremity arterial study has been performed as well, revealing no evidence of significant arterial occlusive disease in the lower extremities. The patient underwent endovenous laser ablation of the right great saphenous vein, 2 accessory saphenous veins, and a venous tributary on May. Patient presents at this time indicating that he has experienced very little pain or discomfort. He appears to be doing quite well. The lack of swelling and edema in his right lower extremity is at testament to the recent procedural results, as well as his recent compliance with recommendations for compression and elevation. A post-procedure venous duplex examination revealed no evidence of deep vein thrombosis, and the ablated veins appear to be occluded, as would be expected post-procedure. We are to continue with compression by means of a 3M 2 layer compression wrap, which will be changed twice weekly. Patient has been advised to elevate his lower extremities as much as possible. He is to continue sleeping on a flat mattress at night. Activity has been encouraged, and the patient is to refrain from prolonged idle sitting. Patient will return in 1 week for reassessment. Plan: The patient and his family have been advised in the appropriate conservative measures regarding management of the patient's chronic venous disease. The patient has been encouraged to continue sleeping in a recumbent position, on a flat mattress. Leg elevation should be to heart level, or higher. Legs should be elevated even during daytime hours, as much as possible. Prolonged idle sitting has been discouraged. Weight loss has been encouraged. We are to continue compression to the right lower extremity by means of a 3M 2 layer compression wrap, which will be changed twice weekly. We are to use Adaptic and gauze overlying the ulcerated site, in an effort to avoid adherence and subsequent bleeding. Ultimately, in the near future, it is likely that we will prescribe graduated compression stockings of knee-high length, 20-30 mmHg compression, which will be worn by the patient on a daily basis. Patient has been instructed that, in the event of additional bleeding from the site, he is to elevate his leg and apply manual pressure. The patient is return in 1 week for reassessment. In the event that an episode of spontaneous bleeding should reoccur, the patient has been instructed to apply pressure to the bleeding site, and to elevate his lower extremity above heart level. Thereafter, he should seek medical attention. At present, we are to use a nonadhesive topical dressing such as Adaptic, with overlying gauze. The goal is to avoid any adherence of the dressings to the bleeding site, to avoid further bleeding episodes. There may be a benefit to ultrasound-guided injection sclerotherapy of the veins in the region of the bleeding varicosity at some juncture in the future, depending on the patient's response to his endothermal ablation procedure. Influenza vaccine was not administered today. The patient is not a smoker. Patient weighs 261 pounds. He stands 5 feet 8 inches tall. His BMI is 38.5, which places him in an obese class II category. Weight loss has been recommended, and collaboration with the patient's primary care physician has been recommended in terms of weight loss management.
[2018-06-01 14:09] VITALS: BP 139/76; PULSE 113; RESP 20; TEMP 36; BMI 38.5
== END 2018-06-01 23:59 ==
LOC: WC 14:00
PROVIDERS: Family Provider Family Medicine; PCP Family Medicine; Referring Provider Surgery; Visit Provider Surgery
DX: I83.212 Varicose veins of right lower extremity with both ulcer of calf and inflammation (principal); I48.2 Chronic atrial fibrillation; M54.16 Radiculopathy, lumbar region; E66.9 Obesity, unspecified; Z71.3 Dietary counseling and surveillance; L97.219 Non-pressure chronic ulcer of right calf with unspecified severity; Z68.38 Body mass index [BMI] 38.0-38.9, adult
CPT/HCPCS: 11042; 29581; 93971; 99212; 99213; 99214; G0463

== ENCOUNTER 2018-06-22 13:30 | Outpatient (RCR) | payer MEDICARE, SELFPAY ==
[2018-06-02 01:21] VITALS: BP 139/76; PULSE 113; RESP 20; TEMP 36
[2018-06-05 14:28] VITALS: BP 136/85; PULSE 109; RESP 18; TEMP 36.7; BMI 38.5
--- NOTE | 2018-06-05 14:46 | PCM.WC.HP ---
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 Status: Chronic Current Visit: Yes Code(s): I87.333 - Chronic venous hypertension (idiopathic) with ulcer and inflammation of bilateral lower extremity; L97.919 - Non-pressure chronic ulcer of unspecified part of right lower leg with unspecified severity; L97.929 - Non-pressure chronic ulcer of unspecified part of left lower leg with unspecified severity (4) Venous ulcer of right leg Status: Chronic Current Visit: Yes Code(s): I83.019 - Varicose veins of right lower extremity with ulcer of unspecified site; L97.919 - Non-pressure chronic ulcer of unspecified part of right lower leg with unspecified severity (5) Spontaneous hemorrhage Status: Chronic Current Visit: Yes Code(s): K66.1 - Hemoperitoneum (6) Atrial fibrillation Status: Chronic Current Visit: No Code(s): I48.91 - Unspecified atrial fibrillation (7) Lumbar radiculopathy Status: Chronic Current Visit: No Code(s): M54.16 - Radiculopathy, lumbar region (8) Obesity (BMI 35.0-39.9 without comorbidity) Status: Chronic Current Visit: Yes Code(s): E66.9 - Obesity, unspecified (9) Exertional dyspnea Status: Chronic Current Visit: No Code(s): R06.09 - Other forms of dyspnea (10) Right leg swelling Status: Chronic Current Visit: Yes Code(s): M79.89 - Other specified soft tissue disorders (11) Chronic venous hypertension with ulcer involving right side Status: Chronic Current Visit: Yes Code(s): I87.311 - Chronic venous hypertension (idiopathic) with ulcer of right lower extremity; L97.919 - Non-pressure chronic ulcer of unspecified part of right lower leg with unspecified severity History of Present Illness Chief Complaint: Chronic venous insufficiency, varicose veins with ulceration and inflammation, venous hypertension with ulceration, venous ulceration, leg swelling, spontaneous bleeding?right lower extremity History of Wound: This is a 77-year-old male who presented with a long-standing history of chronic venous disease. The patient has had varicose veins for many years. He has elected to forego any significant treatment related to his venous disease. He denies a history of thrombophlebitis, though his past medical records indicate a history, though vague and nonspecific. Approximately 2 months prior to his presentation, the patient developed a spontaneous ulceration on the medial aspect of his right calf. The site subsequently ruptured, and spontaneous bleeding occurred on more than 3 different occasions, each time with significant blood loss. On at least one occasion, the spontaneous bleeding occurred after taking a hot shower. The patient has required attention in the emergency department on several occasions. Patient was subsequently referred to the [facility] for definitive management. The patient relates swelling in his right leg which occurs typically at the end of each day. He sleeps on a flat mattress at night. He lies in a recumbent position often during the daytime. He is not very active. He is also noted to be obese. 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 (Chronic) Venous ulcer of right leg (Chronic) Spontaneous hemorrhage (Chronic) Atrial fibrillation (Chronic) Lumbar radiculopathy (Chronic) Obesity (BMI 35.0-39.9 without comorbidity) (Chronic) Exertional dyspnea (Chronic) Right leg swelling (Chronic) Chronic venous hypertension with ulcer involving right side (Chronic) Surgical History: no surgical history Allergies/Adverse Reactions: Allergies No Known Allergies Allergy (Verified 05/09/18 15:30) Home Medications: Ambulatory Orders Medication Instructions Recorded Aspirin [Adult Aspirin] 81 mg PO DAILY 05/03/18 Cholecalciferol (VIT D3) [Vitamin 1,000 unit PO DAILY 05/03/18 D] Multivitamin [Daily Multiple 1 ea PO DAILY 05/03/18 Vitamin] metoprolol succinate ER 50 mg 50 mg PO DAILY #90 tab 01/08/19 tablet,extended release 24 hr - Family History Paternal Family History: Family History (Last Reviewed 05/09/18 @ 15:51 by Heriberto Dempsey MD) Mother CVA (cerebral vascular accident) - - The patient's father at the age of 90 of old age. Patient's mother at age of 83 with a history of liver cancer. Smoking Status: Never smoker Tobacco Use: Non-smoker Review of Systems Constitutional: Denies: Chills, Fever, Weight Change Eyes: Denies: Pain, Vision Change HEENT: Denies: Difficulty Hearing, Difficulty Swallowing, Sinus Congestion Cardiovascular: Denies: Chest Pain, Palpitations Respiratory: Denies: Cough, Shortness of Breath Gastrointestinal: Denies: Diarrhea, Nausea, Vomiting Genitourinary: Denies: Dysuria, Hematuria Endocrine: Denies: Heat/ Cold Intolerance, Polydipsia, Polyuria Hematologic/ Lymphatic: Denies: Easy Bruising, Easy Bleeding - Physical Exam Vital Signs Temp Pulse Resp BP 98.0 F 109 H 18 136/85 H 06/05/18 14:28 06/05/18 14:28 06/05/18 14:28 06/05/18 14:28 General: Alert, Oriented x3, Cooperative, No apparent distress, Well developed, Well nourished HEENT: Atraumatic, PERRLA, EOMI, Normocephalic Oral: Moist Mucosa Neck: No JVD Lungs: Normal air movement Abdomen: Non-Distended Extremities: No clubbing, No cyanosis, No Calf Tenderness, - - Slight swelling and edema are noted in the right lower extremity, though is minimal. The ulceration persists on the right medial calf. It is quite prominent, and raised above the skin surface. Mentions are documented elsewhere. During the course of examination, manual pressure was applied to the area adjacent to the raised ulceration, and a large amount of blood was expressed under pressure. The blood squirted at least several feet, contacting the wall several feet away. This maneuver appears to confirm the suspicion that has existed for many weeks, that the raised site is due to an underlying vein which is under high pressure due to venous hypertension. There is no sign of infection or cellulitis at the site. Prior to the expression of blood from the raised ulceration, the site had been treated with silver nitrate. This was used due to the hypertrophic nature of the tissue in this area. Skin: No rashes Wound Measurements and Assessment WC - Nurse 1 - General Ulcer Measurement Start: 06/05/18 14:28 Freq: Status: Active Protocol: Activity Type Activity Date Activity User E-Sign Co-Sign Detail Recorded Client Recorded Date Recorded By Document 06/05/18 14:28 KARISHMA [id number] 06/05/18 14:30 KARISHMA 06/05/18 14:28 Wound Center Nurse 1 [Ulcer Assessment] #1 Medial RLE -Combined with other wound No -Current Size (cm) - Length 0.6 -Current Size (cm) - Width 1.5 -Current Size (cm) - Depth 0.1 -Total Square Cm 0.90 -Photo Taken No -Epithelialization Medium 34-66% -Tunneling No -Undermining/Tunneling No -Circular Undermining No -Exudate Amt Small -Exudate Type Serosanguineous -Wound Margin Flat & Intact -Granulation Amt None Present (0 %) -Slough/Fibrin Yes -Necrosis Amt Large (67-100%) -Necrotic Tissue Type Adherent Slough -Structure Exposed N/A -Texture (Skylar-wound Skin Appearance) Assessed Localized Edema -Moisture (Skylar-wound Skin Appearance Assessed ) Dry/Scaly -Color (Skylar-wound Skin Appearance) Assessed Hemosiderin Staining -Temperature (Skylar-wound Skin No Abnormality Appearance) (Pt Warm) -Tenderness on Palpation (Skylar-wound No Skin Appearance) -Ulcer Cleansing Wound Cleanser -Foul Odor after Cleansing No -Anesthetic Used 4% Lidocaine Solution [Edema Assessment] -Lower Limb Edema Present Yes -Right Calf (cm) 39.4 -Right Ankle (cm) 22.7 - Nurse 2 - General Ulcer CM Notes Start: 06/05/18 14:28 Freq: Status: Active Protocol: Activity Type Activity Date Activity User E-Sign Co-Sign Detail Recorded Client Recorded Date Recorded By Document 06/05/18 14:40 JOANNE [id number] 06/05/18 14:43 DV 06/05/18 14:40 Wound Center Nurse 2 [Procedure/Treatment] #1 Medial RLE -Time 14:41 -Correct Patient Yes -Correct Side, Site, Position Yes -Correct Procedure Yes -Procedure Performed Yes -Type of Procedure Debridement -Clinical Debridement Subcutaneous -Post Debridement Size (cm) - Length 1.0 -Post Debridement Size (cm) - Width 1.5 -Post Debridement Size (cm) - Depth 0.1 -Total Square Cm 1.50 -Wound/Ulcer Outcome Not Healed -Ulcer Cleansing Rinsed/ Irrigated with Saline -Foul Odor after Cleansing No -Bioengineered Tissue No -Bleeding Controlled with Pressure -Offloading No -Treatment Response Procedure Tolerated Well [See Physician Procedure note for Specifics] Pain Scale: 0-10 Numeric [Pain] -Is Patient Pain Free? Yes Musculoskeletal: No Muscle Wasting Neurological: Cranial nerves II-XII grossly intact, Neuro grossly intact Psych/Mental Status: Normal Affect, Appropriate, Alert and oriented to time, place, person, mood and affect Debridement Note Post-Debridement Measurements/Treatment WC - Nurse 2 - General Ulcer CM Notes Start: 06/05/18 14:28 Freq: Status: Active Protocol: Activity Type Activity Date Activity User E-Sign Co-Sign Detail Recorded Client Recorded Date Recorded By Document 06/05/18 14:40 DV [id number] 06/05/18 14:43 DV 06/05/18 14:40 Wound Center Nurse 2 #1 Medial RLE -Time 14:41 -Correct Patient Yes -Correct Side, Site, Position Yes -Correct Procedure Yes -Procedure Performed Yes -Type of Procedure Debridement -Clinical Debridement Subcutaneous -Post Debridement Size (cm) - Length 1.0 -Post Debridement Size (cm) - Width 1.5 -Post Debridement Size (cm) - Depth 0.1 -Total Square Cm 1.50 -Wound/Ulcer Outcome Not Healed -Ulcer Cleansing Rinsed/ Irrigated with Saline -Foul Odor after Cleansing No -Bioengineered Tissue No -Bleeding Controlled with Pressure -Offloading No -Treatment Response Procedure Tolerated Well Pain Scale: 0-10 Numeric Is Patient Pain Free? Yes Debridement was not performed today, due to suspicion that the raised nature of the ulceration is due to an underlying vein which is likely under pressure due to venous hypertension. No debridement was completed today Assessment/Plan Active Problems (Last Reviewed 05/09/18 @ 15:51 by Heriberto Dempsey MD) Chronic venous insufficiency (Chronic) Varicose veins with ulcer and inflammation (Chronic) Chronic venous hypertension (idiopathic) with ulcer and inflammation of bilateral lower extremity (Chronic) Venous ulcer of right leg (Chronic) Spontaneous hemorrhage (Chronic) Obesity (BMI 35.0-39.9 without comorbidity) (Chronic) Right leg swelling (Chronic) Chronic venous hypertension with ulcer involving right side (Chronic) Assessment: This is a 77-year-old male with an apparent long-standing history of chronic venous disease. He has had varicose veins for many years, as well as chronic swelling in his right lower extremity. Also a question as to whether the patient may have a history of thrombophlebitis. Within the last several months, the patient has developed an ulceration on the right medial calf, and has had more than 3 episodes of spontaneous bleeding from the ulceration, prompting visits to the emergency department setting. Patient presented with recent medical records, which have been reviewed. In addition, laboratory results are available from the patient's primary care physician, the results of which have been reviewed. Results are as follows: Cholesterol 199, HDL cholesterol 57, HDL ratio 3.5, LDL cholesterol 121, sodium 140, potassium 4.3, chloride 104, calcium 9.4, alkaline phosphatase 96, AST 24, ALT 18, bilirubin 0.7, glucose 89, BUN 14, creatinine 0.72, protein 7.4, albumin 4.2. The date of these laboratory results is 02/10/2018. The patient has undergone a venous duplex examination on February 24, 2018. The right great saphenous vein was noted to be incompetent. Accessory saphenous veins in the right lower extremity at the S5 and S6 positions were also incompetent. 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 A noninvasive lower extremity arterial study has been performed as well, revealing no evidence of significant arterial occlusive disease in the lower extremities. The patient underwent endovenous laser ablation of the right great saphenous vein, 2 accessory saphenous veins, and a venous tributary on May. Patient presents at this time indicating that he has experienced very little pain or discomfort. He appears to be doing quite well. A post-procedure venous duplex examination revealed no evidence of deep vein thrombosis, and the ablated veins appear to be occluded, as would be expected post-procedure. We are to continue with compression by means of a 3M 2 layer compression wrap, which will be changed twice weekly. Patient has been advised to elevate his lower extremities as much as possible. He is to continue sleeping on a flat mattress at night. Activity has been encouraged, and the patient is to refrain from prolonged idle sitting. Patient will return in 1 week for reassessment. Given the events of today, in which manual pressure resulted in the expression of venous blood under high pressure, it appears as though there is venous hypertension as a cause for the prominence and bulging of the patient's right lower extremity ulceration. We have discussed options of management with the patient and with his son, at the bedside. It appears as though there is a role for ultrasound-guided injection sclerotherapy, the goal of which would be to attempt sclerosis of the veins in the area of the ulceration which are the cause of the high pressure. Plan: The patient and his family have been advised in the appropriate conservative measures regarding management of the patient's chronic venous disease. The patient has been encouraged to continue sleeping in a recumbent position, on a flat mattress. Leg elevation should be to heart level, or higher. Legs should be elevated even during daytime hours, as much as possible. Prolonged idle sitting has been discouraged. Weight loss has been encouraged. We are to continue compression to the right lower extremity by means of a 3M 2 layer compression wrap, which will be changed twice weekly. We are to use Adaptic and gauze overlying the ulcerated site, in an effort to avoid adherence and subsequent bleeding. Ultimately, in the near future, it is likely that we will prescribe graduated compression stockings of knee-high length, 20-30 mmHg compression, which will be worn by the patient on a daily basis. Patient has been instructed that, in the event of additional bleeding from the site, he is to elevate his leg and apply manual pressure. The patient is return in 1 week for reassessment. In the event that an episode of spontaneous bleeding should reoccur, the patient has been instructed to apply pressure to the bleeding site, and to elevate his lower extremity above heart level. Thereafter, he should seek medical attention. At present, we are to use a nonadhesive topical dressing such as Adaptic, with overlying gauze. The goal is to avoid any adherence of the dressings to the bleeding site, to avoid further bleeding episodes. There may be a benefit to ultrasound-guided injection sclerotherapy of the veins in the region of the bleeding varicosity at some juncture in the near future. Influenza vaccine was not administered today. The patient is not a smoker. Patient weighs 261 pounds. He stands 5 feet 8 inches tall. His BMI is 38.5, which places him in an obese class II category. Weight loss has been recommended, and collaboration with the patient's primary care physician has been recommended in terms of weight loss management.
[2018-06-08 15:36] VITALS: BP 117/83; PULSE 103; TEMP 37; BMI 38.5
[2018-06-12 12:53] VITALS: BP 155/75; PULSE 103; RESP 18; TEMP 36.6; BMI 38.5
--- NOTE | 2018-06-12 13:45 | HP.PCM_ITS ---
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 Status: Chronic Current Visit: Yes Code(s): I87.333 - Chronic venous hypertension (idiopathic) with ulcer and inflammation of bilateral lower extremity; L97.919 - Non-pressure chronic ulcer of unspecified part of right lower leg with unspecified severity; L97.929 - Non-pressure chronic ulcer of unspecified part of left lower leg with unspecified severity (4) Venous ulcer of right leg Status: Chronic Current Visit: Yes Code(s): I83.019 - Varicose veins of right lower extremity with ulcer of unspecified site; L97.919 - Non-pressure chronic ulcer of unspecified part of right lower leg with unspecified severity (5) Spontaneous hemorrhage Status: Chronic Current Visit: Yes Code(s): K66.1 - Hemoperitoneum (6) Atrial fibrillation Status: Chronic Current Visit: No Code(s): I48.91 - Unspecified atrial fibrillation (7) Lumbar radiculopathy Status: Chronic Current Visit: No Code(s): M54.16 - Radiculopathy, lumbar region (8) Obesity (BMI 35.0-39.9 without comorbidity) Status: Chronic Current Visit: Yes Code(s): E66.9 - Obesity, unspecified (9) Exertional dyspnea Status: Chronic Current Visit: No Code(s): R06.09 - Other forms of dyspnea (10) Right leg swelling Status: Chronic Current Visit: Yes Code(s): M79.89 - Other specified soft tissue disorders (11) Chronic venous hypertension with ulcer involving right side Status: Chronic Current Visit: Yes Code(s): I87.311 - Chronic venous hype rtension (idiopathic) with ulcer of right lower extremity; L97.919 - Non- pressure chronic ulcer of unspecified part of right lower leg with unspecified severity History of Present Illness Chief Complaint: Chronic venous insufficiency, varicose veins with ulceration and inflammation, venous hypertension with ulceration, venous ulceration, leg swelling, spontaneous bleeding?right lower extremity History of Wound: This is a 77-year-old male who presented with a long-standing history of chronic venous disease. The patient has had varicose veins for many years. He has elected to forego any significant treatment related to his venous disease. He denies a history of thrombophlebitis, though his past medical records indicate a history, though vague and nonspecific. Approximately 2 months prior to his presentation, the patient developed a spontaneous ulceration on the medial aspect of his right calf. The site subsequently ruptured, and spontaneous bleeding occurred on more than 3 different occasions, each time with significant blood loss. On at least one occasion, the spontaneous bleeding occurred after taking a hot shower. The patient has required attention in the emergency department on several occasions. Patient was subsequently referred to the [facility] for definitive management. The patient relates swelling in his right leg which occurs typically at the end of each day. He sleeps on a flat mattress at night. He lies in a recumbent position often during the daytime. He is not very active. He is also noted to be obese. 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 (Chronic) Venous ulcer of right leg (Chronic) Spontaneous hemorrhage (Chronic) Atrial fibrillation (Chronic) Lumbar radiculopathy (Chronic) Obesity (BMI 35.0-39.9 without comorbidity) (Chronic) Exertional dyspnea (Chronic) Right leg swelling (Chronic) Chronic venous hypertension with ulcer involving right side (Chronic) Surgical History: no surgical history Allergies/Adverse Reactions: Allergies No Known Allergies Allergy (Verified 05/09/18 15:30) Home Medications: Ambulatory Orders Medication Instructions Recorded Aspirin [Adult Aspirin] 81 mg PO DAILY 05/03/18 Cholecalciferol (VIT D3) [Vitamin 1,000 unit PO DAILY 05/03/18 D] Multivitamin [Daily Multiple 1 ea PO DAILY 05/03/18 Vitamin] metoprolol succinate ER 50 mg 50 mg PO DAILY #90 tab 05/09/18 tablet,extended release 24 hr - Family History Paternal Family History: Family History (Last Reviewed 05/09/18 @ 15:51 by Heriberto Dempsey MD) Mother CVA (cerebral vascular accident) - - The patient's father at the age of 90 of old age. Patient's mother at age of 83 with a history of liver cancer. Smoking Status: Never smoker Tobacco Use: Non-smoker Review of Systems Constitutional: Denies: Chills, Fever, Weight Change Eyes: Denies: Pain, Vision Change HEENT: Denies: Difficulty Hearing, Difficulty Swallowing, Sinus Congestion Cardiovascular: Denies: Chest Pain, Palpitations Respiratory: Denies: Cough, Shortness of Breath Gastrointestinal: Denies: Diarrhea, Nausea, Vomiting Genitourinary: Denies: Dysuria, Hematuria Endocrine: Denies: Heat/ Cold Intolerance, Polydipsia, Polyuria Hematologic/ Lymphatic: Denies: Easy Bruising, Easy Bleeding - Physical Exam Vital Signs Temp Pulse Resp BP 98 F 103 H 18 155/75 H 06/12/18 12:53 06/12/18 12:53 06/12/18 12:53 06/12/18 12:53 General: Alert, Oriented x3, Cooperative, No apparent distress, Well developed, Well nourished, - - The patient is obese. HEENT: Atraumatic, PERRLA, EOMI, Normocephalic Oral: Moist Mucosa Neck: No JVD Lungs: Normal air movement Abdomen: Non-Distended, Obese Extremities: No clubbing, No cyanosis, No Calf Tenderness, Edema, - - Slight swelling and edema are noted in the right lower extremity. The ulceration on the right medial calf persists, relatively unchanged in size and appearance. Dimensions are documented elsewhere. The ulceration is raised. Its appearance suggests the presence of an underlying bulging vein, under high pressure. This suspicion was confirmed at last week's visit, with manual pressure was applied, and active bleeding occurred. Skin: No rashes Wound Measurements and Assessment WC - Nurse 1 - General Ulcer Measurement Start: 06/05/18 14:28 Freq: Status: Active Protocol: Activity Type Activity Date Activity User E-Sign Co-Sign Detail Recorded Client Recorded Date Recorded By Document 06/12/18 12:53 RB [id number] 06/12/18 13:06 RB 06/12/18 12:53 Wound Center Nurse 1 [Ulcer Assessment] #1 Medial RLE -Combined with other wound No -Current Size (cm) - Length 1 -Current Size (cm) - Width 1.4 -Current Size (cm) - Depth 0.1 -Total Square Cm 1.4 -Photo Taken No -Tunneling No -Undermining/Tunneling No -Circular Undermining No -Exudate Amt Small -Exudate Type Serosanguineous -Wound Margin Distinct, Outline Attached -Granulation Amt Large (67-100%) -Granulation Quality Hyper- granulation Red -Slough/Fibrin No -Structure Exposed N/A -Texture (Skylar-wound Skin Appearance) Assessed -Moisture (Skylar-wound Skin Appearance Assessed ) -Color (Skylar-wound Skin Appearance) Assessed -Temperature (Skylar-wound Skin No Abnormality Appearance) (Pt Warm) -Tenderness on Palpation (Skylar-wound No Skin Appearance) -Ulcer Cleansing Wound Cleanser -Foul Odor after Cleansing No -Anesthetic Used 4% Lidocaine Solution [Edema Assessment] -Lower Limb Edema Present Yes -Right Calf (cm) 41 -Right Ankle (cm) 23.5 WC - Nurse 2 - General Ulcer CM Notes Start: 06/05/18 14:28 Freq: Status: Active Protocol: Activity Type Activity Date Activity User E-Sign Co-Sign Detail Recorded Client Recorded Date Recorded By Document 06/12/18 13:32 MW [id number] 06/12/18 13:36 MW 06/12/18 13:32 Wound Center Nurse 2 [Procedure/Treatment] #1 Medial RLE -Time 13:32 -Correct Patient Yes -Correct Side, Site, Position Yes -Correct Procedure Yes -Procedure Performed No -Post Debridement Size (cm) - Length 1.0 -Post Debridement Size (cm) - Width 1.4 -Post Debridement Size (cm) - Depth 0.1 -Total Square Cm 1.40 -Wound/Ulcer Outcome Not Healed -Ulcer Cleansing Not Cleansed -Foul Odor after Cleansing No -Bioengineered Tissue No -Bleeding Controlled with NA -Offloading No -Treatment Response Procedure Tolerated Well [See Physician Procedure note for Specifics] Pain Scale: 0-10 Numeric [Pain] -Is Patient Pain Free? Yes Musculoskeletal: No Muscle Wasting Neurological: Cranial nerves II-XII grossly intact, Neuro grossly intact Psych/Mental Status: Normal Affect, Appropriate, Alert and oriented to time, place, person, mood and affect Debridement Note Post-Debridement Measurements/Treatment WC - Nurse 2 - General Ulcer CM Notes Start: 06/05/18 14:28 Freq: Status: Active Protocol: Activity Type Activity Date Activity User E-Sign Co-Sign Detail Recorded Client Recorded Date Recorded By Document 06/05/18 14:40 DV [id number] 06/05/18 14:43 DV Document 06/12/18 13:32 MW [id number] 06/12/18 13:36 MW 06/05/18 06/12/18 14:40 13:32 Wound Center Nurse 2 #1 Medial RLE -Time 14:41 13:32 -Correct Patient Yes Yes -Correct Side, Site, Position Yes Yes -Correct Procedure Yes Yes -Procedure Performed Yes No -Type of Procedure Debridement -Clinical Debridement Subcutaneous -Post Debridement Size (cm) - Length 1.0 1.0 -Post Debridement Size (cm) - Width 1.5 1.4 -Post Debridement Size (cm) - Depth 0.1 0.1 -Total Square Cm 1.50 1.40 -Wound/Ulcer Outcome Not Healed Not Healed -Ulcer Cleansing Rinsed/ Not Cleansed Irrigated with Saline -Foul Odor after Cleansing No No -Bioengineered Tissue No No -Bleeding Controlled with Pressure NA -Offloading No No -Treatment Response Procedure Procedure Tolerated Well Tolerated Well Pain Scale: 0-10 Numeric Is Patient Pain Free? Yes Yes No debridement was completed today - Because of clinical suspicions, and the events of last week, it appears as though there is a large, bulging vein directly beneath the ulceration on the right medial calf. Therefore, there has been reluctance to perform a routine debridement, for fear of exacerbating active bleeding from the site. Assessment/Plan Active Problems (Last Reviewed 05/09/18 @ 15:51 by Heriberto Dempsey MD) Chronic venous insufficiency (Chronic) Varicose veins with ulcer and inflammation (Chronic) Chronic venous hypertension (idiopathic) with ulcer and inflammation of bilateral lower extremity (Chronic) Venous ulcer of right leg (Chronic) Spontaneous hemorrhage (Chronic) Obesity (BMI 35.0-39.9 without comorbidity) (Chronic) Right leg swelling (Chronic) Chronic venous hypertension with ulcer involving right side (Chronic) Assessment: This is a 77-year-old male with an apparent long-standing history of chronic venous disease. He has had varicose veins for many years, as well as chronic swelling in his right lower extremity. Also a question as to whether the patient may have a history of thrombophlebitis. Within the last several months, the patient has developed an ulceration on the right medial calf, and has had more than 3 episodes of spontaneous bleeding from the ulceration, prompting visits to the emergency department setting. Patient presented with recent medical records, which have been reviewed. In addition, laboratory results are available from the patient's primary care physician, the results of which have been reviewed. Results are as follows: Cholesterol 199, HDL cholesterol 57, HDL ratio 3.5, LDL cholesterol 121, sodium 140, potassium 4.3, chloride 104, calcium 9.4, alkaline phosphatase 96, AST 24, ALT 18, bilirubin 0.7, glucose 89, BUN 14, creatinine 0.72, protein 7.4, albumin 4.2. The date of these laboratory results is 02/10/2018. The patient has undergone a venous duplex examination on February 24, 2018. The right great saphenous vein was noted to be incompetent. Accessory saphenous veins in the right lower extremity at the S5 and S6 positions were also incompetent. An incompetent renewable energy technician vein was noted in the right calf, located 13 cm proximal to the right medial malleolus. A noninvasive lower extremity arterial study has been performed as well, revealing no evidence of significant arterial occlusive disease in the lower extremities. The patient underwent endovenous laser ablation of the right great saphenous vein, 2 accessory saphenous veins, and a venous tributary on May. The patient appears to be doing quite well. A post- procedure venous duplex examination revealed no evidence of deep vein thrombosis, and the ablated veins appear to be occluded, as would be expected post-procedure. We are to continue with compression by means of a 3M 2 layer compression wrap, which will be changed twice weekly. Patient has been advised to elevate his lower extremities as much as possible. He is to continue sleeping on a flat mattress at night. Activity has been encouraged, and the patient is to refrain from prolonged idle sitting. Patient will return in 1 week for reassessment. It appears as though there is venous hypertension in a superficial vein as a cause for the prominence and bulging of the patient's right lower extremity ulceration. We have discussed options of management with the patient and with his son, at the bedside. It appears as though there is a role for ultrasound-guided injection sclerotherapy, the goal of which would be to attempt sclerosis of the veins in the area of the ulceration which are the cause of the high pressure. Plan: The patient and his family have been advised in the appropriate conservative measures regarding management of the patient's chronic venous disease. The patient has been encouraged to continue sleeping in a recumbent position, on a flat mattress. Leg elevation should be to heart level, or higher. Legs should be elevated even during daytime hours, as much as possible. Prolonged idle sitting has been discouraged. Weight loss has been encouraged. We are to continue compression to the right lower extremity by means of a 3M 2 layer compression wrap, which will be changed twice weekly. We are to use Adaptic and gauze overlying the ulcerated site, in an effort to avoid adherence and subsequent bleeding. Ultimately, in the near future, it is likely that we will prescribe graduated compression stockings of knee-high length, 20-30 mmHg compression, which will be worn by the patient on a daily basis. Patient has been instructed that, in the event of additional bleeding from the site, he is to elevate his leg and apply manual pressure. The patient is return in 1 week for reassessment. In the event that an episode of spontaneous bleeding should reoccur, the patient has been instructed to apply pressure to the bleeding site, and to elevate his lower extremity above heart level. Thereafter, he should seek medical attention. At present, we are to use a nonadhesive topical dressing such as Adaptic, with overlying gauze. The goal is to avoid any adherence of the dressings to the bleeding site, to avoid further bleeding episodes. There may be a benefit to ultrasound-guided injection sclerotherapy of the veins in the region of the bleeding varicosity at some juncture in the near future. The indications and risks have been discussed with the patient and his son, at the bedside. We will attempt to schedule the procedure for the near future. Several such sessions may be necessary. It is hoped that the procedures will reduce the high venous pressure in the area of the ulceration, diminish or kurt flow in the associated superficial vein, and allow for healing of the venous ulceration. Influenza vaccine was not administered today. The patient is not a smoker. Patient weighs 261 pounds. He stands 5 feet 8 inches tall. His BMI is 38.5, which places him in an obese class II category. Weight loss has been recommended, and collaboration with the patient's primary care physician has been recommended in terms of weight loss management.
[2018-06-15 13:20] VITALS: BP 129/91; PULSE 108; RESP 18; TEMP 37; BMI 38.5
[2018-06-19 14:33] VITALS: BP 133/85; PULSE 104; RESP 18; TEMP 37; BMI 38.5
--- NOTE | 2018-06-19 15:35 | PCM.WC.HP ---
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 Status: Chronic Current Visit: Yes Code(s): I87.333 - Chronic venous hypertension (idiopathic) with ulcer and inflammation of bilateral lower extremity; L97.919 - Non-pressure chronic ulcer of unspecified part of right lower leg with unspecified severity; L97.929 - Non-pressure chronic ulcer of unspecified part of left lower leg with unspecified severity (4) Venous ulcer of right leg Status: Chronic Current Visit: Yes Code(s): I83.019 - Varicose veins of right lower extremity with ulcer of unspecified site; L97.919 - Non-pressure chronic ulcer of unspecified part of right lower leg with unspecified severity (5) Spontaneous hemorrhage Status: Chronic Current Visit: Yes Code(s): K66.1 - Hemoperitoneum (6) Atrial fibrillation Status: Chronic Current Visit: No Code(s): I48.91 - Unspecified atrial fibrillation (7) Lumbar radiculopathy Status: Chronic Current Visit: No Code(s): M54.16 - Radiculopathy, lumbar region (8) Obesity (BMI 35.0-39.9 without comorbidity) Status: Chronic Current Visit: Yes Code(s): E66.9 - Obesity, unspecified (9) Exertional dyspnea Status: Chronic Current Visit: No Code(s): R06.09 - Other forms of dyspnea (10) Right leg swelling Status: Chronic Current Visit: Yes Code(s): M79.89 - Other specified soft tissue disorders (11) Chronic venous hypertension with ulcer involving right side Status: Chronic Current Visit: Yes Code(s): I87.311 - Chronic venous hypertension (idiopathic) with ulcer of right lower extremity; L97.919 - Non-pressure chronic ulcer of unspecified part of right lower leg with unspecified severity History of Present Illness Chief Complaint: Chronic venous insufficiency, varicose veins with ulceration and inflammation, venous hypertension with ulceration, venous ulceration, leg swelling, spontaneous bleeding?right lower extremity History of Wound: This is a 77-year-old male who presented with a long-standing history of chronic venous disease. The patient has had varicose veins for many years. He has elected to forego any significant treatment related to his venous disease. He denies a history of thrombophlebitis, though his past medical records indicate a history, though vague and nonspecific. Approximately 2 months prior to his presentation, the patient developed a spontaneous ulceration on the medial aspect of his right calf. The site subsequently ruptured, and spontaneous bleeding occurred on more than 3 different occasions, each time with significant blood loss. On at least one occasion, the spontaneous bleeding occurred after taking a hot shower. The patient has required attention in the emergency department on several occasions. Patient was subsequently referred to the [facility] for definitive management. The patient relates swelling in his right leg which occurs typically at the end of each day. He sleeps on a flat mattress at night. He lies in a recumbent position often during the daytime. He is not very active. He is also noted to be obese. 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 (Chronic) Venous ulcer of right leg (Chronic) Spontaneous hemorrhage (Chronic) Atrial fibrillation (Chronic) Lumbar radiculopathy (Chronic) Obesity (BMI 35.0-39.9 without comorbidity) (Chronic) Exertional dyspnea (Chronic) Right leg swelling (Chronic) Chronic venous hypertension with ulcer involving right side (Chronic) Surgical History: no surgical history Allergies/Adverse Reactions: Allergies No Known Allergies Allergy (Verified 05/09/18 15:30) Home Medications: Ambulatory Orders Medication Instructions Recorded Aspirin [Adult Aspirin] 81 mg PO DAILY 05/03/18 Cholecalciferol (VIT D3) [Vitamin 1,000 unit PO DAILY 05/03/18 D] Multivitamin [Daily Multiple 1 ea PO DAILY 05/03/18 Vitamin] metoprolol succinate ER 50 mg 50 mg PO DAILY #90 tab 01/08/19 tablet,extended release 24 hr - Family History Paternal Family History: Family History (Last Reviewed 05/09/18 @ 15:51 by Heriberto Dempsey MD) Mother CVA (cerebral vascular accident) - - The patient's father at the age of 90 of old age. Patient's mother at age of 83 with a history of liver cancer. Smoking Status: Never smoker Tobacco Use: Non-smoker Review of Systems Constitutional: Denies: Chills, Fever, Weight Change Eyes: Denies: Pain, Vision Change HEENT: Denies: Difficulty Hearing, Difficulty Swallowing, Sinus Congestion Cardiovascular: Denies: Chest Pain, Palpitations Respiratory: Denies: Cough, Shortness of Breath Gastrointestinal: Denies: Diarrhea, Nausea, Vomiting Genitourinary: Denies: Dysuria, Hematuria Endocrine: Denies: Heat/ Cold Intolerance, Polydipsia, Polyuria Hematologic/ Lymphatic: Denies: Easy Bruising, Easy Bleeding - Physical Exam Vital Signs Temp Pulse Resp BP 98.6 F 104 H 18 133/85 H 06/19/18 14:33 06/19/18 14:33 06/19/18 14:33 06/19/18 14:33 General: Alert, Oriented x3, Cooperative, No apparent distress, Well developed, Well nourished HEENT: Atraumatic, PERRLA, EOMI, Normocephalic Oral: Moist Mucosa Neck: No JVD Lungs: Normal air movement Abdomen: Non-Distended Extremities: No clubbing, No cyanosis, No Calf Tenderness, - - Minimal swelling and edema is noted in the lower extremities bilaterally. The ulceration on the right medial calf persists. It is raised and bulging, signifying elevated venous pressure. It is suspected, and recently confirmed, that a large bulging, distended varicose vein is present at this site. Dimensions are documented elsewhere. There is no active bleeding at this time. There is no sign of infection or cellulitis. Skin: No rashes Wound Measurements and Assessment WC - Nurse 1 - General Ulcer Measurement Start: 06/05/18 14:28 Freq: Status: Active Protocol: Activity Type Activity Date Activity User E-Sign Co-Sign Detail Recorded Client Recorded Date Recorded By Document 06/19/18 14:33 AN [id number] 06/19/18 14:50 AN 06/19/18 14:33 Wound Center Nurse 1 [Ulcer Assessment] #1 Medial RLE -Current Size (cm) - Length 1.5 -Current Size (cm) - Width 1.5 -Current Size (cm) - Depth 0.1 -Total Square Cm 2.25 -Date of Last Picture (Recall this 06/19/18 field) -Photo Taken Yes -Classification - Thickness Full Thickness without Exposed Support Structure -Exudate Amt Small -Exudate Type Sanguineous -Wound Margin Distinct, Outline Attached -Granulation Amt None Present (0 %) -Slough/Fibrin Yes -Necrosis Amt Large (67-100%) -Necrotic Tissue Type Eschar -Structure Exposed None/Limited to Skin Breakdown -Texture (Skylar-wound Skin Appearance) Assessed -Moisture (Skylar-wound Skin Appearance Assessed ) -Color (Skylar-wound Skin Appearance) Assessed -Temperature (Skylar-wound Skin No Abnormality Appearance) (Pt Warm) -Ulcer Cleansing Rinsed/ Irrigated with Saline -Foul Odor after Cleansing No -Anesthetic Used 4% Lidocaine Solution [Edema Assessment] -Right Calf (cm) 38 -Right Ankle (cm) 24 WC - Nurse 2 - General Ulcer CM Notes Start: 06/05/18 14:28 Freq: Status: Active Protocol: Activity Type Activity Date Activity User E-Sign Co-Sign Detail Recorded Client Recorded Date Recorded By Document 06/19/18 15:27 DV [id number] 06/19/18 15:31 DV 06/19/18 15:27 Wound Center Nurse 2 [Procedure/Treatment] #1 Medial RLE -Time 15:29 -Correct Patient Yes -Correct Side, Site, Position Yes -Procedure Performed No -Wound/Ulcer Outcome Not Healed [See Physician Procedure note for Specifics] Pain Scale: 0-10 Numeric [Pain] -Is Patient Pain Free? Yes Musculoskeletal: No Muscle Wasting Neurological: Cranial nerves II-XII grossly intact, Neuro grossly intact Psych/Mental Status: Normal Affect, Appropriate, Alert and oriented to time, place, person, mood and affect Debridement Note Post-Debridement Measurements/Treatment - Nurse 2 - General Ulcer CM Notes Start: 06/05/18 14:28 Freq: Status: Active Protocol: Activity Type Activity Date Activity User E-Sign Co-Sign Detail Recorded Client Recorded Date Recorded By Document 06/05/18 14:40 DV [id number] 06/05/18 14:43 DV Document 06/12/18 13:32 MW [id number] 06/12/18 13:36 MW Document 06/19/18 15:27 DV [id number] 06/19/18 15:31 DV 06/05/18 06/12/18 06/19/18 14:40 13:32 15:27 Wound Center Nurse 2 #1 Medial RLE -Time 14:41 13:32 15:29 -Correct Patient Yes Yes Yes -Correct Side, Site, Position Yes Yes Yes -Correct Procedure Yes Yes -Procedure Performed Yes No No -Type of Procedure Debridement -Clinical Debridement Subcutaneous -Post Debridement Size (cm) - Length 1.0 1.0 -Post Debridement Size (cm) - Width 1.5 1.4 -Post Debridement Size (cm) - Depth 0.1 0.1 -Total Square Cm 1.50 1.40 -Wound/Ulcer Outcome Not Healed Not Healed Not Healed -Ulcer Cleansing Rinsed/ Not Cleansed Irrigated with Saline -Foul Odor after Cleansing No No -Bioengineered Tissue No No -Bleeding Controlled with Pressure NA -Offloading No No -Treatment Response Procedure Procedure Tolerated Well Tolerated Well Pain Scale: 0-10 Numeric Is Patient Pain Free? Yes Yes Yes No debridement was completed today - Debridement was specifically not performed today, due to a high level of suspicion that underlying this bulging, open ulcer is a distended varicose vein under high venous pressure. Therefore, the site was left undisturbed, and debridement was not performed for concerns regarding excessive bleeding. Assessment/Plan Active Problems (Last Reviewed 05/09/18 @ 15:51 by Heriberto Dempsey MD) Chronic venous insufficiency (Chronic) Varicose veins with ulcer and inflammation (Chronic) Chronic venous hypertension (idiopathic) with ulcer and inflammation of bilateral lower extremity (Chronic) Venous ulcer of right leg (Chronic) Spontaneous hemorrhage (Chronic) Obesity (BMI 35.0-39.9 without comorbidity) (Chronic) Right leg swelling (Chronic) Chronic venous hypertension with ulcer involving right side (Chronic) Assessment: This is a 77-year-old male with an apparent long-standing history of chronic venous disease. He has had varicose veins for many years, as well as chronic swelling in his right lower extremity. Also a question as to whether the patient may have a history of thrombophlebitis. Within the last several months, the patient has developed an ulceration on the right medial calf, and has had more than 3 episodes of spontaneous bleeding from the ulceration, prompting visits to the emergency department setting. Patient presented with recent medical records, which have been reviewed. In addition, laboratory results are available from the patient's primary care physician, the results of which have been reviewed. Results are as follows: Cholesterol 199, HDL cholesterol 57, HDL ratio 3.5, LDL cholesterol 121, sodium 140, potassium 4.3, chloride 104, calcium 9.4, alkaline phosphatase 96, AST 24, ALT 18, bilirubin 0.7, glucose 89, BUN 14, creatinine 0.72, protein 7.4, albumin 4.2. The date of these laboratory results is 02/10/2018. The patient has undergone a venous duplex examination on February 24, 2018. The right great saphenous vein was noted to be incompetent. Accessory saphenous veins in the right lower extremity at the S5 and S6 positions were also incompetent. An incompetent repeat photocomposing machine operator vein was noted in the right calf, located 13 cm proximal to the right medial malleolus. A noninvasive lower extremity arterial study has been performed as well, revealing no evidence of significant arterial occlusive disease in the lower extremities. The patient underwent endovenous laser ablation of the right great saphenous vein, 2 accessory saphenous veins, and a venous tributary on May. The patient appears to be doing quite well. A post-procedure venous duplex examination revealed no evidence of deep vein thrombosis, and the ablated veins appear to be occluded, as would be expected post-procedure. We are to continue with compression by means of a 3M 2 layer compression wrap, which will be changed twice weekly. Patient has been advised to elevate his lower extremities as much as possible. He is to continue sleeping on a flat mattress at night. Activity has been encouraged, and the patient is to refrain from prolonged idle sitting. Patient will return in 1 week for reassessment. It appears as though there is venous hypertension in a superficial vein as a cause for the prominence and bulging of the patient's right lower extremity ulceration. We have discussed options of management with the patient and with his family, at the bedside. It appears as though there is a role for ultrasound-guided injection sclerotherapy, the goal of which would be to attempt sclerosis of the veins in the area of the ulceration which are the cause of the high pressure. Alternatively, if one or several sessions of ultrasound-guided injection sclerotherapy are unsuccessful in reducing the high venous pressure at the site, surgical intervention may be warranted for management of this high pressure varicosity. Plan: The patient and his family have been advised in the appropriate conservative measures regarding management of the patient's chronic venous disease. The patient has been encouraged to continue sleeping in a recumbent position, on a flat mattress. Leg elevation should be to heart level, or higher. Legs should be elevated even during daytime hours, as much as possible. Prolonged idle sitting has been discouraged. Weight loss has been encouraged. We are to continue compression to the right lower extremity by means of a 3M 2 layer compression wrap, which will be changed twice weekly. We are to use Adaptic and gauze overlying the ulcerated site, in an effort to avoid adherence and subsequent bleeding. Patient has been instructed that, in the event of additional bleeding from the site, he is to elevate his leg and apply manual pressure. The patient is return in 1 week for reassessment. In the event that an episode of spontaneous bleeding should reoccur, the patient has been instructed to apply pressure to the bleeding site, and to elevate his lower extremity above heart level. Thereafter, he should seek medical attention. At present, we are to use a nonadhesive topical dressing such as Adaptic, with overlying gauze. The goal is to avoid any adherence of the dressings to the bleeding site, to avoid further bleeding episodes. There may be a benefit to ultrasound-guided injection sclerotherapy of the veins in the region of the bleeding varicosity at some juncture in the near future. The indications and risks have been discussed with the patient and his son, at the bedside. We will attempt to schedule the procedure for the near future. Several such sessions may be necessary. It is hoped that the procedures will reduce the high venous pressure in the area of the ulceration, diminish or abolish flow in the associated superficial vein, and allow for healing of the venous ulceration. Influenza vaccine was not administered today. The patient is not a smoker. Patient weighs 261 pounds. He stands 5 feet 8 inches tall. His BMI is 38.5, which places him in an obese class II category. Weight loss has been recommended, and collaboration with the patient's primary care physician has been recommended in terms of weight loss management.
--- NOTE | 2018-06-19 15:39 | HP.PCM_ITS ---
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 Status: Chronic Current Visit: Yes Code(s): I87.333 - Chronic venous hypertension (idiopathic) with ulcer and inflammation of bilateral lower extremity; L97.919 - Non-pressure chronic ulcer of unspecified part of right lower leg with unspecified severity; L97.929 - Non-pressure chronic ulcer of unspecified part of left lower leg with unspecified severity (4) Venous ulcer of right leg Status: Chronic Current Visit: Yes Code(s): I83.019 - Varicose veins of right lower extremity with ulcer of unspecified site; L97.919 - Non-pressure chronic ulcer of unspecified part of right lower leg with unspecified severity (5) Spontaneous hemorrhage Status: Chronic Current Visit: Yes Code(s): K66.1 - Hemoperitoneum (6) Atrial fibrillation Status: Chronic Current Visit: No Code(s): I48.91 - Unspecified atrial fibrillation (7) Lumbar radiculopathy Status: Chronic Current Visit: No Code(s): M54.16 - Radiculopathy, lumbar region (8) Obesity (BMI 35.0-39.9 without comorbidity) Status: Chronic Current Visit: Yes Code(s): E66.9 - Obesity, unspecified (9) Exertional dyspnea Status: Chronic Current Visit: No Code(s): R06.09 - Other forms of dyspnea (10) Right leg swelling Status: Chronic Current Visit: Yes Code(s): M79.89 - Other specified soft tissue disorders (11) Chronic venous hypertension with ulcer involving right side Status: Chronic Current Visit: Yes Code(s): I87.311 - Chronic venous hype rtension (idiopathic) with ulcer of right lower extremity; L97.919 - Non- pressure chronic ulcer of unspecified part of right lower leg with unspecified severity History of Present Illness Chief Complaint: Chronic venous insufficiency, varicose veins with ulceration and inflammation, venous hypertension with ulceration, venous ulceration, leg swelling, spontaneous bleeding?right lower extremity History of Wound: This is a 77-year-old male who presented with a long-standing history of chronic venous disease. The patient has had varicose veins for many years. He has elected to forego any significant treatment related to his venous disease. He denies a history of thrombophlebitis, though his past medical records indicate a history, though vague and nonspecific. Approximately 2 months prior to his presentation, the patient developed a spontaneous ulceration on the medial aspect of his right calf. The site subsequently ruptured, and spontaneous bleeding occurred on more than 3 different occasions, each time with significant blood loss. On at least one occasion, the spontaneous bleeding occurred after taking a hot shower. The patient has required attention in the emergency department on several occasions. Patient was subsequently referred to the [facility] for definitive management. The patient relates swelling in his right leg which occurs typically at the end of each day. He sleeps on a flat mattress at night. He lies in a recumbent position often during the daytime. He is not very active. He is also noted to be obese. 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 (Chronic) Venous ulcer of right leg (Chronic) Spontaneous hemorrhage (Chronic) Atrial fibrillation (Chronic) Lumbar radiculopathy (Chronic) Obesity (BMI 35.0-39.9 without comorbidity) (Chronic) Exertional dyspnea (Chronic) Right leg swelling (Chronic) Chronic venous hypertension with ulcer involving right side (Chronic) Surgical History: no surgical history Allergies/Adverse Reactions: Allergies No Known Allergies Allergy (Verified 05/09/18 15:30) Home Medications: Ambulatory Orders Medication Instructions Recorded Aspirin [Adult Aspirin] 81 mg PO DAILY 05/03/18 Cholecalciferol (VIT D3) [Vitamin 1,000 unit PO DAILY 05/03/18 D] Multivitamin [Daily Multiple 1 ea PO DAILY 05/03/18 Vitamin] metoprolol succinate ER 50 mg 50 mg PO DAILY #90 tab 05/09/18 tablet,extended release 24 hr - Family History Paternal Family History: Family History (Last Reviewed 05/09/18 @ 15:51 by Heriberto Dempsey MD) Mother CVA (cerebral vascular accident) - - The patient's father at the age of 90 of old age. Patient's mother at age of 83 with a history of liver cancer. Smoking Status: Never smoker Tobacco Use: Non-smoker Review of Systems Constitutional: Denies: Chills, Fever, Weight Change Eyes: Denies: Pain, Vision Change HEENT: Denies: Difficulty Hearing, Difficulty Swallowing, Sinus Congestion Cardiovascular: Denies: Chest Pain, Palpitations Respiratory: Denies: Cough, Shortness of Breath Gastrointestinal: Denies: Diarrhea, Nausea, Vomiting Genitourinary: Denies: Dysuria, Hematuria Endocrine: Denies: Heat/ Cold Intolerance, Polydipsia, Polyuria Hematologic/ Lymphatic: Denies: Easy Bruising, Easy Bleeding - Physical Exam Vital Signs Temp Pulse Resp BP 98.6 F 104 H 18 133/85 H 06/19/18 14:33 06/19/18 14:33 06/19/18 14:33 06/19/18 14:33 General: Alert, Oriented x3, Cooperative, No apparent distress, Well developed, Well nourished HEENT: Atraumatic, PERRLA, EOMI, Normocephalic Oral: Moist Mucosa Neck: No JVD Lungs: Normal air movement Abdomen: Non-Distended Extremities: No clubbing, No cyanosis, No Calf Tenderness, - - Minimal swelling and edema is noted in the lower extremities bilaterally. The ulceration on the right medial calf persists. It is raised and bulging, signifying elevated venous pressure. It is suspected, and recently confirmed, that a large bulging, distended varicose vein is present at this site. Dimensions are documented elsewhere. There is no active bleeding at this time. There is no sign of infection or cellulitis. Skin: No rashes Wound Measurements and Assessment WC - Nurse 1 - General Ulcer Measurement Start: 06/05/18 14:28 Freq: Status: Active Protocol: Activity Type Activity Date Activity User E-Sign Co-Sign Detail Recorded Client Recorded Date Recorded By Document 06/19/18 14:33 AN [id number] 06/19/18 14:50 AN 06/19/18 14:33 Wound Center Nurse 1 [Ulcer Assessment] #1 Medial RLE -Current Size (cm) - Length 1.5 -Current Size (cm) - Width 1.5 -Current Size (cm) - Depth 0.1 -Total Square Cm 2.25 -Date of Last Picture (Recall this 06/19/18 field) -Photo Taken Yes -Classification - Thickness Full Thickness without Exposed Support Structure -Exudate Amt Small -Exudate Type Sanguineous -Wound Margin Distinct, Outline Attached -Granulation Amt None Present (0 %) -Slough/Fibrin Yes -Necrosis Amt Large (67-100%) -Necrotic Tissue Type Eschar -Structure Exposed None/Limited to Skin Breakdown -Texture (Skylar-wound Skin Appearance) Assessed -Moisture (Skylar-wound Skin Appearance Assessed ) -Color (Skylar-wound Skin Appearance) Assessed -Temperature (Skylar-wound Skin No Abnormality Appearance) (Pt Warm) -Ulcer Cleansing Rinsed/ Irrigated with Saline -Foul Odor after Cleansing No -Anesthetic Used 4% Lidocaine Solution [Edema Assessment] -Right Calf (cm) 38 -Right Ankle (cm) 24 WC - Nurse 2 - General Ulcer CM Notes Start: 06/05/18 14:28 Freq: Status: Active Protocol: Activity Type Activity Date Activity User E-Sign Co-Sign Detail Recorded Client Recorded Date Recorded By Document 06/19/18 15:27 DV [id number] 06/19/18 15:31 DV 06/19/18 15:27 Wound Center Nurse 2 [Procedure/Treatment] #1 Medial RLE -Time 15:29 -Correct Patient Yes -Correct Side, Site, Position Yes -Procedure Performed No -Wound/Ulcer Outcome Not Healed [See Physician Procedure note for Specifics] Pain Scale: 0-10 Numeric [Pain] -Is Patient Pain Free? Yes Musculoskeletal: No Muscle Wasting Neurological: Cranial nerves II-XII grossly intact, Neuro grossly intact Psych/Mental Status: Normal Affect, Appropriate, Alert and oriented to time, place, person, mood and affect Debridement Note Post-Debridement Measurements/Treatment - Nurse 2 - General Ulcer CM Notes Start: 06/05/18 14:28 Freq: Status: Active Protocol: Activity Type Activity Date Activity User E-Sign Co-Sign Detail Recorded Client Recorded Date Recorded By Document 06/05/18 14:40 DV [id number] 06/05/18 14:43 DV Document 06/12/18 13:32 MW [id number] 06/12/18 13:36 MW Document 06/19/18 15:27 DV [id number] 06/19/18 15:31 DV 06/05/18 06/12/18 06/19/18 14:40 13:32 15:27 Wound Center Nurse 2 #1 Medial RLE -Time 14:41 13:32 15:29 -Correct Patient Yes Yes Yes -Correct Side, Site, Position Yes Yes Yes -Correct Procedure Yes Yes -Procedure Performed Yes No No -Type of Procedure Debridement -Clinical Debridement Subcutaneous -Post Debridement Size (cm) - Length 1.0 1.0 -Post Debridement Size (cm) - Width 1.5 1.4 -Post Debridement Size (cm) - Depth 0.1 0.1 -Total Square Cm 1.50 1.40 -Wound/Ulcer Outcome Not Healed Not Healed Not Healed -Ulcer Cleansing Rinsed/ Not Cleansed Irrigated with Saline -Foul Odor after Cleansing No No -Bioengineered Tissue No No -Bleeding Controlled with Pressure NA -Offloading No No -Treatment Response Procedure Procedure Tolerated Well Tolerated Well Pain Scale: 0-10 Numeric Is Patient Pain Free? Yes Yes Yes No debridement was completed today - Debridement was specifically not performed today, due to a high level of suspicion that underlying this bulging, open ulcer is a distended varicose vein under high venous pressure. Therefore, the site was left undisturbed, and debridement was not performed for concerns regarding excessive bleeding. Assessment/Plan Active Problems (Last Reviewed 05/09/18 @ 15:51 by Heriberto Dempsey MD) Chronic venous insufficiency (Chronic) Varicose veins with ulcer and inflammation (Chronic) Chronic venous hypertension (idiopathic) with ulcer and inflammation of bilateral lower extremity (Chronic) Venous ulcer of right leg (Chronic) Spontaneous hemorrhage (Chronic) Obesity (BMI 35.0-39.9 without comorbidity) (Chronic) Right leg swelling (Chronic) Chronic venous hypertension with ulcer involving right side (Chronic) Assessment: This is a 77-year-old male with an apparent long-standing history of chronic venous disease. He has had varicose veins for many years, as well as chronic swelling in his right lower extremity. Also a question as to whether th e patient may have a history of thrombophlebitis. Within the last several months, the patient has developed an ulceration on the right medial calf, and has had more than 3 episodes of spontaneous bleeding from the ulceration, prompting visits to the emergency department setting. Patient presented with recent medical records, which have been reviewed. In addition, laboratory results are available from the patient's primary care physician, the results of which have been reviewed. Results are as follows: Cholesterol 199, HDL cholesterol 57, HDL ratio 3.5, LDL cholesterol 121, sodium 140, potassium 4.3, chloride 104, calcium 9.4, alkaline phosphatase 96, AST 24, ALT 18, bilirubin 0.7, glucose 89, BUN 14, creatinine 0.72, protein 7.4, albumin 4.2. The date of these laboratory results is 02/10/2018. The patient has undergone a venous duplex examination on February 24, 2018. The right great saphenous vein was noted to be incompetent. Accessory saphenous veins in the right lower extremity at the S5 and S6 positions were also incompetent. An incompetent bridal service sales and management vein was noted in the right calf, located 13 cm proximal to the right medial malleolus. A noninvasive lower extremity arterial study has been performed as well, revealing no evidence of significant arterial occlusive disease in the lower extremities. The patient underwent endovenous laser ablation of the right great saphenous vein, 2 accessory saphenous veins, and a venous tributary on May. The patient appears to be doing quite well. A post- procedure venous duplex examination revealed no evidence of deep vein thrombosis, and the ablated veins appear to be occluded, as would be expected post-procedure. We are to continue with compression by means of a 3M 2 layer compression wrap, which will be changed twice weekly. Patient has been advised to elevate his lower extremities as much as possible. He is to continue sleeping on a flat mattress at night. Activity has been encouraged, and the patient is to refrain from prolonged idle sitting. Patient will return in 1 week for reassessment. It appears as though there is venous hypertension in a superficial vein as a cause for the prominence and bulging of the patient's right lower extremity ulceration. We have discussed options of management with the patient and with his family, at the bedside. It appears as though there is a role for ultrasound-guided injection sclerotherapy, the goal of which would be to attempt sclerosis of the veins in the area of the ulceration which are the cause of the high pressure. Alternatively, if one or several sessions of ultrasound-guided injection sclerotherapy are unsuccessful in reducing the high venous pressure at the site, surgical intervention may be warranted for management of this high pressure varicosity. Plan: The patient and his family have been advised in the appropriate conservative measures regarding management of the patient's chronic venous d isease. The patient has been encouraged to continue sleeping in a recumbent position, on a flat mattress. Leg elevation should be to heart level, or higher. Legs should be elevated even during daytime hours, as much as possible. Prolonged idle sitting has been discouraged. Weight loss has been encouraged. We are to continue compression to the right lower extremity by means of a 3M 2 layer compression wrap, which will be changed twice weekly. We are to use Adaptic and gauze overlying the ulcerated site, in an effort to avoid adherence and subsequent bleeding. Patient has been instructed that, in the event of additional bleeding from the site, he is to elevate his leg and apply manual pressure. The patient is return in 1 week for reassessment. In the event that an episode of spontaneous bleeding should reoccur, the patient has been instructed to apply pressure to the bleeding site, and to elevate his lower extremity above heart level. Thereafter, he should seek medical attention. At present, we are to use a nonadhesive topical dressing such as Adaptic, with overlying gauze. The goal is to avoid any adherence of the dressings to the bleeding site, to avoid further bleeding episodes. There may be a benefit to ultrasound-guided injection sclerotherapy of the veins in the region of the bleeding varicosity at some juncture in the near future. The indications and risks have been discussed with the patient and his son, at the bedside. We will attempt to schedule the procedure for the near future. Several such sessions may be necessary. It is hoped that the procedures will reduce the high venous pressure in the area of the ulceration, diminish or abolish flow in the associated superficial vein, and allow for healing of the venous ulceration. Influenza vaccine was not administered today. The patient is not a smoker. Patient weighs 261 pounds. He stands 5 feet 8 inches tall. His BMI is 38.5, which places him in an obese class II category. Weight loss has been recommended, and collaboration with the patient's primary care physician has been recommended in terms of weight loss management.
[2018-06-22 14:03] VITALS: BP 142/74; PULSE 99; RESP 18; TEMP 36.2; BMI 38.5
== END 2018-06-29 23:59 ==
LOC: WC 13:30
PROVIDERS: Family Provider Family Medicine; PCP Family Medicine; Referring Provider Surgery; Visit Provider Surgery
DX: I83.212 Varicose veins of right lower extremity with both ulcer of calf and inflammation (principal); L97.219 Non-pressure chronic ulcer of right calf with unspecified severity; I48.2 Chronic atrial fibrillation; M54.16 Radiculopathy, lumbar region; E66.9 Obesity, unspecified; Z68.38 Body mass index [BMI] 38.0-38.9, adult; Z71.3 Dietary counseling and surveillance; M79.89 Other specified soft tissue disorders
CPT/HCPCS: 17250; 29581; 99211; 99212; 99213; G0463

== ENCOUNTER 2018-07-25 11:36 | Day surgery (SDC) | payer MEDICARE, SELFPAY ==
[2018-07-11 10:19] VITALS: BMI 38.5
--- NOTE | 2018-07-23 10:13 | PCM.HP.STD ---
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 (5) Chronic venous hypertension (idiopathic) with ulcer and inflammation of bilateral lower extremity Status: Chronic (6) Venous ulcer of right leg Status: Chronic (7) Spontaneous hemorrhage Status: Chronic (8) Atrial fibrillation Status: Chronic (9) Lumbar radiculopathy Status: Chronic (10) Obesity (BMI 35.0-39.9 without comorbidity) Status: Chronic (11) Right leg swelling Status: Chronic (12) Chronic venous hypertension with ulcer involving right side Status: Chronic History of Present Illness Date of Admission: 07/25/18 Chief Complaint: Chronic venous insufficiency, chronic venous hypertension with ulcer and inflammation, varicose veins with ulcer and inflammation, venous ulcer of the right leg, spontaneous hemorrhage from right leg ulceration The patient is a 77 year old M who presented several months ago with a long-standing history of chronic venous disease. The patient had varicose veins for many years. He had elected to forego any significant treatment related to his venous disease. He denies a history of thrombophlebitis, though his past medical records indicate that he may have suffered from thrombophlebitis in the past. Approximately 2 months prior to his original presentation, the patient developed a spontaneous ulceration on the medial aspect of his right calf. The site subsequently ruptured, and bled spontaneously. Spontaneous bleeding occurred on 3 or 4 occasions, each time with significant blood loss. The patient required attention in the emergency department each time. He was subsequently referred to the [facility] for definitive management. The patient has a history of swelling in his right lower extremity, which typically occurs at the end of each day. He sleeps on a flat mattress at night. He is not very active. He is noted to be obese. The patient was treated at the [facility] initially by conservative means, which included leg elevation, avoidance of idle standing and sitting, compression, active lifestyle, weight control measures, etc. Despite these measures, the patient failed to demonstrate significant improvement. He subsequently underwent endovenous laser ablation of the right great saphenous vein, 2 incompetent accessory saphenous veins, and a large incompetent tributary in the vicinity of the right lower extremity venous ulceration. The patient recovered uneventfully, and subsequent venous ultrasound examinations revealed successful ablation of the treated veins. However, the ulceration of the right lower extremity persisted. Its appearance was that of a large, bulging, distended varicose vein with erosion of the skin. Based upon its appearance, it has persistently appeared as though to be a threat for spontaneous hemorrhage. As result, debridements have been avoided due to concern about the likelihood of bleeding, even subsequent to the patient's endothermal ablation procedure which was per formed on May 18, 2018. Of note, the patient has a history of atrial fibrillation. Despite medical recommendations for systemic anticoagulation in the past, the patient has declined. He suffered a cerebrovascular accident on June 23, 2018. His manifestations initially included diplopia, dizziness, speech aphasia, and right-sided hemiparesis. He has recovered reasonably well since his initial stroke, and now appears only to have mild residual right-sided hemiparesis. However, as a result of his cerebrovascular accident, resulting from his atrial fibrillation, the patient has been placed on systemic anticoagulation therapy with Xarelto, which continues until the current time. He is currently residing in the [facility]. He has recently been incontinent of urine, requiring a Dixon catheter. To date, there has been no significant improvement in the status of the ulceration on the distal right lower extremity. Its appearance remains that of a large, bulging, distended varicose vein, with erosion of the skin, with a propensity for spontaneous bleeding. Venous duplex examination has been performed on July 18, 2018, revealing an incompetent accessory saphenous vein originating at the S2-S3 position, and extending distally to the site and proximity to the ulceration on the right anteromedial calf. There is also an incompetent accessory saphenous vein in the right medial calf which communicates with an incompetent director of flight operations vein, located in proximity to the ulceration, about 16 cm proximal to the right medial malleolus. Past Medical History Past Medical History (Chronic Problems): Chronic Problems (Last Reviewed 05/09/18 @ 15:51 by Heriberto Dempsey MD) CVA (cerebral vascular accident) (Chronic) Hemiparesis (Chronic) Incontinence of urine (Chronic) Aphasia complicating stroke (Chronic) Chronic venous insufficiency (Chronic) Varicose veins with ulcer and inflammation (Chronic) Chronic venous hypertension (idiopathic) with ulcer and inflammation of bilateral lower extremity (Chronic) Venous ulcer of right leg (Chronic) Spontaneous hemorrhage (Chronic) Atrial fibrillation (Chronic) Lumbar radiculopathy (Chronic) Obesity (BMI 35.0-39.9 without comorbidity) (Chronic) Exertional dyspnea (Chronic) Right leg swelling (Chronic) Chronic venous hypertension with ulcer involving right side (Chronic) Medical History: Medical History (Last Reviewed 05/09/18 @ 15:51 by Heriberto Dempsey MD) Atrial fibrillation (Chronic) I48.91 Lumbar radiculopathy (Chronic) M54.16 Obesity (BMI 35.0-39.9 without comorbidity) (Chronic) E66.9 Allergies No Known Allergies Allergy (Verified 07/21/18 09:28) Home Medications: Ambulatory Orders Medication Instructions Recorded Multivitamin [Daily Multiple 1 ea PO DAILY 05/03/18 Vitamin] Docusate Sodium [Colace] 100 mg PO BID 07/11/18 Rivaroxaban [Xarelto] 20 mg PO QHS 07/11/18 Atorvastatin Calcium [Lipitor] 40 mg PO QHS 07/21/18 Metoprolol Succinate 25 mg PO BID 07/21/18 Surgical History: no surgical history Psychiatric History: No pertinent psych hx Lives: Alf Smoking Status: Never smoker Tobacco Use: Non-smoker Alcohol: None Drugs: None - *Family History Paternal Family History: Family History (Last Reviewed 05/09/18 @ 15:51 by Heriberto Dempsey MD) Mother CVA (cerebral vascular accident) History Items: - - The patient's father at the age of 90 of old age. Patient's mother at age of 83 with a history of liver cancer. Review of Systems Constitutional: Denies: Chills, Fever, Weight Change HEENT: Denies: Head Aches, Sinus Congestion, Sinus Drainage Cardiovascular: Denies: Chest Pain, Palpitations Respiratory: Denies: Cough, Shortness of breath at rest, Sputum production Gastrointestinal: Denies: Abdominal Pain, Nausea, Vomiting Genitourinary: Denies: Dysuria Musculoskeletal: Denies: Joint Pain, Joint Tenderness Skin: Denies: Rash, Wounds Neurological: Denies: Numbness, Tingling, Focal weakness Psychiatric: Denies: Anxiety, Depression, Homicidal Ideations, Suicidal Ideations Hematologic/ Lymphatic: Denies: Easy Bruising, Easy Bleeding VTE Information - Inpt Only VTE Present on Admission: No VTE Mechan Device Prophylaxis: SCD's VTE Pharm Prophylaxis ordered?: Yes - Physical Exam General: Alert, Oriented x3, Cooperative, No apparent distress, Well developed, Well nourished HEENT: Atraumatic, PERRLA, EOMI, Normocephalic Oral: Moist Mucosa Neck: Supple, No JVD, Negative Carotid Bruits, No Nuchal Rigidity, Trachea Midline Lungs: Clear to auscultation, Normal air movement, No rhonchi, No wheeze, No rales Cardiovascular: Normal S1, Normal S2, No murmurs Abdomen: Bowel Sounds Present, Soft, Non Tender, Non-Distended, Obese Extremities: No clubbing, No cyanosis, Capillary Refill Less than 3 Seconds, No Calf Tenderness, - - The patient has an ulceration on the anteromedial aspect of the right calf, with a large, bulging, distended varicose vein eroding through the dermal layers. The ulceration is approximately 2-3 cm in diameter. There is no sign of infection or cellulitis. Skin: No rashes, No breakdown Musculoskeletal: No Tenderness to Palpation of Joints or Extremities Neurological: Cranial nerves II-XII grossly intact, - - Mild right-sided hemiparesis is noted. Psych/Mental Status: Normal Affect, Appropriate, Alert and oriented to time, place, person, mood and affect Body Mass Index (BMI) 38.5 Assessment/Plan This is a 77-year-old male with a long-standing history of chronic venous disease. He suffers from chronic venous insufficiency, varicose veins with ulcer and inflammation, chronic venous hypertension with ulcer and inflammation, venous ulcer of the distal right lower extremity, and multiple episodes of spontaneous hemorrhage from the venous ulceration in the right lower extremity. Conservative treatment measures have been implemented for several months, without any significant improvement in the status of the ulceration or its bleeding potential. Patient underwent endovenous laser ablation of the right great saphenous vein, 2 accessory saphenous veins, and the tributary vein on May 18, 2018. It had been anticipated that the endothermal ablation procedure would reduce venous pressure in the patient's right lower extremity, and result in significant improvement of his ulceration and its tendency for hemorrhage. However, this has not been the case. Despite all measures to date, there has been little or no improvement. Venous duplex examination has been performed, revealing a large incompetent accessory saphenous vein emanating from the right great saphenous vein at the S2-S3 position, and extending down to proximity of the ulceration in the right calf. There is also another accessory saphenous vein and a director of flight operations vein in proximity as well. Consideration has been given to the options of management. It appears as though intervention is warranted at this time in an effort to reduce the venous hypertension causing the patient's ulceration and bleeding propensity. Issues with regard to management have been discussed with the patient, and with his family, in detail. The options of management have been thoroughly discussed. The indications and risks of endovenous laser ablation of the incompetent accessory saphenous veins and the incompetent director of flight operations vein have been discussed and explained. The patient has been scheduled for endovenous laser ablation of the right accessory saphenous vein at the S2-S3 position, endovenous laser ablation of the right accessory saphenous vein in the calf, endovenous laser ablation of the incompetent director of flight operations vein, and ligation/division/and excision of the varicose vein cluster in the right calf. The indications and risks have been thoroughly explained. the appropriate pre-operative consent has been explained. discussion with the patient's Audio Visual Production Specialist indicates that the patient should remain on systemic anticoagulation.
[2018-07-24 15:43] LABS: Hematocrit 43.5 % (40-54); Hemoglobin 13.5 g/dl (13.0-16.5); Mean Corpuscular Hgb 30.1 pg (27.0-32.0); Mean Corpuscular Volume 96.9 fL (80-94); Mean Platelet Vol. 10.1 fl (6.2-12.0); Platelet Count 248 K/mm3 (150-450); RBC Distribution Width CV 13.7 % (11.6-14.6); RBC Distribution Width SD 47.3 fl (35.1-43.9); Red Blood Count 4.49 M/mm3 (4.6-6.2); White Blood Count 9.1 K/mm3 (4.4-11.0)
[2018-07-24 15:44] LABS: Scan Indicated on CBC? Y/N NO
[2018-07-24 15:48] LABS: International Normalized Ratio 1.3; Prothrombin Time (Protime)PT. 15.8 SECONDS (11.7-14.9)
[2018-07-24 15:49] LABS: Partial Thromboplast Time 31.5 Seconds (24.1-36.2)
--- NOTE | 2018-07-24 15:49 | EKG12_ITS ---
Test Reason : PRE-OP Blood Pressure : / mmHG Vent. Rate : 114 BPM Atrial Rate : 110 BPM P-R Int : 000 ms QRS Dur : 076 ms QT Int : 350 ms P-R-T Axes : 000 -02 049 degrees QTc Int : 482 ms Atrial fibrillation with rapid ventricular response Abnormal ECG Confirmed by WAYNE PETERSON, TIFFANIE ([id number]), legal editor DORYS BROTHERS ([id number]) on 07/25/2018 1:20:32 PM Referred By: Nacho Franco Confirmed By:TIFFANIE BLACK MD
[2018-07-24 16:00] LABS: Anion Gap 4 (5-15); BUN 26 mg/dL (7-18); BUN/Creat Ratio 34.3 RATIO (10-20); Calcium,Total 8.7 mg/dL (8.5-10.1); Chloride 104 mmol/L (98-107); Creatinine, Serum 0.76 mg/dL (0.70-1.30); EST Glomerular Filtration Rate 105 mL/min (>60); Est Glom Filt Rate - Afr Amer 128 mL/min (>60); Glucose 101 mg/dL (74-106); Sodium Level 137 mmol/L (136-145)
--- NOTE | 2018-07-24 16:35 | RAD_ITS ---
STUDY: X-RAY CHEST REASON FOR EXAM: Male, 77 years old. Pre-op TECHNIQUE: PA and lateral views of the chest. COMPARISON: None. FINDINGS: The lungs are underexpanded. There is focal opacity projected over the right hemidiaphragm. There is poor visualization of the lingula allowing for the summation of shadows with superficial soft tissues in the heart. There is no demonstrated pleural abnormality. There is moderate cardiac enlargement. Normal mediastinum and amador. Normal visualized pulmonary arteries. Normal visualized aortic arch and descending thoracic aorta. There are diffuse degenerative changes of the visualized thoracic spine. There is kyphosis and bony demineralization. Normal visualized ribs, clavicles, and shoulders. There is no demonstrated abnormality of the visualized soft tissue structures of the upper abdomen. RAD/Chest PA and Lateral IMPRESSION: Underexpansion of the lungs bilateral lingular atelectasis and/or infiltrates. Moderate cardiomegaly. Electronically Signed: Mel Renner MD at 17:30 EDT Tel , Service support ,
[2018-07-25] VITALS (11 sets, daily range): BP systolic 105–147; BP diastolic 59–100; PULSE 83–111; RESP 12–18; TEMP 36.2–36.8; O2SAT 89–96; BMI 38.0
--- NOTE | 2018-07-25 13:00 | VE_PTH ---
PATIENT: ROXIE CHRISTENSEN LOC: [facility] U#:[id number] AGE/SX: 77/M ROOM: RE07/25/[address]: Dr. Nacho Franco MD : 1940 BED: DIS: 07/25/2018 SPEC #: [id number] RECD: 07/26/18 07:49 STATUS: SAMANTHA REMIGIO #: [id number] COLT: 07/25/18 13:[address]: Nacho Franco DEPT: SURGICAL PATHOLOGY RECD BY: Ryan Amezquita ENTERED: 07/26/18 13:03 SP TYPE: VEIN(S) OTHR DR: Dr. 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 Fragment of organizing blood clot with associated acute and chronic inflammation. AM:denise 07/27/18 COMMENT Clinical correlation is suggested. MICROSCOPIC DESCRIPTION Slides are reviewed. GROSS DESCRIPTION Received in fixative is one container labeled with the patient's name and designated superficial penetrating varicose vein with necrotic tissue. The specimen consists of a tubular piece of webb soft tissue measuring 1 cm in length and 0.4 cm in diameter. Also present in the container is a brownish piece of soft tissue measuring 2 x 1.5 x 1 cm. The brown piece is bisected. The entire specimen is submitted in two cassettes. Cassette 2 contains the brownish piece of tissue. / SJ:denise 07/26/18 TC:2 CPT: 06473
[2018-07-25] MEDS: Cefazolin 2 GM in 0.9% Normal Saline 100 ML IV (13:04)
--- NOTE | 2018-07-25 15:53 | PCM.DCVENO ---
Discharge Diet: No Restrictions Discharge Activity: May Not Drive May shower in (days): 2 - Do not get right leg wrap wet. Weight Bearing Status: Weight bearing as tolerated Lifting Restrictions: 10 pounds Keep extremity elevated above heart level: Right Leg Call your doctor if your incision/area has: Continuous Slow Oozing, Sudden Increased Bleeding Call your doctor if you observe: Shortness of breath, Fainting spells, Chest pain, Prolonged hiccoughing, Uncontrolled pain Suture Line Care: Avoid Pulling/Pushing Change Dressing in (Days):: 2 - Follow up in [facility] fore removal of wrap and application of 2-layer compression wrap. Catheter: Dixon to leg bag Additional Instructions: Resume Xarelto as previously prescribed without interruption. Allergies/Adverse Reactions: Allergies No Known Allergies Allergy (Verified 07/25/18 12:02) Medications to take at Discharge Multivitamin [Daily Multiple Vitamin] 1 ea PO DAILY 05/03/18 Docusate Sodium [Colace] 100 mg PO BID 07/11/18 Rivaroxaban [Xarelto] 20 mg PO QHS 07/11/18 Atorvastatin Calcium [Lipitor] 40 mg PO QHS 07/21/18 Metoprolol Succinate 25 mg PO BID 07/21/18 Primary Care Physician: Jabier Beckett MD [Primary Care Provider] - Test Results: Test results from this visit will be discussed in further detail at your follow-up appointment, if applicable. Please Follow Up With: Nacho Franco MD - Call [phone] to schedule a followup appointment. When: 10-14 days
--- NOTE | 2018-07-25 15:58 | DCINST_ITS ---
Discharge Diet: No Restrictions Discharge Activity: May Not Drive May shower in (days): 2 - Do not get right leg wrap wet. Weight Bearing Status: Weight bearing as tolerated Lifting Restrictions: 10 pounds Keep extremity elevated above heart level: Right Leg Call your doctor if your incision/area has: Continuous Slow Oozing, Sudden Increased Bleeding Call your doctor if you observe: Shortness of breath, Fainting spells, Chest pain, Prolonged hiccoughing, Uncontrolled pain Suture Line Care: Avoid Pulling/Pushing Change Dressing in (Days):: 2 - Follow up in [facility] fore removal of wrap and application of 2-layer compression wrap. Catheter: Dixon to leg bag Additional Instructions: Resume Xarelto as previously prescribed without interruption. Allergies/Adverse Reactions: Allergies No Known Allergies Allergy (Verified 07/25/18 12:02) Medications to take at Discharge Multivitamin [Daily Multiple Vitamin] 1 ea PO DAILY 05/03/18 Docusate Sodium [Colace] 100 mg PO BID 07/11/18 Rivaroxaban [Xarelto] 20 mg PO QHS 07/11/18 Atorvastatin Calcium [Lipitor] 40 mg PO QHS 07/21/18 Metoprolol Succinate 25 mg PO BID 07/21/18 Primary Care Physician: Jabier Beckett MD [Primary Care Provider] - Test Results: Test results from this visit will be discussed in further detail at your follow- up appointment, if applicable. Please Follow Up With: Nacho Franco MD - Call [phone] to schedule a followup appointment. When: 10-14 days
[2018-07-25] MEDS: Ipratropium/Albuterol Sulfate 3 ML AMPUL.NEB INHALATION (16:55)
--- NOTE | 2018-07-25 17:45 | PCM.OPRPT ---
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 Endovenous laser ablation of the right accessory saphenous vein (S2). 2. Endovenous laser ablation of the right accessory saphenous vein (anterior calf). 3. Endovenous laser ablation of the right accessory saphenous vein (posterior calf). 4. Endovenous laser ablation of an incompetent right calf wholesale diamond broker vein (16 cm proximal to the right medial malleolus). 5. 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 The patient has a venous stasis ulceration on the medial aspect of his right medial calf, which has been present for 6-8 months. It has bled spontaneously on at least 3 or 4 occasions. It appears to be a large, tense, distended varicose vein under high pressure which has eroded through the skin, and has bled spontaneously on several occasions. The patient has been treated by conservative means at the [facility]. He has previously undergone endovenous laser ablation of the right great saphenous vein and 2 incompetent accessory saphenous veins, as well as a tributary vein, on May 18, 2018. Despite these measures, the patient has failed to demonstrate significant improvement, with persistence of his right medial calf ulceration and risk of spontaneous bleeding. A recent venous duplex examination was performed, which revealed a large incompetent accessory saphenous vein originating at the S2 position from the previously ablated great saphenous vein, as well as an accessory saphenous vein in the anterior portion of the right medial calf, from which a large incompetent wholesale diamond broker vein was noted. In an effort to further reduce the venous hypertension suspected to be a cause of the patient's persisting ulceration and risk for hemorrhage, consideration was given to the performance of endovenous laser ablation of the incompetent veins in proximity to the venous ulceration, including the wholesale diamond broker vein, as well as ligation, division, and excision of the varicose vein cluster in the right medial calf. The indications and risks of the procedure were discussed with the patient and his family in detail. Expectations were thoroughly explained. The appropriate pre-procedure consent process was undertaken. The patient underwent ultrasound marking of the accessory saphenous veins and wholesale diamond broker vein preoperatively. He was then brought to the operating room suite, placed supine upon the operating room table, where general anesthesia was administered by the anesthesia staff. The patient's right lower extremity and right groin were prepped and draped in the appropriate sterile manner. Adaptic, gauze, and OpSite were placed overlying the prominent, eroding varicosity on the right medial calf, so as to keep the site excluded from the operative field in the initial phase of the procedure. The patient was placed in reverse Trendelenburg position. Ultrasonography was used to image the accessory saphenous vein at the S2 position. This vein was accessed percutaneously using ultrasound imaging and the micropuncture technique. It was accessed in proximity to, and immediately proximal to the venous ulceration on the medial calf. In this manner, a micropuncture sheath was introduced, through which a 0.035 inch guidewire was advanced proximally into the proximal portion of the accessory saphenous vein in the proximal thigh. A 45 cm 4 Dominican sheath was then advanced over the guidewire and into position intraluminally within the accessory saphenous vein. Percutaneous access was then achieved in similar fashion to the accessory saphenous vein in the anterior portion of the medial calf, using ultrasound imaging and the micropuncture technique. In this manner, a micropuncture sheath was left in place, capped, for subsequent access purposes. Thorough ultrasound examination was performed of the medial calf, particularly in the area of the ulceration. A previously unrecognized incompetent accessory saphenous vein was noted posterior to the medial calf ulceration, and access was achieved using ultrasound imaging and the micropuncture technique, allowing for placement of a micropuncture sheath for subsequent access purposes. Attention was then directed to the incompetent wholesale diamond broker vein in the right calf, located approximately 16 cm proximal to the right medial malleolus. Using ultrasound imaging and the micropuncture technique, a 5 Dominican micropuncture sheath was introduced intraluminally. Perivenous tumescent anesthesia was then injected under ultrasound imaging. The AngioDynamics laser fiber was then introduced into the 5 Dominican sheath, and was visualized by direct ultrasound imaging. The tip of the laser fiber was placed at the fascial level, avoiding proximity to the deep venous system. The patient was placed in Trendelenburg position. Using direct ultrasound imaging, the laser fiber was activated, and was used to ablate the incompetent wholesale diamond broker vein for a length of approximately 2-3 cm. Approximately 60-80 J/cm were utilized. Attention was then directed to the long 4 Dominican sheath which had been previously placed intraluminally within the longest of the 3 incompetent accessory saphenous veins. Perivenous tumescent anesthesia was injected from the 4 Dominican sheath exit site up to the tip of the sheath. This was performed segmentally using ultrasound imaging. The AngioDynamics laser fiber was then introduced into the 4 Dominican sheath and coupled appropriately. Ultrasonography was used to confirm that the tip of the laser fiber was positioned within the desired location in the proximal portion of the incompetent accessory saphenous vein, abutting the previously ablated great saphenous vein at the S2 level. The patient was placed in Trendelenburg position and the laser fiber was activated. The AngioDynamics laser was slowly withdrawn at a constant rate throughout the length of the incompetent accessory saphenous vein, thereby ablating the accessory saphenous vein segmentally. The energy applied was approximately 60-80 J/cm. Following the laser ablation, the laser fiber and sheath were removed, and manual pressure was briefly applied to the percutaneous access site to achieve hemostasis. Attention was then directed to each of the 2 incompetent accessory saphenous veins, 1 of which was located anteriorly and the other which was located posteriorly with respect to the medial right calf venous ulceration. In each case, a 0.035 inch guidewire was introduced intraluminally within the incompetent accessory saphenous vein, over which the long 4 Dominican sheath was advanced. In each case, perivenous tumescent anesthesia was injected from the 4 Dominican sheath exit site up to the tip of the sheath. This was performed segmentally using ultrasound imaging. The AngioDynamics laser fiber was then introduced into the 4 Dominican sheath in each case. Ultrasonography was used to confirm that the tip of the laser fiber was positioned in the desired position in the proximal incompetent accessory saphenous vein, and not in proximity to the deep venous system. In each case, the patient was placed in Trendelenburg position and the laser fiber was activated. The AngioDynamics laser was slowly withdrawn at a constant rate throughout the length of each incompetent accessory saphenous vein, thereby ablating the veins segmentally. The energy applied was approximately 60-80 J/cm. Following the laser ablation, the laser fiber and sheath were removed, and manual pressure was briefly applied to the percutaneous access site to achieve hemostasis in each case. Attention was then directed to the venous stasis ulceration on the right medial calf. The appearance of the ulceration was consistent with a large, tense, distended varicose vein which had eroded through the dermal layers. There was evidence of frankly necrotic and nonviable tissue overlying the eroding varicosity. The Adaptic and gauze dressing which had been placed during the initial portion of the procedure were removed. A combination of blunt and sharp dissection was then used to excise the non-viable and necrotic tissue at the site. Upon removing the necrotic and nonviable tissue, and dissecting down to the base of the ulceration, it could be seen that there was a large, transected venous structure at the base of the ulceration, though only minimal bleeding was noted from this large vein. The lack of bleeding was suspected to be due to the reduction in venous hypertension due to the current and prior endovenous thermal ablation procedures. The base of the ulceration was sharply excised, with beveling of the ulcer margins. The excised tissue, including a portion of the excised vein, was placed in formalin, to be sent to the Pathology Department for histological examination. Interrupted 2-0 Vicryl sutures were then used to oversew the exposed vein in the base of the ulceration. Electrocautery was used to control several small sites of bleeding. Once hemostasis was achieved, Surgicel was applied topically. Cavilon and Steri-Strips were applied to the percutaneous access sites related to the endothermal ablation. With hemostasis seen to be satisfactory, dry sterile gauze dressings were applied over each of the access sites, and the leg was wrapped from the base of the toes to the upper thigh with Kerlix, followed by Parmjit wrap. The blood loss for the procedure was minimal. The sponge, needle, and instrument counts at the end of the procedure were correct. The patient tolerated the procedure well and was transported from the Operating Room to the Post-anesthesia Care Unit in stable condition. The amount of tumescent anesthesia utilized, number of joules applied, and treatment times were recorded separately. - Complications None - Admit VTE Documentation VTE Present on Admission: No VTE Mechan Device Prophylaxis: SCD's - Left VTE Pharm Prophylaxis ordered?: Yes
--- NOTE | 2018-07-25 17:49 | OP.PCM_ITS ---
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 Endovenous laser ablation of the right accessory saphenous vein (S2). 2. Endovenous laser ablation of the right accessory saphenous vein (anterior calf). 3. Endovenous laser ablation of the right accessory saphenous vein (posterior calf). 4. Endovenous laser ablation of an incompetent right calf banking specialist vein (16 cm proximal to the right medial malleolus). 5. 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 The patient has a venous stasis ulceration on the medial aspect of his right medial calf, which has been present for 6-8 months. It has bled spontaneously on at least 3 or 4 occasions. It appears to be a large, tense, distended varicose vein under high pressure which has eroded through the skin, and has bled spontaneously on several occasions. The patient has been treated by conservative means at the [facility]. He has previously undergone endovenous laser ablation of the right great saphenous vein and 2 incompetent accessory saphenous veins, as well as a tributary vein, on May 18, 2018. Despite these measures, the patient has failed to demonstrate significant improvement, with persistence of his right medial calf ulceration and risk of spontaneous bleeding. A recent venous duplex examination was performed, which revealed a large incompetent accessory saphenous vein originating at the S2 position from the previously ablated great saphenous vein, as well as an accessory saphenous vein in the anterior portion of the right medial calf, from which a large incompetent banking specialist vein was noted. In an effort to further reduce the venous hypertension suspected to be a cause of the patient's persisting ulceration and risk for hemorrhage, consideration was given to the performance of endovenous laser ablation of the incompetent veins in proximity to the venous ulceration, including the banking specialist vein, as well as ligation, division, and excision of the varicose vein cluster in the right medial calf. The indications and risks of the procedure were discussed with the patient and his family in detail. Expectations were thoroughly explained. The appropriate pre-procedure consent process was undertaken. The patient underwent ultrasound marking of the accessory saphenous veins and banking specialist vein preoperatively. He was then brought to the operating room suite, placed supine upon the operating room table, where general anesthesia was administered by the anesthesia staff. The patient's right lower extremity and right groin were prepped and draped in the appropriate sterile manner. Adaptic, gauze, and OpSite were placed overlying the prominent, eroding varicosity on the right medial calf, so as to keep the site excluded from the operative field in the initial phase of the procedure. The patient was placed in reverse Trendelenburg position. Ultrasonography was used to image the accessory saphenous vein at the S2 position. This vein was accessed percutaneously using ultrasound imaging and the micropuncture technique. It was accessed in proximity to, and immediately proximal to the venous ulceration on the medial calf. In this manner, a micropuncture sheath was introduced, through which a 0.035 inch guidewire was advanced proximally into the proximal portion of the accessory saphenous vein in the proximal thigh. A 45 cm 4 Chinese sheath was then advanced over the guidewire and into position intraluminally within the accessory saphenous vein. Percutaneous access was then achieved in similar fashion to the accessory saphenous vein in the anterior portion of the medial calf, using ultrasound imaging and the micropuncture technique. In this manner, a micropuncture sheath was left in place, capped, for subsequent access purposes. Thorough ultrasound examination was performed of the medial calf, particularly in the area of the ulceration. A previously unrecognized incompetent accessory saphenous vein was noted posterior to the medial calf ulceration, and access was achieved using ultrasound imaging and the micropunc ture technique, allowing for placement of a micropuncture sheath for subsequent access purposes. Attention was then directed to the incompetent banking specialist vein in the right calf, located approximately 16 cm proximal to the right medial malleolus. Using ultrasound imaging and the micropuncture technique, a 5 Chinese micropuncture sheath was introduced intraluminally. Perivenous tumescent anesthesia was then injected under ultrasound imaging. The AngioDynamics laser fiber was then introduced into the 5 Chinese sheath, and was visualized by direct ultrasound imaging. The tip of the laser fiber was placed at the fascial level, avoiding proximity to the deep venous system. The patient was placed in Trendelenburg position. Using direct ultrasound imaging, the laser fiber was activated, and was used to ablate the incompetent banking specialist vein for a length of approximately 2-3 cm. Approximately 60-80 J/cm were utilized. Attention was then directed to the long 4 Chinese sheath which had been previously placed intraluminally within the longest of the 3 incompetent accessory saphenous veins. Perivenous tumescent anesthesia was injected from the 4 Chinese sheath exit site up to the tip of the sheath. This was performed segmentally using ultrasound imaging. The AngioDynamics laser fiber was then introduced into the 4 Chinese sheath and coupled appropriately. Ultrasonography was used to confirm that the tip of the laser fiber was positioned within the desired location in the proximal portion of the incompetent accessory saphenous vein, abutting the previously ablated great saphenous vein at the S2 level. The patient was placed in Trendelenburg position and the laser fiber was activated. The AngioDynamics laser was slowly withdrawn at a constant rate throughout the length of the incompetent accessory saphenous vein, thereby ablating the accessory saphenous vein segmentally. The energy applied was approximately 60-80 J/cm. Following the laser ablation, the laser fiber and sheath were removed, and manual pressure was briefly applied to the percutaneous access site to achieve hemostasis. Attention was then directed to each of the 2 incompetent accessory saphenous veins, 1 of which was located anteriorly and the other which was located posteriorly with respect to the medial right calf venous ulceration. In each case, a 0.035 inch guidewire was introduced intraluminally within the incompetent accessory saphenous vein, over which the long 4 Chinese sheath was advanced. In each case, perivenous tumescent anesthesia was injected from the 4 Chinese sheath exit site up to the tip of the sheath. This was performed segmentally using ultrasound imaging. The AngioDynamics laser fiber was then introduced into the 4 Chinese sheath in each case. Ultrasonography was used to confirm that the tip of the laser fiber was positioned in the desired position in the proximal incompetent accessory saphenous vein, and not in proximity to the deep venous system. In each case, the patient was placed in Trendelenburg position and the laser fiber was activated. The AngioDynamics laser was slowly withdrawn at a constant rate throughout the length of each incompetent accessory saphenous vein, thereby ablating the veins segmentally. The energy applied was approximately 60-80 J/cm. Following the laser ablation, the laser fiber and sheath were removed, and manual pressure was briefly applied to the percutaneous access site to achieve hemostasis in each case. Attention was then directed to the venous stasis ulceration on the right medial calf. The appearance of the ulceration was consistent with a large, tense, distended varicose vein which had eroded through the dermal layers. There was evidence of frankly necrotic and nonviable tissue overlying the eroding va ricosity. The Adaptic and gauze dressing which had been placed during the initial portion of the procedure were removed. A combination of blunt and sharp dissection was then used to excise the non-viable and necrotic tissue at the site. Upon removing the necrotic and nonviable tissue, and dissecting down to the base of the ulceration, it could be seen that there was a large, transected venous structure at the base of the ulceration, though only minimal bleeding was noted from this large vein. The lack of bleeding was suspected to be due to the reduction in venous hypertension due to the current and prior endovenous thermal ablation procedures. The base of the ulceration was sharply excised, with beveling of the ulcer margins. The excised tissue, including a portion of the excised vein, was placed in formalin, to be sent to the Pathology Department for histological examination. Interrupted 2-0 Vicryl sutures were then used to oversew the exposed vein in the base of the ulceration. Electrocautery was used to control several small sites of bleeding. Once hemostasis was achieved, Surgicel was applied topically. Cavilon and Steri-Strips were applied to the percutaneous access sites related to the endothermal ablation. With hemostasis seen to be satisfactory, dry sterile gauze dressings were applied over each of the access sites, and the leg was wrapped from the base of the toes to the upper thigh with Kerlix, followed by Parmjit wrap. The blood loss for the procedure was minimal. The sponge, needle, and instrument counts at the end of the procedure were correct. The patient tolerated the procedure well and was transported from the Operating Room to the Post-anesthesia Care Unit in stable condition. The amount of tumescent anesthesia utilized, number of joules applied, and treatment times were recorded separately. - Complications None - Admit VTE Documentation VTE Present on Admission: No VTE Mechan Device Prophylaxis: SCD's - Left VTE Pharm Prophylaxis ordered?: Yes
== END 2018-07-25 19:15 | disposition skilled nursing facility (03) ==
LOC: SDC 11:36 → AC 11:37
PROVIDERS: Family Provider Family Medicine; PCP Family Medicine; Referring Provider Surgery; Visit Provider Surgery
PROC: (CPT 36478; principal; 2018-07-25 12:45)
DX: I83.212 Varicose veins of right lower extremity with both ulcer of calf and inflammation (principal); L97.219 Non-pressure chronic ulcer of right calf with unspecified severity; I48.91 Unspecified atrial fibrillation; Z79.01 Long term (current) use of anticoagulants; Z79.899 Other long term (current) drug therapy; I69.351 Hemiplegia and hemiparesis following cerebral infarction affecting right dominant side; E66.9 Obesity, unspecified; Z68.38 Body mass index [BMI] 38.0-38.9, adult; Z71.3 Dietary counseling and surveillance
CPT/HCPCS: 36478; 36479; 36415; 71046; 80048; 85027; 85610; 85730; 88304; 88305; 93005; 93971; 94640; J7040; J7120; J2405

== ENCOUNTER 2018-07-27 09:15 | Outpatient (RCR) | payer MEDICARE, SELFPAY ==
[2018-06-30 01:03] VITALS: BP 142/74; PULSE 99; RESP 18; TEMP 36.2
[2018-07-11 10:19] VITALS: BP 97/54; PULSE 101; RESP 20; TEMP 36.5; BMI 38.5
--- NOTE | 2018-07-11 11:37 | HP.PCM_ITS ---
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 Status: Chronic Current Visit: Yes Code(s): I87.333 - Chronic venous hypertension (idiopathic) with ulcer and inflammation of bilateral lower extremity; L97.919 - Non-pressure chronic ulcer of unspecified part of right lower leg with unspecified severity; L97.929 - Non-pressure chronic ulcer of unspecified part of left lower leg with unspecified severity (4) Venous ulcer of right leg Status: Chronic Current Visit: Yes Code(s): I83.019 - Varicose veins of right lower extremity with ulcer of unspecified site; L97.919 - Non-pressure chronic ulcer of unspecified part of right lower leg with unspecified severity (5) Spontaneous hemorrhage Status: Chronic Current Visit: Yes Code(s): K66.1 - Hemoperitoneum (6) Atrial fibrillation Status: Chronic Current Visit: Yes Code(s): I48.91 - Unspecified atrial fibrillation (7) Lumbar radiculopathy Status: Chronic Current Visit: No Code(s): M54.16 - Radiculopathy, lumbar region (8) Obesity (BMI 35.0-39.9 without comorbidity) Status: Chronic Current Visit: No Code(s): E66.9 - Obesity, unspecified (9) Exertional dyspnea Status: Chronic Current Visit: No Code(s): R06.09 - Other forms of dyspnea (10) Right leg swelling Status: Chronic Current Visit: Yes Code(s): M79.89 - Other specified soft tissue disorders (11) Chronic venous hypertension with ulcer involving right side Status: Chronic Current Visit: Yes Code(s): I87.311 - Chronic venous hype rtension (idiopathic) with ulcer of right lower extremity; L97.919 - Non- pressure chronic ulcer of unspecified part of right lower leg with unspecified severity (12) CVA (cerebral vascular accident) Status: Acute Current Visit: Yes Code(s): I63.9 - Cerebral infarction, unspecified (13) Hemiparesis Status: Acute Current Visit: Yes Qualifiers: Hemiparesis laterality: right dominant side Code(s): G81.90 - Hemiplegia, unspecified affecting unspecified side (14) Incontinence of urine Status: Chronic Current Visit: Yes Code(s): R32 - Unspecified urinary incontinence (15) Aphasia complicating stroke Status: Chronic Current Visit: Yes History of Present Illness Chief Complaint: Chronic venous insufficiency, varicose veins with ulceration and inflammation, venous hypertension with ulceration, venous ulceration, leg swelling, spontaneous bleeding?right lower extremity History of Wound: This is a 77-year-old male who presented with a long-standing history of chronic venous disease. The patient has had varicose veins for many years. He has elected to forego any significant treatment related to his venous disease. He denies a history of thrombophlebitis, though his past medical records indicate a history, though vague and nonspecific. Approximately 2 months prior to his presentation, the patient developed a spontaneous ulceration on the medial aspect of his right calf. The site subsequently ruptured, and spontaneous bleeding occurred on more than 3 different occasions, each time with significant blood loss. On at least one occasion, the spontaneous bleeding occurred after taking a hot shower. The patient has required attention in the emergency department on several occasions. Patient was subsequently referred to the [facility] for definitive management. The patient relates swelling in his right leg which occurs typically at the end of each day. He sleeps on a flat mattress at night. He lies in a recumbent position often during the daytime. He is not very active. He is also noted to be obese. New to the patient's history is that he suffered a stroke on June 23, 2018. His manifestations included diplopia, dizziness, speech aphasia, and right-sided hemiparesis. The cause of the stroke was related to atrial fibrillation. The patient had refused to be placed on systemic anticoagulation therapy. Since that time, he has been started on Xarelto, which continues until the current time. Immediately following the patient's cerebrovascular accident, he was taken to the emergency department at [facility], then immediately transferred to [facility], where he remained the patient for 8 days. He was subsequently transferred to [facility], where he remains in the transitional care unit. His physician at the custodial is Dr. Juan Bonner, and his primary care physician is Dr. Beckett in [place]. The patient is incontinent of urine, and has an indwelling Dixon catheter. Records from the patient's recent hospitalization have not been obtained. Past Medical History Past Medical History: Chronic Problems (Last Reviewed 05/09/18 @ 15:51 by Heriberto Dempsey MD) Incontinence of urine (Chronic) Aphasia complicating stroke (Chronic) Chronic venous insufficiency (Chronic) Varicose veins with ulcer and inflammation (Chronic) Chronic venous hypertension (idiopathic) with ulcer and inflammation of bilateral lower extremity (Chronic) Venous ulcer of right leg (Chronic) Spontaneous hemorrhage (Chronic) Atrial fibrillation (Chronic) Lumbar radiculopathy (Chronic) Obesity (BMI 35.0-39.9 without comorbidity) (Chronic) Exertional dyspnea (Chronic) Right leg swelling (Chronic) Chronic venous hypertension with ulcer involving right side (Chronic) Surgical History: no surgical history Allergies/Adverse Reactions: Allergies No Known Allergies Allergy (Verified 05/09/18 15:30) Home Medications: Ambulatory Orders Medication Instructions Recorded Cholecalciferol (VIT D3) [Vitamin 1,000 unit PO DAILY 05/03/18 D] Multivitamin [Daily Multiple 1 ea PO DAILY 05/03/18 Vitamin] metoprolol succinate ER 50 mg 50 mg PO DAILY #90 tab 05/09/18 tablet,extended release 24 hr Docusate Sodium [Colace] 100 mg PO DAILY 07/11/18 Rivaroxaban [Xarelto] 20 mg PO DAILY 07/11/18 - Family History Paternal Family History: Family History (Last Reviewed 05/09/18 @ 15:51 by Heriberto Dempsey MD) Mother CVA (cerebral vascular accident) - - The patient's father at the age of 90 of old age. Patient's mother at age of 83 with a history of liver cancer. Smoking Status: Never smoker Tobacco Use: Non-smoker Review of Systems Constitutional: Denies: Chills, Fever, Weight Change Eyes: Denies: Pain, Vision Change HEENT: Denies: Difficulty Hearing, Difficulty Swallowing, Sinus Congestion Cardiovascular: Denies: Chest Pain, Palpitations Respiratory: Denies: Cough, Shortness of Breath Gastrointestinal: Denies: Diarrhea, Nausea, Vomiting Genitourinary: Denies: Dysuria, Hematuria Endocrine: Denies: Heat/ Cold Intolerance, Polydipsia, Polyuria Hematologic/ Lymphatic: Denies: Easy Bruising, Easy Bleeding - Physical Exam Vital Signs Temp Pulse Resp BP 97.7 F L 101 H 20 H 97/54 L 07/11/18 10:19 07/11/18 10:19 07/11/18 10:19 07/11/18 10:19 General: Alert, Oriented x3, Cooperative, No apparent distress, Well developed, Well nourished, - - Patient is conversant, and generally appears alert and interactive. HEENT: Atraumatic, PERRLA, EOMI, Normocephalic Oral: Moist Mucosa Neck: No JVD Lungs: Normal air movement Abdomen: Non-Distended Extremities: No clubbing, No cyanosis, No edema, No Calf Tenderness, - - The ulceration persists on the right medial calf. It is raised from skin level. It has the appearance of, and is consistent with, a large bulging varicose vein. A small amount of bleeding was encountered during preliminary nursing assessment, but no bleeding is observed during physician examination. There is no sign of infection or cellulitis. Skin: No rashes Wound Measurements and Assessment WC - Nurse 1 - General Ulcer Measurement Start: 07/11/18 10:19 Freq: Status: Active Protocol: Activity Type Activity Date Activity User E-Sign Co-Sign Detail Recorded Client Recorded Date Recorded By Document 07/11/18 10:19 DL [id number] 07/11/18 10:27 DL 07/11/18 10:19 Wound Center Nurse 1 [Ulcer Assessment] #1 Medial RLE -Current Size (cm) - Length 2 -Current Size (cm) - Width 2 -Current Size (cm) - Depth 0.1 -Total Square Cm 4 -Photo Taken No -Exudate Amt Medium -Exudate Type Sanguineous -Wound Margin Distinct, Outline Attached -Granulation Amt Large (67-100%) -Granulation Quality Red -Necrosis Amt None Present (0 %) -Structure Exposed N/A -Texture (Skylar-wound Skin Appearance) Localized Edema Scarring -Moisture (Skylar-wound Skin Appearance No Abnormality ) -Color (Skylar-wound Skin Appearance) Hemosiderin Staining -Temperature (Skylar-wound Skin No Abnormality Appearance) (Pt Warm) -Tenderness on Palpation (Skylar-wound No Skin Appearance) -Ulcer Cleansing Rinsed/ Irrigated with Saline -Foul Odor after Cleansing No [Edema Assessment] -Right Calf (cm) 38 -Right Ankle (cm) 21.5 Neurological: - - Speech is slightly slurred, but easily intelligible. The patient was lying in a gurney, so full assessment of the patient's neurological status was not achieved. Cognitively, the patient seems generally intact. Psych/Mental Status: Normal Affect, Appropriate, Alert and oriented to time, place, person, mood and affect Debridement Note No debridement was completed today Assessment/Plan Active Problems (Last Reviewed 05/09/18 @ 15:51 by Heriberto Dempsey MD) CVA (cerebral vascular accident) (Acute) Hemiparesis (Acute) Incontinence of urine (Chronic) Aphasia complicating stroke (Chronic) Chronic venous insufficiency (Chronic) Varicose veins with ulcer and inflammation (Chronic) Chronic venous hypertension (idiopathic) with ulcer and inflammation of bilateral lower extremity (Chronic) Venous ulcer of right leg (Chronic) Spontaneous hemorrhage (Chronic) Atrial fibrillation (Chronic) Right leg swelling (Chronic) Chronic venous hypertension with ulcer involving right side (Chronic) Assessment: This is a 77-year-old male with an apparent long-standing history of chronic venous disease. He has had varicose veins for many years, as well as chronic swelling in his right lower extremity. Also a question as to whether the patient may have a history of thrombophlebitis. Within the last several months, the patient has developed an ulceration on the right medial calf, and has had more than 3 episodes of spontaneous bleeding from the ulceration, prompting visits to the emergency department setting. Patient presented with recent medical records, which have been reviewed. In addition, laboratory results are available from the patient's primary care physician, the results of which have been reviewed. Results are as follows: Cholesterol 199, HDL chol esterol 57, HDL ratio 3.5, LDL cholesterol 121, sodium 140, potassium 4.3, chloride 104, calcium 9.4, alkaline phosphatase 96, AST 24, ALT 18, bilirubin 0.7, glucose 89, BUN 14, creatinine 0.72, protein 7.4, albumin 4.2. The date of these laboratory results is 02/10/2018. The patient has undergone a venous duplex examination on February 24, 2018. The right great saphenous vein was noted to be incompetent. Accessory saphenous veins in the right lower extremity at the S5 and S6 positions were also incompetent. An incompetent crusher foreman vein was noted in the right calf, located 13 cm proximal to the right medial malleolus. A noninvasive lower extremity arterial study has been performed as well, revealing no evidence of significant arterial occlusive disease in the lower extremities. The patient underwent endovenous laser ablation of the right great saphenous vein, 2 accessory saphenous veins, and a venous tributary on May. The patient appears to be doing quite well. A post- procedure venous duplex examination revealed no evidence of deep vein thrombosis, and the ablated veins appear to be occluded, as would be expected post-procedure. We are to continue with compression by means of a 3M 2 layer compression wrap, which will be changed weekly. Patient has been advised to elevate his lower extremities as much as possible. He is to continue sleeping on a flat mattress at night. He is to refrain from prolonged idle sitting. Patient will return in 1 week for reassessment. It appears as though there is venous hypertension in a superficial vein as a cause for the prominence and bulging of the patient's right lower extremity ulceration. We have discussed options of management with the patient and with his family, at the bedside. It appears as though there is a role for ultrasound-guided injection sclerotherapy, the goal of which would be to attempt sclerosis of the veins in the area of the ulceration which are the cause of the high pressure. Alternatively, if one or several sessions of ultrasound-guided injection sclerotherapy are unsuccessful in reducing the high venous pressure at the site, surgical intervention may be warranted for management of this high pressure varicosity. Plan: The patient and his family have been advised in the appropriate conservative measures regarding management of the patient's chronic venous disease. The patient has been encouraged to continue sleeping in a recumbent position, on a flat mattress. Leg elevation should be to heart level, or higher. Legs should be elevated even during daytime hours, as much as possible. Prolonged idle sitting has been discouraged. Weight loss has been encouraged. We are to continue compression to the right lower extremity by means of a 3M 2 layer compression wrap, which will be changed weekly. We are to use Adaptic and gauze overlying the ulcerated site, in an effort to avoid adherence and subsequent bleeding. Patient has been instructed that, in the event of additional bleeding from the site, he is to elevate his leg and apply manual pressure. The patient is return in 1 week for reassessment. At present, we are to use a nonadhesive topical dressing such as Adaptic, with overlying gauze, and compression by means of a 3M 2 layer compression wrap. The goal is to avoid any adherence of the dressings to the bleeding site, to avoid further bleeding episodes. There may be a benefit to ultrasound-guided injection sclerotherapy of the veins in the region of the bleeding varicosity at some juncture in the near future. However, the patient's recent cerebrovascular accident and associated deficits complicates the issues related to management of his ulceration and bleeding potential. The fact that he is on Xarelto and hence is the risk of bleeding, and the likelihood that bleeding may be severe. We are to schedule the patient for ultrasound examination in the near future, to evaluate the venous anatomy in the area, as a prelude to possible injection sclerotherapy, either with liquid or foam sclerosant. Alternatively, surgical intervention may be warranted. However, given the patient's recent cerebrovascular accident and associated deficits, his management in regards to his right lower extremity venous pathology has been complicated. Several such sessions of injection sclerotherapy may be necessary. It is hoped that the procedures will reduce the high venous pressure in the area of the ulceration, diminish or abolish flow in the associated superficial vein, and allow for healing of the venous ulceration. Influenza vaccine was not administered today. The patient is not a smoker. Patient weighs 261 pounds. He stands 5 feet 8 inches tall. His BMI is 38.5, which places him in an obese class II category. Weight loss has been recommended, and collaboration with the patient's primary care physician has been recommended in terms of weight loss management.
--- NOTE | 2018-07-18 14:28 | VDLE_ITS ---
Reason For Study: varicose veins, venous HTN, bleeding from vein RIGHT GSV and ASV X2 are occluded. ASV in the calf is incompetent for greater than .5 seconds. ASV measures .312 x .328 cm. Sports Trainer V coming off of this ASV at 16 cm is ioncompetent for greater than .5 seconds. ASV at S2-S3 is incompetent for greater than .5 seconds. ASV measures .394 x .378 cm. Procedure Exam performed in department. The exam was diagnostic. Interpretation Summary The right great saphenous vein is occluded from the right sapheno-femoral junction to the distal calf, consistent with a prior endothermal ablation procedure. Two accessory saphenous veins, which were previously identified at the S5 and S6 positions, are now occluded, consistent with a prior endothermal ablation procedure. An incompetent accessory saphenous vein is noted in the right medial calf, which communicates with an incompetent strapping machine operator vein, which is located approximately 16 centimeters proximal to the right medial malleolus. An incompetent accessory saphenous vein is noted to originate at the S2-S3 position, and to extend distally to a site in proximity to an ulceration on the right alayna-medial calf. Ordering Physician: Nacho Franco Referring Physician: Nacho Franco Performed By: Augustine Adams, RVT
[2018-07-25 12:04] VITALS: BMI 38.0
== END 2018-07-30 23:59 ==
LOC: WC 09:15
PROVIDERS: Family Provider Family Medicine; PCP Family Medicine; Referring Provider Surgery; Visit Provider Surgery
DX: I83.212 Varicose veins of right lower extremity with both ulcer of calf and inflammation (principal); L97.219 Non-pressure chronic ulcer of right calf with unspecified severity; I48.2 Chronic atrial fibrillation; M54.16 Radiculopathy, lumbar region; E66.9 Obesity, unspecified; Z68.38 Body mass index [BMI] 38.0-38.9, adult; Z71.3 Dietary counseling and surveillance; R06.09 Other forms of dyspnea; M79.89 Other specified soft tissue disorders; R32 Unspecified urinary incontinence; I69.351 Hemiplegia and hemiparesis following cerebral infarction affecting right dominant side; I69.398 Other sequelae of cerebral infarction; I69.320 Aphasia following cerebral infarction; H53.2 Diplopia
CPT/HCPCS: 29581; 93971; 99213; G0463

== ENCOUNTER 2018-07-31 11:41 | Outpatient (RCR) | payer MEDICARE, SELFPAY ==
[2018-07-31 00:54] VITALS: BP 97/54; PULSE 101; RESP 20; TEMP 36.5; BMI 38.5
[2018-07-31 13:19] VITALS: BP 125/67; PULSE 105; RESP 20; TEMP 37.2; BMI 38.5
--- NOTE | 2018-07-31 14:24 | PCM.WC.HP ---
(1) Aphasia complicating stroke Status: Chronic Current Visit: No (2) Atrial fibrillation Status: Chronic Current Visit: No Code(s): I48.91 - Unspecified atrial fibrillation (3) CVA (cerebral vascular accident) Status: Chronic Current Visit: No Code(s): I63.9 - Cerebral infarction, unspecified (4) Chronic venous hypertension (idiopathic) with ulcer and inflammation of bilateral lower extremity Status: Chronic Current Visit: Yes Code(s): I87.333 - Chronic venous hypertension (idiopathic) with ulcer and inflammation of bilateral lower extremity; L97.919 - Non-pressure chronic ulcer of unspecified part of right lower leg with unspecified severity; L97.929 - Non-pressure chronic ulcer of unspecified part of left lower leg with unspecified severity (5) Chronic venous hypertension with ulcer involving right side Status: Chronic Current Visit: Yes Code(s): I87.311 - Chronic venous hypertension (idiopathic) with ulcer of right lower extremity; L97.919 - Non-pressure chronic ulcer of unspecified part of right lower leg with unspecified severity (6) Chronic venous insufficiency Status: Chronic Current Visit: Yes Code(s): I87.2 - Venous insufficiency (chronic) (peripheral) (7) Exertional dyspnea Status: Chronic Current Visit: No Code(s): R06.09 - Other forms of dyspnea (8) Hemiparesis Status: Chronic Current Visit: No Code(s): G81.90 - Hemiplegia, unspecified affecting unspecified side (9) Incontinence of urine Status: Chronic Current Visit: No Code(s): R32 - Unspecified urinary incontinence (10) Lumbar radiculopathy Status: Chronic Current Visit: No Code(s): M54.16 - Radiculopathy, lumbar region (11) Obesity (BMI 35.0-39.9 without comorbidity) Status: Chronic Current Visit: No Code(s): E66.9 - Obesity, unspecified (12) Right leg swelling Status: Chronic Current Visit: Yes Code(s): M79.89 - Other specified soft tissue disorders (13) Spontaneous hemorrhage Status: Chronic Current Visit: Yes Code(s): K66.1 - Hemoperitoneum (14) Varicose veins with ulcer and inflammation Status: Chronic Current Visit: Yes Code(s): I83.209 - Varicose veins of unspecified lower extremity with both ulcer of unspecified site and inflammation; L97.909 - Non-pressure chronic ulcer of unspecified part of unspecified lower leg with unspecified severity (15) Venous ulcer of right leg Status: Chronic Current Visit: Yes Code(s): I83.019 - Varicose veins of right lower extremity with ulcer of unspecified site; L97.919 - Non-pressure chronic ulcer of unspecified part of right lower leg with unspecified severity History of Present Illness Chief Complaint: Chronic venous insufficiency, varicose veins with ulceration and inflammation, venous hypertension with ulceration, venous ulceration, leg swelling, spontaneous bleeding?right lower extremity History of Wound: This is a 77-year-old male who presented with a long-standing history of chronic venous disease. The patient has had varicose veins for many years. He has elected to forego any significant treatment related to his venous disease. He denies a history of thrombophlebitis, though his past medical records indicate a history, though vague and nonspecific. Approximately 2 months prior to his presentation, the patient developed a spontaneous ulceration on the medial aspect of his right calf. The site subsequently ruptured, and spontaneous bleeding occurred on more than 3 different occasions, each time with significant blood loss. On at least one occasion, the spontaneous bleeding occurred after taking a hot shower. The patient has required attention in the emergency department on several occasions. Patient was subsequently referred to the [facility] for definitive management. The patient relates swelling in his right leg which occurs typically at the end of each day. He sleeps on a flat mattress at night. He lies in a recumbent position often during the daytime. He is not very active. He is also noted to be obese. New to the patient's history is that he suffered a stroke on June 23, 2018. His manifestations included diplopia, dizziness, speech aphasia, and right-sided hemiparesis. The cause of the stroke was related to atrial fibrillation. The patient had refused to be placed on systemic anticoagulation therapy. Since that time, he has been started on Xarelto, which continues until the current time. Immediately following the patient's cerebrovascular accident, he was taken to the emergency department at [facility], then immediately transferred to [facility], where he remained the patient for 8 days. He was subsequently transferred to [facility], where he remains in the transitional care unit. His physician at the [facility] is Dr. Juan Bonner, and his primary care physician is Dr. Beckett in [place]. The patient is incontinent of urine, and has an indwelling Dixon catheter. Records from the patient's recent hospitalization have not been obtained. The patient underwent endovenous laser ablation of the right accessory saphenous vein at the S2 position, endovenous laser ablation of the right accessory saphenous vein of the anterior calf, endovenous laser ablation of the right accessory saphenous vein in the posterior calf, and endovenous laser ablation of the incompetent right calf fireworks assembler vein on July 25, 2018. A ligation and excision of varicose vein cluster of the right medial calf was also performed. Past Medical History Past Medical History: Chronic Problems (Last Reviewed 05/09/18 @ 15:51 by Heriberto Dempsey MD) CVA (cerebral vascular accident) (Chronic) Hemiparesis (Chronic) Incontinence of urine (Chronic) Aphasia complicating stroke (Chronic) Chronic venous insufficiency (Chronic) Varicose veins with ulcer and inflammation (Chronic) Chronic venous hypertension (idiopathic) with ulcer and inflammation of bilateral lower extremity (Chronic) Venous ulcer of right leg (Chronic) Spontaneous hemorrhage (Chronic) Atrial fibrillation (Chronic) Lumbar radiculopathy (Chronic) Obesity (BMI 35.0-39.9 without comorbidity) (Chronic) Exertional dyspnea (Chronic) Right leg swelling (Chronic) Chronic venous hypertension with ulcer involving right side (Chronic) Surgical History: no surgical history Allergies/Adverse Reactions: Allergies No Known Allergies Allergy (Verified 07/25/18 12:02) Home Medications: Ambulatory Orders Medication Instructions Recorded Multivitamin [Daily Multiple 1 ea PO DAILY 05/03/18 Vitamin] Docusate Sodium [Colace] 100 mg PO BID 07/11/18 Rivaroxaban [Xarelto] 20 mg PO QHS 07/11/18 Atorvastatin Calcium [Lipitor] 40 mg PO QHS 07/21/18 Metoprolol Succinate 25 mg PO BID 07/21/18 - Family History Paternal Family History: Family History (Last Reviewed 05/09/18 @ 15:51 by Heriberto Dempsey MD) Mother CVA (cerebral vascular accident) - - The patient's father at the age of 90 of old age. Patient's mother at age of 83 with a history of liver cancer. Smoking Status: Never smoker Tobacco Use: Non-smoker Review of Systems Constitutional: Denies: Chills, Fever, Weight Change Eyes: Denies: Pain, Vision Change HEENT: Denies: Difficulty Hearing, Difficulty Swallowing, Sinus Congestion Cardiovascular: Denies: Chest Pain, Palpitations Respiratory: Denies: Cough, Shortness of Breath Gastrointestinal: Denies: Diarrhea, Nausea, Vomiting Genitourinary: Denies: Dysuria, Hematuria Endocrine: Denies: Heat/ Cold Intolerance, Polydipsia, Polyuria Hematologic/ Lymphatic: Denies: Easy Bruising, Easy Bleeding - Physical Exam Vital Signs Temp Pulse Resp BP 98.9 F 105 H 20 H 125/67 H 07/31/18 13:19 07/31/18 13:19 07/31/18 13:19 07/31/18 13:19 General: Alert, Oriented x3, Cooperative, No apparent distress, Well developed, Well nourished HEENT: Atraumatic, PERRLA, EOMI, Normocephalic Oral: Moist Mucosa Neck: No JVD Lungs: Normal air movement Abdomen: Non-Distended Extremities: No clubbing, No cyanosis, No Calf Tenderness, - - Only minimal swelling and edema is noted in the right lower extremity. A bruise is noted on the right anterior ankle, likely related to the compression wrap which has been present on the patient's right lower extremity for the last week. The ulceration persists on the right anterior tibial surface, with a description which will be found under Debridement. There is no sign of infection or cellulitis. In general, the open ulceration is healthy in appearance. Scattered varicosities are noted in the lower extremities bilaterally. Skin: No rashes Wound Measurements and Assessment WC - Nurse 1 - General Ulcer Measurement Start: 07/31/18 13:19 Freq: Status: Active Protocol: Activity Type Activity Date Activity User E-Sign Co-Sign Detail Recorded Client Recorded Date Recorded By Document 07/31/18 13:19 DL [id number] 07/31/18 13:37 DL 07/31/18 13:19 Wound Center Nurse 1 [Ulcer Assessment] #1 Medial RLE -Photo Taken Yes -Exudate Amt None Present -Wound Margin Flat & Intact -Granulation Amt Small (1-33%) -Granulation Quality Red -Necrosis Amt None Present (0 %) -Structure Exposed N/A -Texture (Skylar-wound Skin Appearance) Localized Edema -Moisture (Skylar-wound Skin Appearance Dry/Scaly ) -Color (Skylar-wound Skin Appearance) Ecchymosis Hemosiderin Staining -Temperature (Skylar-wound Skin No Abnormality Appearance) (Pt Warm) -Tenderness on Palpation (Skylar-wound Yes Skin Appearance) -Ulcer Cleansing Wound Cleanser -Foul Odor after Cleansing No -Anesthetic Used 4% Lidocaine Solution [Edema Assessment] -Right Calf (cm) 36.5 -Right Ankle (cm) 22.5 Neurological: Cranial nerves II-XII grossly intact, Neuro grossly intact Psych/Mental Status: Normal Affect, Appropriate, Alert and oriented to time, place, person, mood and affect Debridement Note Laterality: Right - Anterior tibial surface No debridement was performed today. However, upon examination of the patient's ulceration on the right anterior tibial surface, it was seen that the Promogran which have been placed 1 week ago topically was firmly adherent to the patient's ulceration. An attempt was made to soak the topical dressing with sterile saline, and attempt to free it from the underlying ulceration. However, this maneuver did not fully free the Promogran from the ulcer surface. Therefore, the Promogran was physically removed, despite areas of adherence. Upon removing the Promogran, there was a small amount of bleeding from the ulcer bed. Manual pressure was applied for several minutes, but the bleeding continued. The patient, it is noted, remains on Xarelto, systemic anticoagulation. When gentle manual pressure did not fully eliminate the bleeding from specific area on the ulcer, silver nitrate was used topically. This, however, also failed to control the bleeding. Decision was then made to place a suture or 2 at the bleeding site, in an effort to control the bleeding. Only nonabsorbable sutures were available in our facility. Therefore, a 3-0 nylon was selected. 2 3-0 nylon sutures were placed after topical alcohol was applied, and lidocaine 2% was injected for the purpose of local anesthesia. Following the placement of the 2 3-0 nylon sutures, bleeding was controlled. Patient tolerated the procedure well. A layer of SurgiFoam was placed over the ulcer, followed by Adaptic, as a nonadhesive dressing, then gauze, and a 3M 2 layer compression wrap was applied to the right lower extremity up to the knee. Parmjit wrap was then applied from the knee up to the groin. As mentioned, the patient tolerated the procedure well, with little expressed discomfort. Ultimately, the patient was discharged, without any signs of further bleeding from the ulcer site in the right lower extremity. No debridement was completed today Assessment/Plan Active Problems (Last Reviewed 05/09/18 @ 15:51 by Heriberto Dempsey MD) Chronic venous insufficiency (Chronic) Varicose veins with ulcer and inflammation (Chronic) Chronic venous hypertension (idiopathic) with ulcer and inflammation of bilateral lower extremity (Chronic) Venous ulcer of right leg (Chronic) Spontaneous hemorrhage (Chronic) Right leg swelling (Chronic) Chronic venous hypertension with ulcer involving right side (Chronic) Assessment: This is a 77-year-old male with an apparent long-standing history of chronic venous disease. He has had varicose veins for many years, as well as chronic swelling in his right lower extremity. Also a question as to whether the patient may have a history of thrombophlebitis. Within the last several months, the patient has developed an ulceration on the right medial calf, and has had more than 3 episodes of spontaneous bleeding from the ulceration, prompting visits to the emergency department setting. Patient presented with recent medical records, which have been reviewed. In addition, laboratory results are available from the patient's primary care physician, the results of which have been reviewed. Results are as follows: Cholesterol 199, HDL cholesterol 57, HDL ratio 3.5, LDL cholesterol 121, sodium 140, potassium 4.3, chloride 104, calcium 9.4, alkaline phosphatase 96, AST 24, ALT 18, bilirubin 0.7, glucose 89, BUN 14, creatinine 0.72, protein 7.4, albumin 4.2. The date of these laboratory results is 02/10/2018. The patient has undergone a venous duplex examination on February 24, 2018. The right great saphenous vein was noted to be incompetent. Accessory saphenous veins in the right lower extremity at the S5 and S6 positions were also incompetent. An incompetent fireworks assembler vein was noted in the right calf, located 13 cm proximal to the right medial malleolus. A noninvasive lower extremity arterial study has been performed as well, revealing no evidence of significant arterial occlusive disease in the lower extremities. The patient underwent endovenous laser ablation of the right great saphenous vein, 2 accessory saphenous veins, and a venous tributary on May. A follow-up ablation procedure was performed on 07/25/2018, as described above, with ligation and excision of varicose vein cluster of the right alayna-medial medial calf. We are to continue with compression by means of a 3M 2 layer compression wrap, which will be changed weekly. Patient has been advised to elevate his lower extremities as much as possible. He is to continue sleeping on a flat mattress at night. He is to refrain from prolonged idle sitting. Patient will return in 1 week for reassessment. Plan: The patient and his family have been advised in the appropriate conservative measures regarding management of the patient's chronic venous disease. The patient has been encouraged to continue sleeping in a recumbent position, on a flat mattress. Leg elevation should be to heart level, or higher. Legs should be elevated even during daytime hours, as much as possible. Prolonged idle sitting has been discouraged. Weight loss has been encouraged. We are to continue compression to the right lower extremity by means of a 3M 2 layer compression wrap, which will be changed weekly. The current Adaptic and gauze dressing are to remain in place until the patient's follow-up visit in 1 week. Patient has been instructed that, in the event of additional bleeding from the site, he is to elevate his leg and apply manual pressure. The patient is return in 1 week for reassessment. At present, we are to use a nonadhesive topical dressing such as Adaptic, with overlying gauze, and compression by means of a 3M 2 layer compression wrap. The goal is to avoid any adherence of the dressings to the bleeding site, to avoid further bleeding episodes. However, the patient's recent cerebrovascular accident and associated deficits complicates the issues related to management of his ulceration and bleeding potential. The fact that he is on Xarelto and hence is the risk of bleeding, and the likelihood that bleeding may be severe. It is hoped that the recent endovenous laser ablation procedures will reduce the high venous pressure in the area of the ulceration, diminish or abolish flow in the associated superficial vein, and allow for healing of the venous ulceration. The results of the aforementioned venous ablation procedures are yet to be determined, though the seizures would be believed to have diminished the venous hypertension in the right lower extremity, and thus enhance the likelihood of healing of this ulceration. The patient will return in 1 week for reassessment. Influenza vaccine was not administered today. The patient is not a smoker. Patient weighs 261 pounds. He stands 5 feet 8 inches tall. His BMI is 38.5, which places him in an obese class II category. Weight loss has been recommended, and collaboration with the patient's primary care physician has been recommended in terms of weight loss management.
== END 2018-08-29 23:59 ==
LOC: WC 11:41
PROVIDERS: Family Provider Family Medicine; PCP Family Medicine; Referring Provider Surgery; Visit Provider Surgery
DX: I83.212 Varicose veins of right lower extremity with both ulcer of calf and inflammation (principal); L97.219 Non-pressure chronic ulcer of right calf with unspecified severity; I48.2 Chronic atrial fibrillation; I69.351 Hemiplegia and hemiparesis following cerebral infarction affecting right dominant side; R32 Unspecified urinary incontinence; M54.16 Radiculopathy, lumbar region; E66.9 Obesity, unspecified; Z71.3 Dietary counseling and surveillance; Z68.38 Body mass index [BMI] 38.0-38.9, adult; M79.89 Other specified soft tissue disorders
CPT/HCPCS: 99212; G0463